=== PATIENT | male | born 1960 | race Caucasian/White ===

== ENCOUNTER 2016-09-22 12:47 | Day surgery (SDC) | payer OTHER ==
[~2016-09-22 12:47] MED LIST: ADVA45AE INH; ALBU17I INH; BACL20TA PO; BUSP10 PO; CALC1TAB63 PO; CYCL5TAB PO; DOXA4TAB PO; DULC5TAB PO; GABA400C5 PO; HYDR200T3 PO; MAGN1SOL2 PO; METO10TA PO; MIRA33502 PO; MOBI7.5T PO; MULTTAB67 PO; OMEP40CA2 PO; PERC10TA26 PO; POLY119S PO; SENN8.6T81 PO; SPIR50TA PO; TAMS0.4C4 PO; TIZA4TAB PO; TRAM50TA PO; VENL75TA PO; VITA400C2 PO; ZOLP10TA3 PO; [UNRECOGNIZED DRUG - CODE] PR
[2016-09-22 13:25] VITALS: BP 155/92; PULSE 100; RESP 20; TEMP 98; O2SAT 100
--- NOTE | 2016-09-22 14:45 | RADRPT ---
EXAM DATE/TIME: 09/22/2016 13:21 [facility] COMPARISON: No previous studies available for comparison. INDICATIONS : Intra-abdominal swelling. MEDICAL HISTORY : Chronic obstructive pulmonary disease. Rheumatoid arthritis. Spinal cord injury. Raynaud's disease. scleroderma. gerd. etoh abuse. depression. SURGICAL HISTORY : Bilateral cataract surgery. L4-5 laminectomy. Right rotator cuff repair. Anterior cervical fusion. Ri ght hand ulcer surgery. Facetectomy and formamenotomy. C3-6 ACDF. Saphenous vein ablation. ENCOUNTER: Initial ACUITY: > 1 year PAIN SCORE: 0/10 LOCATION: Abdomen. AREA EVALUATED: Quadrants. FINDINGS: Imaging of the abdomen and pelvis was performed to evaluate for ascites for possible paracentesis. N o significant ascites is identified and therefore paracentesis was not performed. Cholelithiasis is n oted. CONCLUSION: 1. No ascites identified and therefore paracentesis was not performed. 2. Cholelithiasis. Cole Ojeda MD on September 22, 2016 at 14:42 Board Certified Radiologist. This report was verified electronically.
[2016-09-28] MEDS ORDERED: ACET-703 PO (10:54)
[2016-09-28] MEDS ORDERED: PERC5TAB12 PO (10:54)
[2016-09-28] MEDS ORDERED: BUPR100CR PO (10:54)
[2016-09-28] MEDS ORDERED: MISO200T PO (10:54)
[2016-09-28] MEDS ORDERED: MIRA33504 PO (10:54)
[2016-09-28] MEDS ORDERED: TAMS5CAP PO (10:54)
[2016-09-28] MEDS ORDERED: DULC100C PO (10:54)
[2016-09-28] MEDS ORDERED: BUSP15TA PO (10:54)
[2016-09-28] MEDS ORDERED: MONT10TA4 PO (10:54)
[2016-09-29] MEDS ORDERED: TIOT1AER2 INH (06:59)
[2016-09-29] MEDS ORDERED: MIRA33504 PO (06:59)
== END 2016-09-22 15:00 | disposition home or self-care (01) ==
LOC: HRAD 12:47 → HRIP 12:55 → HRAD 15:00
PROVIDERS: ATTEND Surgery Trauma Surgery
DX: R19.00 Intra-abdominal and pelvic swelling, mass and lump, unspecified site (principal)
CPT/HCPCS: 76705

== ENCOUNTER → 2016-09-29 | Day surgery (SDC) | payer OTHER ==
[~2016-09-29] VITALS: Ht 177.8 cm; Wt 102.3 kg
[~2016-09-29] MED LIST changes: +ACET-703 PO; +ACETAMINOPHEN 1000 MG/100 ML VIAL IV ONE; -ADVA45AE INH; -ALBU17I INH; +BUPIVACAINE/EPINEPHRINE 0.25% 50 ML VIAL ONE; +BUPR100CR PO; -BUSP10 PO; +BUSP15TA PO; +CHLORHEXIDINE GLUCONATE 2 % 1 PACK (2 CLOTHS) TOPICAL PRN; -CYCL5TAB PO; -DOXA4TAB PO; +DULC100C PO; -DULC5TAB PO; -HYDR200T3 PO; +INSULIN HUMAN REGULAR 1,000 UNITS/10 ML VIAL SQ PRN; +KETAMINE HCL 500 MG/5 ML VIAL ONE; +LACTATED RINGER'S 1000 ML IV PRN; +LIDOCAINE 1%/EPINEPHrine 1:100,000 SOLN 50 ML VIAL ONE; -MAGN1SOL2 PO; +METOPROLOL TARTRATE 25 MG TAB PO PRN; +MIDAZOLAM HCL 2 MG/2 ML VIAL ONE; -MIRA33502 PO; +MIRA33504 PO; +MISO200T PO; +MONT10TA4 PO; +NEOMYCIN/POLYMYXIN/BACITRACIN OINT 15 GM TUBE ONE; -PERC10TA26 PO; +PERC5TAB12 PO; -POLY119S PO; +POVIDONE IODINE 5% (ANTISEPSIS KIT) 4 APPLICATIONS EACH NARE PRN; +PROPOFOL 200 MG/20 ML AMP IV ONE; +SODIUM BICARBONATE 8.4% INJ 50 MEQ/50 ML SYR ONE; +SODIUM BICARBONATE 8.4% INJ 50 ML ONE; +SODIUM CHLORID 0.9% 500 ML IV PRN; +SODIUM CHLORIDE 0.9% INJ 100 ML ONE; -TAMS0.4C4 PO; +TAMS5CAP PO; +TIOT1AER2 INH; -TIZA4TAB PO; -TRAM50TA PO; -[UNRECOGNIZED DRUG - CODE] PR; +ceFAZolin INJ 1,000 MG VIAL ONE
[2016-09-29 07:05] VITALS: BP 134/94; PULSE 87; RESP 16; TEMP 97.7; O2SAT 97
--- NOTE | 2016-09-29 09:36 | HHI.PR ---
cc: Juan Lange MD Immediate Post Op Note Procedure Date: Sep 29, 2016 Pre Op Diagnosis: Xanthoma abdominal wall, increasing size Post Op Diagnosis: Same Surgeon: Juan Lange Block Sealer(s): Jonas Okeefe CFA Procedure: Wide excision right abdominal wall xanthoma Complications: None Specimen(s) removed: Right side abdominal wall mass 2 x 2 cm Estimated blood loss: <10 ml Anesthesia: General Drains: None IVF (600 ml) Patient to: SDS Patient Condition: Good Date/Time of Procedure: SEE SURGICAL CARE RECORD Juan Lange MD Sep 29, 2016 09:36
[2016-09-29 09:56] VITALS: BP 137/88; PULSE 87; RESP 18; TEMP 96.9; O2SAT 97
--- NOTE | 2016-09-29 16:50 | EKG ---
Date Performed: 09/29/2016 Time Performed: 06:54:28 PTAGE: 56 years EKG: Sinus rhythm WITH SINUS ARRHYTHMIA NORMAL ECG Compared to prior tracing no significant change PREVIOUS TRACING : 06/28/2012 08.09 DOCTOR: Amada Beverly Interpretating Date/Time 09/29/2016 16:49:16
--- NOTE | 2016-10-03 18:52 | MP ---
cc: JOVANY BADILLO,JUAN KUMAR,LOR Parisi D.O. DATE OF SURGERY: 09/29/2016 PROCEDURE Excision of xanthoma right upper abdomen 2 x 2 cm PREOPERATIVE DIAGNOSIS Xanthoma by shave biopsy. POSTOPERATIVE DIAGNOSIS Xanthoma by shave biopsy. ANESTHESIA TIVA. SURGEON Robby Lange MD. ESTIMATED BLOOD LOSS Less than 10 mL FLUIDS: 600 mL Crystalloid BUS GREASER: Shakila Lancaster CFA. COMPLICATIONS None. DRAINS: None. SPECIMEN Xanthoma with associated skin and subcutaneous tissue to pathology. PROCEDURE IN DETAIL The area in question was marked by the undersigned and confirmed by the patient in the holding area. He was then taken to the operating room and placed on the operating room table in the supine position. After an adequate level of IV anesthesia was achieved the abdomen was prepped and draped in the usual fashion. Time-out was taken confirming the correct patient, site and procedure to be performed. Skin and subcutaneous tissue was infiltrated with local anesthetic and an elliptical longitudinal incision was made around the lesion. Dissection was carried down through the subcutaneous tissue to the fascia. The lesion was peeled off of the anterior abdominal wall including the subcutaneous tissue very easily. When this was completed the specimen was oriented with silk suture and passed off the table. At least 1-1/2 to 2 cm margin was taken all the way around the specimen at the time of the specimen being in situ. When this had been completed all bleeding was meticulously controlled with electrocautery and small skin flaps were created. The wound was then able to be reapproximated with interrupted 2-0 Vicryl suture and the skin reinforced with 2-0 Prolene in a simple interrupted fashion externally. The wound was dressed with Neosporin, 4x4s were applied over this, and Medipore tape was used to secure the 4x4s. The patient was taken back to his room in stable condition. Sponge, needle and instrument counts were reported be correct. Juan Lange MD [facility] /4:43 PM /6:37 PM
== END | disposition home or self-care (01) ==
LOC: HSDC 06:05
PROVIDERS: ATTEND Surgery Trauma Surgery
DX: D48.5 Neoplasm of uncertain behavior of skin (principal); E75.5 Other lipid storage disorders; M33.10 Other dermatomyositis, organ involvement unspecified; I73.00 Raynaud's syndrome without gangrene; J44.9 Chronic obstructive pulmonary disease, unspecified; M48.06 Spinal stenosis, lumbar region
CPT/HCPCS: 00730; 22901; 88305; 93005; J0131; J0690; J2250; J7120; 88307

== ENCOUNTER 2017-06-09 19:05 | Inpatient (IN) | payer OTHER, MEDICARE ==
[~2017-06-09] VITALS: Ht 177.8 cm; Wt 101.1 kg
[~2017-06-09 19:05] MED LIST changes: -ACET-703 PO; -ACETAMINOPHEN 1000 MG/100 ML VIAL IV ONE; -BUPIVACAINE/EPINEPHRINE 0.25% 50 ML VIAL ONE; -CHLORHEXIDINE GLUCONATE 2 % 1 PACK (2 CLOTHS) TOPICAL PRN; +CYTO200T PO; +DOXA4TAB3 PO; -INSULIN HUMAN REGULAR 1,000 UNITS/10 ML VIAL SQ PRN; -KETAMINE HCL 500 MG/5 ML VIAL ONE; -LACTATED RINGER'S 1000 ML IV PRN; -LIDOCAINE 1%/EPINEPHrine 1:100,000 SOLN 50 ML VIAL ONE; -METOPROLOL TARTRATE 25 MG TAB PO PRN; -MIDAZOLAM HCL 2 MG/2 ML VIAL ONE; +MIRA3350 PO; -MIRA33504 PO; -MISO200T PO; +MONT10TA2 PO; -NEOMYCIN/POLYMYXIN/BACITRACIN OINT 15 GM TUBE ONE; -POVIDONE IODINE 5% (ANTISEPSIS KIT) 4 APPLICATIONS EACH NARE PRN; -PROPOFOL 200 MG/20 ML AMP IV ONE; -SENN8.6T81 PO; +SENO8.6T5 PO; -SODIUM BICARBONATE 8.4% INJ 50 MEQ/50 ML SYR ONE; -SODIUM BICARBONATE 8.4% INJ 50 ML ONE; -SODIUM CHLORID 0.9% 500 ML IV PRN; -SODIUM CHLORIDE 0.9% INJ 100 ML ONE; -VITA400C2 PO; -ceFAZolin INJ 1,000 MG VIAL ONE
[2017-06-09 19:08] VITALS: BP 136/93; PULSE 118; RESP 24; TEMP 98; O2SAT 95
[2017-06-09] MEDS ORDERED: ALBU0.63 NEB (19:40)
[2017-06-09] MEDS ORDERED: RESP: ALBUTEROL 2.5 MG/IPRATROPIUM 0.5 MG NEB (SCH) INH ONE (19:45)
[2017-06-09] MEDS ORDERED: SODIUM CHLORIDE 0.9% FLUSH 10 ML FLUSH IVF PRN (19:45)
[2017-06-09 19:51] VITALS: O2SAT 93
--- NOTE | 2017-06-09 19:51 | PD ---
HPI Chief Complaint: Respiratory Symptoms Time Seen by Provider: 19:39 Travel History International Travel<30 days: No Contact w/Intl Traveler<30days: No Traveled to known affect area: No History of Present Illness HPI 57-year-old male presents to the emergency department by private transportation for complaint of one week of progressively worsening shortness of breath at rest on exertion without orthopnea. Patient's had no fever but has had productive cough of thick yellow sputum. Patient has history of COPD. Patient is not on supplemental oxygen. 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 Patient is able to ambulate with assistance of walker/cane, patient also has history of scleroderma, Raynaud's rheumatoid arthritis, and hypertension. Patient denies any known cardiac disease, denies CAD CHF, dyslipidemia, or diabetes. Positive tobacco use and alcohol use. Patient is currently not on steroid therapy. Patient has used home inhalers and nebulized treatments without symptomatic relief. Patient denies chest pain or pleuritic chest pain or chest wall pain. Patient has had no fever or chills. No recent long distance travel protracted bedrest or surgical procedure. Patient has chronic bilateral lower extremity lower leg and pedal edema that has not increased or worsened and has no associated lower extremity pain. Patient's had no recent injury or fall. Patient did have influenza vaccine this fall. Patient reports "I feel dehydrated", reports poor oral intake of fluids. PFSH Past Medical History Narrative Medical Rheumatoid arthritis scleroderma Raynaud's COPD GERD diaphragm partial paralysis neck injury with sequela spinal stenosis hypertension dental extraction abdominal wall mass excision-benign tobacco use alcohol use; nursing notes reviewed Arthritis: Yes (RA) Autoimmune Disease: Yes (REYNAUODS DISEASE) Depression: Yes Cancer: No Cardiovascular Problems: No COPD: Yes Diabetes: No Diminished Hearing: No Endocrine: No Gastrointestinal Disorders: Yes (HEMMORHOIDS, DIVERTICOLOSIS) Glaucoma: No Hepatitis: No Hiatal Hernia: No Hypertension: Yes Immune Disorder: Yes (SCLERDERMA) Medical other: Yes (raynauds, PARTIAL PARALYSIS OF DIAPHRAGM, BOWEL AND BLADDER ) Musculoskeletal: Yes (R ROTATOR CUFF PAIN, SPINAL STENOSIS, OA) Neurologic: Yes (RA) Psychiatric: Yes (DEPRESSION, CLAUSTOPHOBIA) Respiratory: Yes Thyroid Disease: No Tetanus Vaccination: > 5 Years Influenza Vaccination: Yes Past Surgical History Abdominal Surgery: No Body Medical Devices: N/A Cardiac Surgery: No Ear Surgery: No Eye Surgery: Yes (right eye CATARACT X 2 ) Genitourinary Surgery: No Gynecologic Surgery: No Joint Replacement: No Neurologic Surgery: Yes Oral Surgery: Yes (TEETH EXTRACTIONS) Pacemaker: No Thoracic Surgery: No Other Surgery: Yes (RIGHT HAND, PENILE SURGERY FOR REMOVAL OF WARTS) Social History Alcohol Use: Yes (daily beer six pack) Tobacco Use: Yes (1ppd) Substance Use: No Allergies-Medications (Allergen,Severity, Reaction): Coded Allergies: mupirocin (Unverified Adverse Reaction, Severe, ERYTHEMA, 06/09/17) ERYTHEMA *MDRO Multi-Drug Resistant Organism (Verified Adverse Reaction, Unknown, 06/09/17) MRSA (wound)-08/06/07 Uncoded Allergies: Colored Coban and Iodoform Gauze (Allergy, Severe, 10/24/11) GENTAMICIN CREAM (Allergy, Severe, REDNESS, PAIN,SWELLING, 10/24/11) altabax (Adverse Reaction, Severe, pain on application, 04/28/08) Reported Meds & Prescriptions Reported Meds & Active Scripts Active Reported Albuterol Neb (Albuterol Sulfate) 0.63 Mg/3 Ml Neb 0.63 Mg NEB Q4HR NEB PRN Dulcolax Stool Softener (Docusate Sodium) 100 Mg Cap 100 Mg PO BID Senokot (Sennosides) 8.6 Mg Tab 8.6 Mg PO BID Miralax Powder (Polyethylene Glycol 3350 Powder) 17 Gm Powd 17 Gm PO DAILY Mix and dissolve one measuring cap-ful (17 grams) in water or juice. Cytotec (Misoprostol) 200 Mcg Tab 200 Mcg PO TID Doxazosin (Doxazosin Mesylate) 4 Mg Tab 4 Mg PO DAILY Spiriva Respimat Inh (Tiotropium Inh) 1.25 Mcg/Act Aero 1 Puff INH DAILY 1.25 mcg = 1 inhalation Dulcolax Stool Softener (Docusate Sodium) 100 Mg Cap 100 Mg PO BID Wellbutrin SR 12 HR (Bupropion HCl) 100 Mg Tab 100 Mg PO Q12HR Buspirone (Buspirone HCl) 15 Mg Tab 15 Mg PO BID Percocet (Oxycodone-Acetaminophen) 5-325 mg Tab 2 Tab PO TID PRN Montelukast (Montelukast Sodium) 10 Mg Tab 10 Mg PO BID Flomax (Tamsulosin HCl) 0.4 Mg Cap 0.4 Mg PO HS Baclofen 20 Mg Tab 20 Mg PO BID Calcium 600+D3 (Calcium Carbonate-Cholecalciferol) 1 Tab Tab 1 Tab PO DAILY Gabapentin 400 Mg Cap 600 Cap PO TID Mobic (Meloxicam) 7.5 Mg Tab 7.5 Mg PO DAILY Metoclopramide (Metoclopramide HCl) 10 Mg Tab 10 Mg PO BID Multiple Vitamin 1 Tab 1 Tab PO DAILY Omeprazole 40 Mg Cap 40 Mg PO DAILY Spironolactone 50 Mg Tab 50 Mg PO DAILY Effexor (Venlafaxine HCl) 75 Mg Tab 75 Mg PO TID Zolpidem (Zolpidem Tartrate) 10 Mg Tab 10 Mg PO HS Review of Systems Except as stated in HPI: all other systems reviewed are Neg General / Constitutional: No: Fever, Chills HENT: No: Congestion Cardiovascular: No: Chest Pain or Discomfort, Diaphoresis Respiratory: Positive: Cough, Shortness of Breath, Wheezing, No: Hemoptysis, Pleuritic Pain Gastrointestinal: No: Nausea, Vomiting, Diarrhea, Abdominal Pain Genitourinary: Positive: Decreased Urinary Output Skin: No Rash Neurologic: Positive: Weakness Psychiatric: No: Anxiety Hematologic/Lymphatic: No: Easy Bruising Physical Exam Narrative GENERAL: Well-developed well-nourished disheveled male in mild respiratory distress with minimal work of breathing sitting on exam stretcher. SKIN: Warm and dry. HEAD: Normocephalic. EYES: No scleral icterus. No injection or drainage. NECK: Supple, trachea midline. No JVD or lymphadenopathy. CARDIOVASCULAR: Increased Regular rate and rhythm without murmurs, gallops, or rubs. RESPIRATORY: Breath sounds patchy diminished breath sounds bilaterally. No accessory muscle use. GASTROINTESTINAL: Abdomen soft, non-tender, nondistended. MUSCULOSKELETAL: No cyanosis, bilateral lower leg and pedal edema; palpable dorsalis pedis pulses bilaterally. BACK: Nontender without obvious deformity. No CVA tenderness. Data Data Last Documented VS Vital Signs Date Time Temp Pulse Resp B/P (MAP) Pulse Ox O2 Delivery O2 Flow Rate FiO2 06/09/17 20:12 93 Nasal Cannula 1.00 06/09/17 20:12 06/09/17 19:08 98.0 118 24 Orders Orders Complete Blood Count With Diff (06/09/17 19:41) Comprehensive Metabolic Panel (06/09/17 19:41) B-Type Natriuretic Peptide (06/09/17 19:41) Magnesium (Mg) (06/09/17 19:41) Ckmb (Isoenzyme) Profile (06/09/17 19:41) Troponin I (06/09/17 19:41) Urinalysis - C+S If Indicated (06/09/17 19:41) Blood Culture (06/09/17 19:41) Iv Access Insert/Monitor (06/09/17:41) Electrocardiogram (06/09/17 19:41) Ecg Monitoring (06/09/17 19:41) Oximetry (06/09/17 19:41) Oxygen Administration (06/09/17 19:41) Chest, Single Ap (06/09/17 19:41) Sodium Chloride 0.9% Flush (Ns Flush) (06/09/17 19:45) Albuterol-Ipratropium Neb (Duoneb Neb) (06/09/17 19:45) Lactic Acid (06/09/17 19:41) Furosemide Inj (Lasix Inj) (06/09/17 20:15) D-Dimer (06/09/17 22:02) Place In Observation (06/09/17 ) Vital Signs (Adult) Q4H (06/09/17 22:09) Activity Oob With Assistance (06/09/17 22:09) Bedside Glucose NA.CSUGAR (06/09/17 22:09) Sodium Chloride 0.9% Flush (Ns Flush) (06/09/17 22:15) Sodium Chloride 0.9% Flush (Ns Flush) (06/10/17 09:00) Acetaminophen (Tylenol) (06/09/17 22:15) Ondansetron Inj (Zofran Inj) (06/09/17 22:15) Basic Metabolic Panel (Bmp) (06/10/17 06:00) Complete Blood Count With Diff (06/10/17 06:00) Resp Oxygen Ricardo C Titrat 1-4 L (06/09/17 ) Case Management Consult (06/09/17 22:09) Heparin Inj (Heparin Inj) (06/09/17 22:15) Naloxone Inj (Narcan Inj) (06/09/17 22:15) Docusate Sodium-Senna (Jasmine-Colace) (06/10/17 09:00) Magnesium Hydroxide Liq (Milk Of Magnesi (06/09/17 22:15) Sennosides (Senokot) (06/09/17 22:15) Bisacodyl Supp (Dulcolax Supp) (06/09/17 22:15) Lactulose Liq (Lactulose Liq) (06/09/17 22:15) Furosemide Inj (Lasix Inj) (06/10/17 09:00) Albuterol-Ipratropium Neb (Duoneb Neb) (06/09/17 22:15) Admit Order (Ed Use Only) (06/09/17 ) Supervisor Glycerin / Telemetry NA.Q8H (06/09/17 22:13) Diet Heart Healthy (06/10/17 Breakfast) Activity Oob With Assistance (06/09/17 22:13) Notify Dr: Other (06/09/17 22:13) Ceftriaxone Inj (Rocephin Inj) (06/09/17 22:15) Methylprednisolone So Succ Inj (Solumedr (06/09/17 22:15) Labs Laboratory Tests Test 06/09/17 20:00 06/09/17 20:06 White Blood Count 7.8 TH/MM3 Red Blood Count 4.97 MIL/MM3 Hemoglobin 14.1 GM/DL Hematocrit 42.5 % Mean Corpuscular Volume 85.5 FL Mean Corpuscular Hemoglobin 28.4 PG Mean Corpuscular Hemoglobin Concent 33.2 % Red Cell Distribution Width 13.6 % Platelet Count 240 TH/MM3 Mean Platelet Volume 7.3 FL Neutrophils (%) (Auto) 78.0 % Lymphocytes (%) (Auto) 9.2 % Monocytes (%) (Auto) 11.2 % Eosinophils (%) (Auto) 1.0 % Basophils (%) (Auto) 0.6 % Neutrophils # (Auto) 6.1 TH/MM3 Lymphocytes # (Auto) 0.7 TH/MM3 Monocytes # (Auto) 0.9 TH/MM3 Eosinophils # (Auto) 0.1 TH/MM3 Basophils # (Auto) 0.0 TH/MM3 CBC Comment DIFF FINAL Differential Comment Blood Urea Nitrogen 5 MG/DL Creatinine 0.85 MG/DL Random Glucose 123 MG/DL Total Protein 8.3 GM/DL Albumin 3.4 GM/DL Calcium Level 8.8 MG/DL Magnesium Level 1.8 MG/DL Alkaline Phosphatase 183 U/L Aspartate Amino Transf (AST/SGOT) 20 U/L Alanine Aminotransferase (ALT/SGPT) 20 U/L Total Bilirubin 0.3 MG/DL Sodium Level 133 MEQ/L Potassium Level 4.3 MEQ/L Chloride Level 99 MEQ/L Carbon Dioxide Level 26.9 MEQ/L Anion Gap 7 MEQ/L Estimat Glomerular Filtration Rate 94 ML/MIN Total Creatine Kinase 99 U/L Troponin I 0.03 NG/ML B-Type Natriuretic Peptide 15 PG/ML Lactic Acid Level 1.1 mmol/L [facility] Medical Decision Making Medical Screen Exam Complete: Yes Emergency Medical Condition: Yes Medical Record Reviewed: Yes Interpretation(s) EKG: Sinus tachycardia rate [address] elevation injury pattern or ectopy noted cxr: Large left pleural effusion small right pleural effusion with scarring question infiltrate vascular congestion Differential Diagnosis Dyspnea, exacerbation COPD, bronchitis, pneumonia, CHF, PE, pneumonitis, ACS, arrhythmia, anemia, renal insufficiency, electrolyte disturbance, sepsis Narrative Course Patient placed on cardiac technologist with continuous pulse oximetry IV access obtained EKG ordered along with specimen collection chest x-ray and patient given DuoNeb after off times one Sepsis Criteria SIRS Criteria (2 or more): Heart rate over 90 (118), RR > 20 or PaCO2 < 32 (24 ) Physician Communication Physician Communication discussed with Dr Veena maria obs to her service Diagnosis Primary Impression: Dyspnea Additional Impressions: COPD (chronic obstructive pulmonary disease) CHF (congestive heart failure) Pleural effusion Bronchitis Jacqui Barnes MD Jun 09, 2017 19:51
--- NOTE | 2017-06-09 20:10 | RADRPT ---
EXAM DATE/TIME: 06/09/2017 19:52 [facility] COMPARISON: No previous studies available for comparison. INDICATIONS : Shortness of breath. MEDICAL HISTORY : Chronic obstructive pulmonary disease. Arthritis. Raynauds disease. SURGICAL HISTORY : Cervical fusion. Laminectomy. ENCOUNTER: Initial ACUITY: 2 days PAIN SCORE: 0/10 LOCATION: Bilateral chest FINDINGS: A single view of the chest demonstrates bilateral pleural effusions, left greater than right. Cardiom egaly. No pneumothorax. Mild edema pattern. CONCLUSION: 1. Cardiomegaly with bilateral effusions, left greater than right and mild edema pattern. Findings mo st characteristic of congestive heart failure. Oliverio Oneal MD on June 09, 2017 at 20:08 Board Certified Radiologist. This report was verified electronically.
[2017-06-09 20:12] VITALS: O2SAT 93
[2017-06-09] MEDS ORDERED: FUROSEMIDE 40 MG/4 ML VIAL IV PUSH ONE (20:15)
[2017-06-09 20:58] LABS: AUTOMATED NEUTROPHIL # 6.1 TH/MM3 (1.8-7.7); BASOPHIL % 0.6 % (0.0-2.0); EOSINOPHIL # 0.1 TH/MM3 (0-0.4); HEMATOCRIT 42.5 % (39.0-51.0); HEMO FLAGS DIFF FINAL; LYMPH % 9.2 % (9.0-44.0); LYMPHOCYTE # 0.7 TH/MM3 (1.0-4.8); MEAN CELL VOLUME 85.5 FL (80.0-100.0); MEAN CORPUSCULAR HEMOGLOBIN 28.4 PG (27.0-34.0); MEAN CORPUSCULAR HGB CONC 33.2 % (32.0-36.0); MONO % 11.2 % (0.0-8.0); PLATELET COUNT 240 TH/MM3 (150-450); RED BLOOD COUNT 4.97 MIL/MM3 (4.50-5.90); RED CELL DISTRIBUTION WIDTH 13.6 % (11.6-17.2); WHITE BLOOD COUNT 7.8 TH/MM3 (4.0-11.0)
[2017-06-09 21:12] LABS: ALT (GPT) 20 U/L (12-78)
[2017-06-09 21:16] LABS: ALKALINE PHOSPHATASE 183 U/L (45-117); TOTAL BILIRUBIN ADULT 0.3 MG/DL (0.2-1.0)
[2017-06-09 21:23] LABS: ANION GAP 7 MEQ/L (5-15); AST (GOT) 20 U/L (15-37); BICARBONATE 26.9 MEQ/L (21.0-32.0); BLOOD UREA NITROGEN 5 MG/DL (7-18); CHLORIDE 99 MEQ/L (98-107); GLOMERULAR FILTRATION RATE 94 ML/MIN (>89); MAGNESIUM 1.8 MG/DL (1.5-2.5); POTASSIUM 4.3 MEQ/L (3.5-5.1); SODIUM (NA) 133 MEQ/L (136-145)
[2017-06-09 21:25] LABS: CREATINE KINASE 99 U/L (39-308)
[2017-06-09] MEDS ORDERED: methylPREDNISolone SOD SUCC 125 MG/2 ML VIAL IV PUSH ONE (22:15)
[2017-06-09] MEDS ORDERED: SODIUM CHLORIDE 0.9% FLUSH 10 ML FLUSH IV FLUSH PRN (22:15)
[2017-06-09] MEDS ORDERED: RESP: ALBUTEROL 2.5 MG/IPRATROPIUM 0.5 MG NEB (PRN) NEB (22:15)
[2017-06-09] MEDS ORDERED: BISACODYL 10 MG SUPP RECTAL PRN (22:15)
[2017-06-09] MEDS ORDERED: ONDANSETRON HCL 4 MG/2 ML VIAL IVP PRN (22:15)
[2017-06-09] MEDS ORDERED: ACETAMINOPHEN 325 MG TAB PO PRN (22:15)
[2017-06-09] MEDS ORDERED: LACTULOSE SYRUP 20 GM/30 ML CUP PO PRN (22:15)
[2017-06-09] MEDS ORDERED: SENNOSIDES 8.6 MG TAB PO PRN (22:15)
[2017-06-09] MEDS ORDERED: NALOXONE HCL 0.4 MG/ML AMP IV PUSH PRN (22:15)
[2017-06-09] MEDS ORDERED: MAGNESIUM HYDROXIDE SUSP 30 ML CUP PO PRN (22:15)
[2017-06-09] MEDS ORDERED: cefTRIAXone INJ 1,000 MG in SODIUM CHLORIDE 0.9% INJ 100 ML IV ONE (22:15)
[2017-06-09] MEDS: HEPARIN SODIUM - SQ 10,000 UNITS/ML VIAL SQ SCH (23:00)
[2017-06-09 23:20] LABS: BLOOD, URINE NEG (NEG); COMMENT (UR) CULT NOT INDICATED; CULTURE IF INDICATED CULT NOT INDICATED; GLUCOSE,URINE NEG (NEG); KETONE, URINE TRACE mg/dL (NEG); NITRITE,URINE NEG (NEG); URINE COLOR YELLOW (YELLW/STRAW)
[2017-06-09] MEDS ORDERED: ZOLPIDEM TARTRATE 10 MG TAB PO PRN (23:45)
[2017-06-09 23:59] VITALS: BP 168/84; PULSE 87; RESP 18; TEMP 98.1; O2SAT 98
[2017-06-10] VITALS (12 sets, daily range): BP systolic 111–142; BP diastolic 63–92; PULSE 65–122; RESP 18; TEMP 97.4–98.7; O2SAT 93–100
[2017-06-10 02:42] LABS: BLOOD GAS BASE EXCESS 4.7 mmol/L (-2-2); BLOOD GAS CARBOXYHEMOGLOBIN 1.3 % (0-4); BLOOD GAS HCO3 29 mmol/L (22-26); BLOOD GAS METHEMOGLOBIN 0.7 % (0-2); BLOOD GAS O2 HGB SATURATION 95 % (90-100); BLOOD GAS PCO2 46 mmHg (38-42); BLOOD GAS PO2 88 mmHG (61-120); BLOOD GAS TOTAL HGB 13.5 G/DL (12.0-16.0)
[2017-06-10 02:43] LABS: CRITICAL VALUE NO; DRAW SITE RT RADIAL; LITER FLOW 4 L/M; NUMBER OF ARTERIAL PUNCTURES 1; OXYGEN DEVICE NASAL CANNULA; STAT YES; ULNAR PULSE PRESENT
--- NOTE | 2017-06-10 03:05 | HHI.HP ---
[facility] Primary Care Physician Non-Staff Admission Diagnosis dyspnea w/ copd; chf Diagnoses: Travel History International Travel<30 Days: No Contact w/Intl Traveler <30 Da: No Traveled to Known Affected Are: No History of Present Illness 57-year-old male with a past medical history significant for COPD not on home oxygen, GERD and peripheral vascular disease presents to the emergency department with shortness of breath. The patient is an extremely poor historian however reports that for the past week he has been short of breath. He endorses a nonproductive cough. He denies fever/chills. Chest x-ray significant for cardiomegaly with bilateral effusions, left greater than right and mild edema. Patient has no previous history of CHF, last echo done in 2011 showed an EF of 60-65%. BNP 15. Patient tachypneic with labored breathing. Oxygen saturation 93% on 1 L nasal cannula. Tachypneic to 118. Review of Systems Denies fever or chills Denies blurry vision, otorrhea, rhinorrhea Denies sore throat, positive cough No chest pain, palpitations, positive shortness of breath No abdominal pain Denies constipation/diarrhea/nausea/vomiting Denies muscle pain/weakness No rashes Past Family Social History Past Medical History (Obtained from medical records) GERD Osteoarthritis Degenerative disc disease BPH Depression COPD Peripheral vascular disease Peripheral neuropathy Chronic pain Past Surgical History Unspecified right hand surgery Right cataract surgery Saphenous vein ablation bilaterally Cervical fusion Reported Medications Reported Meds & Active Scripts Active Reported Albuterol Neb (Albuterol Sulfate) 0.63 Mg/3 Ml Neb 0.63 Mg NEB Q4HR NEB PRN Dulcolax Stool Softener (Docusate Sodium) 100 Mg Cap 100 Mg PO BID Senokot (Sennosides) 8.6 Mg Tab 8.6 Mg PO BID Miralax Powder (Polyethylene Glycol 3350 Powder) 17 Gm Powd 17 Gm PO DAILY Mix and dissolve one measuring cap-ful (17 grams) in water or juice. Cytotec (Misoprostol) 200 Mcg Tab 200 Mcg PO TID Doxazosin (Doxazosin Mesylate) 4 Mg Tab 4 Mg PO DAILY Spiriva Respimat Inh (Tiotropium Inh) 1.25 Mcg/Act Aero 1 Puff INH DAILY 1.25 mcg = 1 inhalation Dulcolax Stool Softener (Docusate Sodium) 100 Mg Cap 100 Mg PO BID Wellbutrin SR 12 HR (Bupropion HCl) 100 Mg Tab 100 Mg PO Q12HR Buspirone (Buspirone HCl) 15 Mg Tab 15 Mg PO BID Percocet (Oxycodone-Acetaminophen) 5-325 mg Tab 2 Tab PO TID PRN Montelukast (Montelukast Sodium) 10 Mg Tab 10 Mg PO BID Flomax (Tamsulosin HCl) 0.4 Mg Cap 0.4 Mg PO HS Baclofen 20 Mg Tab 20 Mg PO BID Calcium 600+D3 (Calcium Carbonate-Cholecalciferol) 1 Tab Tab 1 Tab PO DAILY Gabapentin 400 Mg Cap 600 Cap PO TID Mobic (Meloxicam) 7.5 Mg Tab 7.5 Mg PO DAILY Metoclopramide (Metoclopramide HCl) 10 Mg Tab 10 Mg PO BID Multiple Vitamin 1 Tab 1 Tab PO DAILY Omeprazole 40 Mg Cap 40 Mg PO DAILY Spironolactone 50 Mg Tab 50 Mg PO DAILY Effexor (Venlafaxine HCl) 75 Mg Tab 75 Mg PO TID Zolpidem (Zolpidem Tartrate) 10 Mg Tab 10 Mg PO HS Allergies: Coded Allergies: mupirocin (Unverified Adverse Reaction, Severe, ERYTHEMA, 06/09/17) ERYTHEMA *MDRO Multi-Drug Resistant Organism (Verified Adverse Reaction, Unknown, 06/09/17) MRSA (wound)-08/06/07 Uncoded Allergies: Colored Coban and Iodoform Gauze (Allergy, Severe, 10/24/11) GENTAMICIN CREAM (Allergy, Severe, REDNESS, PAIN,SWELLING, 10/24/11) altabax (Adverse Reaction, Severe, pain on application, 04/28/08) Family History Father with coronary artery disease Social History Quit tobacco 11 months ago, smoked 1 pack per day 20 years. Quit alcohol 5 years ago. Denies marijuana or illicit drugs. Physical Exam Vital Signs Vital Signs Date Time Temp Pulse Resp B/P (MAP) Pulse Ox O2 Delivery O2 Flow Rate FiO2 06/10/17 01:20 116 06/09/17 23:59 98.1 87 18 168/84 (112) 98 06/09/17 23:01 06/09/17 20:12 93 Nasal Cannula 1.00 06/09/17 20:12 93 Nasal Cannula 06/09/17 19:51 93 21 06/09/17 19:08 98.0 118 24 136/93 (107) 95 Room Air Physical Exam GENERAL: male sitting up in bed in moderate distress SKIN: No rashes, ecchymoses or lesions. Cool and dry. HEAD: Atraumatic. Normocephalic. No temporal or scalp tenderness. EYES: Pupils equal round and reactive. Extraocular motions intact. No scleral icterus. No injection or drainage. ENT: Nose without bleeding, purulent drainage or septal hematoma. Throat without erythema, tonsillar hypertrophy or exudate. Uvula midline. Airway patent. NECK: Trachea midline. No JVD or lymphadenopathy. Supple, nontender, no meningeal signs. CARDIOVASCULAR: Regular rate and rhythm without murmurs, gallops, or rubs. RESPIRATORY: Diminished breath sounds bilaterally with crackles in the bases. GASTROINTESTINAL: Abdomen soft, non-tender, nondistended. No hepato-splenomegaly , or palpable masses. No guarding. MUSCULOSKELETAL: Extremities without clubbing, cyanosis, or edema. No joint tenderness, effusion, or edema noted. No calf tenderness. NEUROLOGICAL: Awake and alert. Cranial nerves II through XII intact. Motor and sensory grossly within normal limits. Normal speech. Laboratory Laboratory Tests Test 06/09/17 20:00 06/09/17 20:06 06/09/17 22:45 06/10/17 02:30 White Blood Count 7.8 Red Blood Count 4.97 Hemoglobin 14.1 Hematocrit 42.5 Mean Corpuscular Volume 85.5 Mean Corpuscular Hemoglobin 28.4 Mean Corpuscular Hemoglobin Concent 33.2 Red Cell Distribution Width 13.6 Platelet Count 240 Mean Platelet Volume 7.3 Neutrophils (%) (Auto) 78.0 Lymphocytes (%) (Auto) 9.2 Monocytes (%) (Auto) 11.2 Eosinophils (%) (Auto) 1.0 Basophils (%) (Auto) 0.6 Neutrophils # (Auto) 6.1 Lymphocytes # (Auto) 0.7 Monocytes # (Auto) 0.9 Eosinophils # (Auto) 0.1 Basophils # (Auto) 0.0 CBC Comment DIFF FINAL Differential Comment Blood Urea Nitrogen 5 Creatinine 0.85 Random Glucose 123 Total Protein 8.3 Albumin 3.4 Calcium Level 8.8 Magnesium Level 1.8 Alkaline Phosphatase 183 Aspartate Amino Transf (AST/SGOT) 20 Alanine Aminotransferase (ALT/SGPT) 20 Total Bilirubin 0.3 Sodium Level 133 Potassium Level 4.3 Chloride Level 99 Carbon Dioxide Level 26.9 Anion Gap 7 Estimat Glomerular Filtration Rate 94 Total Creatine Kinase 99 Troponin I 0.03 B-Type Natriuretic Peptide 15 Lactic Acid Level 1.1 Urine Color YELLOW Urine Turbidity CLEAR Urine pH 6.0 Urine Specific [place] 1.007 Urine Protein NEG Urine Glucose (UA) NEG Urine Ketones TRACE Urine Occult Blood NEG Urine Nitrite NEG Urine Bilirubin NEG Urine Urobilinogen LESS THAN 2.0 Urine Leukocyte Esterase NEG Urine RBC 2 Urine WBC LESS THAN 1 Microscopic Urinalysis Comment CULT NOT INDICATED Blood Gas Puncture Site RT RADIAL Blood Gas Patient Temperature 37.0 Blood Gas HCO3 29 Blood Gas Base Excess 4.7 Blood Gas Oxygen Saturation 95 Arterial Blood pH 7.42 Arterial Blood Partial Pressure CO2 46 Arterial Blood Partial Pressure O2 88 Arterial Blood Oxygen Content 18.0 Arterial Blood Carboxyhemoglobin 1.3 Arterial Blood Methemoglobin 0.7 Blood Gas Hemoglobin 13.5 Oxygen Delivery Device NASAL CANNULA Blood Gas Liter Flow 4 Date/Time Source Procedure Growth Status 06/09/17 20:00 Blood Peripheral Aerobic Blood Culture Pending Received 06/09/17 20:00 Blood Peripheral Anaerobic Blood Culture Pending Received Result Diagram: 06/09/17199906/09/171999 Caprini VTE Risk Assessment Caprini VTE Risk Assessment: Mod/High Risk (score >= 2) Caprini Risk Assessment Model Point Value = 1 Point Value = 2 Point Value = 3 Point Value = 5 Age 41-60 Minor surgery BMI > 25 kg/m2 Swollen legs Varicose veins or History of unexplained or recurrent spontaneous Oral contraceptives or hormone replacement Sepsis (< 1 month) Serious lung disease, including pneumonia (< 1 month) Abnormal pulmonary function Acute myocardial infarction Congestive heart failure (< 1 month) History of inflammatory bowel disease Medical patient at bed rest Age 61-74 Arthroscopic surgery Major open surgery (> 45 min) Laparoscopic surgery (> 45 min) Malignancy Confined to bed (> 72 hours) Immobilizing plaster cast Central venous access Age >= 75 History of VTE Family history of VTE Factor V Leiden Prothrombin [id number] Lupus anticoagulant Anticardiolipin antibodies Elevated serum homocysteine Heparin-induced thrombocytopenia Other congenital or acquired thrombophilia Stroke (< 1 month) Elective arthroplasty Hip, pelvis, or leg fracture Acute spinal cord injury (< 1 month) Prophylaxis Regimen Total Risk Factor Score Risk Level Prophylaxis Regimen 0-1 Low Early ambulation 2 Moderate Order ONE of the following: *Sequential Compression Device (SCD) *Heparin 5000 units SQ BID 3-4 Higher Order ONE of the following medications: *Heparin 5000 units SQ TID *Enoxaparin/Lovenox 40 mg SQ daily (WT < 150 kg, CrCl > 30 mL/min) *Enoxaparin/Lovenox 30 mg SQ daily (WT < 150 kg, CrCl > 10-29 mL/min) *Enoxaparin/Lovenox 30 mg SQ BID (WT < 150 kg, CrCl > 30 mL/min) AND/OR *Sequential Compression Device (SCD) 5 or more Highest Order ONE of the following medications: *Heparin 5000 units SQ TID (Preferred with Epidurals) *Enoxaparin/Lovenox 40 mg SQ daily (WT < 150 kg, CrCl > 30 mL/min) *Enoxaparin/Lovenox 30 mg SQ daily (WT < 150 kg, CrCl > 10-29 mL/min) *Enoxaparin/Lovenox 30 mg SQ BID (WT < 150 kg, CrCl > 30 mL/min) AND *Sequential Compression Device (SCD) Assessment and Plan Assessment and Plan Assessment/plan: 1. Respiratory distress Patient with history of COPD, not on home oxygen Continue Spiriva Duo nebs Chest x-ray showed cardiomegaly, bilateral pleural effusions and pulmonary edema. Concern for new onset CHF. Echo pending IV Lasix Supplemental oxygen to maintain saturation at 92% 2. Chronic pain/peripheral neuropathy Continue home gabapentin, mobic 3. Depression/anxiety Continue BuSpar, Effexor 4. BPH Continue home doxazosin, Flomax 5. History of bilateral lower extremity edema Continue home spironolactone FEN Heart healthy Electrolytes: monitor and replete prn Heparin Case discussed with the ER physician at length Arielle Curiel MD Jun 10, 2017 03:05
[2017-06-10 05:14] LABS: BASOPHIL % 0.3 % (0.0-2.0); EOSINOPHIL % 0.1 % (0.0-4.0); HEMO FLAGS DIFF FINAL; LYMPH % 3.3 % (9.0-44.0); LYMPHOCYTE # 0.3 TH/MM3 (1.0-4.8); MEAN CELL VOLUME 84.8 FL (80.0-100.0); MEAN CORPUSCULAR HEMOGLOBIN 28.7 PG (27.0-34.0); MEAN CORPUSCULAR HGB CONC 33.9 % (32.0-36.0); MONO % 1.8 % (0.0-8.0); NEUT % 94.5 % (16.0-70.0); PLATELET COUNT 242 TH/MM3 (150-450); RED CELL DISTRIBUTION WIDTH 13.6 % (11.6-17.2); WHITE BLOOD COUNT 8.4 TH/MM3 (4.0-11.0)
[2017-06-10 05:40] LABS: BICARBONATE 27.8 MEQ/L (21.0-32.0); POTASSIUM 4.1 MEQ/L (3.5-5.1)
[2017-06-10] MEDS: HEPARIN SODIUM - SQ 10,000 UNITS/ML VIAL SQ SCH ×3 (06:09→20:13)
[2017-06-10] MEDS: SODIUM CHLORIDE 0.9% FLUSH 10 ML FLUSH IV FLUSH SCH ×2 (08:04→20:14)
[2017-06-10] MEDS: GABAPENTIN 300 MG CAP PO SCH ×3 (08:04→17:43)
[2017-06-10] MEDS: SPIRONOLACTONE 50 MG TAB PO SCH (08:04)
[2017-06-10] MEDS: VENLAFAXINE HCL XR 75 MG CAP PO SCH (08:04)
[2017-06-10] MEDS: FUROSEMIDE 40 MG/4 ML VIAL IV PUSH SCH ×2 (08:04→17:43)
[2017-06-10] MEDS: PANTOPRAZOLE SOD 40 MG DELAYED RELEASE TAB PO SCH (08:05)
[2017-06-10] MEDS: busPIRone HCL 10 MG TAB PO SCH ×2 (08:05→20:15)
[2017-06-10] MEDS: METOCLOPRAMIDE HCL 10 MG TAB PO SCH ×2 (08:05→20:14)
[2017-06-10] MEDS: DOXAZOSIN MESYLATE 4 MG TAB PO SCH (08:05)
[2017-06-10] MEDS: DOCUSATE SODIUM 50 MG/SENNA 8.6 MG TAB PO SCH ×2 (08:05→20:14)
[2017-06-10] MEDS ORDERED: TIOTROPIUM BROMIDE 18 MCG INH INH SCH (09:00)
[2017-06-10] MEDS ORDERED: NON-FORMULARY DRUG (Venlafaxine (Effexor) 75 MG) PO SCH (09:00)
[2017-06-10] MEDS: BACLOFEN 20 MG TAB PO SCH ×2 (10:38→20:14)
[2017-06-10] MEDS: MELOXICAM 7.5 MG TAB PO SCH (10:39)
[2017-06-10] MEDS: MISOPROSTOL 200 MCG TAB PO SCH ×3 (10:39→17:42)
[2017-06-10] MEDS: buPROPion HCL 100 MG SUSTAINED RELEASE TAB PO SCH ×2 (10:40→20:15)
--- NOTE | 2017-06-10 11:18 | HHI.PR ---
Addendum to Inpatient Note Addendum Reason: Additional Documentation Additional Information The patient was breathing comfortably. He endorses mucous production recently. D-dimer was elevated so a CTA pulmonary angiogram has been ordered. Add IV Levaquin and obtain a sputum culture and Gram stain. Encourage incentive spirometry and ambulation. Discussed with family. Juan Mai DO Jun 10, 2017 11:17
[2017-06-10] MEDS: LEVOFLOXACIN 750 MG PREMIX INJ 150 ML IV SCH (11:52)
[2017-06-10] MEDS: predniSONE 20 MG TAB PO SCH ×2 (11:52→20:14)
[2017-06-10] MEDS: oxyCODONE/ACETAMINOPHEN 5 MG/325 MG TAB PO PRN ×3 (11:52→22:29)
[2017-06-10] MEDS ORDERED: IOHEXOL 350 MG/ML 10 ML VIAL (for RAD DIAG) IVCONTRAST ONE (12:44)
--- NOTE | 2017-06-10 13:00 | RADRPT ---
EXAM DATE/TIME: 06/10/2017 12:31 [facility] COMPARISON: No previous studies available for comparison. INDICATIONS : Embolism, dyspnea. IV CONTRAST: 70 cc Omnipaque 350 (iohexol) IV RADIATION DOSE: 20.64 CTDIvol (mGy) MEDICAL HISTORY : Chronic obstructive pulmonary disease. Congestive heart failure. Spinal cord injury, raynards, ETOH a buse. SURGICAL HISTORY : lspine, c spine ENCOUNTER: Initial ACUITY: 1 day PAIN SCALE: 6/10 LOCATION: chest TECHNIQUE: Volumetric scanning of the chest was performed using a pulmonary embolism protocol MIP images were re constructed. Using automated exposure control and adjustment of the mA and/or kV according to patien t size, radiation dose was kept as low as reasonably achievable to obtain optimal diagnostic quality images. DICOM format image data is available electronically for review and comparison. Follow-up recommendations for detected pulmonary nodules are based at a minimum on nodule size and pa tient risk factors according to Fleischner Society Guidelines. FINDINGS: No pulmonary embolus is demonstrated. However, there is a left infrahilar mass and with associated de nse consolidation of the left lower lobe. Differentiating mass from the consolidated lung is difficul t but the mass is estimated at roughly 3.9 x 5.2 x 4.6 cm. There is associated left lower lobe bronch ial and pulmonary artery stenosis. Scattered pulmonary nodules are demonstrated on both sides measuring between 0.5 and 2.5 cm comp atible with metastatic disease. There are numerous mediastinal lymph nodes as well measuring up to 1 cm in greatest short axis dimension. An area of dense consolidation concerning for pneumonia seen in the right lower lobe. There are small right and large left pleural effusions. Adrenal glands are within normal limits. CONCLUSION: 1. No pulmonary embolus. 2. Large left infrahilar mass of concern for a central primary bronchogenic carcinoma. There is assoc iated post obstructive pneumonia of the left lower lobe. Left lower lobe bronchus and pulmonary arter y are obstructed. 3. Widespread pulmonary metastatic disease. Also probable metastatic mediastinal lymphadenopathy 4. Right lower lobe pneumonia. 5. Small right and large left pleural effusions. Roney Shore MD on June 10, 2017 at 12:51 Board Certified Radiologist. This report was verified electronically.
--- NOTE | 2017-06-10 13:16 | EKG ---
Date Performed: 06/09/2017 Time Performed: 20:10:32 PTAGE: 57 years EKG: SINUS TACHYCARDIA WITH SHORT DE INTERVAL ABNORMAL RHYTHM ECG PREVIOUS TRACING : 09/29/2016 06.54 Since previous tracing, heart rate is faster and DE interva l is somewhat shorter. DOCTOR: Reno Cloin Interpretating Date/Time 06/10/2017 13:14:27
--- NOTE | 2017-06-10 14:29 | ECHRPT ---
Indication: Shortness of breath CONCLUSIONS Technically difficult study The left ventricular systolic function is normal with an estimated ejection fraction in the range of 60-65%. Mild concentric left ventricular hypertrophy. Left pleural effusion noted. BP: 168 / 84 HR: 112 Rhythm: MEASUREMENTS (Male / Female) Normal Values Technical Quality:Technically difficult study 2D ECHO LV Diastolic Diameter PLAX 3.8 cm 4.2 - 5.9 / 3.9 - 5.3 cm LV Systolic Diameter PLAX 2.4 cm IVS Diastolic Thickness 1.4 cm 0.6 - 1.0 / 0.6 - 0.9 cm LVPW Diastolic Thickness 1.4 cm 0.6 - 1.0 / 0.6 - 0.9 cm LV Relative Wall Thickness 0.7 LVOT Diameter 2.0 cm LA Systolic Diameter LX 3.4 cm 3.0 - 4.0 / 2.7 - 3.8 cm M-MODE Aortic Root Diameter MM 4.0 cm AV Cusp Separation MM 2.4 cm FINDINGS LEFT VENTRICLE The left ventricular systolic function is normal with an estimated ejection fraction in the range of 60-65%. Normal left ventricular size. Mild concentric left ventricular hypertrophy. RIGHT VENTRICLE Not well visualized LEFT ATRIUM Grossly normal RIGHT ATRIUM Grossly normal ATRIAL SEPTUM The interatrial septum not well visualized. AORTA The aortic root and proximal ascending aorta are not well visualized. MITRAL VALVE Grossly normal, but not well visualized and characterized by AORTIC VALVE Not well visualized TRICUSPID VALVE Not well visualized PULMONARY VALVE Not well visualized PERICARDIUM Left pleural effusion noted Evangelista Pineda DO (Electronically Signed) Final Date:10 June 2017 14:28
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
[2017-06-10 16:22] LABS: APTT (PATIENT) 28.5 SEC (24.3-30.1); INTERNATIONAL NORMALIZED RATIO 1.1 RATIO; PROTHROMBIN TIME - PATIENT 11.3 SEC (9.8-11.6)
--- NOTE | 2017-06-10 17:41 | RADRPT ---
EXAM DATE/TIME: 06/10/2017 15:53 [facility] COMPARISON: No previous studies available for comparison. INDICATIONS : Pleural effusion. MEDICAL HISTORY : Rheumatoid arthritis. Chronic obstructive pulmonary disease. Dentures. Spinal cord injury. Diverticu losis. Hemmorhoids. ETOH abuse. Depression. Anxiety. SURGICAL HISTORY : Cataract removal. Teeth extractions. Anterior cervical fusion. Right hand ulcer. L4-L5 laminectomy. P enile surgery. ENCOUNTER: Initial ACUITY: 1 week PAIN SCORE: 1/10 LOCATION: Left chest FLUID: Total volume of 2200 cc of clear, yellow fluid was removed. Fluid was sent to lab for ordered studies. TECHNIQUE: 1. Ultrasound guidance for thoracentesis. 2. Thoracentesis. The risks, benefits, and alternatives to ultrasound guided thoracentesis were explained to the patien t in lay simple terms, including the risk of bleeding and infection. Written and verbal informed con sent was obtained. Appropriate area for thoracentesis was marked under ultrasound guidance with the patient in the uprig ht position. Overlying skin was prepped and draped in the usual sterile fashion and with local anest hetic, a dermatotomy was made with an 11 blade scalpel. A 6 Lao thoracentesis catheter was placed in the pleural space and fluid was removed. Catheter was then removed and a sterile dressing applie d. There were no immediate complications. The patient tolerated the procedure well and the left the ultrasound suite in stable condition. Chest radiograph is to be obtained. CONCLUSION: Uncomplicated ultrasound guided thoracentesis. Petros Rowell MD on June 10, 2017 at 17:39 Board Certified Radiologist. This report was verified electronically.
--- NOTE | 2017-06-10 17:41 | RADRPT ---
EXAM DATE/TIME: 06/10/2017 17:25 [facility] COMPARISON: CT PULMONARY ANGIOGRAM, June 10, 2017, 12:31. INDICATIONS : Status post thoracentesis- Shortness of breath. MEDICAL HISTORY : Chronic obstructive pulmonary disease. Congestive heart failure. Spinal cord injury, raynards. E BENITEZ abuse. SURGICAL HISTORY : lspine, c spine ENCOUNTER: Subsequent ACUITY: 1 day PAIN SCORE: 0/10 LOCATION: Bilateral chest FINDINGS: Patient status post a left thoracentesis. There is no evidence of pneumothorax. There are infiltrates throughout the right lung and left lung base. The heart size is enlarged. The bony structures are gr ossly intact. CONCLUSION: Status post left thoracentesis. No evidence of pneumothorax. Petros Rowell MD on June 10, 2017 at 17:38 Board Certified Radiologist. This report was verified electronically.
[2017-06-10 18:56] LABS: TOTAL PROTEIN,PLEURAL FLUID 5.1 GM/DL
[2017-06-10 19:12] LABS: PLEURAL FLUID LYMPHS 5 %
[2017-06-10] MEDS: RESP: ALBUTEROL 2.5 MG/IPRATROPIUM 0.5 MG NEB (SCH) INH (19:44)
[2017-06-10] MEDS: ZOLPIDEM TARTRATE 10 MG TAB PO SCH (20:14)
[2017-06-10] MEDS: TAMSULOSIN HCL 0.4 MG CAP PO SCH (20:15)
[2017-06-11] VITALS (7 sets, daily range): BP systolic 120–144; BP diastolic 78–89; PULSE 94–108; RESP 17–20; TEMP 95.7–97.2; O2SAT 86–99
[2017-06-11] MEDS: HEPARIN SODIUM - SQ 10,000 UNITS/ML VIAL SQ SCH ×2 (05:09→18:13)
[2017-06-11 08:05] LABS: INTERNATIONAL NORMALIZED RATIO 1.1 RATIO; PROTHROMBIN TIME - PATIENT 11.2 SEC (9.8-11.6)
[2017-06-11] MEDS: RESP: ALBUTEROL 2.5 MG/IPRATROPIUM 0.5 MG NEB (SCH) INH ×3 (08:28→21:14)
[2017-06-11] MEDS: predniSONE 20 MG TAB PO SCH ×2 (09:09→20:29)
[2017-06-11] MEDS: GABAPENTIN 300 MG CAP PO SCH ×3 (09:09→18:12)
[2017-06-11] MEDS: busPIRone HCL 10 MG TAB PO SCH ×2 (09:09→20:29)
[2017-06-11] MEDS: VENLAFAXINE HCL XR 75 MG CAP PO SCH (09:09)
[2017-06-11] MEDS: SPIRONOLACTONE 50 MG TAB PO SCH (09:10)
[2017-06-11] MEDS: METOCLOPRAMIDE HCL 10 MG TAB PO SCH ×2 (09:10→20:29)
[2017-06-11] MEDS: buPROPion HCL 100 MG SUSTAINED RELEASE TAB PO SCH ×2 (09:10→20:29)
[2017-06-11] MEDS: DOCUSATE SODIUM 50 MG/SENNA 8.6 MG TAB PO SCH ×2 (09:10→20:29)
[2017-06-11] MEDS: PANTOPRAZOLE SOD 40 MG DELAYED RELEASE TAB PO SCH (09:10)
[2017-06-11] MEDS: FUROSEMIDE 40 MG/4 ML VIAL IV PUSH SCH (09:11)
[2017-06-11] MEDS: SODIUM CHLORIDE 0.9% FLUSH 10 ML FLUSH IV FLUSH SCH ×2 (09:11→20:26)
[2017-06-11] MEDS: oxyCODONE/ACETAMINOPHEN 5 MG/325 MG TAB PO PRN ×3 (09:20→18:12)
[2017-06-11] MEDS: BACLOFEN 20 MG TAB PO SCH ×2 (09:35→20:29)
[2017-06-11] MEDS: DOXAZOSIN MESYLATE 4 MG TAB PO SCH (09:35)
[2017-06-11] MEDS: MISOPROSTOL 200 MCG TAB PO SCH ×3 (09:36→18:12)
[2017-06-11] MEDS: MELOXICAM 7.5 MG TAB PO SCH (09:36)
--- NOTE | 2017-06-11 10:36 | HHI.PR ---
Subjective Remarks Follow-up large left pleural effusion status post thoracentesis/respiratory failure 06/11/17-patient seen and examined, reports some improvement of shortness of breath. Denies any chest pain however. Cytology pending Objective Vitals Vital Signs Date Time Temp Pulse Resp B/P (MAP) Pulse Ox O2 Delivery O2 Flow Rate FiO2 06/11/17 08:31 86 21 06/11/17 08:00 96.6 106 19 142/87 (105) 93 06/11/17 00:44 96.5 94 18 135/84 (101) 99 06/10/17 23:32 98.7 97 18 136/92 (107) 96 06/10/17 20:02 98.7 107 18 128/78 (95) 100 06/10/17 19:47 95 Nasal Cannula 4.00 06/10/17 18:43 20 06/10/17 16:05 98.1 108 18 111/82 (92) 100 06/10/17 15:22 98 Nasal Cannula 4.00 06/10/17 15:00 99 06/10/17 13:07 97.6 122 18 125/79 (94) 93 I/O 06/10/17 06/10/17 06/10/17 06/11/17 06/11/17 06/11/17 07:00 15:00 23:00 07:00 15:00 23:00 Intake Total 150 ml 0 ml Balance 150 ml 0 ml Intake Oral 0 ml IV Total 150 ml # Voids 2 # Bowel Movements 0 Result Diagram: 06/10/17 0424 06/10/17 0424 Imaging Last Impressions Thoracentesis Ultrasound 06/10/17 0000 Signed Impressions: Service Date/Time: Saturday, June 10, 2017 15:53 - CONCLUSION: Uncomplicated ultrasound guided thoracentesis. Petros Rowell MD Chest X-Ray 06/10/17 0000 Signed Impressions: Service Date/Time: Saturday, June 10, 2017 17:25 - CONCLUSION: Status post left thoracentesis. No evidence of pneumothorax. Petros Rowell MD CT Angiography 06/10/17 0000 Signed Impressions: Service Date/Time: Saturday, June 10, 2017 12:31 - CONCLUSION: 1. No pulmonary embolus. 2. Large left infrahilar mass of concern for a central primary bronchogenic carcinoma. There is associated post obstructive pneumonia of the left lower lobe. Left lower lobe bronchus and pulmonary artery are obstructed. 3. Widespread pulmonary metastatic disease. Also probable metastatic mediastinal lymphadenopathy 4. Right lower lobe pneumonia. 5. Small right and large left pleural effusions. Roney Shore MD Objective Remarks GENERAL: NAD SKIN: Warm and dry. HEAD: Normocephalic. EYES: No scleral icterus. No injection or drainage. NECK: Supple, trachea midline. No JVD or lymphadenopathy. CARDIOVASCULAR: Regular rate and rhythm without murmurs, gallops, or rubs. RESPIRATORY: Breath sounds decrease bilaterally. No accessory muscle use. GASTROINTESTINAL: Abdomen soft, non-tender, nondistended. MUSCULOSKELETAL: No cyanosis, or edema. BACK: Nontender without obvious deformity. No CVA tenderness. A/P Problem List: (1) Respiratory failure with hypoxia ICD Code: J96.91 - Respiratory failure, unspecified with hypoxia (2) Pleural effusion on left ICD Code: J90 - Pleural effusion, not elsewhere classified (3) Pleural effusion, malignant ICD Code: J91.0 - Malignant pleural effusion (4) Tobacco abuse ICD Code: Z72.0 - Tobacco use (5) Community acquired pneumonia ICD Code: J18.9 - Pneumonia, unspecified organism Assessment and Plan 57-year-old male with Respiratory failure with hypoxia Left large pleural effusion Pleural effusion, malignant? Status post left thoracentesis 06/10/17 pending cytology report Appreciate input from pulmonary medicine Continue with DuoNeb, Spiriva and maintain oxygen saturation above 92% Continue with IV Lasix Metastasis pulmonary disease Cytology pending Will consult oncology Post obstructive pneumonia per CTA Currently on IV Levaquin pending culture report COPD exacerbation Currently on prednisone 20 mg twice a day, Levaquin,Symbicort,Spiriva, Mucinex Maintain oxygen saturation above 92% Chronic pain/peripheral neuropathy Continue home gabapentin, mobic Depression/anxiety Continue BuSpar, Effexor BPH Continue home doxazosin, Flomax History of bilateral lower extremity edema Continue home spironolactone as well as IV Lasix Tobacco abuse Tobacco counseling cessation provided DVT prophylaxis: Change heparin to every 12 hours subcutaneous Jose Mckeon MD Jun 11, 2017 10:36
[2017-06-11] MEDS: LEVOFLOXACIN 750 MG PREMIX INJ 150 ML IV SCH (12:55)
[2017-06-11] MEDS: ZOLPIDEM TARTRATE 10 MG TAB PO SCH (20:29)
[2017-06-11] MEDS: TAMSULOSIN HCL 0.4 MG CAP PO SCH (20:30)
[2017-06-12] VITALS (7 sets, daily range): BP systolic 133–142; BP diastolic 80–91; PULSE 103–111; RESP 18–20; TEMP 96.5–97.5; O2SAT 93–98
[2017-06-12] MEDS: oxyCODONE/ACETAMINOPHEN 5 MG/325 MG TAB PO PRN ×4 (05:32→20:57)
[2017-06-12] MEDS: HEPARIN SODIUM - SQ 10,000 UNITS/ML VIAL SQ SCH ×2 (05:35→18:28)
[2017-06-12] MEDS: RESP: ALBUTEROL 2.5 MG/IPRATROPIUM 0.5 MG NEB (SCH) INH ×3 (08:34→20:00)
[2017-06-12] MEDS: PANTOPRAZOLE SOD 40 MG DELAYED RELEASE TAB PO SCH (08:41)
[2017-06-12] MEDS: FUROSEMIDE 20 MG/2 ML VIAL IV PUSH SCH (08:41)
[2017-06-12] MEDS: DOXAZOSIN MESYLATE 4 MG TAB PO SCH (08:42)
[2017-06-12] MEDS: buPROPion HCL 100 MG SUSTAINED RELEASE TAB PO SCH ×2 (08:42→20:57)
[2017-06-12] MEDS: predniSONE 20 MG TAB PO SCH ×2 (08:42→20:56)
[2017-06-12] MEDS: MISOPROSTOL 200 MCG TAB PO SCH ×3 (08:42→18:28)
[2017-06-12] MEDS: busPIRone HCL 10 MG TAB PO SCH ×2 (08:42→20:57)
[2017-06-12] MEDS: GABAPENTIN 300 MG CAP PO SCH ×3 (08:42→18:28)
[2017-06-12] MEDS: VENLAFAXINE HCL XR 75 MG CAP PO SCH (08:42)
[2017-06-12] MEDS: DOCUSATE SODIUM 50 MG/SENNA 8.6 MG TAB PO SCH ×2 (08:42→20:56)
[2017-06-12] MEDS: BACLOFEN 20 MG TAB PO SCH ×2 (08:42→20:56)
[2017-06-12] MEDS: SPIRONOLACTONE 50 MG TAB PO SCH (08:42)
[2017-06-12] MEDS: SODIUM CHLORIDE 0.9% FLUSH 10 ML FLUSH IV FLUSH SCH ×2 (08:43→21:00)
[2017-06-12] MEDS: MELOXICAM 7.5 MG TAB PO SCH (08:47)
[2017-06-12] MEDS: METOCLOPRAMIDE HCL 10 MG TAB PO SCH ×2 (08:47→20:56)
--- NOTE | 2017-06-12 10:29 | HHI.PR ---
Subjective Remarks Follow-up large left pleural effusion status post thoracentesis/respiratory failure 06/11/17-patient seen and examined, reports some improvement of shortness of breath. Denies any chest pain however. Cytology pending 06/12/17-patient seen and examined, improvement of shortness of breath and respiratory status.taking PO well this AM. Cytology pending. Objective Vitals Vital Signs Date Time Temp Pulse Resp B/P (MAP) Pulse Ox O2 Delivery O2 Flow Rate FiO2 06/12/17 08:35 97 21 06/12/17 08:00 96.9 107 18 133/82 (99) 96 06/12/17 04:00 97.1 103 20 133/87 (102) 93 06/11/17 21:16 95 06/11/17 20:00 95.7 108 20 144/89 (107) 96 06/11/17 16:00 96.5 97 17 120/80 (93) 91 06/11/17 14:00 16 06/11/17 12:00 97.2 101 17 120/78 (92) 98 I/O 06/11/17 06/11/17 06/11/17 06/12/17 06/12/17 06/12/17 07:00 15:00 23:00 07:00 15:00 23:00 Intake Total 0 ml 0 ml Balance 0 ml 0 ml Intake Oral 0 ml 0 ml # Voids 2 2 # Bowel Movements 0 2 Result Diagram: 06/10/17 0424 06/10/17 0424 Imaging Last Impressions Thoracentesis Ultrasound 06/10/17 0000 Signed Impressions: Service Date/Time: Saturday, June 10, 2017 15:53 - CONCLUSION: Uncomplicated ultrasound guided thoracentesis. Petros Rowell MD Chest X-Ray 06/10/17 0000 Signed Impressions: Service Date/Time: Saturday, June 10, 2017 17:25 - CONCLUSION: Status post left thoracentesis. No evidence of pneumothorax. Petros Rowell MD CT Angiography 06/10/17 0000 Signed Impressions: Service Date/Time: Saturday, June 10, 2017 12:31 - CONCLUSION: 1. No pulmonary embolus. 2. Large left infrahilar mass of concern for a central primary bronchogenic carcinoma. There is associated post obstructive pneumonia of the left lower lobe. Left lower lobe bronchus and pulmonary artery are obstructed. 3. Widespread pulmonary metastatic disease. Also probable metastatic mediastinal lymphadenopathy 4. Right lower lobe pneumonia. 5. Small right and large left pleural effusions. Roney Shore MD Objective Remarks GENERAL: NAD SKIN: Warm and dry. HEAD: Normocephalic. EYES: No scleral icterus. No injection or drainage. NECK: Supple, trachea midline. No JVD or lymphadenopathy. CARDIOVASCULAR: Regular rate and rhythm without murmurs, gallops, or rubs. RESPIRATORY: Breath sounds decrease bilaterally L>R. No accessory muscle use. GASTROINTESTINAL: Abdomen soft, non-tender, nondistended. MUSCULOSKELETAL: No cyanosis, or edema. BACK: Nontender without obvious deformity. No CVA tenderness. 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 Status post left thoracentesis 06/10/17 pending cytology report Appreciate input from pulmonary medicine Continue with DuoNeb, Spiriva and maintain oxygen saturation above 92% Continue with IV Lasix Metastasis pulmonary disease Cytology pending Will consult oncology when report of cytology known vs Hospice Post obstructive pneumonia per CTA Currently on IV Levaquin pending culture report COPD exacerbation Currently on prednisone 20 mg twice a day, Levaquin,Symbicort,Spiriva, Mucinex Maintain oxygen saturation above 92% Chronic pain/peripheral neuropathy Continue home gabapentin, mobic Depression/anxiety Continue BuSpar, Effexor BPH Continue home doxazosin, Flomax History of bilateral lower extremity edema Continue home spironolactone as well as IV Lasix Tobacco abuse Tobacco counseling cessation provided DVT prophylaxis: heparin subcutaneous Jose Mckeon MD Jun 12, 2017 10:29
[2017-06-12] MEDS: LEVOFLOXACIN 750 MG PREMIX INJ 150 ML IV SCH (13:02)
[2017-06-12] MEDS: TAMSULOSIN HCL 0.4 MG CAP PO SCH (20:56)
[2017-06-12] MEDS: ZOLPIDEM TARTRATE 10 MG TAB PO SCH (21:00)
[2017-06-13] VITALS (8 sets, daily range): BP systolic 129–147; BP diastolic 80–95; PULSE 89–104; RESP 17–20; TEMP 96.2–97.2; O2SAT 92–96
[2017-06-13] MEDS: oxyCODONE/ACETAMINOPHEN 5 MG/325 MG TAB PO PRN ×5 (03:57→22:15)
[2017-06-13] MEDS: HEPARIN SODIUM - SQ 10,000 UNITS/ML VIAL SQ SCH (06:21)
[2017-06-13] MEDS: FUROSEMIDE 20 MG/2 ML VIAL IV PUSH SCH (08:44)
[2017-06-13] MEDS: GABAPENTIN 300 MG CAP PO SCH ×3 (08:44→18:00)
[2017-06-13] MEDS: PANTOPRAZOLE SOD 40 MG DELAYED RELEASE TAB PO SCH (08:45)
[2017-06-13] MEDS: DOCUSATE SODIUM 50 MG/SENNA 8.6 MG TAB PO SCH ×2 (08:45→21:02)
[2017-06-13] MEDS: busPIRone HCL 10 MG TAB PO SCH ×2 (08:45→21:03)
[2017-06-13] MEDS: VENLAFAXINE HCL XR 75 MG CAP PO SCH (08:46)
[2017-06-13] MEDS: MISOPROSTOL 200 MCG TAB PO SCH ×3 (08:46→18:00)
[2017-06-13] MEDS: METOCLOPRAMIDE HCL 10 MG TAB PO SCH ×2 (08:47→21:03)
[2017-06-13] MEDS: predniSONE 20 MG TAB PO SCH (08:47)
[2017-06-13] MEDS: MELOXICAM 7.5 MG TAB PO SCH (08:47)
[2017-06-13] MEDS: BACLOFEN 20 MG TAB PO SCH ×2 (08:48→21:02)
[2017-06-13] MEDS: buPROPion HCL 100 MG SUSTAINED RELEASE TAB PO SCH ×2 (08:48→21:02)
[2017-06-13] MEDS: SPIRONOLACTONE 50 MG TAB PO SCH (08:48)
[2017-06-13] MEDS: SODIUM CHLORIDE 0.9% FLUSH 10 ML FLUSH IV FLUSH SCH ×2 (08:49→21:02)
[2017-06-13] MEDS: DOXAZOSIN MESYLATE 4 MG TAB PO SCH (08:49)
[2017-06-13] MEDS: RESP: ALBUTEROL 2.5 MG/IPRATROPIUM 0.5 MG NEB (SCH) INH ×2 (09:08→19:14)
--- NOTE | 2017-06-13 11:18 | HHI.PR ---
Subjective Remarks Follow-up large left pleural effusion status post thoracentesis/respiratory failure 06/11/17-patient seen and examined, reports some improvement of shortness of breath. Denies any chest pain however. Cytology pending 06/12/17-patient seen and examined, improvement of shortness of breath and respiratory status.taking PO well this AM. Cytology pending. 06/13/17-patient seen and examined, no complaints. breathing better Objective Vitals Vital Signs Date Time Temp Pulse Resp B/P (MAP) Pulse Ox O2 Delivery O2 Flow Rate FiO2 06/13/17 09:11 95 06/13/17 09:07 18 06/13/17 08:00 96.6 103 20 147/89 (108) 94 06/13/17 04:00 97.2 89 20 140/88 (105) 93 06/13/17 00:00 97.0 101 20 130/95 (107) 92 06/12/17 20:08 97 06/12/17 20:00 97.5 110 20 142/82 (102) 95 06/12/17 16:00 96.5 106 18 141/80 (100) 98 06/12/17 12:00 97.3 111 18 135/91 (106) 93 I/O 06/12/17 06/12/17 06/12/17 06/13/17 06/13/17 06/13/17 07:00 15:00 23:00 07:00 15:00 23:00 Intake Total 1520 ml 600 ml Output Total 400 ml 800 ml Balance 1120 ml -200 ml Intake Oral 1520 ml 600 ml Output Urine Total 400 ml 800 ml # Bowel Movements 0 0 Result Diagram: 06/10/17 0424 06/10/17 0424 Imaging Last Impressions Thoracentesis Ultrasound 06/10/17 0000 Signed Impressions: Service Date/Time: Saturday, June 10, 2017 15:53 - CONCLUSION: Uncomplicated ultrasound guided thoracentesis. Petros Rowell MD Chest X-Ray 06/10/17 0000 Signed Impressions: Service Date/Time: Saturday, June 10, 2017 17:25 - CONCLUSION: Status post left thoracentesis. No evidence of pneumothorax. Petros Rowell MD CT Angiography 06/10/17 0000 Signed Impressions: Service Date/Time: Saturday, June 10, 2017 12:31 - CONCLUSION: 1. No pulmonary embolus. 2. Large left infrahilar mass of concern for a central primary bronchogenic carcinoma. There is associated post obstructive pneumonia of the left lower lobe. Left lower lobe bronchus and pulmonary artery are obstructed. 3. Widespread pulmonary metastatic disease. Also probable metastatic mediastinal lymphadenopathy 4. Right lower lobe pneumonia. 5. Small right and large left pleural effusions. Roney Shore MD Objective Remarks GENERAL: NAD SKIN: Warm and dry. HEAD: Normocephalic. EYES: No scleral icterus. No injection or drainage. NECK: Supple, trachea midline. No JVD or lymphadenopathy. CARDIOVASCULAR: Regular rate and rhythm without murmurs, gallops, or rubs. RESPIRATORY: Breath sounds decrease bilaterally L>R. No accessory muscle use. GASTROINTESTINAL: Abdomen soft, non-tender, nondistended. MUSCULOSKELETAL: No cyanosis, or edema. BACK: Nontender without obvious deformity. No CVA tenderness. 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 Status post left thoracentesis 06/10/17 pending cytology report Appreciate input from pulmonary medicine Continue with DuoNeb, Spiriva and maintain oxygen saturation above 92% Continue with IV Lasix Metastasis pulmonary disease Cytology pending Consult oncology Post obstructive pneumonia per CTA Currently on IV Levaquin pending culture report COPD exacerbation Currently on prednisone 20 mg twice a day, Levaquin,Symbicort,Spiriva, Mucinex Maintain oxygen saturation above 92% Chronic pain/peripheral neuropathy Continue home gabapentin, mobic Depression/anxiety Continue BuSpar, Effexor BPH Continue home doxazosin, Flomax History of bilateral lower extremity edema Continue home spironolactone and switch to PO Lasix Tobacco abuse Tobacco counseling cessation provided DVT prophylaxis: heparin subcutaneous Jose Mckeon MD Jun 13, 2017 11:18
[2017-06-13] MEDS: LEVOFLOXACIN 750 MG PREMIX INJ 150 ML IV SCH (11:33)
[2017-06-13] MEDS ORDERED: SODIUM CHLOR 0.45% 1000 ML INJ 1,000 ML IV SCH (17:22)
[2017-06-13] MEDS ORDERED: RESP: ALBUTEROL CONC 2.5 MG/0.5 ML NEB NEB SCH (17:30)
[2017-06-13] MEDS ORDERED: RESP: LIDOCAINE HCL 4% PF 5 ML NEB NEB SCH (17:30)
--- NOTE | 2017-06-13 18:27 | RADRPT ---
EXAM DATE/TIME: 06/13/2017 17:58 [facility] COMPARISON: No previous studies available for comparison. INDICATIONS : Shortness of breath MEDICAL HISTORY : Chronic obstructive pulmonary disease. Congestive heart failure. Spinal cord injury, raynards. ETOH a buse. SURGICAL HISTORY : None. ENCOUNTER: Subsequent ACUITY: 2 days PAIN SCORE: 0/10 LOCATION: Bilateral chest FINDINGS: Bilateral pleural effusions present, left greater than right with the left and right effusion improve d from June 09. No pneumothorax. Mild edema pattern. CONCLUSION: 1. Mild congestive heart failure pattern with decrease in size of left and right effusion since Decem chase 9. Oliverio Oneal MD on June 13, 2017 at 18:23 Board Certified Radiologist. This report was verified electronically.
[2017-06-13 18:48] LABS: APTT (PATIENT) 24.9 SEC (24.3-30.1); INTERNATIONAL NORMALIZED RATIO 1.1 RATIO; PROTHROMBIN TIME - PATIENT 10.7 SEC (9.8-11.6)
[2017-06-13] MEDS ORDERED: DIATRIZOATE MEGLUM/DIATRIZOATE SOD 9 ML CUP PO ONE (20:00)
[2017-06-13] MEDS: TAMSULOSIN HCL 0.4 MG CAP PO SCH (21:02)
--- NOTE | 2017-06-13 23:22 | MB ---
cc: ABBEY MONTANEZ M.D., ERIC DATE OF CONSULTATION: 06/13/2017 REFERRING PHYSICIAN: Dr. Mckeon REASON FOR CONSULTATION: Oncology consulted to render an opinion regarding patient with possible cancer. HISTORY OF PRESENT ILLNESS Patient is a 57-year-old male with multiple medical problems who presented to the hospital with complaint of increased shortness of breath started about a week ago, he also has a nonproductive cough. His shortness of breath is progressively getting worse. On arrival he was found to be tachycardiac and tachypneic. He had a CT angiogram which showed large left pleural effusion, possible left hilar mass and widespread pulmonary metastasis. He denies any fever or chills. Denies any weight loss. Denies any chest pressure or palpitation. Denies any nausea, vomiting, abdominal pain. Denies any dysphagia. Denies any melena or hematochezia. Denies abdominal pain. Denies any dysuria, hematuria, denies any bone pain. Denies headache, focal numbness or weakness. PAST MEDICAL HISTORY 1. Chronic obstructive pulmonary disease. 2. Peripheral vascular disease. 3. Gastroesophageal reflux disease. 4. Osteoarthritis. 5. Degenerative disk disease. 6. Benign prostatic hypertrophy. 7. Depression 8. Peripheral neuropathy 9. Chronic pain. PAST SURGICAL HISTORY 1. Right hand surgery. 2. Cataract surgery 3. Saphenous vein ablation 4. Cervical spine fusion 5. Secondary to accident in 2011, he had EGD and colonoscopy in June of 2012. FAMILY HISTORY: Mother of stomach cancer, two brothers, one sister, without cancer. Two sons healthy. SOCIAL HISTORY: He smoked a pack per day for 20 years, quit about a year ago. He quit alcohol about five years ago. ALLERGIES: GENTAMICIN CREAM. ALTABAX MUPIROCIN COLORED COBAN IODOFORM GAUZE CURRENT MEDICATIONS 1. Lasix. 2. Prednisone. 3. Albuterol. 4. Tamsulosin 5. Ambien 6. DuoNebs. 7. Levaquin. 8. Baclofen. 9. Bupropion. 10. BuSpar. 11. Cardura. 12. Gabapentin. 13. Meloxicam. 14. Reglan. 15. Cytotec. 16. Aldactone. 17. Protonix. 18. Venlafaxine REVIEW OF SYSTEMS Constitutional: As above. Eyes: Negative. ENT: Negative. CARDIOVASCULAR: No chest pressure, palpitations. RESPIRATORY: As above. GI: As above. : No dysuria, hematuria. MUSCULOSKELETAL: Chronic pain. HEMATOLOGY: Negative ENDOCRINE: Negative DERMATOLOGY: Negative. PSYCHIATRIC: Negative. NEUROLOGIC: Negative. PHYSICAL EXAMINATION: Vitals: Temperature 96.8, blood pressure 129/80, O2 saturation 92%. GENERAL: He is alert and oriented x3 in no acute distress. HEENT: Atraumatic, normocephalic. Pupils equal, round and reactive to light. Extraocular muscles intact. No scleral icterus. Oropharynx: Dry mucosa, no lesions, no thrush. Neck: No thyromegaly. No palpable masses. Lymphatics: No palpable, cervical, clavicular, axillary, inguinal lymph nodes. Cardiovascular: Regular S1-S2, no murmurs. Lungs: Decreased breath sounds, left lung. No wheezing. Abdomen: Soft and nontender. Could not palpate any mass, could not palpate liver or spleen. Extremities: No cyanosis, no clubbing. Trace ankle edema, no calf tenderness. Skin: No rash or petechiae. Neurologic: Nonfocal. LABORATORY DATA: June 10, 2017. CBC was normal. Creatinine 0.85, LDH of 24. ASSESSMENT 1. Lung masses with adenopathy. He presented with increased shortness of breath and nonproductive cough for about a week. CT angiogram did not show any pulmonary embolism. There was a large left infrahilar mass with associated post obstructive pneumonia of the left lower lobe noted. The left lower lobe bronchus and pulmonary artery are obstructed. There is widespread pulmonary metastatic disease with probable metastatic mediastinal lymphadenopathy. There was a large left pleural effusion and a small right pleural effusion. He had a thoracentesis June 10, with removal of 2200 mL of yellow fluid. The fluid characteristic appeared to be exudative. 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 The CT finding, however, is more suggestive of pulmonary cancer. The patient has no GI symptoms. He had EGD and colonoscopy on June 2012 which reportedly was unremarkable. His mother did of stomach cancer. At this point I recommend getting CT of the abdomen and pelvis for further evaluation. Will also check tumor marker. I am going to consult gastroenterology to see him. He has been followed by Dr. Juvenal Perez as outpatient. He is also scheduled for bronchoscopy this Sunday which hopefully will be able to get a tissue biopsy. If we cannot get any tissue from bronchoscopy or upper endoscopy, may have to consider percutaneous biopsy of the lung mass unless there are other lesions that could be biopsied in the abdomen and pelvis. I had a long discussion with the patient, his and his [id number]. Their questions were answered. 2. Chronic obstructive pulmonary disease. He has pulmonary symptoms as above. 3. Pneumonia noted on CT scan. He will continue antibiotics. 4. Chronic pain syndrome. 5. Peripheral neuropathy. 6. Peripheral vascular disease. 7. Degenerative disk disease. RECOMMENDATIONS 1. Extensive discussion with the patient and family. 2. Arrange for CT of the abdomen and pelvis. 3. Check tumor marker. 4. Consult Dr. Juvenal Perez for upper endoscopy. 5. Await bronchoscopy. Thank you, Dr. Mckeon, for asking me to see this patient. Abbey Montanez MD [facility]/[place] /7:06 PM /10:47 PM RAJWINDER
[2017-06-14] VITALS (7 sets, daily range): BP systolic 128–146; BP diastolic 76–94; PULSE 55–104; RESP 16–20; TEMP 96.2–98.2; O2SAT 93–98
[2017-06-14] MEDS ORDERED: IOHEXOL 350 MG/ML 10 ML VIAL (for RAD DIAG) IVCONTRAST ONE (02:52)
[2017-06-14] MEDS: oxyCODONE/ACETAMINOPHEN 5 MG/325 MG TAB PO PRN ×4 (03:21→20:00)
[2017-06-14] MEDS: ZOLPIDEM TARTRATE 10 MG TAB PO SCH ×2 (03:22→20:01)
--- NOTE | 2017-06-14 04:15 | RADRPT ---
EXAM DATE/TIME: 06/14/2017 02:52 [facility] COMPARISON: CT PULMONARY ANGIOGRAM, June 10, 2017, 12:31. CT ABDOMEN & PELVIS W CONTRAST, October 24, 2011, 21 :16. INDICATIONS : Abdomen pain. IV CONTRAST: 100 cc Omnipaque 350 (iohexol) IV ORAL CONTRAST: No oral contrast ingested. RADIATION DOSE: 9.96 CTDIvol (mGy) MEDICAL HISTORY : Cardiovascular disease. Chronic obstructive pulmonary disease. SURGICAL HISTORY : None. ENCOUNTER: Initial ACUITY: 1 day PAIN SCALE: 5/10 LOCATION: Bilateral abdomen TECHNIQUE: Volumetric scanning of the abdomen and pelvis was performed. Using automated exposure control and ad justment of the mA and/or kV according to patient size, radiation dose was kept as low as reasonably achievable to obtain optimal diagnostic quality images. DICOM format image data is available electro nically for review and comparison. FINDINGS: LOWER LUNGS: Large left pleural effusion, small right pleural effusion, bilateral lower lung consolidative and foc al infiltrates, very similar to CT pulmonary angiogram performed 06/10/17. The left pleural effusion is slightly smaller than on prior. LIVER: Homogeneous density without evidence of fatty change. There is a focal oval hypodense area in the ju nction of the right lobe and quadrate lobe measuring 2.1 cm, mean CT density 41 Hounsfield units.. T here is no dilation of the biliary tree. No calcified gallstones. SPLEEN: Normal size without lesion. PANCREAS: Within normal limits. KIDNEYS: Normal in size and shape. There is no mass, stone or hydronephrosis. ADRENAL GLANDS: Within normal limits. VASCULAR: There is no aortic aneurysm. BOWEL/MESENTERY: Oral contrast passes through to the cecum. No dilated loops of small or large bowel loops up multipl e sigmoid diverticula without radiographic evidence of diverticulitis. ABDOMINAL WALL: There is a focal area of induration in the subcutaneous soft tissues left anterior mid abdomen and an adjacent area of induration in the mesentery measuring 2.7 cm. RETROPERITONEUM: There is no lymphadenopathy. BLADDER: No wall thickening or mass. REPRODUCTIVE: Within normal limits. INGUINAL: There is no lymphadenopathy or hernia. MUSCULOSKELETAL: Moderately advanced degenerative changes in the posterior elements of the lower lumbar spine. CONCLUSION: 1. Segmental and lobar consolidation in the lower lungs and bilateral pleural effusions, very similar to recent pulmonary angiogram. 2. Focal area of induration of the subcutaneous anterior abdominal wall and adjacent mesentery in the left lower quadrant, suggestive of contusion. Recommend clinical correlation. 3. There is a focal 2 cm intermediate density lesion in the liver at the junction of the right lobe o f quadrate lobe. This cannot be further characterized. Recommend ultrasound to evaluate whether thi s is persistent. There is also questionable intraluminal density in the gallbladder without calcific ation. Presence of noncalcified stones can also be evaluated at the time the ultrasound. 4. Sigmoid diverticula without radiographic evidence of diverticulitis. Martinez Mckenna MD on June 14, 2017 at 4:05 Board Certified Radiologist. This report was verified electronically.
[2017-06-14] MEDS: RESP: ALBUTEROL 2.5 MG/IPRATROPIUM 0.5 MG NEB (SCH) INH ×3 (08:50→19:28)
--- NOTE | 2017-06-14 09:36 | MB ---
cc: SIDDHARTH MCKOY MD DATE OF CONSULTATION: 06/14/[address] Harshil Campbell. REASON FOR CONSULTATION Metastatic cancer, rule out gastric primary. HISTORY OF PRESENT ILLNESS Kenn is a pleasant 57-year-old male with a history of multiple medical problems including rheumatoid arthritis, scleroderma and Raynaud's, who was admitted with increasing shortness of breath and found to have a large left pleural effusion and a left perihilar lung mass. 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 Dr. Campbell has consulted us for upper endoscopy to rule out a gastric primary. The patient has been seen by Dr. Perez in the past and underwent EGD and colonoscopy in 2011. He does have a history of chronic opiate induced constipation. He states that he has had some mild heartburn recently and overall has a decreased appetite but no weight loss, no abdominal pain, no nausea or vomiting. SOCIAL HISTORY The patient is and I was able to speak with her in the room on the phone. The patient got her on speaker phone. He is a past smoker but no longer smokes and does not drink alcohol. He is on disability. PAST MEDICAL HISTORY His medical history is remarkable for: 1. COPD. 2. Peripheral vascular disease. 3. Gastroesophageal reflux disease. 4. Arthritis with a history of scleroderma and Raynaud's. 5. History of chronic degenerative disk disease. 6. BPH. 7. Peripheral neuropathy. 8. He is on narcotic analgesics for chronic pain management. PAST SURGICAL HISTORY 1. He has had right hand surgery. 2. Cataract surgery. 3. Saphenous vein ablation. 4. Cervical spine fusion. FAMILY HISTORY Mother of stomach cancer. He has two sons that are healthy. ALLERGIES GENTAMICIN CREAM, ALTABAX, MUPIROCIN, COLORED COBAN, IODOFORM GAUZE. MEDICATIONS His medications include: 1. Lasix. 2. Prednisone. 3. Albuterol. 4. Tamsulosin. 5. Ambien. 6. DuoNeb. 7. Levaquin. 8. Baclofen. 9. Bupropion. 10. BuSpar. 11. Cardura. 12. Gabapentin. 13. Meloxicam. 14. Reglan. 15. Cytotec. 16. Aldactone. 17. Protonix. 18. Venlafaxine. REVIEW OF SYSTEMS Remarkable for chronic back pain, generalized poor appetite which has been chronic. No weight loss. Some recent heartburn but no dysphagia. Recent shortness of breath which has improved after thoracentesis. No chest pain. Remainder of the ten-point review of systems was noncontributory. PHYSICAL EXAMINATION GENERAL: Physical exam reveals a chronically ill-appearing male in no acute distress. VITAL SIGNS: His blood pressure is 146/90, pulse 91, respirations 18 and nonlabored, temperature is 96.2 orally. HEENT: Sclerae are anicteric. LUNGS: Reveal decreased breath sounds at the left lower lung field posteriorly consistent with an effusion. HEART: Heart sounds are regular. ABDOMEN: Abdomen is rounded but soft and nontender. He has a right upper quadrant scar. No appreciable organomegaly or palpable masses. No tenderness. EXTREMITIES: He has some chronic stasis skin changes of the lower extremities, especially on the left side. No pitting edema. No cyanosis. He was alert and oriented with a pleasant affect and no focal deficits. He was ambulatory. LABORATORY DATA Lab work reveals a white count of 8.4, hemoglobin 13.2, platelet count 242,000, INR 1.1. Tumor markers are pending. Alk phos was 183. LFTs were otherwise unremarkable. IMAGING STUDIES As described above with the large left pleural effusion along with a large left infrahilar mass and evidence of widespread pulmonary metastatic disease. 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 IMPRESSION 1. 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 PLAN I discussed Dr. Campbell's recommendation for an upper endoscopy with the patient and his . I reviewed the risks of the procedure. They both feel that he can tolerate the sedation. He is scheduled for ultrasound today and for bronchoscopy tomorrow afternoon. Informed consent was obtained. Thank you for this consult. MD NEGRA Mason/DIMA /8:42 AM 8:53 AM RAJWINDER
[2017-06-14] MEDS: FUROSEMIDE 20 MG TAB PO SCH (10:07)
[2017-06-14] MEDS: MISOPROSTOL 200 MCG TAB PO SCH ×3 (10:08→17:38)
[2017-06-14] MEDS: GABAPENTIN 300 MG CAP PO SCH ×3 (10:08→17:39)
[2017-06-14] MEDS: DOXAZOSIN MESYLATE 4 MG TAB PO SCH (10:08)
[2017-06-14] MEDS: BACLOFEN 20 MG TAB PO SCH ×2 (10:08→20:01)
[2017-06-14] MEDS: MELOXICAM 7.5 MG TAB PO SCH (10:08)
[2017-06-14] MEDS: DOCUSATE SODIUM 50 MG/SENNA 8.6 MG TAB PO SCH ×2 (10:09→20:00)
[2017-06-14] MEDS: PANTOPRAZOLE SOD 40 MG DELAYED RELEASE TAB PO SCH (10:09)
[2017-06-14] MEDS: buPROPion HCL 100 MG SUSTAINED RELEASE TAB PO SCH ×2 (10:10→20:00)
[2017-06-14] MEDS: METOCLOPRAMIDE HCL 10 MG TAB PO SCH ×2 (10:11→20:01)
[2017-06-14] MEDS: busPIRone HCL 10 MG TAB PO SCH ×2 (10:11→20:01)
[2017-06-14] MEDS: SPIRONOLACTONE 50 MG TAB PO SCH (10:12)
[2017-06-14] MEDS: VENLAFAXINE HCL XR 75 MG CAP PO SCH (10:12)
[2017-06-14] MEDS: predniSONE 20 MG TAB PO SCH (10:12)
[2017-06-14] MEDS: SODIUM CHLORIDE 0.9% FLUSH 10 ML FLUSH IV FLUSH SCH ×2 (10:13→20:02)
--- NOTE | 2017-06-14 10:22 | RADRPT ---
EXAM DATE/TIME: 06/14/2017 09:04 [facility] COMPARISON: CT ABDOMEN & PELVIS W CONTRAST, October 24, 2011, 21:16. CT ABDOMEN & PELVIS W CONTRAST, June 14, 2017, 2:52. [facility], February 15, 2017 INDICATIONS : Liver mass seen on Cat Scan. MEDICAL HISTORY : Emphysema. Rheumatoid arthritis. Osteoarthritis. Spinal cord injury. Raynaud's. left leg edema. copd. dyspnea. etoh abuse. mrsa. partial paralysis of diaphragm. SURGICAL HISTORY : Right cataract extraction x2. Neck and back surgery. Penile wart removal. Right rotator cuff repair. L4-L5 laminacetomy. Faetectomy and formamenotomy. C3-C6 ACDF. ENCOUNTER: Initial ACUITY: 1 day PAIN SCORE: 4/10 LOCATION: Bilateral upper quadrant MEASUREMENTS: LIVER: 17.7 cm length COMMON DUCT: 3 mm RIGHT KIDNEY: 11.8 x 4.7 x 6.0 cm SPLEEN: 14.2 cm length FINDINGS: LIVER: A hyperechoic mass measuring 4 x 2.2 cm in size is identified in the right hepatic lobe. It appears t o correspond to the hypodensity lesion identified on CT. Liver is otherwise unremarkable. There is no evidence of intrahepatic biliary duct dilatation. COMMON DUCT: No intraluminal mass or stone visualized. GALLBLADDER: Multiple stones are seen in the gallbladder. PANCREAS: Not visualized. RIGHT KIDNEY: No hydronephrosis, stone or mass. SPLEEN: No focal lesion. CONCLUSION: 1. 4 cm hyperechoic mass in the right hepatic lobe corresponding to the hypodense lesion seen on CT. Mass remains incompletely characterized but does not have characteristic findings of either a cyst or hemangioma. Further evaluation with contrast-enhanced MRI should be considered. 2. Cholelithiasis. 3. Nonvisualization of the pancreas. Epifanio Gates MD on June 14, 2017 at 10:15 Board Certified Radiologist. This report was verified electronically.
--- NOTE | 2017-06-14 11:11 | HHI.PR ---
Subjective Remarks Follow-up large left pleural effusion status post thoracentesis/respiratory failure 06/11/17-patient seen and examined, reports some improvement of shortness of breath. Denies any chest pain however. Cytology pending 06/12/17-patient seen and examined, improvement of shortness of breath and respiratory status.taking PO well this AM. Cytology pending. 06/13/17-patient seen and examined, no complaints. breathing better 06/14/17-patient seen and examined denies any abdominal pain, shortness of breath otherwise stable. 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 Patient was seen by GI this morning Objective Vitals Vital Signs Date Time Temp Pulse Resp B/P (MAP) Pulse Ox O2 Delivery O2 Flow Rate FiO2 06/14/17 08:51 95 06/14/17 04:21 16 06/14/17 00:00 96.2 91 18 146/90 (108) 93 06/13/17 20:00 96.4 98 17 131/82 (98) 96 06/13/17 19:14 96 21 06/13/17 16:00 96.8 104 19 129/80 (96) 92 06/13/17 12:00 96.2 96 19 140/85 (103) 94 I/O 06/13/17 06/13/17 06/13/17 06/14/17 06/14/17 06/14/17 07:00 15:00 23:00 07:00 15:00 23:00 Intake Total 750 ml 650 ml Output Total 800 ml Balance -50 ml 650 ml Intake Oral 600 ml 650 ml IV Total 150 ml Output Urine Total 800 ml # Voids 2 # Bowel Movements 0 0 Result Diagram: 06/10/17 0424 06/10/17 0424 Imaging Last Impressions Liver Ultrasound 06/14/17 0000 Signed Impressions: Service Date/Time: June 09:04 - CONCLUSION: 1. 4 cm hyperechoic mass in the right hepatic lobe corresponding to the hypodense lesion seen on CT. Mass remains incompletely characterized but does not have characteristic findings of either a cyst or hemangioma. Further evaluation with contrast-enhanced MRI should be considered. 2. Cholelithiasis. 3. Nonvisualization of the pancreas. Epifanio Gates MD Chest X-Ray 06/13/17 0000 Signed Impressions: Service Date/Time: Tuesday, June 13, 2017 17:58 - CONCLUSION: 1. Mild congestive heart failure pattern with decrease in size of left and right effusion since June 09. Oliverio Oneal MD Abdomen/Pelvis CT 06/13/17 0000 Signed Impressions: Service Date/Time: June 02:52 - CONCLUSION: 1. Segmental and lobar consolidation in the lower lungs and bilateral pleural effusions, very similar to recent pulmonary angiogram. 2. Focal area of induration of the subcutaneous anterior abdominal wall and adjacent mesentery in the left lower quadrant, suggestive of contusion. Recommend clinical correlation. 3. There is a focal 2 cm intermediate density lesion in the liver at the junction of the right lobe of quadrate lobe. This cannot be further characterized. Recommend ultrasound to evaluate whether this is persistent. There is also questionable intraluminal density in the gallbladder without calcification. Presence of noncalcified stones can also be evaluated at the time the ultrasound. 4. Sigmoid diverticula without radiographic evidence of diverticulitis. Martinez Mckenna MD Thoracentesis Ultrasound 06/10/17 0000 Signed Impressions: Service Date/Time: Saturday, June 10, 2017 15:53 - CONCLUSION: Uncomplicated ultrasound guided thoracentesis. Petros Rowell MD CT Angiography 06/10/17 0000 Signed Impressions: Service Date/Time: Saturday, June 10, 2017 12:31 - CONCLUSION: 1. No pulmonary embolus. 2. Large left infrahilar mass of concern for a central primary bronchogenic carcinoma. There is associated post obstructive pneumonia of the left lower lobe. Left lower lobe bronchus and pulmonary artery are obstructed. 3. Widespread pulmonary metastatic disease. Also probable metastatic mediastinal lymphadenopathy 4. Right lower lobe pneumonia. 5. Small right and large left pleural effusions. Roney Shore MD Objective Remarks GENERAL: NAD SKIN: Warm and dry. HEAD: Normocephalic. EYES: No scleral icterus. No injection or drainage. NECK: Supple, trachea midline. No JVD or lymphadenopathy. CARDIOVASCULAR: Regular rate and rhythm without murmurs, gallops, or rubs. RESPIRATORY: Breath sounds decrease bilaterally L>R. No accessory muscle use. GASTROINTESTINAL: Abdomen soft, non-tender, nondistended. MUSCULOSKELETAL: No cyanosis, or edema. BACK: Nontender without obvious deformity. No CVA tenderness. 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 ICD Code: C16.9 - Malignant neoplasm of stomach, unspecified (2) Respiratory failure with hypoxia ICD Code: J96.91 - Respiratory failure, unspecified with hypoxia (3) Pleural effusion on left ICD Code: J90 - Pleural effusion, not elsewhere classified (4) Pleural effusion, malignant ICD Code: J91.0 - Malignant pleural effusion (5) Tobacco abuse ICD Code: Z72.0 - Tobacco use (6) Community acquired pneumonia ICD Code: J18.9 - Pneumonia, unspecified organism (7) Metastasis ICD Code: C79.9 - Secondary malignant neoplasm of unspecified site Assessment and Plan 57-year-old male with Respiratory failure with hypoxia-Resolved Left large pleural effusion Pleural effusion, malignant? 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 Appreciate input from pulmonary medicine Continue with DuoNeb, Spiriva and maintain oxygen saturation above 92% Continue with IV Lasix Signet ring cell carcinoma gastric origin Appreciate input from oncology GI consulted and plan for EGD 06/15/17 CEA 11.2, CA-19-9 pending, alpha-fetoprotein within normal limit Liver US noted and review by me Post obstructive pneumonia per CTA Currently on IV Levaquin pending culture report Pulmonary medicine plan for bronchoscopy 06/15/17 COPD exacerbation-resolved Sputum culture positive for Pseudomonas Currently on prednisone 20 mg twice a day, Levaquin,Symbicort,Spiriva, Mucinex Maintain oxygen saturation above 92% Chronic pain/peripheral neuropathy Continue home gabapentin, mobic Depression/anxiety Continue BuSpar, Effexor BPH Continue home doxazosin, Flomax History of bilateral lower extremity edema Continue home spironolactone and PO Lasix Tobacco abuse Tobacco counseling cessation provided DVT prophylaxis: heparin subcutaneous Jose Mckeon MD Jun 14, 2017 11:11
--- NOTE | 2017-06-14 11:36 | PD.ONC.PN ---
Subjective Subjective Remarks Afebrile overnight. Patient without complaint. denies abdominal pain. denies dyspnea at present. Objective Data Date Time Temp Pulse Resp B/P (MAP) Pulse Ox O2 Delivery O2 Flow Rate FiO2 06/14/17 08:51 95 06/14/17 04:21 16 06/14/17 00:00 96.2 91 18 146/90 (108) 93 06/13/17 20:00 96.4 98 17 131/82 (98) 96 06/13/17 19:14 96 21 06/13/17 16:00 96.8 104 19 129/80 (96) 92 06/13/17 12:00 96.2 96 19 140/85 (103) 94 Result Diagram: 06/10/17 0424 06/10/17 0424 Laboratory Results Laboratory Tests Test 06/13/17 18:12 06/14/17 07:11 Prothrombin Time 10.7 SEC Prothromb Time International Ratio 1.1 RATIO Activated Partial Thromboplast Time 24.9 SEC Tumor Marker Alpha Fetoprotein 4.8 NG/ML Carcinoembryonic Antigen 11.2 NG/ML Imaging Studies Last 24 hours Impressions Liver Ultrasound 06/14/17 0000 Signed Impressions: Service Date/Time: June 09:04 - CONCLUSION: 1. 4 cm hyperechoic mass in the right hepatic lobe corresponding to the hypodense lesion seen on CT. Mass remains incompletely characterized but does not have characteristic findings of either a cyst or hemangioma. Further evaluation with contrast-enhanced MRI should be considered. 2. Cholelithiasis. 3. Nonvisualization of the pancreas. Epifanio Gates MD Administered Medications Medications (Trade) Dose Ordered Sig/Kasi Route PRN Reason Start Time Stop Time Status Last Admin Dose Admin Sodium Chloride (NS Flush) 2 ml BID IV FLUSH 06/10/17 09:00 06/14/17 10:13 Senna/Docusate Sodium (Jasmine-Colace) 1 tab BID PO 06/10/17 09:00 06/14/17 10:09 Baclofen (Lioresal) 20 mg BID PO 06/10/17 09:00 06/14/17 10:08 Bupropion HCl (Wellbutrin Sr 12 Hr) 100 mg Q12HR PO 06/10/17 09:00 06/14/17 10:10 Buspirone HCl (Buspar) 15 mg BID PO 06/10/17 09:00 06/14/17 10:11 Doxazosin Mesylate (Cardura) 4 mg DAILY PO 06/10/17 09:00 06/14/17 10:08 Gabapentin (Neurontin) 600 mg TID PO 06/10/17 09:00 06/14/17 10:08 Meloxicam (Mobic) 7.5 mg DAILY PO 06/10/17 09:00 06/14/17 10:08 Metoclopramide HCl (Reglan) 10 mg BID PO 06/10/17 09:00 06/14/17 10:11 Misoprostol (Cytotec) 200 mcg TID PO 06/10/17 09:00 06/14/17 10:08 Spironolactone (Aldactone) 50 mg DAILY PO 06/10/17 09:00 06/14/17 10:12 Tamsulosin HCl (Flomax) 0.4 mg HS PO 06/10/17 21:00 06/13/17 21:02 Zolpidem Tartrate (Ambien) 10 mg HS PO 06/10/17 21:00 06/14/17 03:22 Pantoprazole Sodium (Protonix) 40 mg DAILY PO 06/10/17 09:00 06/14/17 10:09 Venlafaxine HCl (Effexor Xr) 225 mg DAILY PO 06/10/17 09:00 06/14/17 10:12 Levofloxacin/ Dextrose 150 ml @ 100 mls/hr Q24H IV 06/10/17 12:00 06/13/17 11:33 Oxycodone/ Acetaminophen (Percocet 5-325 Mg) 1 tab Q4H PRN PO pain 3-10 06/10/17 12:00 06/14/17 10:06 Albuterol/ Ipratropium (Duoneb Neb) 1 ampule TID NEB INH 06/10/17 20:00 06/14/17 08:50 Furosemide (Lasix) 20 mg DAILY PO 06/14/17 09:00 06/14/17 10:07 Prednisone (Deltasone) 20 mg DAILY PO 06/14/17 09:00 06/14/17 10:12 Objective Remarks GENERAL: Middle aged male sitting up in bed SKIN: Warm and dry. HEAD: Normocephalic. EYES: No injection or drainage. NECK: Supple, trachea midline. CARDIOVASCULAR: Regular rate and rhythm RESPIRATORY: anterior diaz with occasional rhonchi. GASTROINTESTINAL: Abdomen soft, mildly distended. non tender to palpation. EXTREMITIES: No cyanosis, or edema. MUSCULOSKELETAL: Adequate muscle tone. NEUROLOGICAL: awake and alert, normal speech. moving all extremities. 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 --presented with increased shortness of breath and nonproductive cough for about a week. --CT angiogram did not show any pulmonary embolism. +large left infrahilar mass with associated post obstructive pneumonia of the left lower lobe noted. left lower lobe bronchus and pulmonary artery are obstructed. + widespread pulmonary metastatic disease with probable metastatic mediastinal lymphadenopathy. 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 CT finding is more suggestive of pulmonary cancer. T --EGD and colonoscopy on June 2012 which reportedly was unremarkable. mother did of stomach cancer. --CT abdomen and pelvis shows 2cm lesion in liver. will evaluate further with US liver. --GI consulted. --scheduled for bronchoscopy this Sunday -->hopefully will be able to get a tissue biopsy. If we cannot get any tissue from bronchoscopy or upper endoscopy , may have to consider percutaneous biopsy of the lung mass unless there are other lesions that could be biopsied in the abdomen and pelvis. (2) Pleural effusion on left ICD Codes: J90 - Pleural effusion, not elsewhere classified Plan: +large left pleural effusion and a small right pleural effusion. had a thoracentesis June 10, with removal of 2200 mL of yellow fluid. --fluid characteristic appeared to be exudative. 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 (3) Pneumonia ICD Codes: J18.9 - Pneumonia, unspecified organism Plan: --on antibiotics Assessment 57-year-old male admitted with dyspnea. Oncology consulted for lung masses. h/o Chronic obstructive pulmonary disease. Peripheral vascular disease. Gastroesophageal reflux disease. Osteoarthritis. Degenerative disk disease. Benign prostatic hypertrophy. Depression Peripheral neuropathy. Chronic pain. Plan 1. obtain liver u/s for further differentiation of liver lesion 2. consult GI: [place]. will need EGD/Colonoscopy 3. await bronchoscopy this Sunday Attending Statement The exam, history, and the medical decision-making described in the above note were completed with the assistance of the mid-level provider. I reviewed and agree with the findings presented. I attest that I had a [id number] encounter with the patient on the same day, and personally performed and documented my assessment and findings in the medical record. No abdominal pain. Review CT abdomen/pelvis with pt and his . CT showed indeterminate mass in the liver and non specific density in the gallbladder. Tumor markers pending. Will get US liver for further evaluation. Await bronchoscopy tomorrow. Await GI evaluation for EGD as pleural fluid cytology showed suspicious cell of possible gastric origin. Ximena Martinez Jun 14, 2017 11:36 Harshil Campbell MD Jun 14, 2017 17:32
[2017-06-14] MEDS: LEVOFLOXACIN 750 MG PREMIX INJ 150 ML IV SCH (12:14)
[2017-06-14] MEDS: TAMSULOSIN HCL 0.4 MG CAP PO SCH (20:00)
[2017-06-15] VITALS: BP 123/80; PULSE 95; RESP 20; TEMP 96.8; O2SAT 96
[2017-06-15] MEDS ORDERED: LACTATED RINGER'S 1000 ML IV PRN (04:00)
[2017-06-15] MEDS ORDERED: CHLORHEXIDINE GLUCONATE 2 % 1 PACK (2 CLOTHS) TOPICAL PRN (04:00)
[2017-06-15] MEDS ORDERED: POVIDONE IODINE 5% (ANTISEPSIS KIT) 4 APPLICATIONS EACH NARE PRN (04:00)
[2017-06-15] MEDS: oxyCODONE/ACETAMINOPHEN 5 MG/325 MG TAB PO PRN ×4 (07:39→20:52)
[2017-06-15 08:00] VITALS: BP 143/92; PULSE 108; RESP 17; TEMP 96.4; O2SAT 98
[2017-06-15] MEDS: SODIUM CHLORIDE 0.9% FLUSH 10 ML FLUSH IV FLUSH SCH ×2 (08:21→20:56)
[2017-06-15] MEDS: SPIRONOLACTONE 50 MG TAB PO SCH ×2 (08:29→11:01)
[2017-06-15] MEDS: GABAPENTIN 300 MG CAP PO SCH ×3 (08:30→18:15)
[2017-06-15] MEDS: MISOPROSTOL 200 MCG TAB PO SCH ×3 (08:30→18:15)
[2017-06-15] MEDS: DOCUSATE SODIUM 50 MG/SENNA 8.6 MG TAB PO SCH ×2 (08:30→20:53)
--- NOTE | 2017-06-15 09:39 | GIPROC ---
[facility] [address] [facility]. [facility], [id number] EGD PROCEDURE REPORT EXAM DATE: 06/15/2017 PATIENT NAME: Kenn Farrell MR #: [id number] BIRTHDATE: 1960 ATTENDING: Timothy Cox MD ORDER #: [id number] [employer]: STATUS: inpatient INDICATIONS: The patient is a 57 yr old male here for an EGD due to diagnostic procedure and Lung cancer suspicious for gastric primary. PROCEDURE PERFORMED: EGD w/ biopsy MEDICATIONS: None and Per Anesthesia. TOPICAL ANESTHETIC: none CONSENT: The patient understands the risks and benefits of the procedure and understands that these risks include, but are not limited to: sedation, allergic reaction, infection, perforation and/or bleeding. Alternative means of evaluation and treatment include, among others: physical exam, x-rays, and/or surgical intervention. The patient elects to proceed with this endoscopic procedure. medical equipment was checked for proper function. Hand hygiene and appropriate measures for infection prevention was taken. After the risks, benefits and alternatives of the procedure were thoroughly explained, Informed consent was verified, confirmed and timeout was successfully executed by the treatment team. The patient was anesthetized with topical anesthesia and the worldhistory[employer]ax [id number] endoscope was introduced through the mouth and advanced to the second portion of the duodenum. Retroflexed views revealed Mildly thickened folds fundus and proximal body. The gastroscope was then slowly withdrawn and removed. ESOPHAGUS: There was LA Class A esophagitis noted. There was a 1cm segment of suspected Kc's esophagus found at the gastroesophageal junction. There was no nodular mucosa noted in the Kc's segment. Multiple biopsies were performed. Sample sent for histology. Mildly thickened folds fundus and proximal body. Multiple biopsies were performed using cold forceps. Sample sent for histology. STOMACH: The stomach otherwise appeared normal. The stomach otherwise appeared normal. DUODENUM: The duodenal mucosa appeared normal. ADVERSE EVENTS: There were no complications. IMPRESSIONS: 1. There was LA Class A esophagitis noted 2. There was a 1cm segment of suspected Kc's esophagus found at the gastroesophageal junction; multiple biopsies were performed 3. Mildly thickened folds fundus and proximal body 4. The stomach otherwise appeared normal 5. Normal duodenal mucosa 6. Retroflexed views revealed Mildly thickened folds fundus and proximal body. RECOMMENDATIONS: 1. Await biopsy results. Biopsy results will not be ready for 7-10 days. If you don't hear from us in two weeks, call our office for biopsy results. 2. Protonix 40mg Q AM PATIENT CONDITION: stable DISPOSITION: Inpatient REPEAT EXAM: EGD pending biopsy results Timothy Cox MD eSigned: Timothy Cox MD 06/15/2017 9:39 AM cc: PATIENT NAME: Kenn Farrell MR#: [id number]
--- NOTE | 2017-06-15 09:43 | HHI.GIFU ---
GI Follow-up Note Consult Follow-up EGD today revealed significant reflux esophagitis and possible short segment Kc's, biopsied. Mildly thickened fold proximal stomach also biopsied but no definite gastric primary malignancy found. Can resume diet today after bronchoscopy. Rec continued PPI Tx. It was a pleasure seeing Kenn Farrell. Thank you for this consult. Entered by: Timothy Cueto MD Jun 15, 2017 09:43
[2017-06-15] MEDS ORDERED: LORazepam 1 MG TAB PO ONE (10:30)
[2017-06-15] MEDS: VENLAFAXINE HCL XR 75 MG CAP PO SCH (10:59)
[2017-06-15] MEDS: PANTOPRAZOLE SOD 40 MG DELAYED RELEASE TAB PO SCH (11:00)
[2017-06-15] MEDS: FUROSEMIDE 20 MG TAB PO SCH (11:00)
[2017-06-15] MEDS: busPIRone HCL 10 MG TAB PO SCH ×2 (11:00→20:52)
[2017-06-15] MEDS: buPROPion HCL 100 MG SUSTAINED RELEASE TAB PO SCH ×2 (11:00→20:52)
[2017-06-15] MEDS: DOXAZOSIN MESYLATE 4 MG TAB PO SCH (11:00)
[2017-06-15] MEDS: BACLOFEN 20 MG TAB PO SCH ×2 (11:01→20:51)
[2017-06-15] MEDS: METOCLOPRAMIDE HCL 10 MG TAB PO SCH ×2 (11:01→20:51)
[2017-06-15] MEDS: MELOXICAM 7.5 MG TAB PO SCH (11:01)
[2017-06-15] MEDS: predniSONE 20 MG TAB PO SCH (11:01)
[2017-06-15 12:00] VITALS: BP 116/81; PULSE 105; RESP 18; TEMP 96.8; O2SAT 95
[2017-06-15] MEDS ORDERED: DO NOT ADM ANY ANTICOAGULANT DRUGS PRN (12:00)
--- NOTE | 2017-06-15 12:05 | PD.ONC.PN ---
Subjective Subjective Remarks Afebrile overnight. Patient resting in room in nad. No complaints. Waiting to go down for MRI abdomen. Objective Data Date Time Temp Pulse Resp B/P (MAP) Pulse Ox O2 Delivery O2 Flow Rate FiO2 06/15/17 09:45 97.6 101 16 123/86 (98) 95 06/15/17 08:39 18 06/15/17 08:00 96.4 108 17 143/92 (109) 98 06/15/17 00:00 96.8 95 20 123/80 (94) 96 06/14/17 20:00 96.8 104 20 130/79 (96) 98 06/14/17 19:28 95 21 06/14/17 16:00 98.2 55 18 130/86 (101) 95 06/15/17 06/15/17 06/15/17 07:00 15:00 23:00 Intake Total 360 ml 100 ml Balance 360 ml 100 ml Administered Medications Medications (Trade) Dose Ordered Sig/Kasi Route PRN Reason Start Time Stop Time Status Last Admin Dose Admin Sodium Chloride (NS Flush) 2 ml BID IV FLUSH 06/10/17 09:00 06/15/17 08:21 Senna/Docusate Sodium (Jasmine-Colace) 1 tab BID PO 06/10/17 09:00 06/14/17 20:00 Baclofen (Lioresal) 20 mg BID PO 06/10/17 09:00 06/15/17 11:01 Bupropion HCl (Wellbutrin Sr 12 Hr) 100 mg Q12HR PO 06/10/17 09:00 06/15/17 11:00 Buspirone HCl (Buspar) 15 mg BID PO 06/10/17 09:00 06/15/17 11:00 Doxazosin Mesylate (Cardura) 4 mg DAILY PO 06/10/17 09:00 06/15/17 11:00 Gabapentin (Neurontin) 600 mg TID PO 06/10/17 09:00 06/15/17 11:00 Meloxicam (Mobic) 7.5 mg DAILY PO 06/10/17 09:00 06/15/17 11:01 Metoclopramide HCl (Reglan) 10 mg BID PO 06/10/17 09:00 06/15/17 11:01 Misoprostol (Cytotec) 200 mcg TID PO 06/10/17 09:00 06/15/17 10:59 Spironolactone (Aldactone) 50 mg DAILY PO 06/10/17 09:00 06/15/17 11:01 Tamsulosin HCl (Flomax) 0.4 mg HS PO 06/10/17 21:00 06/14/17 20:00 Zolpidem Tartrate (Ambien) 10 mg HS PO 06/10/17 21:00 06/14/17 20:01 Pantoprazole Sodium (Protonix) 40 mg DAILY PO 06/10/17 09:00 06/15/17 11:00 Venlafaxine HCl (Effexor Xr) 225 mg DAILY PO 06/10/17 09:00 06/15/17 10:59 Levofloxacin/ Dextrose 150 ml @ 100 mls/hr Q24H IV 06/10/17 12:00 06/14/17 12:14 Oxycodone/ Acetaminophen (Percocet 5-325 Mg) 1 tab Q4H PRN PO pain 3-10 06/10/17 12:00 06/15/17 11:39 Furosemide (Lasix) 20 mg DAILY PO 06/14/17 09:00 06/15/17 11:00 Prednisone (Deltasone) 20 mg DAILY PO 06/14/17 09:00 06/15/17 11:01 Lactated Ringer's 1,000 ml @ 30 mls/hr Q24H PRN IV SEE LABEL COMMENTS 06/15/17 04:00 06/18/17 03:59 06/15/17 08:21 Objective Remarks GENERAL: Middle aged male upright on side of bed in [facility]. SKIN: Warm and dry. HEAD: Normocephalic. EYES: No injection or drainage. NECK: Supple, trachea midline. CARDIOVASCULAR: Regular rate and rhythm RESPIRATORY: anterior diaz with scattered rhonchi. GASTROINTESTINAL: Abdomen soft, nontender, mildly distended EXTREMITIES: No cyanosis, or edema. MUSCULOSKELETAL: Adequate muscle tone. NEUROLOGICAL: awake and alert, normal speech. moving all extremities. 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 --presented with increased shortness of breath and nonproductive cough for about a week. --CT angiogram did not show any pulmonary embolism. +large left infrahilar mass with associated post obstructive pneumonia of the left lower lobe noted. left lower lobe bronchus and pulmonary artery are obstructed. + widespread pulmonary metastatic disease with probable metastatic mediastinal lymphadenopathy. 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 CT finding is more suggestive of pulmonary cancer. T --EGD and colonoscopy on June 2012 which reportedly was unremarkable. mother did of stomach cancer. --CT abdomen and pelvis shows 2cm lesion in liver. --U/S liver-->shows 4cm mass in liver. will obtain MRI for further characterization. --GI Agnone, following, patient will need EGD/Colonoscopy. --scheduled for bronchoscopy this Sunday -->hopefully will be able to get a tissue biopsy. If we cannot get any tissue from bronchoscopy or upper endoscopy , may have to consider percutaneous biopsy of the lung mass unless there are other lesions that could be biopsied in the abdomen and pelvis. (2) Pleural effusion on left ICD Codes: J90 - Pleural effusion, not elsewhere classified Plan: +large left pleural effusion and a small right pleural effusion. had a thoracentesis June 10, with removal of 2200 mL of yellow fluid. --fluid characteristic appeared to be exudative. 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 (3) Pneumonia ICD Codes: J18.9 - Pneumonia, unspecified organism Plan: --on antibiotics Assessment 57-year-old male admitted with dyspnea. Oncology consulted for lung masses. h/o Chronic obstructive pulmonary disease. Peripheral vascular disease. Gastroesophageal reflux disease. Osteoarthritis. Degenerative disk disease. Benign prostatic hypertrophy. Depression Peripheral neuropathy. Chronic pain. Plan 1. obtain MRI abdomen. 2. will dose with ativan 1mg PO prior to MRI 3. await bronchoscopy/EGD/colonoscopy Attending Statement The exam, history, and the medical decision-making described in the above note were completed with the assistance of the mid-level provider. I reviewed and agree with the findings presented. I attest that I had a [id number] encounter with the patient on the same day, and personally performed and documented my assessment and findings in the medical record. No abdominal pain. US showed a non specific lesion in right hepatic lobe. Ca19-9 markedly elevated and CEA slightly elevated. This is suspicious for pancreaticobiliary cancer. Will get MRI for further evaluation. He is awaiting EGD and bronchoscopy. Reviewed results with pt, his questions answered. He can f/u oncology clinic after d/c. Ximena Martinez Jun 15, 2017 12:05 Harshil Campbell MD Jun 15, 2017 14:46
[2017-06-15] MEDS: LEVOFLOXACIN 750 MG PREMIX INJ 150 ML IV SCH (12:39)
--- NOTE | 2017-06-15 12:41 | HHI.PR ---
Subjective Remarks Follow-up large left pleural effusion status post thoracentesis/respiratory failure 06/11/17-patient seen and examined, reports some improvement of shortness of breath. Denies any chest pain however. Cytology pending 06/12/17-patient seen and examined, improvement of shortness of breath and respiratory status.taking PO well this AM. Cytology pending. 06/13/17-patient seen and examined, no complaints. breathing better 06/14/17-patient seen and examined denies any abdominal pain, shortness of breath otherwise stable. 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 Patient was seen by GI this morning 06/15/17-patient seen and examined, he started post EGD and just completed abdominal MRI. Case discussed with patient's and brother. No acute event overnight. Plan for bronchoscopy today. Objective Vitals Vital Signs Date Time Temp Pulse Resp B/P (MAP) Pulse Ox O2 Delivery O2 Flow Rate FiO2 06/15/17 09:45 97.6 101 16 123/86 (98) 95 06/15/17 08:39 18 06/15/17 08:00 96.4 108 17 143/92 (109) 98 06/15/17 00:00 96.8 95 20 123/80 (94) 96 06/14/17 20:00 96.8 104 20 130/79 (96) 98 06/14/17 19:28 95 21 06/14/17 16:00 98.2 55 18 130/86 (101) 95 I/O 06/14/17 06/14/17 06/14/17 06/15/17 06/15/17 06/15/17 07:00 15:00 23:00 07:00 15:00 23:00 Intake Total 620 ml 360 ml 100 ml Balance 620 ml 360 ml 100 ml Intake Oral 620 ml 360 ml Other 100 ml # Voids 3 3 # Bowel Movements 0 0 Objective Remarks GENERAL: NAD SKIN: Warm and dry. HEAD: Normocephalic. EYES: No scleral icterus. No injection or drainage. NECK: Supple, trachea midline. No JVD or lymphadenopathy. CARDIOVASCULAR: Regular rate and rhythm without murmurs, gallops, or rubs. RESPIRATORY: Breath sounds decrease bilaterally L>R. No accessory muscle use. GASTROINTESTINAL: Abdomen soft, non-tender, nondistended. MUSCULOSKELETAL: No cyanosis, or edema. BACK: Nontender without obvious deformity. No CVA tenderness. 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 ICD Code: C16.9 - Malignant neoplasm of stomach, unspecified (2) Respiratory failure with hypoxia ICD Code: J96.91 - Respiratory failure, unspecified with hypoxia (3) Pleural effusion on left ICD Code: J90 - Pleural effusion, not elsewhere classified (4) Pleural effusion, malignant ICD Code: J91.0 - Malignant pleural effusion (5) Tobacco abuse ICD Code: Z72.0 - Tobacco use (6) Community acquired pneumonia ICD Code: J18.9 - Pneumonia, unspecified organism (7) Metastasis ICD Code: C79.9 - Secondary malignant neoplasm of unspecified site Assessment and Plan 57-year-old male with Respiratory failure with hypoxia-Resolved Left large pleural effusion Pleural effusion, malignant? 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 Appreciate input from pulmonary medicine and plan for bronchoscopy today Continue with DuoNeb, Spiriva and maintain oxygen saturation above 92% Continue with IV Lasix Signet ring cell carcinoma gastric origin Appreciate input from oncology GI consulted and s/p EGD 06/15/17 pending biopsy report CEA 11.2, CA-19-9 elevated, alpha-fetoprotein within normal limit Liver US noted and review by me Abdominal MRI completed pending report Post obstructive pneumonia per CTA Currently on IV Levaquin pending culture report Pulmonary medicine plan for bronchoscopy 06/15/17 COPD exacerbation-resolved Sputum culture positive for Pseudomonas Currently on prednisone 20 mg twice a day, Levaquin,Symbicort,Spiriva, Mucinex Maintain oxygen saturation above 92% Chronic pain/peripheral neuropathy Continue home gabapentin, mobic Depression/anxiety Continue BuSpar, Effexor BPH Continue home doxazosin, Flomax History of bilateral lower extremity edema Continue home spironolactone and PO Lasix Tobacco abuse Tobacco counseling cessation provided DVT prophylaxis: heparin subcutaneous Jose Mckeon MD Jun 15, 2017 12:41
--- NOTE | 2017-06-15 13:26 | RADRPT ---
EXAM DATE/TIME: 06/15/2017 11:54 [facility] COMPARISON: CHEST SINGLE AP, June 13, 2017, 17:58. CT ABDOMEN & PELVIS W CONTRAST, June 14, 2017, 2:52. US ABDOMEN - LIVER, June 14, 2017, 9:04. INDICATIONS : Liver mass. CONTRAST: 20 cc Omniscan (gadodiamide) IV MEDICAL HISTORY : Chronic obstructive pulmonary disease. Congestive heart failure. Arthritis. SURGICAL HISTORY : Discectomy, cervical. Discectomy, lumbar. ENCOUNTER: Initial ACUITY: 1 day PAIN SCORE: 0/10 LOCATION: Abdomen. TECHNIQUE: Multiplanar, multisequence magnetic resonance imaging of the abdomen was performed without and with i ntravenous contrast. FINDINGS: LIVER: Normal size with decreased signal intensity. There appears to be fatty infiltration throughout the li radha. No mass occupying lesion is identified. The previously described 2 cm low-density lesion in the right lobe of the liver near the quadrate lobe appears to represent focal fatty sparing on today's e xamination. Portal vein is within normal limits. BILIARY: There is no intra- or extra-hepatic biliary ductal dilatation. Gallbladder contains multiple stones. No surrounding inflammatory changes are demonstrated. SPLEEN: Within normal limits for size. There is some peripheral defects on the postcontrast images suggestive of old infarcts. PANCREAS: Within normal limits. ADRENALS: Within normal limits. KIDNEYS: Normal size and signal intensity. There is no hydronephrosis or mass. There is a 7 mm cyst upper frantz e right kidney. OTHER: Aorta is nonaneurysmal. There is no lymphadenopathy. CONCLUSION: 1. There is fatty infiltration throughout the liver with some focal fatty sparing in the right lobe o f the liver near the quadrate lobe. No mass occupying lesions are demonstrated. 2. Multiple gallstones in the gallbladder. No biliary tract obstruction. 3. There could be some peripheral infarcts involving the spleen on the postcontrast images. 4. 7 mm benign cyst upper pole right kidney. Petros Rowell MD on June 15, 2017 at 13:13 Board Certified Radiologist. This report was verified electronically.
[2017-06-15] MEDS ORDERED: GADODIAMIDE PF 287 MG/ML 20 ML VIAL (for RAD MRI) IVCONTRAST ONE (13:34)
[2017-06-15] MEDS ORDERED: RESP: ALBUTEROL 2.5 MG/IPRATROPIUM 0.5 MG NEB (PRN) NEB (14:45)
[2017-06-15] MEDS ORDERED: *RESP: ALBUTEROL 2.5 MG/3 ML NEB (PRN) PERIprocedural Use ONLY NEB ONE (15:09)
[2017-06-15 16:00] VITALS: BP 123/75; PULSE 115; RESP 17; TEMP 96.1; O2SAT 94
[2017-06-15 20:00] VITALS: BP 119/76; PULSE 107; RESP 20; TEMP 96.9; O2SAT 98
--- NOTE | 2017-06-15 20:08 | MP ---
cc: Isak SINGH M.D. DATE OF SURGERY: 06/15/2017 PROCEDURE: Bronchoscopy. INDICATIONS FOR PROCEDURE: Left lower lobe mass. PROCEDURE: After informed consent was obtained the patient underwent diagnostic bronchoscopy with general anesthesia. Examination of the mid to distal trachea was normal. Examination of the right main stem bronchus, right upper lower and middle lobes were all entirely unremarkable. Examination of the left main stem bronchus down the takeoff of the left upper lobe was normal. There was some narrowing of the left lower lobe bronchus, left upper lobe bronchus was entirely normal. 5 inches to the left lower lobe the superior segment was narrowed and compressed and there was a lesion obstructing the lateral segment of the left lower lobe. The visible lesion was biopsied several times with a needle. As submitted for cytology. Brushings were obtained as well for cytology. Washings were obtained for culture and cytology. Six bronchial biopsies were also obtained. There was minimal bleeding. No active bleeding at the end of the procedure. He tolerated the procedure otherwise. He is being prepared for transfer back to recovery. IN SUMMARY: He has a lesion obstructing a segment of the left lower lobe visibly appears to be a tumor. Multiple specimens submitted for pathology cytology and cultures. MD BERNARD Amaya/becky /2:41 PM /7:59 PM
[2017-06-15] MEDS: ZOLPIDEM TARTRATE 10 MG TAB PO SCH (20:52)
[2017-06-15] MEDS: TAMSULOSIN HCL 0.4 MG CAP PO SCH (20:55)
[2017-06-16] VITALS: BP 130/78; PULSE 101; RESP 20; TEMP 96.3; O2SAT 97
[2017-06-16] MEDS: oxyCODONE/ACETAMINOPHEN 5 MG/325 MG TAB PO PRN (06:34)
[2017-06-16 08:00] VITALS: BP 155/81; PULSE 100; RESP 19; TEMP 95.3; O2SAT 94
[2017-06-16] MEDS: PANTOPRAZOLE SOD 40 MG DELAYED RELEASE TAB PO SCH (08:45)
[2017-06-16] MEDS: MISOPROSTOL 200 MCG TAB PO SCH (08:45)
[2017-06-16] MEDS: SPIRONOLACTONE 50 MG TAB PO SCH (08:45)
[2017-06-16] MEDS: VENLAFAXINE HCL XR 75 MG CAP PO SCH (08:46)
[2017-06-16] MEDS: DOXAZOSIN MESYLATE 4 MG TAB PO SCH (08:46)
[2017-06-16] MEDS: METOCLOPRAMIDE HCL 10 MG TAB PO SCH (08:46)
[2017-06-16] MEDS: DOCUSATE SODIUM 50 MG/SENNA 8.6 MG TAB PO SCH (08:46)
[2017-06-16] MEDS: busPIRone HCL 10 MG TAB PO SCH (08:46)
[2017-06-16] MEDS: buPROPion HCL 100 MG SUSTAINED RELEASE TAB PO SCH (08:46)
[2017-06-16] MEDS: predniSONE 20 MG TAB PO SCH (08:46)
[2017-06-16] MEDS: MELOXICAM 7.5 MG TAB PO SCH (08:46)
[2017-06-16] MEDS: GABAPENTIN 300 MG CAP PO SCH (08:46)
[2017-06-16] MEDS: FUROSEMIDE 20 MG TAB PO SCH (08:46)
[2017-06-16] MEDS: SODIUM CHLORIDE 0.9% FLUSH 10 ML FLUSH IV FLUSH SCH (08:47)
[2017-06-16] MEDS: BACLOFEN 20 MG TAB PO SCH (08:48)
[2017-06-16] MEDS ORDERED: LEVA750T9 PO (09:46)
[2017-06-16] MEDS ORDERED: PRED20 PO (09:46)
[2017-06-16] MEDS ORDERED: OXYC1TAB63 PO (09:46)
[2017-06-16] MEDS ORDERED: FURO20TA PO (09:46)
--- NOTE | 2017-06-16 09:53 | HHI.PR ---
Subjective Remarks Follow-up large left pleural effusion status post thoracentesis/respiratory failure 06/11/17-patient seen and examined, reports some improvement of shortness of breath. Denies any chest pain however. Cytology pending 06/12/17-patient seen and examined, improvement of shortness of breath and respiratory status.taking PO well this AM. Cytology pending. 06/13/17-patient seen and examined, no complaints. breathing better 06/14/17-patient seen and examined denies any abdominal pain, shortness of breath otherwise stable. 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 Patient was seen by GI this morning 06/15/17-patient seen and examined, he started post EGD and just completed abdominal MRI. Case discussed with patient's and brother. No acute event overnight. Plan for bronchoscopy today. 06/16/17-patient seen and examined, he is status post bronchoscopy and EGD 06/15, denies any significant shortness of breath. It is ready for discharge home today. Objective Vitals Vital Signs Date Time Temp Pulse Resp B/P (MAP) Pulse Ox O2 Delivery O2 Flow Rate FiO2 06/16/17 08:00 95.3 100 19 155/81 (105) 94 06/16/17 00:00 96.3 101 20 130/78 (95) 97 06/15/17 20:00 96.9 107 20 119/76 (90) 98 06/15/17 17:21 18 06/15/17 16:00 96.1 115 17 123/75 (91) 94 06/15/17 15:30 113 22 117/70 (86) 94 Nasal Cannula 2 06/15/17 15:15 106 20 123/65 (84) 100 Nasal Cannula 2 06/15/17 15:02 97.2 112 16 121/70 (87) 98 Nasal Cannula 2 06/15/17 12:00 96.8 105 18 116/81 (93) 95 I/O 06/15/17 06/15/17 06/15/17 06/16/17 06/16/17 06/16/17 07:00 15:00 23:00 07:00 15:00 23:00 Intake Total 360 ml 100 ml 480 ml 720 ml Balance 360 ml 100 ml 480 ml 720 ml Intake Oral 360 ml 480 ml 720 ml Other 100 ml # Voids 3 1 2 # Bowel Movements 0 1 0 Imaging Last Impressions Abdomen MRI 06/15/17 0000 Signed Impressions: Service Date/Time: Thursday, June 15, 2017 11:54 - CONCLUSION: 1. There is fatty infiltration throughout the liver with some focal fatty sparing in the right lobe of the liver near the quadrate lobe. No mass occupying lesions are demonstrated. 2. Multiple gallstones in the gallbladder. No biliary tract obstruction. 3. There could be some peripheral infarcts involving the spleen on the postcontrast images. 4. 7 mm benign cyst upper pole right kidney. Petros Rowell MD Liver Ultrasound 06/14/17 0000 Signed Impressions: Service Date/Time: June 09:04 - CONCLUSION: 1. 4 cm hyperechoic mass in the right hepatic lobe corresponding to the hypodense lesion seen on CT. Mass remains incompletely characterized but does not have characteristic findings of either a cyst or hemangioma. Further evaluation with contrast-enhanced MRI should be considered. 2. Cholelithiasis. 3. Nonvisualization of the pancreas. Epifanio Gates MD Chest X-Ray 06/13/17 0000 Signed Impressions: Service Date/Time: Tuesday, June 13, 2017 17:58 - CONCLUSION: 1. Mild congestive heart failure pattern with decrease in size of left and right effusion since June 09. Oliverio Oneal MD Abdomen/Pelvis CT 06/13/17 0000 Signed Impressions: Service Date/Time: June 02:52 - CONCLUSION: 1. Segmental and lobar consolidation in the lower lungs and bilateral pleural effusions, very similar to recent pulmonary angiogram. 2. Focal area of induration of the subcutaneous anterior abdominal wall and adjacent mesentery in the left lower quadrant, suggestive of contusion. Recommend clinical correlation. 3. There is a focal 2 cm intermediate density lesion in the liver at the junction of the right lobe of quadrate lobe. This cannot be further characterized. Recommend ultrasound to evaluate whether this is persistent. There is also questionable intraluminal density in the gallbladder without calcification. Presence of noncalcified stones can also be evaluated at the time the ultrasound. 4. Sigmoid diverticula without radiographic evidence of diverticulitis. Martinez Mckenna MD Thoracentesis Ultrasound 06/10/17 0000 Signed Impressions: Service Date/Time: Saturday, June 10, 2017 15:53 - CONCLUSION: Uncomplicated ultrasound guided thoracentesis. Petros Rowell MD CT Angiography 06/10/17 0000 Signed Impressions: Service Date/Time: Saturday, June 10, 2017 12:31 - CONCLUSION: 1. No pulmonary embolus. 2. Large left infrahilar mass of concern for a central primary bronchogenic carcinoma. There is associated post obstructive pneumonia of the left lower lobe. Left lower lobe bronchus and pulmonary artery are obstructed. 3. Widespread pulmonary metastatic disease. Also probable metastatic mediastinal lymphadenopathy 4. Right lower lobe pneumonia. 5. Small right and large left pleural effusions. Roney Shore MD Objective Remarks GENERAL: NAD SKIN: Warm and dry. HEAD: Normocephalic. EYES: No scleral icterus. No injection or drainage. NECK: Supple, trachea midline. No JVD or lymphadenopathy. CARDIOVASCULAR: Regular rate and rhythm without murmurs, gallops, or rubs. RESPIRATORY: Breath sounds decrease bilaterally L>R. No accessory muscle use. GASTROINTESTINAL: Abdomen soft, non-tender, nondistended. MUSCULOSKELETAL: No cyanosis, or edema. BACK: Nontender without obvious deformity. No CVA tenderness. 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 ICD Code: C16.9 - Malignant neoplasm of stomach, unspecified (2) Respiratory failure with hypoxia ICD Code: J96.91 - Respiratory failure, unspecified with hypoxia (3) Pleural effusion on left ICD Code: J90 - Pleural effusion, not elsewhere classified (4) Pleural effusion, malignant ICD Code: J91.0 - Malignant pleural effusion (5) Tobacco abuse ICD Code: Z72.0 - Tobacco use (6) Community acquired pneumonia ICD Code: J18.9 - Pneumonia, unspecified organism (7) Metastasis ICD Code: C79.9 - Secondary malignant neoplasm of unspecified site Assessment and Plan 57-year-old male with Respiratory failure with hypoxia-Resolved Left large pleural effusion Pleural effusion, malignant? 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 Appreciate input from pulmonary medicine and plan for bronchoscopy today Continue with DuoNeb, Spiriva and maintain oxygen saturation above 92% Continue with IV Lasix Signet ring cell carcinoma gastric origin Appreciate input from oncology GI consulted and s/p EGD 06/15/17 pending biopsy report CEA 11.2, CA-19-9 elevated, alpha-fetoprotein within normal limit Liver US noted and review by me Abdominal MRI completed pending report Post obstructive pneumonia per CTA Currently on IV Levaquin pending culture report Pulmonary medicine and s/p bronchoscopy 06/15/17 pending biopsy report COPD exacerbation-resolved Sputum culture positive for Pseudomonas Currently on prednisone 20 mg twice a day, Levaquin,Symbicort,Spiriva, Mucinex Maintain oxygen saturation above 92% Chronic pain/peripheral neuropathy Continue home gabapentin, mobic Depression/anxiety Continue BuSpar, Effexor BPH Continue home doxazosin, Flomax History of bilateral lower extremity edema Continue home spironolactone and PO Lasix Tobacco abuse Tobacco counseling cessation provided DVT prophylaxis: heparin subcutaneous Problem Qualifiers (1) Metastasis: Qualified Codes: C78.00 - Secondary malignant neoplasm of unspecified lung Jose Mckeon MD Jun 16, 2017 09:53
--- NOTE | 2017-06-16 09:57 | HHI.DS ---
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 ICD Code: C16.9 - Malignant neoplasm of stomach, unspecified (2) Respiratory failure with hypoxia ICD Code: J96.91 - Respiratory failure, unspecified with hypoxia (3) Pleural effusion on left ICD Code: J90 - Pleural effusion, not elsewhere classified (4) Pleural effusion, malignant ICD Code: J91.0 - Malignant pleural effusion (5) Tobacco abuse ICD Code: Z72.0 - Tobacco use (6) Community acquired pneumonia ICD Code: J18.9 - Pneumonia, unspecified organism (7) Metastasis ICD Code: C79.9 - Secondary malignant neoplasm of unspecified site Procedures Left lung thoracentesis Bronchoscopy 06/15/17 EGD 06/15/17 Brief History - From Admission 57-year-old male with a past medical history significant for COPD not on home oxygen, GERD and peripheral vascular disease presents to the emergency department with shortness of breath. The patient is an extremely poor historian however reports that for the past week he has been short of breath. He endorses a nonproductive cough. He denies fever/chills. Chest x-ray significant for cardiomegaly with bilateral effusions, left greater than right and mild edema. Patient has no previous history of CHF, last echo done in 2011 showed an EF of 60-65%. BNP 15. Patient tachypneic with labored breathing. Oxygen saturation 93% on 1 L nasal cannula. Tachypneic to 118. Significant Findings Laboratory Tests Test 06/13/17 18:12 06/14/17 07:11 Carcinoembryonic Antigen 11.2 NG/ML (0.2-5.0) CA 19-9 Antigen 8897.2 U/ML (0.0-35.0) Imaging Last Impressions Abdomen MRI 06/15/17 0000 Signed Impressions: Service Date/Time: Thursday, June 15, 2017 11:54 - CONCLUSION: 1. There is fatty infiltration throughout the liver with some focal fatty sparing in the right lobe of the liver near the quadrate lobe. No mass occupying lesions are demonstrated. 2. Multiple gallstones in the gallbladder. No biliary tract obstruction. 3. There could be some peripheral infarcts involving the spleen on the postcontrast images. 4. 7 mm benign cyst upper pole right kidney. Petros Rowell MD Liver Ultrasound 06/14/17 0000 Signed Impressions: Service Date/Time: June 09:04 - CONCLUSION: 1. 4 cm hyperechoic mass in the right hepatic lobe corresponding to the hypodense lesion seen on CT. Mass remains incompletely characterized but does not have characteristic findings of either a cyst or hemangioma. Further evaluation with contrast-enhanced MRI should be considered. 2. Cholelithiasis. 3. Nonvisualization of the pancreas. Epifanio Gates MD Chest X-Ray 06/13/17 0000 Signed Impressions: Service Date/Time: Tuesday, June 13, 2017 17:58 - CONCLUSION: 1. Mild congestive heart failure pattern with decrease in size of left and right effusion since June 09. Oliverio Oneal MD Abdomen/Pelvis CT 06/13/17 0000 Signed Impressions: Service Date/Time: June 02:52 - CONCLUSION: 1. Segmental and lobar consolidation in the lower lungs and bilateral pleural effusions, very similar to recent pulmonary angiogram. 2. Focal area of induration of the subcutaneous anterior abdominal wall and adjacent mesentery in the left lower quadrant, suggestive of contusion. Recommend clinical correlation. 3. There is a focal 2 cm intermediate density lesion in the liver at the junction of the right lobe of quadrate lobe. This cannot be further characterized. Recommend ultrasound to evaluate whether this is persistent. There is also questionable intraluminal density in the gallbladder without calcification. Presence of noncalcified stones can also be evaluated at the time the ultrasound. 4. Sigmoid diverticula without radiographic evidence of diverticulitis. Martinez Mckenna MD Thoracentesis Ultrasound 06/10/17 0000 Signed Impressions: Service Date/Time: Saturday, June 10, 2017 15:53 - CONCLUSION: Uncomplicated ultrasound guided thoracentesis. Petros Rowell MD CT Angiography 06/10/17 0000 Signed Impressions: Service Date/Time: Saturday, June 10, 2017 12:31 - CONCLUSION: 1. No pulmonary embolus. 2. Large left infrahilar mass of concern for a central primary bronchogenic carcinoma. There is associated post obstructive pneumonia of the left lower lobe. Left lower lobe bronchus and pulmonary artery are obstructed. 3. Widespread pulmonary metastatic disease. Also probable metastatic mediastinal lymphadenopathy 4. Right lower lobe pneumonia. 5. Small right and large left pleural effusions. Roney Shore MD PE at Discharge GENERAL: NAD SKIN: Warm and dry. HEAD: Normocephalic. EYES: No scleral icterus. No injection or drainage. NECK: Supple, trachea midline. No JVD or lymphadenopathy. CARDIOVASCULAR: Regular rate and rhythm without murmurs, gallops, or rubs. RESPIRATORY: Breath sounds decrease bilaterally L>R. No accessory muscle use. GASTROINTESTINAL: Abdomen soft, non-tender, nondistended. MUSCULOSKELETAL: No cyanosis, or edema. BACK: Nontender without obvious deformity. No CVA tenderness. Hospital Course Patient admitted secondary to Respiratory failure with hypoxia was found to have large left pleural effusion for which he underwent left thoracentesis with cytology which demonstrated signet ring cell carcinoma or gastric origin. Pulmonary medicine as well as gastroenterology and oncology were all consulted. Patient underwent EGD followed by bronchoscopy on 06/15/17 with biopsy pending. He was also treated for pneumonia and started on Levaquin with sputum positive for Pseudomonas. Patient's respiratory status improved. Short acting as well as long-acting beta agonists were provided. DVT and GI prophylaxis were provided. Prior to discharge patient's conditions improved and vital remained stable. He will be discharged home on Levaquin 7 days. Pt Condition on Discharge: Fair Discharge Disposition: Discharge Home Discharge Time: > 30 minutes Discharge Instructions DIET: Follow Instructions for: As Tolerated, No Restrictions Activities you can perform: Regular-No Restrictions Follow up Referrals: Gastroenterology - 2 Weeks Oncology PCP Follow-up - 1 Week Pulmonology New Medications: Levofloxacin (Levaquin) 750 Mg Tablet 750 MG PO DAILY for Infection, #7 TAB 0 Refills Furosemide (Furosemide) 20 Mg Tab 20 MG PO DAILY for Prevent Heart Failure, #30 TAB Oxycodone HCl/Acetaminophen (Oxycodone-Acetaminophen 5-325) 5 Mg-325 Mg Tablet 1 TAB PO Q4H PRN for pain 3-10, #10 TAB Prednisone (Prednisone) 20 Mg Tab 20 MG PO DAILY for Breathing Treatment, #7 TAB Continued Medications: Albuterol Neb (Albuterol Neb) 0.63 Mg/3 Ml Neb 0.63 MG NEB Q4HR NEB PRN for SHORTNESS OF BREATH, #25 NEBULE 0 Refills Baclofen (Baclofen) 20 Mg Tab 20 MG PO BID, TAB 0 Refills Bupropion HCl ER 12 HR (Wellbutrin SR 12 HR) 100 Mg Tab 100 MG PO Q12HR for Control Depression, TAB 0 Refills Buspirone (Buspirone) 15 Mg Tab 15 MG PO BID for Anxiety, TAB 0 Refills Calcium Carbonate-Cholecalciferol (Calcium 600+D3) 1 Tab Tab 1 TAB PO DAILY Docusate Sodium (Dulcolax Stool Softener) 100 Mg Cap 100 MG PO BID for Prevent Constipation, #60 CAP 0 Refills Doxazosin (Doxazosin) 4 Mg Tab 4 MG PO DAILY, TAB Gabapentin (Gabapentin) 400 Mg Cap 600 CAP PO TID, CAP 0 Refills Meloxicam (Mobic) 7.5 Mg Tab 7.5 MG PO DAILY, TAB 0 Refills Metoclopramide (Metoclopramide) 10 Mg Tab 10 MG PO BID, TAB 0 Refills Misoprostol (Cytotec) 200 Mcg Tab 200 MCG PO TID, TAB 0 Refills Montelukast (Montelukast) 10 Mg Tab 10 MG PO BID, #30 TAB 0 Refills Multiple Vitamin (Multiple Vitamin) 1 Tab 1 TAB PO DAILY, TAB 0 Refills Omeprazole (Omeprazole) 40 Mg Cap 40 MG PO DAILY, CAP 0 Refills Polyethylene Glycol 3350 Powder (Miralax Powder) 17 Gm Powd 17 GM PO DAILY for Constipation, #1 CAN 0 Refills Mix and dissolve one measuring cap-ful (17 grams) in water or juice. Spironolactone (Spironolactone) 50 Mg Tab 50 MG PO DAILY, TAB 0 Refills Tamsulosin (Flomax) 0.4 Mg Cap 0.4 MG PO HS for Manage Prostate Problems, #30 CAP 0 Refills Tiotropium Inh (Spiriva Respimat Inh) 1.25 Mcg/Act Aero 1 PUFF INH DAILY for Asthma Management, #1 INHALER 0 Refills 1.25 mcg = 1 inhalation Venlafaxine (Effexor) 75 Mg Tab 75 MG PO TID, TAB 0 Refills Zolpidem (Zolpidem) 10 Mg Tab 10 MG PO HS for Insomnia, TAB 0 Refills Discontinued Medications: Docusate Sodium (Dulcolax Stool Softener) 100 Mg Cap 100 MG PO BID for Prevent Constipation, #60 CAP 0 Refills Oxycodone-Acetaminophen (Percocet) 5-325 mg Tab 2 TAB PO TID PRN for PAIN, TAB 0 Refills Sennosides (Senokot) 8.6 Mg Tab 8.6 MG PO BID for Constipation, #30 TAB 0 Refills Jose Mckeon MD Jun 16, 2017 09:57
[2017-06-16] MEDS: LEVOFLOXACIN 750 MG PREMIX INJ 150 ML IV SCH (11:53)
== END 2017-06-16 12:02 | disposition home or self-care (01) | DRG 166 ==
LOC: NEPC 19:05 → NEDA 22:16 → NEPGCP 23:12 → OBSVTOIN 06-10 14:05 → N07B 06-11 00:19
PROVIDERS: ADMIT Hospitalist; ATTEND Hospitalist
PROC: 0W9B3ZX Drainage of Left Pleural Cavity, Percutaneous Approach, Diagnostic (ICD-10-PCS; 2017-06-10)
PROC: 0BBJ8ZX Excision of Left Lower Lung Lobe, Via Natural or Artificial Opening Endoscopic, Diagnostic (ICD-10-PCS; 2017-06-15)
PROC: 0DB48ZX Excision of Esophagogastric Junction, Via Natural or Artificial Opening Endoscopic, Diagnostic (ICD-10-PCS; 2017-06-15)
PROC: 0DB68ZX Excision of Stomach, Via Natural or Artificial Opening Endoscopic, Diagnostic (ICD-10-PCS; 2017-06-15)
PROC: 0BBB8ZX Excision of Left Lower Lobe Bronchus, Via Natural or Artificial Opening Endoscopic, Diagnostic (ICD-10-PCS; principal; 2017-06-15 09:14)
DX: C34.90 Malignant neoplasm of unspecified part of unspecified bronchus or lung (principal); G82.50 Quadriplegia, unspecified; J96.91 Respiratory failure, unspecified with hypoxia; J18.9 Pneumonia, unspecified organism; J91.0 Malignant pleural effusion; C16.9 Malignant neoplasm of stomach, unspecified; C78.00 Secondary malignant neoplasm of unspecified lung; J44.0 Chronic obstructive pulmonary disease with (acute) lower respiratory infection; J44.1 Chronic obstructive pulmonary disease with (acute) exacerbation; I11.0 Hypertensive heart disease with heart failure; I50.9 Heart failure, unspecified; M34.9 Systemic sclerosis, unspecified; F32.9 Major depressive disorder, single episode, unspecified; F40.240 Claustrophobia; M19.90 Unspecified osteoarthritis, unspecified site; I73.00 Raynaud's syndrome without gangrene; M06.9 Rheumatoid arthritis, unspecified; M48.00 Spinal stenosis, site unspecified; Z86.14 Personal history of Methicillin resistant Staphylococcus aureus infection; N40.0 Benign prostatic hyperplasia without lower urinary tract symptoms; G62.9 Polyneuropathy, unspecified; F41.9 Anxiety disorder, unspecified; K76.9 Liver disease, unspecified; Z80.0 Family history of malignant neoplasm of digestive organs; R79.1 Abnormal coagulation profile; Z98.1 Arthrodesis status; R59.0 Localized enlarged lymph nodes; G89.4 Chronic pain syndrome; Z87.891 Personal history of nicotine dependence; K21.0 Gastro-esophageal reflux disease with esophagitis
CPT/HCPCS: 32555; 36600; 71010; 71275; 74177; 74183; 76705; 76937; 80048; 80053; 81001; 82105; 82378; 82550; 82805; 82945; 82948; 83605; 83615; 83735; 83880; 84157; 84484; 85025; 85379; 85610; 85730; 86301; 86403; 87015; 87040; 87070; 87077; 87102; 87116; 87186; 87205; 87206; 88112; 88173; 88305; 88312; 88313; 88341; 88342; 89051; 93005; 93306; 94150; 94640; 94664; A9579; C1729; J0696; J1644; J1940; J1956; J2930; J7120; J7512; J7611; J7613; Q9963; Q9967

== ENCOUNTER 2017-06-29 12:26 | Day surgery (SDC) | payer OTHER ==
[~2017-06-29 12:26] MED LIST changes: +ALBU0.63 NEB; +FURO20TA PO; +LEVA750T9 PO; -MONT10TA2 PO; +OXYC1TAB63 PO; -PERC5TAB12 PO; +PRED20 PO; -SENO8.6T5 PO
[2017-06-29 12:52] LABS: HEMATOCRIT 39.4 % (39.0-51.0); HEMOGLOBIN 12.9 GM/DL (13.0-17.0); MEAN CELL VOLUME 86.1 FL (80.0-100.0); MEAN CORPUSCULAR HEMOGLOBIN 28.1 PG (27.0-34.0); MEAN CORPUSCULAR HGB CONC 32.6 % (32.0-36.0); MEAN PLATELET VOLUME 6.8 FL (7.0-11.0); PLATELET COUNT 207 TH/MM3 (150-450); RED BLOOD COUNT 4.58 MIL/MM3 (4.50-5.90); RED CELL DISTRIBUTION WIDTH 13.9 % (11.6-17.2); WHITE BLOOD COUNT 6.6 TH/MM3 (4.0-11.0)
[2017-06-29 13:02] LABS: PROTHROMBIN TIME - PATIENT 9.9 SEC (9.8-11.6)
--- NOTE | 2017-06-29 14:35 | PD.RAD ---
Post US Procedure Prog Note Pre Procedure Diagnosis: (1) Pleural effusion, malignant (2) Pleural effusion on left Post Procedure Diagnosis: (1) Pleural effusion, malignant (2) Pleural effusion on left Procedure Date: Jun 29, 2017 Supervising Radiologist: Epifanio Gates Proceduralist/Assist: Carmen Candelario RDMS Anesthesia: Local Plan of Activity Patient to Unit: ROPU Patient Condition: Fair See PACS Report for procedural detail/treatment Drainage Procedure Procedure 1 Imaging Guidance: Ultrasound Side: Left Procedure: Removal Drainage: Suction Fluid Description: Cloudy, Yellow Epifanio Gates MD Jun 29, 2017 14:35
[2017-06-29 14:40] VITALS: BP 128/83; PULSE 92; RESP 18; TEMP 97.7; O2SAT 97
[2017-06-29 14:55] VITALS: BP 128/83; PULSE 100; RESP 18; O2SAT 95
--- NOTE | 2017-06-29 15:04 | RADRPT ---
EXAM DATE/TIME: 06/29/2017 14:36 [facility] COMPARISON: CHEST EXPIRATION ONLY, June 10, 2017, 17:25. INDICATIONS : Status post left thoracentesis. MEDICAL HISTORY : Chronic obstructive pulmonary disease. Congestive heart failure. Arthritis. SURGICAL HISTORY : Discectomy, cervical. Discectomy, lumbar ENCOUNTER: Subsequent ACUITY: 1 day PAIN SCORE: 8/10 LOCATION: Bilateral chest FINDINGS: A single AP semierect portable view of the chest was obtained. There is no pneumothorax. Hazy opacity remains throughout the right lung and left lung base. Right costophrenic angle is mildly blunted. Th e heart size is enlarged. The bony thorax is intact. CONCLUSION: 1. No pneumothorax status post thoracentesis. 2. Bilateral opacity remains right greater the left. Juan Almazan MD on June 29, 2017 at 15:01 Board Certified Radiologist. This report was verified electronically.
--- NOTE | 2017-06-29 15:41 | RADRPT ---
EXAM DATE/TIME: 06/29/2017 13:40 [facility] COMPARISON: CHEST EXPIRATION ONLY, June 29, 2017, 14:36. US GUIDED THORACENTESIS LEFT, June 10, 2017, 15 :53. INDICATIONS : Left pleural effusion. MEDICAL HISTORY : Rheumatoid arthritis. Chronic obstructive pulmonary disease. Diverticulosis. Dentures. Spinal cord in jury. Hemorrhoids. Pleural effusion. Benign prostatic hypertorphy. Degenerative disc disease. GERD. O steoarthritis. Peripheral neuropathy. Peripheral ascular disease. Seleroderma. ETOH abuse. Depression . Anxiety. SURGICAL HISTORY : Cataract removal. Teeth extractions. Thoracenetesis. Anterior cervical fusion. Right hand surgery. L4 0L5 laminectomy. Penile surgery. Colonscopy. Saphenous vein ablation. ENCOUNTER: Subsequent ACUITY: 3 weeks PAIN SCORE: 0/10 LOCATION: Left chest FLUID: Total volume of 1100 cc of clear, yellow fluid was removed. Fluid was discarded. Thoracentesis was therapeutic only. TECHNIQUE: 1. Ultrasound guidance for thoracentesis. 2. Thoracentesis. The risks, benefits, and alternatives to ultrasound guided thoracentesis were explained to the patien t in lay simple terms, including the risk of bleeding and infection. Written and verbal informed con sent was obtained. Appropriate area for thoracentesis was marked under ultrasound guidance with the patient in the uprig ht position. Overlying skin was prepped and draped in the usual sterile fashion and with local anest hetic, a dermatotomy was made with an 11 blade scalpel. A 6 Lithuanian thoracentesis catheter was placed in the pleural space and fluid was removed. Catheter was then removed and a sterile dressing applie d. There were no immediate complications. The patient tolerated the procedure well and the left the ultrasound suite in stable condition. Chest radiograph is to be obtained. CONCLUSION: Uncomplicated ultrasound guided thoracentesis. Epifanio Gates MD on June 29, 2017 at 15:38 Board Certified Radiologist. This report was verified electronically.
== END 2017-06-29 15:30 | disposition home or self-care (01) ==
LOC: HSDC 12:26 → HRIP 12:55 → HRAD 15:30
PROVIDERS: ATTEND Internal Medicine
DX: J91.0 Malignant pleural effusion (principal)
CPT/HCPCS: 32555; 36415; 71010; 85027; 85610; 85730; C1729

== ENCOUNTER 2017-07-09 10:13 | Inpatient (IN) | payer OTHER, MEDICARE ==
[2017-07-09] VITALS (7 sets, daily range): BP systolic 105–125; BP diastolic 68–83; PULSE 107–124; RESP 14–22; TEMP 96.7–99; O2SAT 92–98
[~2017-07-09] VITALS: Ht 180.3 cm; Wt 90.2 kg
--- NOTE | 2017-07-09 11:06 | PD ---
HPI Chief Complaint: Respiratory Symptoms Time Seen by Provider: 11:06 Travel History International Travel<30 days: No Contact w/Intl Traveler<30days: No Traveled to known affect area: No History of Present Illness HPI 57-year-old male came to the emergency room by his with history of shortness of breath. He was sent from his oncologist office because of this progressive shortness of breath. Patient had his left pleural cavity tapped on June 29 which was for the second time. He's been diagnosed with adenocarcinoma of his lung one month ago. Patient appears to be in distress. No history of fever or chills. He does not require oxygen at home normally. He was tachycardic in triage. One of the concerns of his oncologist is PE. Patient is getting chemotherapy currently. [facility] Past Medical History Narrative Medical List of his past medical, surgical, social and family history is reviewed from the nursing note. Autoimmune Disease: Yes (RA) Anxiety: No Depression: Yes Cancer: No Cardiovascular Problems: Yes (raynauds) COPD: Yes Diabetes: No Diminished Hearing: No Endocrine: No Gastrointestinal Disorders: Yes (HEMMORHOIDS, DIVERTICOLOSIS) Glaucoma: No Genitourinary: No Hepatitis: No Hiatal Hernia: No Hypertension: Yes Immune Disorder: No Musculoskeletal: Yes Neurologic: Yes (RA) Psychiatric: Yes Reproductive: No Respiratory: Yes (SOB, ) Thyroid Disease: No Past Surgical History Abdominal Surgery: No Body Medical Devices: N/A Cardiac Surgery: No Ear Surgery: No Eye Surgery: Yes (right eye CATARACT X 2 ) Genitourinary Surgery: No Gynecologic Surgery: No Joint Replacement: No Neurologic Surgery: Yes Oral Surgery: Yes (TEETH EXTRACTIONS) Pacemaker: No Thoracic Surgery: No Other Surgery: Yes (RIGHT HAND, PENILE SURGERY FOR REMOVAL OF WARTS) Social History Alcohol Use: Yes (daily beer six pack) Tobacco Use: Yes (1ppd) Substance Use: No Allergies-Medications (Allergen,Severity, Reaction): Coded Allergies: mupirocin (Unverified Adverse Reaction, Severe, ERYTHEMA, 07/09/17) ERYTHEMA Uncoded Allergies: Colored Coban and Iodoform Gauze (Allergy, Severe, 10/24/11) GENTAMICIN CREAM (Allergy, Severe, REDNESS, PAIN,SWELLING, 10/24/11) altabax (Adverse Reaction, Severe, pain on application, 04/28/08) Comments List of his allergies reviewed from the nursing note. Reported Meds & Prescriptions Reported Meds & Active Scripts Active Furosemide 20 Mg Tab 20 Mg PO DAILY Oxycodone-Acetaminophen 5-325 (Oxycodone HCl/Acetaminophen) 5 Mg-325 Mg Tablet 1 Tab PO Q4H PRN Reported Albuterol Neb (Albuterol Sulfate) 0.63 Mg/3 Ml Neb 0.63 Mg NEB Q4HR NEB PRN Dulcolax Stool Softener (Docusate Sodium) 100 Mg Cap 100 Mg PO BID Miralax Powder (Polyethylene Glycol 3350 Powder) 17 Gm Powd 17 Gm PO DAILY Mix and dissolve one measuring cap-ful (17 grams) in water or juice. Cytotec (Misoprostol) 200 Mcg Tab 200 Mcg PO TID Doxazosin (Doxazosin Mesylate) 4 Mg Tab 4 Mg PO DAILY Spiriva Respimat Inh (Tiotropium Inh) 1.25 Mcg/Act Aero 1 Puff INH DAILY 1.25 mcg = 1 inhalation Wellbutrin SR 12 HR (Bupropion HCl) 100 Mg Tab 100 Mg PO Q12HR Buspirone (Buspirone HCl) 15 Mg Tab 15 Mg PO BID Montelukast (Montelukast Sodium) 10 Mg Tab 10 Mg PO BID Flomax (Tamsulosin HCl) 0.4 Mg Cap 0.4 Mg PO HS Baclofen 20 Mg Tab 20 Mg PO BID Calcium 600+D3 (Calcium Carbonate-Cholecalciferol) 1 Tab Tab 1 Tab PO DAILY Gabapentin 400 Mg Cap 600 Cap PO TID Mobic (Meloxicam) 7.5 Mg Tab 7.5 Mg PO DAILY Metoclopramide (Metoclopramide HCl) 10 Mg Tab 10 Mg PO BID Multiple Vitamin 1 Tab 1 Tab PO DAILY Omeprazole 40 Mg Cap 40 Mg PO DAILY Spironolactone 50 Mg Tab 50 Mg PO DAILY Effexor (Venlafaxine HCl) 75 Mg Tab 75 Mg PO TID Zolpidem (Zolpidem Tartrate) 10 Mg Tab 10 Mg PO HS Narrative Medication List of his home medications reviewed from the nursing note. Review of Systems Except as stated in HPI: all other systems reviewed are Neg Respiratory: Positive: Shortness of Breath Physical Exam Narrative GENERAL: Awake, alert, looks older than his age, moderate distress SKIN: Focused skin assessment warm/dry. HEAD: Atraumatic. Normocephalic. EYES: Pupils equal and round. No scleral icterus. No injection or drainage. ENT: No nasal bleeding or discharge. Mucous membranes pink and moist. NECK: Trachea midline. No JVD. CARDIOVASCULAR: Regular rate and rhythm. Tachycardia. No murmur appreciated. RESPIRATORY: No accessory muscle use. Tachypnea. Clear to auscultation. Breath sounds equal bilaterally. GASTROINTESTINAL: Abdomen soft, non-tender, nondistended. Hepatic and splenic margins not palpable. MUSCULOSKELETAL: No obvious deformities. No clubbing. No cyanosis. No edema. NEUROLOGICAL: Awake and alert. No obvious cranial nerve deficits. Motor grossly within normal limits. Normal speech. PSYCHIATRIC: Appropriate mood and affect; insight and judgment normal. Data Data Last Documented VS Vital Signs Date Time Temp Pulse Resp B/P (MAP) Pulse Ox O2 Delivery O2 Flow Rate FiO2 07/09/17 15:18 97.8 114 22 114/68 (83) 92 07/09/17 12:55 Nasal Cannula 2.00 Orders Orders Complete Blood Count With Diff (07/09/17 11:44) Basic Metabolic Panel (Bmp) (07/09/17 11:44) B-Type Natriuretic Peptide (07/09/17 11:44) Prothrombin Time / Inr (Pt) (07/09/17 11:44) Troponin I (07/09/17 11:44) Urinalysis - C+S If Indicated (07/09/17 11:44) Iv Access Insert/Monitor (07/09/17 11:44) Electrocardiogram (07/09/17 11:44) Ecg Monitoring (07/09/17 11:44) Oximetry (07/09/17 11:44) Oxygen Administration (07/09/17 11:44) Chest, Single Ap (07/09/17 11:44) Ct Pulmonary Angiogram (07/09/17 11:44) Sodium Chloride 0.9% Flush (Ns Flush) (07/09/17 11:45) Albuterol Neb (Albuterol Neb) (07/09/17 11:45) Furosemide Inj (Lasix Inj) (07/09/17 12:45) Lorazepam Inj (Ativan Inj) (07/09/17 13:45) Iohexol 350 Inj (Omnipaque 350 Inj) (07/09/17 14:02) Us Guided Thoracentesis (07/09/17 ) Admit Order (Ed Use Only) (07/09/17 15:39) Chest, Expiration Only (07/09/17 ) Labs Laboratory Tests Test 07/09/17 11:15 07/09/17 14:15 White Blood Count 6.1 TH/MM3 Red Blood Count 4.62 MIL/MM3 Hemoglobin 13.0 GM/DL Hematocrit 39.0 % Mean Corpuscular Volume 84.5 FL Mean Corpuscular Hemoglobin 28.2 PG Mean Corpuscular Hemoglobin Concent 33.4 % Red Cell Distribution Width 13.8 % Platelet Count 260 TH/MM3 Mean Platelet Volume 7.4 FL Neutrophils (%) (Auto) 78.9 % Lymphocytes (%) (Auto) 10.0 % Monocytes (%) (Auto) 8.9 % Eosinophils (%) (Auto) 1.8 % Basophils (%) (Auto) 0.4 % Neutrophils # (Auto) 4.8 TH/MM3 Lymphocytes # (Auto) 0.6 TH/MM3 Monocytes # (Auto) 0.5 TH/MM3 Eosinophils # (Auto) 0.1 TH/MM3 Basophils # (Auto) 0.0 TH/MM3 CBC Comment DIFF FINAL Differential Comment Prothrombin Time 10.5 SEC Prothromb Time International Ratio 1.0 RATIO Blood Urea Nitrogen 6 MG/DL Creatinine 0.72 MG/DL Random Glucose 125 MG/DL Calcium Level 9.0 MG/DL Sodium Level 136 MEQ/L Potassium Level 4.4 MEQ/L Chloride Level 99 MEQ/L Carbon Dioxide Level 28.2 MEQ/L Anion Gap 9 MEQ/L Estimat Glomerular Filtration Rate 113 ML/MIN Troponin I 0.02 NG/ML B-Type Natriuretic Peptide 27 PG/ML Urine Color YELLOW Urine Turbidity CLEAR Urine pH 6.0 Urine Specific [place] 1.010 Urine Protein NEG mg/dL Urine Glucose (UA) NEG mg/dL Urine Ketones 10 mg/dL Urine Occult Blood NEG Urine Nitrite NEG Urine Bilirubin NEG Urine Urobilinogen LESS THAN 2.0 MG/DL Urine Leukocyte Esterase NEG Urine RBC LESS THAN 1 /hpf Urine WBC 1 /hpf Urine Mucus FEW /lpf Microscopic Urinalysis Comment CULT NOT INDICATED MDM Medical Decision Making Medical Screen Exam Complete: Yes Emergency Medical Condition: Yes Medical Record Reviewed: Yes Interpretation(s) Twelve-lead EKG was reviewed by me. Normal sinus rhythm, normal axis, tachycardia, nonspecific ST-T wave changes. Heart rate of 109 bpm. Differential Diagnosis PE, pleural effusion, pneumonia Narrative Course 1:49 PM blood test results of back and within acceptable limit. Awaiting for CT pulmonary angiogram. Chest x-ray was suggestive of congestive heart failure. I've ordered IV Lasix for him. [address] pulmonary angiogram doesn't show any PE but patient does have bilateral pleural effusions right greater than left. I have ordered for ultrasound-guided thoracentesis. Patient needs to be admitted. Awaiting for the hospitalist and Dr. Mcmanus to call back. Critical Care Narrative Aggregate critical care time was 45 minutes. Time to perform other separately billable procedures was not included in the critical care time. My time did not include minutes spent treating any other patients simultaneously or on activities that did not directly contribute to the patient's treatment. The services I provided to this patient were to treat and/or prevent clinically significant deterioration that could result in: Respiratory distress, bilateral pleural effusion, thoracentesis I provided critical care services requiring my management, as noted below: Chart data review, documentation time, medication orders and management, vital sign assessments/reviewing monitor data, ordering and reviewing lab tests, ordering and interpreting/reviewing x-rays and diagnostic studies, care of the patient and discussion of the patient with the admitting physicians. Procedures EKG Prior to Arrival: No Physician Communication Physician Communication Dr. Mcmanus Diagnosis Primary Impression: Respiratory distress Additional Impressions: Pleural effusion Lung cancer Qualified Codes: C34.32 - Malignant neoplasm of lower lobe, left bronchus or lung Admitting Information Admitting Physician Requests: it Navneet Turner MD Jul 09, 2017 11:06
[2017-07-09] MEDS ORDERED: RESP: ALBUTEROL 2.5 MG/3 ML NEB (SCH) INH ONE (11:45)
[2017-07-09] MEDS ORDERED: SODIUM CHLORIDE 0.9% FLUSH 10 ML FLUSH IVF PRN (11:45)
--- NOTE | 2017-07-09 12:36 | RADRPT ---
EXAM DATE/TIME: 07/09/2017 12:06 [facility] COMPARISON: CHEST EXPIRATION ONLY, June 29, 2017, 14:36. CHEST SINGLE AP, June 13, 2017, 17:58. INDICATIONS : Short of breath. MEDICAL HISTORY : Chronic obstructive pulmonary disease. left lung ca SURGICAL HISTORY : left lung biopsy ENCOUNTER: Initial ACUITY: 1 day PAIN SCORE: 0/10 LOCATION: Bilateral chest FINDINGS: Cardiomegaly with moderate congestive failure stable to slightly improved from 06/29/17. Trace bilat eral pleural effusions are evident. CONCLUSION: Moderate congestive failure. Brett Dias MD FACR on July 09, 2017 at 12:33 Board Certified Radiologist. This report was verified electronically.
[2017-07-09 12:37] LABS: AUTOMATED NEUTROPHIL # 4.8 TH/MM3 (1.8-7.7); BASOPHIL % 0.4 % (0.0-2.0); EOSINOPHIL # 0.1 TH/MM3 (0-0.4); EOSINOPHIL % 1.8 % (0.0-4.0); LYMPHOCYTE # 0.6 TH/MM3 (1.0-4.8); MEAN CELL VOLUME 84.5 FL (80.0-100.0); MEAN CORPUSCULAR HEMOGLOBIN 28.2 PG (27.0-34.0); MEAN CORPUSCULAR HGB CONC 33.4 % (32.0-36.0); MEAN PLATELET VOLUME 7.4 FL (7.0-11.0); MONO % 8.9 % (0.0-8.0); MONOCYTE # 0.5 TH/MM3 (0-0.9); NEUT % 78.9 % (16.0-70.0); PLATELET COUNT 260 TH/MM3 (150-450); RED BLOOD COUNT 4.62 MIL/MM3 (4.50-5.90); RED CELL DISTRIBUTION WIDTH 13.8 % (11.6-17.2); WHITE BLOOD COUNT 6.1 TH/MM3 (4.0-11.0)
[2017-07-09 12:42] LABS: PROTHROMBIN TIME - PATIENT 10.5 SEC (9.8-11.6)
[2017-07-09] MEDS ORDERED: FUROSEMIDE 20 MG/2 ML VIAL IV PUSH ONE (12:45)
[2017-07-09 13:01] LABS: BICARBONATE 28.2 MEQ/L (21.0-32.0); CREATININE 0.72 MG/DL (0.60-1.30)
[2017-07-09 13:05] LABS: TROPONIN I 0.02 NG/ML (0.02-0.05)
[2017-07-09] MEDS ORDERED: LORazepam 2 MG/ML VIAL IV PUSH ONE (13:45)
[2017-07-09] MEDS ORDERED: IOHEXOL 350 MG/ML 10 ML VIAL (for RAD DIAG) IVCONTRAST ONE (14:02)
--- NOTE | 2017-07-09 14:17 | RADRPT ---
EXAM DATE/TIME: 07/09/2017 13:49 [facility] COMPARISON: CHEST EXPIRATION ONLY, June 29, 2017, 14:36. CT PULMONARY ANGIOGRAM, June 10, 2017, 12:31. INDICATIONS : Dyspnea for 2 weeks IV CONTRAST: 70 cc Omnipaque 350 (iohexol) IV RADIATION DOSE: 25.50 CTDIvol (mGy) MEDICAL HISTORY : Cardiovascular disease. Chronic obstructive pulmonary disease. Carcinoma, lung. SURGICAL HISTORY : None. ENCOUNTER: Initial ACUITY: 2 weeks PAIN SCALE: 0/10 LOCATION: chest TECHNIQUE: Volumetric scanning of the chest was performed using a pulmonary embolism protocol MIP images were re constructed. Using automated exposure control and adjustment of the mA and/or kV according to patien t size, radiation dose was kept as low as reasonably achievable to obtain optimal diagnostic quality images. DICOM format image data is available electronically for review and comparison. Follow-up recommendations for detected pulmonary nodules are based at a minimum on nodule size and pa tient risk factors according to Fleischner Society Guidelines. FINDINGS: Extensive pleural and parenchymal changes are evident bilateral pleural effusions larger on the right than the left. Patchy airspace disease is seen in both lungs with areas of consolidation and pleural thickening There is no evidence of central pulmonary emboli. There is no axillary adenopathy. CONCLUSION: Large bilateral pleural effusions, much larger on the right than the left. Findings have progressed from 06/29/17 There is no central pulmonary emboli. Brett Dias MD FACR on July 09, 2017 at 14:11 Board Certified Radiologist. This report was verified electronically.
[2017-07-09 14:37] LABS: BILIRUBIN, URINE NEG (NEG); BLOOD, URINE NEG (NEG); GLUCOSE,URINE NEG (NEG); KETONE, URINE 10 mg/dL (NEG); MUCUS URINE FEW /lpf (OCC); NITRITE,URINE NEG (NEG); URINE COLOR YELLOW (YELLW/STRAW); URINE LEUKOCYTE ESTERASE NEG (NEG)
--- NOTE | 2017-07-09 15:38 | PD.RAD ---
Post US Procedure Prog Note Pre Procedure Diagnosis: (1) Pleural effusion Post Procedure Diagnosis: (1) Pleural effusion Procedure Date: Jul 09, 2017 Supervising Radiologist: Epifanio Gates Anesthesia: Local Plan of Activity Patient to Unit: Other Patient Condition: Fair See PACS Report for procedural detail/treatment Drainage Procedure Procedure 1 Imaging Guidance: Ultrasound Side: Right Procedure Type: Thoracentesis Procedure: Removal Drainage: Suction Fluid Description: Cloudy, Yellow, Complicated Epifanio Gates MD Jul 09, 2017 15:38
[2017-07-09] MEDS ORDERED: BISACODYL 10 MG SUPP RECTAL PRN (15:45)
[2017-07-09] MEDS ORDERED: LACTULOSE SYRUP 20 GM/30 ML CUP PO PRN (15:45)
[2017-07-09] MEDS ORDERED: SENNOSIDES 8.6 MG TAB PO PRN (15:45)
[2017-07-09] MEDS ORDERED: NALOXONE HCL 0.4 MG/ML AMP IV PUSH PRN (15:45)
[2017-07-09] MEDS ORDERED: ACETAMINOPHEN 325 MG TAB PO PRN (15:45)
[2017-07-09] MEDS ORDERED: MAGNESIUM HYDROXIDE SUSP 30 ML CUP PO PRN (15:45)
--- NOTE | 2017-07-09 16:00 | RADRPT ---
EXAM DATE/TIME: 07/09/2017 15:11 [facility] COMPARISON: No previous studies available for comparison. INDICATIONS : Right pleural effusion. MEDICAL HISTORY : Lung cancer.Rheumatoid arthritis. Chronic obstructive pulmonary disease. Diverticulosis. Spinal cord injury. Benign prostatic hypertorphy.Degenerative disc disease. GERD. Osteoarthritis. Peripheral neur opathy. Seleroderma. ETOH abuse. Depression. SURGICAL HISTORY : Cataract removal. Teeth extractions. Thoracenetesis. Anterior cervicalfusion. Right hand surgery. L40 L5 laminectomy. Penile surgery. Colonscopy. Saphenous vein ablation. ENCOUNTER: Subsequent ACUITY: 1 day PAIN SCORE: 3/10 LOCATION: Right chest FLUID: Total volume of 1750 cc of clear, yellow fluid was removed. Fluid was discarded. Thoracentesis was therapeutic only. TECHNIQUE: 1. Ultrasound guidance for thoracentesis. 2. Thoracentesis. The risks, benefits, and alternatives to ultrasound guided thoracentesis were explained to the patien t in lay simple terms, including the risk of bleeding and infection. Written and verbal informed con sent was obtained. Appropriate area for thoracentesis was marked under ultrasound guidance with the patient in the uprig ht position. Overlying skin was prepped and draped in the usual sterile fashion and with local anest hetic, a dermatotomy was made with an 11 blade scalpel. A 6 Persian thoracentesis catheter was placed in the pleural space and fluid was removed. Catheter was then removed and a sterile dressing applie d. There were no immediate complications. The patient tolerated the procedure well and the left the ultrasound suite in stable condition. Chest radiograph is to be obtained. CONCLUSION: Uncomplicated ultrasound guided thoracentesis. Epifanio Gates MD on July 09, 2017 at 15:57 Board Certified Radiologist. This report was verified electronically.
--- NOTE | 2017-07-09 16:04 | RADRPT ---
EXAM DATE/TIME: 07/09/2017 15:49 [facility] COMPARISON: CHEST EXPIRATION ONLY, June 29, 2017, 14:36. INDICATIONS : Post thoracentesis. MEDICAL HISTORY : Carcinoma, lung. Cardiovascular disease. Chronic obstructive pulmonary disease. SURGICAL HISTORY : None. ENCOUNTER: Subsequent ACUITY: 1 day PAIN SCORE: 0/10 LOCATION: Right chest FINDINGS: Heart is moderately enlarged. There is diffuse vascular congestion. Bibasilar airspace disease is not ed. No significant pneumothorax following right thoracentesis. CONCLUSION: 1. No significant pneumothorax following right thoracentesis 2. Cardiomegaly 3. Mild pulmonary congestive disease Epifanio Gates MD on July 09, 2017 at 16:00 Board Certified Radiologist. This report was verified electronically.
--- NOTE | 2017-07-09 16:57 | HHI.HP ---
HPI Service [facility] Hospitalists Primary Care Physician Non-Staff Admission Diagnosis respiratory distress, lung malignancy, pleural effusion Diagnoses: Chief Complaint: Dyspnea Travel History International Travel<30 Days: No Contact w/Intl Traveler <30 Da: No Traveled to Known Affected Are: No Sepsis Criteria SIRS Criteria (2 or more): Heart rate over 90, RR > 20 or PaCO2 < 32 Criteria Outcome: Meets SIRS criteria History of Present Illness Written by Carrie Cole, acting as scribe for Dr. Rasheed on 07/09/17 at 16:53. This note was transcribed by scribe Carrie Cole PA-C. I, Dr. Stephen Rasheed personally performed the history, physical exam, and medical decision making; and confirmed the accuracy of the information in the transcribed note. Authenticated by Dr. Stephen Rasheed on 07/09/17 at 17:00. This is a 57yo male with a PMHX of COPD, PVD, Scleroderma, Raynaud's, RA, BPH, peripheral neuropathy, chronic pain and recently diagnosed stage IV lung adenocarcinoma with recurrent pleural effusions s/p thoracentesis x 2 June 10 and June 29 who was sent over to the [facility] ED by his oncologist Dr. Mcmanus for evaluation of worsening shortness of breath. Patient denies any associated fever, chills, nausea, vomiting, chest pain or abdominal pain. He denies any difficulty with swallowing. Patient has not begun chemotherapy treatment as of yet. In the ED, CTA was obtained that was negative for PE but revealed large bilateral pleural effusions right greater than the left. IR was consulted and patient underwent therapeutic thoracentesis with 1750cc fluid removed. Patient's breathing has improved since the procedure. Patient states they have discussed catheter placement. Review of Systems Except as stated in HPI: all other systems reviewed are Neg Past Family Social History Past Medical History Recently diagnosed stage IV lung adenocarcinoma Recurrent pleural effusions s/p thoracentesis x 2 COPD Scleroderma Raynaud's RA BPH DDD s/p cervical fusion Chronic pain Peripheral neuropathy Depression PVD Past Surgical History Right hand surgery Right cataract surgery Bilateral saphenous vein ablation Cervical fusion C56 Reported Medications Furosemide 20 Mg Tab 20 Mg PO DAILY Oxycodone-Acetaminophen 5-325 (Oxycodone HCl/Acetaminophen) 5 Mg-325 Mg Tablet 1 Tab PO Q4H PRN Albuterol Neb (Albuterol Sulfate) 0.63 Mg/3 Ml Neb 0.63 Mg NEB Q4HR NEB PRN Dulcolax Stool Softener (Docusate Sodium) 100 Mg Cap 100 Mg PO BID Miralax Powder (Polyethylene Glycol 3350 Powder) 17 Gm Powd 17 Gm PO DAILY Mix and dissolve one measuring cap-ful (17 grams) in water or juice. Cytotec (Misoprostol) 200 Mcg Tab 200 Mcg PO TID Doxazosin (Doxazosin Mesylate) 4 Mg Tab 4 Mg PO DAILY Spiriva Respimat Inh (Tiotropium Inh) 1.25 Mcg/Act Aero 1 Puff INH DAILY 1.25 mcg = 1 inhalation Wellbutrin SR 12 HR (Bupropion HCl) 100 Mg Tab 100 Mg PO Q12HR Buspirone (Buspirone HCl) 15 Mg Tab 15 Mg PO BID Montelukast (Montelukast Sodium) 10 Mg Tab 10 Mg PO BID Flomax (Tamsulosin HCl) 0.4 Mg Cap 0.4 Mg PO HS Baclofen 20 Mg Tab 20 Mg PO BID Calcium 600+D3 (Calcium Carbonate-Cholecalciferol) 1 Tab Tab 1 Tab PO DAILY Gabapentin 400 Mg Cap 600 Cap PO TID Mobic (Meloxicam) 7.5 Mg Tab 7.5 Mg PO DAILY Metoclopramide (Metoclopramide HCl) 10 Mg Tab 10 Mg PO BID Multiple Vitamin 1 Tab 1 Tab PO DAILY Omeprazole 40 Mg Cap 40 Mg PO DAILY Spironolactone 50 Mg Tab 50 Mg PO DAILY Effexor (Venlafaxine HCl) 75 Mg Tab 75 Mg PO TID Zolpidem (Zolpidem Tartrate) 10 Mg Tab 10 Mg PO HS Allergies: Coded Allergies: mupirocin (Unverified Adverse Reaction, Severe, ERYTHEMA, 07/09/17) ERYTHEMA Uncoded Allergies: Colored Coban and Iodoform Gauze (Allergy, Severe, 10/24/11) GENTAMICIN CREAM (Allergy, Severe, REDNESS, PAIN,SWELLING, 10/24/11) altabax (Adverse Reaction, Severe, pain on application, 04/28/08) Active Ordered Medications Active Medications Acetaminophen (Tylenol) 650 mg Q4H PRN PO; Start 07/09/17 at 15:45 Albuterol Sulfate (Albuterol Neb) 2.5 mg ONCE ONCE INH Last administered on 07/09at 11:45; Admin Dose 2.5 MG; Start 07/09/17 at 11:45; Stop 07/09/17 at 11:46; Status DC Bisacodyl (Dulcolax Supp) 10 mg DAILY PRN RECTAL; Start 07/09/17 at 15:45 Furosemide (Lasix Inj) 60 mg ONCE ONCE IV PUSH Last administered on 07/09/17at 12 :58; Admin Dose 60 MG; Start 07/09/17 at 12:45; Stop 07/09/17 at 12:47; Status DC Iohexol (Omnipaque 350 Inj) 70 ml STK-MED ONCE IVCONTRAST Last administered on at 14:02; Admin Dose 70 ML; Start 07/09/17 at 14:02; Stop 07/09/17 at 14:03; Status DC Lactulose (Lactulose Liq) 30 ml DAILY PRN PO; Start 07/09/17 at 15:45 Lorazepam (Ativan Inj) 0.5 mg ONCE ONCE IV PUSH Last administered on 07/09/17at 13:43; Admin Dose 0.5 MG; Start 07/09/17 at 13:45; Stop 07/09/17 at 13:46; Status DC Magnesium Hydroxide (Milk Of Magnesia Liq) 30 ml Q12H PRN PO; Start 07/09/17 at 15:45 Naloxone HCl (Narcan Inj) 0.4 mg UNSCH PRN IV PUSH; Start 07/09/17 at 15:45 Sennosides (Senokot) 17.2 mg Q12H PRN PO; Start 07/09/17 at 15:45 Sodium Chloride (NS Flush) 2 ml BID IV FLUSH; Start 07/09/17 at 21:00 Sodium Chloride (NS Flush) 2 ml UNSCH PRN IV FLUSH; Start 07/09/17 at 15:45 Sodium Chloride (NS Flush) 2 ml UNSCH PRN IVF; Start 07/09/17 at 11:45 Family History Mother, throat and stomach cancer Father, CAD Social History Patient reports hx of tobacco use 1-2 ppd for 30 years but quit smoking 1 year ago. He denies any EtOH consumption or illicit drug use. Physical Exam Vital Signs Vital Signs Date Time Temp Pulse Resp B/P (MAP) Pulse Ox O2 Delivery O2 Flow Rate FiO2 07/09/17 16:30 107 16 117/79 (92) 98 Nasal Cannula 2.00 07/09/17 16:00 108 16 107/68 (81) 97 Nasal Cannula 2.00 07/09/17 15:18 97.8 114 22 114/68 (83) 92 07/09/17 12:55 109 16 125/83 (97) 95 Nasal Cannula 2.00 07/09/17 11:00 Room Air 07/09/17 10:14 99.0 113 14 120/83 (95) 95 Physical Exam GENERAL: This is a frail middle aged male patient. Appears older than stated age. SKIN: No rashes, ecchymoses or lesions. Cool and dry. HEAD: Atraumatic. Normocephalic. No temporal or scalp tenderness. EYES: Pupils equal round and reactive. Extraocular motions intact. No scleral icterus. No injection or drainage. ENT: Nose without bleeding or purulent drainage. Throat without erythema, tonsillar hypertrophy or exudate. Uvula midline. Airway patent. NECK: Trachea midline. No lymphadenopathy. Supple, nontender, no meningeal signs. CARDIOVASCULAR: Tachycardic without murmurs, gallops, or rubs. RESPIRATORY: Shallow breathing. Coarse breath sounds noted on the right. GASTROINTESTINAL: Abdomen soft, non-tender, nondistended. No hepato-splenomegaly , or palpable masses. No guarding. MUSCULOSKELETAL: Extremities without clubbing or cyanosis. Trace bilateral lower extremity edema. No joint tenderness, effusion, or edema noted. No calf tenderness. NEUROLOGICAL: Awake and alert. Able to move all extremities spontaneously. No focal neurologic finding appreciated. Normal speech. Laboratory Laboratory Tests Test 07/09/17 11:15 07/09/17 14:15 White Blood Count 6.1 Red Blood Count 4.62 Hemoglobin 13.0 Hematocrit 39.0 Mean Corpuscular Volume 84.5 Mean Corpuscular Hemoglobin 28.2 Mean Corpuscular Hemoglobin Concent 33.4 Red Cell Distribution Width 13.8 Platelet Count 260 Mean Platelet Volume 7.4 Neutrophils (%) (Auto) 78.9 Lymphocytes (%) (Auto) 10.0 Monocytes (%) (Auto) 8.9 Eosinophils (%) (Auto) 1.8 Basophils (%) (Auto) 0.4 Neutrophils # (Auto) 4.8 Lymphocytes # (Auto) 0.6 Monocytes # (Auto) 0.5 Eosinophils # (Auto) 0.1 Basophils # (Auto) 0.0 CBC Comment DIFF FINAL Differential Comment Prothrombin Time 10.5 Prothromb Time International Ratio 1.0 Blood Urea Nitrogen 6 Creatinine 0.72 Random Glucose 125 Calcium Level 9.0 Sodium Level 136 Potassium Level 4.4 Chloride Level 99 Carbon Dioxide Level 28.2 Anion Gap 9 Estimat Glomerular Filtration Rate 113 Troponin I 0.02 B-Type Natriuretic Peptide 27 Urine Color YELLOW Urine Turbidity CLEAR Urine pH 6.0 Urine Specific [place] 1.010 Urine Protein NEG Urine Glucose (UA) NEG Urine Ketones 10 Urine Occult Blood NEG Urine Nitrite NEG Urine Bilirubin NEG Urine Urobilinogen LESS THAN 2.0 Urine Leukocyte Esterase NEG Urine RBC LESS THAN 1 Urine WBC 1 Urine Mucus FEW Microscopic Urinalysis Comment CULT NOT INDICATED Result Diagram: 07/09/17 1115 07/09/17 1115 Imaging Last Impressions Chest X-Ray 07/09/17 1144 Signed Impressions: Service Date/Time: Sunday, July 09, 2017 12:06 - CONCLUSION: Moderate congestive failure. Brett Dias MD FACR CT Angiography 07/09/17 1144 Signed Impressions: Service Date/Time: Sunday, July 09, 2017 13:49 - CONCLUSION: Large bilateral pleural effusions, much larger on the right than the left. Findings have progressed from 06/29/17 There is no central pulmonary emboli. Brett Dias MD FACR Thoracentesis Ultrasound 07/09/17 0000 Signed Impressions: Service Date/Time: Sunday, July 09, 2017 15:11 - CONCLUSION: Uncomplicated ultrasound guided thoracentesis. Epifanio Gates MD Caprini VTE Risk Assessment Caprini VTE Risk Assessment: Mod/High Risk (score >= 2) Caprini Risk Assessment Model Point Value = 1 Point Value = 2 Point Value = 3 Point Value = 5 Age 41-60 Minor surgery BMI > 25 kg/m2 Swollen legs Varicose veins or History of unexplained or recurrent spontaneous Oral contraceptives or hormone replacement Sepsis (< 1 month) Serious lung disease, including pneumonia (< 1 month) Abnormal pulmonary function Acute myocardial infarction Congestive heart failure (< 1 month) History of inflammatory bowel disease Medical patient at bed rest Age 61-74 Arthroscopic surgery Major open surgery (> 45 min) Laparoscopic surgery (> 45 min) Malignancy Confined to bed (> 72 hours) Immobilizing plaster cast Central venous access Age >= 75 History of VTE Family history of VTE Factor V Leiden Prothrombin [id number] Lupus anticoagulant Anticardiolipin antibodies Elevated serum homocysteine Heparin-induced thrombocytopenia Other congenital or acquired thrombophilia Stroke (< 1 month) Elective arthroplasty Hip, pelvis, or leg fracture Acute spinal cord injury (< 1 month) Prophylaxis Regimen Total Risk Factor Score Risk Level Prophylaxis Regimen 0-1 Low Early ambulation 2 Moderate Order ONE of the following: *Sequential Compression Device (SCD) *Heparin 5000 units SQ BID 3-4 Higher Order ONE of the following medications: *Heparin 5000 units SQ TID *Enoxaparin/Lovenox 40 mg SQ daily (WT < 150 kg, CrCl > 30 mL/min) *Enoxaparin/Lovenox 30 mg SQ daily (WT < 150 kg, CrCl > 10-29 mL/min) *Enoxaparin/Lovenox 30 mg SQ BID (WT < 150 kg, CrCl > 30 mL/min) AND/OR *Sequential Compression Device (SCD) 5 or more Highest Order ONE of the following medications: *Heparin 5000 units SQ TID (Preferred with Epidurals) *Enoxaparin/Lovenox 40 mg SQ daily (WT < 150 kg, CrCl > 30 mL/min) *Enoxaparin/Lovenox 30 mg SQ daily (WT < 150 kg, CrCl > 10-29 mL/min) *Enoxaparin/Lovenox 30 mg SQ BID (WT < 150 kg, CrCl > 30 mL/min) AND *Sequential Compression Device (SCD) Assessment and Plan Assessment and Plan 57yo male with recently diagnosed stage IV lung adenocarcinoma with recurrent pleural effusions s/p thoracentesis x 2 in June admitted with progressive dyspnea found to have large bilateral pleural effusions R>L. Patient meets SIRS criteria with elevated heart rate and respiratory rate Acute on chronic hypoxic respiratory failure Hx of COPD Recurrent malignant pleural effusions - CTA negative for PE but revealing large bilateral pleural effusions right > left, images personally reviewed - s/p right sided therapeutic thoracentesis with 1750cc fluid removed. This is the patients third thoracentesis since Jun 10. - Continue on home dose of Spiriva and Singulair - Duonebs prn - continue supplemental oxygen to maintain O2 sats above 92% Recently diagnosed stage IV lung adenocarcinoma - patient has not begun chemotherapy treatment as of yet - Consult patients oncologist Dr. Mcmanus, appreciate recommendations Chronic pain/peripheral neuropathy Opiate induced constipation - Continue home gabapentin and Percocet - patient on Baclofen 20mg BID at home, resume prn - continue patient on home dose of Reglan 10mg BID - scheduled bowel regimen BPH - continue home Flomax and Doxazosin Bilateral lower extremity edema - continue on home dose of Spironolactone and Lasix Depression/Anxiety - continue on Wellbutrin, Effexor and Buspirone DVT prophylaxis - bilateral SCD/ANGEL hose for now given IR procedure Discussed Condition With ED physician, patient Physician Certification 2 Midnight Certification Type: Admission for Inpatient Services Order for Inpatient Services The services are ordered in accordance with Medicare regulations or non- Medicare payer requirements, as applicable. In the case of services not specified as inpatient-only, they are appropriately provided as inpatient services in accordance with the 2-midnight benchmark. Estimated LOS (days): 3 3 days is the estimated time the patient will need to remain in the hospital, assuming treatment plan goals are met and no additional complications. Post-Hospital Plan: Not yet determined Carrie Cole Jul 09, 2017 16:57 oJsiah Rasheed DO Jul 09, 2017 22:52
[2017-07-09] MEDS: oxyCODONE/ACETAMINOPHEN 5 MG/325 MG TAB PO PRN (20:11)
[2017-07-09] MEDS: MISOPROSTOL 200 MCG TAB PO SCH (20:12)
[2017-07-09] MEDS: GABAPENTIN 300 MG CAP PO SCH (20:12)
[2017-07-09] MEDS: busPIRone HCL 5 MG TAB PO SCH (20:13)
[2017-07-09] MEDS: SODIUM CHLORIDE 0.9% FLUSH 10 ML FLUSH IV FLUSH SCH (20:13)
[2017-07-09] MEDS: DOCUSATE SODIUM 100 MG CAP PO SCH (20:14)
[2017-07-09] MEDS: TAMSULOSIN HCL 0.4 MG CAP PO SCH (20:14)
[2017-07-09] MEDS: METOCLOPRAMIDE HCL 10 MG TAB PO SCH (20:15)
[2017-07-09] MEDS: buPROPion HCL 100 MG SUSTAINED RELEASE TAB PO SCH (20:15)
[2017-07-09] MEDS: RESP: ALBUTEROL 2.5 MG/IPRATROPIUM 0.5 MG NEB (PRN) NEB (20:18)
[2017-07-09] MEDS ORDERED: MONTELUKAST SODIUM 10 MG TAB PO SCH (21:00)
[2017-07-10] VITALS (7 sets, daily range): BP systolic 114–131; BP diastolic 68–84; PULSE 104–114; RESP 18–20; TEMP 97.1–98.4; O2SAT 91–97
[2017-07-10] MEDS: oxyCODONE/ACETAMINOPHEN 5 MG/325 MG TAB PO PRN ×4 (00:31→18:03)
[2017-07-10] MEDS: RESP: ALBUTEROL 2.5 MG/IPRATROPIUM 0.5 MG NEB (PRN) NEB ×2 (00:36→21:19)
[2017-07-10 07:39] LABS: BASOPHIL % 0.4 % (0.0-2.0); EOSINOPHIL # 0.1 TH/MM3 (0-0.4); HEMATOCRIT 41.2 % (39.0-51.0); HEMOGLOBIN 13.9 GM/DL (13.0-17.0); LYMPH % 7.7 % (9.0-44.0); LYMPHOCYTE # 0.6 TH/MM3 (1.0-4.8); MEAN CELL VOLUME 84.3 FL (80.0-100.0); MEAN CORPUSCULAR HEMOGLOBIN 28.3 PG (27.0-34.0); MEAN CORPUSCULAR HGB CONC 33.6 % (32.0-36.0); MEAN PLATELET VOLUME 7.3 FL (7.0-11.0); MONO % 11.9 % (0.0-8.0); MONOCYTE # 0.9 TH/MM3 (0-0.9); PLATELET COUNT 316 TH/MM3 (150-450); RED BLOOD COUNT 4.89 MIL/MM3 (4.50-5.90); RED CELL DISTRIBUTION WIDTH 13.7 % (11.6-17.2); WHITE BLOOD COUNT 7.6 TH/MM3 (4.0-11.0)
[2017-07-10 08:02] LABS: CALCIUM 9.2 MG/DL (8.5-10.1); CREATININE 0.77 MG/DL (0.60-1.30)
[2017-07-10] MEDS: CALCIUM/VITAMIN D 250 MG/125 U TAB PO SCH (09:00)
[2017-07-10] MEDS: SODIUM CHLORIDE 0.9% FLUSH 10 ML FLUSH IV FLUSH SCH ×2 (09:00→20:00)
[2017-07-10] MEDS: VENLAFAXINE HCL XR 75 MG CAP PO SCH (09:00)
[2017-07-10] MEDS ORDERED: SPIRIVA RESPIMAT INH SCH (09:00)
[2017-07-10] MEDS: METOCLOPRAMIDE HCL 10 MG TAB PO SCH ×2 (09:45→20:01)
[2017-07-10] MEDS: GABAPENTIN 300 MG CAP PO SCH ×3 (09:46→18:40)
[2017-07-10] MEDS: PANTOPRAZOLE SOD 40 MG DELAYED RELEASE TAB PO SCH (09:46)
[2017-07-10] MEDS: buPROPion HCL 100 MG SUSTAINED RELEASE TAB PO SCH ×2 (09:46→20:01)
[2017-07-10] MEDS: busPIRone HCL 5 MG TAB PO SCH ×2 (09:46→20:00)
[2017-07-10] MEDS: MISOPROSTOL 200 MCG TAB PO SCH ×3 (09:47→18:40)
[2017-07-10] MEDS: DOXAZOSIN MESYLATE 4 MG TAB PO SCH (09:47)
[2017-07-10] MEDS: FUROSEMIDE 20 MG TAB PO SCH (09:47)
[2017-07-10] MEDS: MULTIVITAMIN TAB PO SCH (09:47)
[2017-07-10] MEDS: DOCUSATE SODIUM 100 MG CAP PO SCH ×2 (09:47→20:01)
[2017-07-10] MEDS: SPIRONOLACTONE 50 MG TAB PO SCH (09:47)
[2017-07-10] MEDS: POLYETHYLENE GLYCOL 17 GM PKG PO SCH (09:48)
[2017-07-10] MEDS: MONTELUKAST SODIUM 10 MG TAB PO SCH (09:58)
--- NOTE | 2017-07-10 12:48 | MB ---
cc: LINDA MOSER MD, R. STEVEN M.D. DATE OF CONSULTATION 07/10/2017 HISTORY Mr. Musa is a 57-year-old white male whom I first saw in June. He presented at that time with dyspnea, a large left pleural effusion and a left infrahilar mass. Bronchoscopy revealed adenocarcinoma and pleural effusion also was drained and had malignant cells in it. He subsequently followed up with Dr. Linda Moser regarding treatment. However over the course of the holidays, he was back in the hospital twice each time with increasing shortness of breath as an outpatient and had fluid drained again on the left side. He presented back to Dr. Moser for outpatient followup and was still short of breath so was readmitted to the hospital yesterday and a CT angiogram revealed large bilateral effusions right greater than left. He underwent a thoracentesis yesterday by IR with removal of 1700 cc of fluid, but no studies were sent on that. I am seeing him today on July 10, he is up, he is comfortable, but still was quite weak and has shortness of breath with exertion. The CT angiogram did not reveal evidence of pulmonary embolism yesterday. He has had no pain. No hemoptysis. No notable fever. White count is normal. BUN and creatinine are normal. Don's prior history is well outlined in my previous consultation in June and further reviewed by the admission physician on this occasion. There is no prior significant cardiac history although he does have peripheral arterial disease and no history of liver disease. He does have scleroderma and chronic gastroesophageal reflux disease. ALLERGIES He has allergies to GENTAMICIN, ALTABAX, AND MUPIROCIN WELL IODOFORM GAUZE. SOCIAL HISTORY living with his who is an employee here. He is a former employee of [employer] and smoked heavily for 40-50 years although he quit about a year ago. No excessive alcohol use. No illicit drug use. PHYSICAL EXAMINATION Temperature 98, pulse 110, regular respirations 18-22, O2 sat 92% on two liters. HEAD, EYES, EARS, NOSE, AND THROAT: Sclerae anicteric. NECK: Neck veins are flat. LUNGS: Breath sounds are diminished in both lungs, but left greater than right. No wheezes or congestion. CARDIAC: No harsh murmur. No audible S3. EXTREMITIES: No pitting edema in the legs at present and no cyanosis or clubbing. Kenn presents back with large bilateral effusions. We know he has a malignancy in the left. We have not documented that in the right. Unfortunately, no fluid was sent for analysis yesterday on the right-sided drainage. It was thought to be therapeutic. He has had the left drained twice. I have asked IR to consider chest tube insertion on the left now. He needs to have that drained again and we will reanalyze that with culture and cytology. We will watch to see if he rapidly reaccumulated on the right and if he does, we will re-drain that and send that fluid for analysis. I suspect it is also related to malignancy, but that has not been documented. Since this is the third recurrence on the left and we know he has malignancy on that side, after chest tube insertion, we will also consider pleurodesis. I have reviewed this with he and his today. Further diagnostic and/or therapeutic intervention will depend on his ongoing clinical course. R. MD BERNARD Mayfield/JUNITO /11:57 AM /12:20 PM
--- NOTE | 2017-07-10 13:20 | HHI.PR ---
Subjective Remarks patient on chair- states still short of breath had right thoracentesis done 07/09 chronic back pain- per patient from previous back injury Objective Vitals Vital Signs Date Time Temp Pulse Resp B/P (MAP) Pulse Ox O2 Delivery O2 Flow Rate FiO2 07/10/17 12:00 97.2 109 18 131/68 (89) 95 07/10/17 08:59 Nasal Cannula 2.00 07/10/17 08:00 97.9 104 20 117/75 (89) 97 07/10/17 00:39 91 Nasal Cannula 2.00 07/10/17 00:00 98.4 114 20 123/77 (92) 92 07/09/17 20:22 93 Nasal Cannula 2.00 07/09/17 20:00 96.7 124 20 105/72 (83) 95 07/09/17 16:30 107 16 117/79 (92) 98 Nasal Cannula 2.00 07/09/17 16:00 108 16 107/68 (81) 97 Nasal Cannula 2.00 07/09/17 15:18 97.8 114 22 114/68 (83) 92 I/O 07/09/17 07/09/17 07/09/17 07/10/17 07/10/17 07/10/17 07:00 15:00 23:00 07:00 15:00 23:00 Intake Total 720 ml Output Total 600 ml 400 ml Balance -600 ml -400 ml 720 ml Intake Oral 720 ml Output Urine Total 600 ml 400 ml # Voids 1 1 1 # Bowel Movements 0 Result Diagram: 07/10/17 0715 07/10/17 0715 Imaging Last Impressions Chest X-Ray 07/09/17 1144 Signed Impressions: Service Date/Time: Sunday, July 09, 2017 12:06 - CONCLUSION: Moderate congestive failure. Brett Dias MD FACR CT Angiography 07/09/17 1144 Signed Impressions: Service Date/Time: Sunday, July 09, 2017 13:49 - CONCLUSION: Large bilateral pleural effusions, much larger on the right than the left. Findings have progressed from 06/29/17 There is no central pulmonary emboli. Brett Dias MD FACR Thoracentesis Ultrasound 07/09/17 0000 Signed Impressions: Service Date/Time: Sunday, July 09, 2017 15:11 - CONCLUSION: Uncomplicated ultrasound guided thoracentesis. Epifanio Gates MD Objective Remarks awake and alert, appears short of breath anicteric lungs- decreased breath sounds bilaterally regular rhyhtm abdomen- soft, nontender extremities no edema neuro exam- non focal Procedures 07/09- right thoracentesis A/P Assessment and Plan 57yo male with recently diagnosed stage IV lung adenocarcinoma with recurrent pleural effusions s/p thoracentesis x 2 in June admitted with progressive dyspnea found to have large bilateral pleural effusions R>L. Patient meets SIRS criteria with elevated heart rate and respiratory rate Acute on chronic hypoxic respiratory failure Hx of COPD Recurrent malignant pleural effusions- - CTA negative for PE but revealing large bilateral pleural effusions right > left, images personally reviewed - s/p right sided therapeutic thoracentesis with 1750cc fluid removed.- 07/09 This is the patients third thoracentesis since Jun 10. - Continue on home dose of Spiriva and Singulair - Duonebs prn - continue supplemental oxygen to maintain O2 sats above 92% Pulmonary ff- Dr. Renteria - IR consulted for thoracentesis of the left with likely CT placement - consider pleurodesis eventually Recently diagnosed stage IV lung adenocarcinoma - patient has not begun chemotherapy treatment as of yet - Consult patients oncologist Dr. Mcmanus, appreciate recommendations Chronic pain/peripheral neuropathy Opiate induced constipation - Continue home gabapentin and Percocet - patient on Baclofen 20mg BID at home, resume prn - continue patient on home dose of Reglan 10mg BID - scheduled bowel regimen BPH - continue home Flomax and Doxazosin Bilateral lower extremity edema - continue on home dose of Spironolactone and Lasix Depression/Anxiety - continue on Wellbutrin, Effexor and Buspirone DVT prophylaxis - bilateral SCD/ANGEL hose for now given IR procedure CM consult- will likely need home 02 Gerardo Hylton MD Jul 10, 2017 13:20
[2017-07-10] MEDS ORDERED: LIDOCAINE HCL 1% 20 ML VIAL ONE (14:29)
[2017-07-10] MEDS ORDERED: MIDAZOLAM HCL 2 MG/2 ML VIAL ONE ×2 (14:44→17:06)
--- NOTE | 2017-07-10 15:33 | EKG ---
Date Performed: 07/09/2017 Time Performed: 12:06:16 PTAGE: 57 years EKG: SINUS TACHYCARDIA WITH SHORT GA INTERVAL ABNORMAL RHYTHM ECG PREVIOUS TRACING : 06/09/2017 20.10 Compared to prior tracing no significant change DOCTOR: Kenn Ladd Interpretating Date/Time 07/10/2017 15:31:23
--- NOTE | 2017-07-10 15:39 | PD.RAD ---
Post CT Procedure Prog Note Pre Procedure Diagnosis: (1) Pleural effusion, malignant (2) Metastasis from malignant tumor of lung Post Procedure Diagnosis: (1) Pleural effusion, malignant (2) Metastasis from malignant tumor of lung Procedure Date: Jul 10, 2017 Supervising Radiologist: Roney Robertson Estimated blood loss: none Anesthesia: Local, Conscious Sedation Plan of Activity Patient to Unit: [facility] Patient Condition: Fair See PACS Report for procedural detail/treatment Drainage Procedure Procedure 1 Imaging Guidance: CT Side: Left Procedure Type: Chest Tube Non-Tunneled Procedure: Placement Czech: 10 Drainage: Pleurovac Fluid Description: Bloody Roney Robertson MD Jul 10, 2017 15:39
--- NOTE | 2017-07-10 16:23 | RADRPT ---
EXAM DATE/TIME: 07/10/2017 15:05 INDICATIONS : Left lung fluid SEDATION TIME: 30 minutes MEDICATION(S): 1.) 1 mg midazolam (Versed) IV 2.) 50 mcg fentanyl (Sublimaze) IV DEVICE(S): 1.) 10 Fr Seiling Total volume of 350 cc of cloudy, red fluid was removed. Fluid was sent for laboratory ordered studies. MEDICAL HISTORY : Cardiovascular disease. Chronic obstructive pulmonary disease. Carcinoma, lung. SURGICAL HISTORY : None. ENCOUNTER: Initial ACUITY: 3 days PAIN SCORE: 7/10 LOCATION: Left chest PROCEDURE: 1. CT guided Left thoracentesis with chest tube placement. 2. Conscious sedation with continuous EKG and oximetry monitoring. The site was prepped in sterile fashion. Full sterile technique was used, including cap, mask, steri le gloves and gown and a large sterile sheet. Hand hygiene and 2% chlorhexidine and/or betadine/alco hol prep was utilized per protocol for cutaneous antisepsis. The skin and subcutaneous tissues were infiltrated with local anesthetic solution. Using automated exposure control and adjustment of the m A and/or kV according to patient size, radiation dose was kept as low as reasonably achievable to obt ain optimal diagnostic quality images. DICOM format image data is available electronically for revie w and comparison. The preliminary scan reveals a 20-25% right pneumothorax in addition to residual right pleural fluid. Moderate posterior dependent pleural fluid present on the left side which was to be drained today. Under CT guidance a 10 Albanian nonlocking Sharda pigtail thoracostomy catheter was placed in the left posterior pleural space. 20 mL's fluid were gently aspirated out of the chest and sent for requested lab evaluation.. Chest tube was inserted. Post procedural scan show reduction in the amount of flui d. The patient tolerated the procedure well and there were no complications. EKG and oximetry remained s table throughout the procedure. The patient was sent to recovery in stable condition. CONCLUSION: Uncomplicated CT-guided thoracentesis. During the course of the procedure, a right hydropneumothorax was noted. Roney Robertson MD on July 10, 2017 at 16:17 Board Certified Radiologist. This report was verified electronically.
[2017-07-10] MEDS: HYDROmorphone HCL PF 2 MG/ML VIAL IV PUSH PRN ×2 (18:41→22:11)
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
[2017-07-10] MEDS: TAMSULOSIN HCL 0.4 MG CAP PO SCH (20:01)
--- NOTE | 2017-07-10 22:04 | RADRPT ---
EXAM DATE/TIME: 07/10/2017 18:15 [facility] COMPARISON: No previous studies available for comparison. INDICATIONS : Patient presents with right hydropneumothorax in need of chest tube placement. MEDICAL HISTORY : Stage IV lung adenocarcinoma, Recurrent pleural effusions, COPD, HTN, Emphysema, GERD, MRSA SURGICAL HISTORY : Thoracentesis, Laminectomy L4-5 ENCOUNTER: Initial ACUITY: 1 day PAIN SCORE: 5/10 LOCATION: Head and neck FLUORO TIME: 1.1 minutes IMAGE SERIES: 0 SEDATION TIME: 20 minutes MEDICATION(S): 1.) 50 mcg fentanyl (Sublimaze) IV DEVICE(S): 1.) 16 Cuban non-locking catheter Expel PROCEDURE : 1. Fluoroscopically guided chest tube placement. 2. Conscious sedation with continuous EKG and oximetry monitoring. The risks, benefits and alternatives to the procedure were explained and verbal and written consent w as obtained. The site was prepped in sterile fashion. Full sterile technique was used, including ca p, mask, sterile gloves and gown and a large sterile sheet. Hand hygiene and 2% chlorhexidine and/or betadine/alcohol prep was utilized per protocol for cutaneous antisepsis. The skin and subcutaneous tissues were infiltrated with local anesthetic solution. With fluoroscopic guidance the chest was punctured between the first and second interspace and the pr escribed catheter was placed in the lung apex. Wall suction was applied. Post procedure images demon strate satisfactory position of the tube. The catheter was sutured in place and a Percu-Stay was radha lied. Conscious sedation was performed with the prescribed dosages and duration as above in the presence of an independent trained radiology nurse to assist in the monitoring of the patient. EKG and oximetry remained stable throughout the procedure. The patient tolerated the procedure well and there were n o complications. The patient was sent to post anesthesia recovery in stable condition. CONCLUSION: Uncomplicated chest tube placement as above. Shaun Webb MD on July 10, 2017 at 22:01 Board Certified Radiologist. This report was verified electronically.
[2017-07-10] MEDS: BACLOFEN 20 MG TAB PO PRN (22:10)
[2017-07-10] MEDS: SODIUM CHLORIDE 0.9% FLUSH 10 ML FLUSH IV FLUSH PRN (22:11)
[2017-07-11] VITALS (7 sets, daily range): BP systolic 105–131; BP diastolic 77–87; PULSE 102–116; RESP 16–18; TEMP 96.1–99.2; O2SAT 90–97
[2017-07-11] MEDS: oxyCODONE/ACETAMINOPHEN 5 MG/325 MG TAB PO PRN ×4 (02:23→19:23)
[2017-07-11] MEDS: RESP: ALBUTEROL 2.5 MG/IPRATROPIUM 0.5 MG NEB (PRN) NEB ×3 (02:40→12:32)
[2017-07-11] MEDS: GABAPENTIN 300 MG CAP PO SCH ×3 (08:20→18:23)
[2017-07-11] MEDS: POLYETHYLENE GLYCOL 17 GM PKG PO SCH (08:21)
[2017-07-11] MEDS: MULTIVITAMIN TAB PO SCH (08:21)
[2017-07-11] MEDS: FUROSEMIDE 20 MG TAB PO SCH (08:21)
[2017-07-11] MEDS: CALCIUM/VITAMIN D 250 MG/125 U TAB PO SCH (08:21)
[2017-07-11] MEDS: busPIRone HCL 5 MG TAB PO SCH ×2 (08:21→21:19)
[2017-07-11] MEDS: SPIRONOLACTONE 50 MG TAB PO SCH (08:21)
[2017-07-11] MEDS: PANTOPRAZOLE SOD 40 MG DELAYED RELEASE TAB PO SCH (08:21)
[2017-07-11] MEDS: DOCUSATE SODIUM 100 MG CAP PO SCH ×2 (08:21→21:20)
[2017-07-11] MEDS: buPROPion HCL 100 MG SUSTAINED RELEASE TAB PO SCH ×2 (08:21→21:20)
[2017-07-11] MEDS: VENLAFAXINE HCL XR 75 MG CAP PO SCH (08:21)
[2017-07-11] MEDS: MONTELUKAST SODIUM 10 MG TAB PO SCH (08:21)
[2017-07-11] MEDS: DOXAZOSIN MESYLATE 4 MG TAB PO SCH (08:21)
[2017-07-11] MEDS: METOCLOPRAMIDE HCL 10 MG TAB PO SCH ×2 (08:28→21:19)
[2017-07-11] MEDS: MISOPROSTOL 200 MCG TAB PO SCH ×3 (08:28→18:23)
[2017-07-11] MEDS: HYDROmorphone HCL PF 2 MG/ML VIAL IV PUSH PRN ×3 (08:29→22:59)
[2017-07-11] MEDS: SODIUM CHLORIDE 0.9% FLUSH 10 ML FLUSH IV FLUSH SCH ×2 (08:29→21:20)
--- NOTE | 2017-07-11 10:36 | HHI.PR ---
Subjective Remarks feeling breathing improved with chest tube in place + cough with minimal sputum Objective Vitals Vital Signs Date Time Temp Pulse Resp B/P (MAP) Pulse Ox O2 Delivery O2 Flow Rate FiO2 07/11/17 08:27 92 Nasal Cannula 3.00 07/11/17 08:00 99.2 116 17 128/87 (101) 95 07/11/17 00:00 96.5 102 18 105/77 (86) 92 07/10/17 21:20 94 Nasal Cannula 3.00 07/10/17 20:00 97.1 112 20 124/84 (97) 97 07/10/17 15:55 98.1 113 18 114/82 (93) 96 07/10/17 12:00 97.2 109 18 131/68 (89) 95 I/O 07/10/17 07/10/17 07/10/17 07/11/17 07/11/17 07/11/17 07:00 15:00 23:00 07:00 15:00 23:00 Intake Total 720 ml Output Total 850 ml 450 ml Balance 720 ml -850 ml -450 ml Intake Oral 720 ml Output Urine Total 300 ml Chest Tube Drainage Total 850 ml 150 ml # Voids 1 3 # Bowel Movements 0 1 Result Diagram: 07/10/17 0715 07/10/17 0715 Imaging Last Impressions Chest Tube Insertion 07/10/17 1619 Signed Impressions: Service Date/Time: Monday, July 10, 2017 18:15 - CONCLUSION: Uncomplicated chest tube placement as above. Shaun Webb MD Chest X-Ray 07/09/17 1144 Signed Impressions: Service Date/Time: Sunday, July 09, 2017 12:06 - CONCLUSION: Moderate congestive failure. Brett Dias MD FACR CT Angiography 07/09/17 1144 Signed Impressions: Service Date/Time: Sunday, July 09, 2017 13:49 - CONCLUSION: Large bilateral pleural effusions, much larger on the right than the left. Findings have progressed from 06/29/17 There is no central pulmonary emboli. Brett Dias MD FACR Thoracentesis Ultrasound 07/09/17 0000 Signed Impressions: Service Date/Time: Sunday, July 09, 2017 15:11 - CONCLUSION: Uncomplicated ultrasound guided thoracentesis. Epifanio Gates MD Objective Remarks awake and alert, appears short of breath anicteric lungs- decreased breath sounds bilaterally, chest tubes in place regular rhythm abdomen- soft, nontender extremities no edema neuro exam- non focal Procedures 07/09- right thoracentesis 07/10- chest tubes placement A/P Assessment and Plan 57yo male with recently diagnosed stage IV lung adenocarcinoma with recurrent pleural effusions s/p thoracentesis x 2 in June admitted with progressive dyspnea found to have large bilateral pleural effusions R>L. Patient meets SIRS criteria with elevated heart rate and respiratory rate Acute on chronic hypoxic respiratory failure Hx of COPD Recurrent malignant pleural effusions- S/P chest tube placement 07/10 - CTA negative for PE but revealing large bilateral pleural effusions right > left, images personally reviewed - s/p right sided therapeutic thoracentesis with 1750cc fluid removed.- 07/09 This is the patients third thoracentesis since Jun 10. - Continue on home dose of Spiriva and Singulair - Duonebs prn - continue supplemental oxygen to maintain O2 sats above 92% Pulmonary ff- Dr. Renteria - - consider pleurodesis eventually ff fluid studies Recently diagnosed stage IV lung adenocarcinoma - patient has not begun chemotherapy treatment as of yet - Dr. Mcmanus ff - will need port placement Chronic pain/peripheral neuropathy Opiate induced constipation - Continue home gabapentin and Percocet - patient on Baclofen 20mg BID at home, resume prn - continue patient on home dose of Reglan 10mg BID - scheduled bowel regimen BPH - continue home Flomax and Doxazosin Bilateral lower extremity edema - continue on home dose of Spironolactone and Lasix Depression/Anxiety - continue on Wellbutrin, Effexor and Buspirone DVT prophylaxis - bilateral SCD/ANGEL hose for now given IR procedure CM consult- will likely need home 02 Gerardo Hylton MD Jul 11, 2017 10:36
[2017-07-11] MEDS: BACLOFEN 20 MG TAB PO PRN (13:26)
[2017-07-11] MEDS: SODIUM CHLORIDE 0.9% FLUSH 10 ML FLUSH IV FLUSH PRN (13:54)
--- NOTE | 2017-07-11 15:21 | RADRPT ---
EXAM DATE/TIME: 07/11/2017 12:32 [facility] COMPARISON: CHEST SINGLE AP, July 09, 2017, 12:06. INDICATIONS : Shortness of breath; Follow up pleural effusion and pneumothorax on right side. MEDICAL HISTORY : Carcinoma, lung. Cardiovascular disease. Chronic obstructive pulmonary di sease SURGICAL HISTORY : None. ENCOUNTER: Subsequent ACUITY: 3 days PAIN SCORE: 0/10 LOCATION: Bilateral chest FINDINGS: Large bore chest tube in place on the right without significant effusion Increasing effusion on left. Compensated cardiomegaly. CONCLUSION: Large bore chest tube in place on right without pneumothorax. No significant pleural effusion. Brett Dias MD FACR on July 11, 2017 at 15:17 Board Certified Radiologist. This report was verified electronically.
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
[2017-07-11] MEDS: RESP: ALBUTEROL 2.5 MG/IPRATROPIUM 0.5 MG NEB (SCH) NEB (20:41)
[2017-07-11] MEDS: TAMSULOSIN HCL 0.4 MG CAP PO SCH (21:19)
[2017-07-12] VITALS: BP 132/79; PULSE 118; RESP 17; TEMP 97.3; O2SAT 97
[2017-07-12] MEDS: RESP: ALBUTEROL 2.5 MG/IPRATROPIUM 0.5 MG NEB (PRN) NEB (03:46)
[2017-07-12] MEDS: oxyCODONE/ACETAMINOPHEN 5 MG/325 MG TAB PO PRN ×4 (04:02→23:06)
[2017-07-12 08:00] VITALS: BP 139/82; PULSE 111; RESP 20; TEMP 96.7; O2SAT 96
[2017-07-12] MEDS: DOCUSATE SODIUM 100 MG CAP PO SCH ×2 (09:00→21:24)
[2017-07-12] MEDS: POLYETHYLENE GLYCOL 17 GM PKG PO SCH (09:00)
--- NOTE | 2017-07-12 09:00 | HHI.PR ---
Subjective Remarks up on chair poor po appetite breathing better with [address] some discomfort on chest tube site but per patient pain controlled Objective Vitals Vital Signs Date Time Temp Pulse Resp B/P (MAP) Pulse Ox O2 Delivery O2 Flow Rate FiO2 07/12/17 00:00 97.3 118 17 132/79 (96) 97 07/11/17 20:43 92 Nasal Cannula 3.00 07/11/17 20:00 96.1 108 18 131/82 (98) 90 07/11/17 16:00 97.7 113 18 112/78 (89) 97 07/11/17 13:00 16 07/11/17 12:00 98.2 110 16 131/82 (98) 93 I/O 07/11/17 07/11/17 07/11/17 07/12/17 07/12/17 07/12/17 07:00 15:00 23:00 07:00 15:00 23:00 Intake Total 315 ml 240 ml Output Total 450 ml 575 ml 610 ml Balance -450 ml -260 ml -370 ml Intake Oral 315 ml 240 ml Output Urine Total 300 ml 475 ml 550 ml Chest Tube Drainage Total 150 ml 100 ml 60 ml Bladder Scan Volume Amount 771 ml # Voids 0 # Bowel Movements 0 Result Diagram: 07/10/17 0715 07/10/17 0715 Imaging Last Impressions Chest X-Ray 07/11/17 0000 Signed Impressions: Service Date/Time: Tuesday, July 11, 2017 12:32 - CONCLUSION: Large bore chest tube in place on right without pneumothorax. No significant pleural effusion. Brett Dias MD FACR Chest Tube Insertion 07/10/17 1619 Signed Impressions: Service Date/Time: Monday, July 10, 2017 18:15 - CONCLUSION: Uncomplicated chest tube placement as above. Shaun Webb MD CT Angiography 07/09/17 1144 Signed Impressions: Service Date/Time: Sunday, July 09, 2017 13:49 - CONCLUSION: Large bilateral pleural effusions, much larger on the right than the left. Findings have progressed from 06/29/17 There is no central pulmonary emboli. Brett Dias MD FACR Thoracentesis Ultrasound 07/09/17 0000 Signed Impressions: Service Date/Time: Sunday, July 09, 2017 15:11 - CONCLUSION: Uncomplicated ultrasound guided thoracentesis. Epifanio Gates MD Objective Remarks awake and alert, 02 NC,, appears weak and tired anicteric lungs- decreased breath sounds bilaterally, chest tubes in place regular rhythm abdomen- soft, nontender extremities no edema neuro exam- non focal Procedures 07/09- right thoracentesis 07/10- chest tubes placement A/P Assessment and Plan 57yo male with recently diagnosed stage IV lung adenocarcinoma with recurrent pleural effusions s/p thoracentesis x 2 in June admitted with progressive dyspnea found to have large bilateral pleural effusions R>L. Patient meets SIRS criteria with elevated heart rate and respiratory rate Acute on chronic hypoxic respiratory failure Hx of COPD Recurrent malignant pleural effusions- S/P chest tube placement 07/11 - CTA negative for PE but revealing large bilateral pleural effusions right > left, images personally reviewed - s/p right sided therapeutic thoracentesis with 1750cc fluid removed.- 07/09 This is the patients third thoracentesis since Jun 10. - Continue on home dose of Spiriva and Singulair - Duonebs prn - continue supplemental oxygen to maintain O2 sats above 92% Pulmonary ff- Dr. Renteria - - pleurodesis eventually ff fluid studies Recently diagnosed stage IV lung adenocarcinoma - patient has not begun chemotherapy treatment as of yet - Dr. Mcmanus ff - will need port placement Chronic pain/peripheral neuropathy Opiate induced constipation - Continue home gabapentin and Percocet - patient on Baclofen 20mg BID at home, resume prn - continue patient on home dose of Reglan 10mg BID - scheduled bowel regimen - IV diulaudid q 4 prn BPH - continue home Flomax and Doxazosin Bilateral lower extremity edema - continue on home dose of Spironolactone and Lasix Depression/Anxiety - continue on Wellbutrin, Effexor and Buspirone DVT prophylaxis - bilateral SCD/ANGEL hose for now given IR procedure CM consult- will likely need home Gerardo Hylton MD Jul 12, 2017 09:00
[2017-07-12] MEDS: RESP: ALBUTEROL 2.5 MG/IPRATROPIUM 0.5 MG NEB (SCH) NEB ×3 (09:40→19:42)
[2017-07-12] MEDS: MONTELUKAST SODIUM 10 MG TAB PO SCH (10:48)
[2017-07-12] MEDS: VENLAFAXINE HCL XR 75 MG CAP PO SCH (10:48)
[2017-07-12] MEDS: GABAPENTIN 300 MG CAP PO SCH ×3 (10:48→18:11)
[2017-07-12] MEDS: buPROPion HCL 100 MG SUSTAINED RELEASE TAB PO SCH ×2 (10:48→21:24)
[2017-07-12] MEDS: FUROSEMIDE 20 MG TAB PO SCH (10:49)
[2017-07-12] MEDS: METOCLOPRAMIDE HCL 10 MG TAB PO SCH ×2 (10:49→21:24)
[2017-07-12] MEDS: MULTIVITAMIN TAB PO SCH (10:49)
[2017-07-12] MEDS: CALCIUM/VITAMIN D 250 MG/125 U TAB PO SCH (10:49)
[2017-07-12] MEDS: SPIRONOLACTONE 50 MG TAB PO SCH (10:50)
[2017-07-12] MEDS: PANTOPRAZOLE SOD 40 MG DELAYED RELEASE TAB PO SCH (10:50)
[2017-07-12] MEDS: busPIRone HCL 5 MG TAB PO SCH ×2 (10:54→21:24)
[2017-07-12] MEDS: SODIUM CHLORIDE 0.9% FLUSH 10 ML FLUSH IV FLUSH SCH ×2 (10:56→21:26)
[2017-07-12] MEDS: DOXAZOSIN MESYLATE 4 MG TAB PO SCH (10:57)
[2017-07-12 12:00] VITALS: BP 117/76; PULSE 118; RESP 19; TEMP 96.6; O2SAT 96
[2017-07-12] MEDS: AMOXICILLIN (TRIHYDRATE) 500 MG CAP PO SCH ×2 (13:00→18:11)
[2017-07-12] MEDS: MISOPROSTOL 200 MCG TAB PO SCH ×3 (14:06→18:15)
[2017-07-12 15:38] LABS: AUTOMATED NEUTROPHIL # 5.4 TH/MM3 (1.8-7.7); BASOPHIL % 0.5 % (0.0-2.0); EOSINOPHIL # 0.1 TH/MM3 (0-0.4); EOSINOPHIL % 1.2 % (0.0-4.0); HEMATOCRIT 35.9 % (39.0-51.0); LYMPH % 6.7 % (9.0-44.0); LYMPHOCYTE # 0.4 TH/MM3 (1.0-4.8); MEAN CORPUSCULAR HEMOGLOBIN 28.1 PG (27.0-34.0); MEAN CORPUSCULAR HGB CONC 33.4 % (32.0-36.0); MEAN PLATELET VOLUME 7.8 FL (7.0-11.0); MONO % 10.1 % (0.0-8.0); MONOCYTE # 0.7 TH/MM3 (0-0.9); NEUT % 81.5 % (16.0-70.0); PLATELET COUNT 321 TH/MM3 (150-450); RED BLOOD COUNT 4.28 MIL/MM3 (4.50-5.90); RED CELL DISTRIBUTION WIDTH 13.4 % (11.6-17.2); WHITE BLOOD COUNT 6.6 TH/MM3 (4.0-11.0)
[2017-07-12 15:47] LABS: ALBUMIN 2.3 GM/DL (3.4-5.0); ALT (GPT) 16 U/L (12-78); AST (GOT) 15 U/L (15-37); BICARBONATE 30.2 MEQ/L (21.0-32.0); BLOOD UREA NITROGEN 6 MG/DL (7-18); CALCIUM 8.7 MG/DL (8.5-10.1); CHLORIDE 94 MEQ/L (98-107); CREATININE 0.57 MG/DL (0.60-1.30); GLOMERULAR FILTRATION RATE 148 ML/MIN (>89); GLUCOSE,RANDOM 196 MG/DL (74-106); SODIUM (NA) 131 MEQ/L (136-145)
[2017-07-12 15:50] LABS: ALKALINE PHOSPHATASE 138 U/L (45-117); TOTAL BILIRUBIN ADULT 0.3 MG/DL (0.2-1.0); TOTAL PROTEIN 6.9 GM/DL (6.4-8.2)
[2017-07-12 16:00] VITALS: BP 114/76; PULSE 109; RESP 17; TEMP 96.3; O2SAT 96
[2017-07-12] MEDS: HYDROmorphone HCL PF 2 MG/ML VIAL IV PUSH PRN (18:13)
[2017-07-12 19:44] VITALS: O2SAT 95
[2017-07-12 20:00] VITALS: BP 121/82; PULSE 105; RESP 14; TEMP 98.7; O2SAT 99
--- NOTE | 2017-07-12 20:08 | PD.ONC.PN ---
Subjective Subjective Remarks Sitting in bedside chair in no distress. Reports that pain is better controlled today. at bedside. Objective Data Date Time Temp Pulse Resp B/P (MAP) Pulse Ox O2 Delivery O2 Flow Rate FiO2 07/12/17 19:44 95 Nasal Cannula 3.00 07/12/17 16:00 96.3 109 17 114/76 (89) 96 07/12/17 12:00 96.6 118 19 117/76 (90) 96 07/12/17 09:41 21 07/12/17 08:00 96.7 111 20 139/82 (101) 96 07/12/17 00:00 97.3 118 17 132/79 (96) 97 07/11/17 20:43 92 Nasal Cannula 3.00 07/12/17 07/12/17 07/12/17 07:00 15:00 23:00 Intake Total 240 ml 720 ml Output Total 610 ml 475 ml Balance -370 ml 245 ml Result Diagram: 07/12/17 1402 07/12/17 1402 Laboratory Results Laboratory Tests Test 07/12/17 14:02 White Blood Count 6.6 TH/MM3 Red Blood Count 4.28 MIL/MM3 Hemoglobin 12.0 GM/DL Hematocrit 35.9 % Mean Corpuscular Volume 84.0 FL Mean Corpuscular Hemoglobin 28.1 PG Mean Corpuscular Hemoglobin Concent 33.4 % Red Cell Distribution Width 13.4 % Platelet Count 321 TH/MM3 Mean Platelet Volume 7.8 FL Neutrophils (%) (Auto) 81.5 % Lymphocytes (%) (Auto) 6.7 % Monocytes (%) (Auto) 10.1 % Eosinophils (%) (Auto) 1.2 % Basophils (%) (Auto) 0.5 % Neutrophils # (Auto) 5.4 TH/MM3 Lymphocytes # (Auto) 0.4 TH/MM3 Monocytes # (Auto) 0.7 TH/MM3 Eosinophils # (Auto) 0.1 TH/MM3 Basophils # (Auto) 0.0 TH/MM3 CBC Comment DIFF FINAL Differential Comment Blood Urea Nitrogen 6 MG/DL Creatinine 0.57 MG/DL Random Glucose 196 MG/DL Total Protein 6.9 GM/DL Albumin 2.3 GM/DL Calcium Level 8.7 MG/DL Alkaline Phosphatase 138 U/L Aspartate Amino Transf (AST/SGOT) 15 U/L Alanine Aminotransferase (ALT/SGPT) 16 U/L Total Bilirubin 0.3 MG/DL Sodium Level 131 MEQ/L Potassium Level 3.8 MEQ/L Chloride Level 94 MEQ/L Carbon Dioxide Level 30.2 MEQ/L Anion Gap 7 MEQ/L Estimat Glomerular Filtration Rate 148 ML/MIN Culture Results Microbiology Date/Time Source Procedure Growth Status 07/10/17 17:18 Fluid Other Gram Stain - Final Resulted 07/10/17 17:18 Fluid Other Body Fluid Culture - Preliminary NO GROWTH IN 48 HOURS. Resulted 07/10/17 15:25 Fluid Pleural Fluid Gram Stain - Final Resulted 07/10/17 15:25 Fluid Pleural Fluid Body Fluid Culture - Preliminary NO GROWTH IN 48 HOURS. Resulted 07/12/17 17:40 Sputum Expectorated Sputum Acid Fast Stain Pending Received 07/12/17 17:40 Sputum Expectorated Sputum Mycobacterial Culture Pending Received Administered Medications Medications (Trade) Dose Ordered Sig/Kasi Route PRN Reason Start Time Stop Time Status Last Admin Dose Admin Sodium Chloride (NS Flush) 2 ml UNSCH PRN IV FLUSH FLUSH AFTER USING IV ACCESS 07/09/17 15:45 07/11/17 13:54 Sodium Chloride (NS Flush) 2 ml BID IV FLUSH 07/09/17 21:00 07/12/17 10:56 Bupropion HCl (Wellbutrin Sr 12 Hr) 100 mg Q12HR PO 07/09/17 21:00 07/12/17 10:48 Buspirone HCl (Buspar) 15 mg BID PO 07/09/17 21:00 07/12/17 10:54 Docusate Sodium (Colace) 100 mg BID PO 07/09/17 21:00 07/11/17 21:20 Doxazosin Mesylate (Cardura) 4 mg DAILY PO 07/10/17 09:00 07/12/17 10:57 Furosemide (Lasix) 20 mg DAILY PO 07/10/17 09:00 07/12/17 10:49 Gabapentin (Neurontin) 600 mg TID PO 07/09/17 20:00 07/12/17 18:11 Metoclopramide HCl (Reglan) 10 mg BID PO 07/09/17 21:00 07/12/17 10:49 Misoprostol (Cytotec) 200 mcg TID PO 07/09/17 20:00 07/12/17 18:15 Oxycodone/ Acetaminophen (Percocet 5-325 Mg) 1 tab Q4H PRN PO pain 5-10 07/09/17 17:45 07/12/17 18:15 Polyethylene Glycol (Miralax) 17 gm DAILY PO 07/10/17 09:00 07/10/17 09:48 Spironolactone (Aldactone) 50 mg DAILY PO 07/10/17 09:00 07/12/17 10:50 Tamsulosin HCl (Flomax) 0.4 mg HS PO 07/09/17 21:00 07/11/17 21:19 Calcium/Vitamin D (Oscal-D 250-125) 500 mg DAILY PO 07/10/17 09:00 07/12/17 10:49 Multivitamins (Theragran) 1 tab DAILY PO 07/10/17 09:00 07/12/17 10:49 Pantoprazole Sodium (Protonix) 40 mg DAILY PO 07/10/17 09:00 07/12/17 10:50 Venlafaxine HCl (Effexor Xr) 225 mg DAILY PO 07/10/17 09:00 07/12/17 10:48 Baclofen (Lioresal) 20 mg BID PRN PO Muscle spasms 07/09/17 18:00 07/11/17 13:26 Montelukast Sodium (Singulair) 10 mg DAILY PO 07/10/17 09:00 07/12/17 10:48 Albuterol/ Ipratropium (Duoneb Neb) 1 ampule Q4HR NEB PRN NEB sob 07/11/17 12:15 07/12/17 03:46 Albuterol/ Ipratropium (Duoneb Neb) 1 ampule TID NEB NEB 07/11/17 14:00 07/12/17 19:42 Hydromorphone HCl (Dilaudid Pf Inj) 2 mg Q4HR PRN IV PUSH PAIN SCALE 7 TO 10 07/11/17 13:15 07/11/17 22:59 Amoxicillin (Trimox) 500 mg TID PO 07/12/17 13:00 07/17/17 12:59 07/12/17 18:11 Objective Remarks GENERAL: chronically ill appearing man in no distress HEAD: Normocephalic. EYES: No scleral icterus. No injection or drainage. RESPIRATORY: chest wall with placement of bilateral chest pain GASTROINTESTINAL: protuberent abdomen EXTREMITIES: No cyanosis, or edema. NEUROLOGICAL: No obvious focal deficit. Awake, alert, and oriented x3. PSYCHIATRIC: Appropriate mood and affect; insight and judgment normal. Assessment/Plan Assessment 1. Newly diagnosed stage IV lung adenocarcinoma with bilateral lung lesions and bilateral pleural effusions. chemotherapy in the outpatient setting. Port placement when symptoms improve. 2. Bilateral effusions: s/p placement of bilateral chest tubes. Pulmonary team following. Linda Mcmanus MD Jul 12, 2017 20:08
[2017-07-12] MEDS: TAMSULOSIN HCL 0.4 MG CAP PO SCH (21:24)
[2017-07-13] VITALS: BP 118/90; PULSE 96; RESP 16; TEMP 98.9; O2SAT 97
[2017-07-13] MEDS: oxyCODONE/ACETAMINOPHEN 5 MG/325 MG TAB PO PRN ×4 (04:56→21:24)
[2017-07-13 08:00] VITALS: BP 111/74; PULSE 103; RESP 18; TEMP 98.5; O2SAT 96
[2017-07-13] MEDS: RESP: ALBUTEROL 2.5 MG/IPRATROPIUM 0.5 MG NEB (SCH) NEB ×3 (08:12→19:37)
[2017-07-13 08:25] VITALS: O2SAT 94
[2017-07-13] MEDS: POLYETHYLENE GLYCOL 17 GM PKG PO SCH (09:00)
[2017-07-13] MEDS: VENLAFAXINE HCL XR 75 MG CAP PO SCH (10:45)
[2017-07-13] MEDS: CALCIUM/VITAMIN D 250 MG/125 U TAB PO SCH (10:45)
[2017-07-13] MEDS: SPIRONOLACTONE 50 MG TAB PO SCH (10:46)
[2017-07-13] MEDS: buPROPion HCL 100 MG SUSTAINED RELEASE TAB PO SCH ×2 (10:46→21:23)
[2017-07-13] MEDS: DOXAZOSIN MESYLATE 4 MG TAB PO SCH (10:46)
[2017-07-13] MEDS: GABAPENTIN 300 MG CAP PO SCH ×3 (10:46→17:07)
[2017-07-13] MEDS: AMOXICILLIN (TRIHYDRATE) 500 MG CAP PO SCH ×3 (10:46→17:07)
[2017-07-13] MEDS: MULTIVITAMIN TAB PO SCH (10:46)
[2017-07-13] MEDS: MISOPROSTOL 200 MCG TAB PO SCH ×3 (10:47→17:07)
[2017-07-13] MEDS: FUROSEMIDE 20 MG TAB PO SCH (10:47)
[2017-07-13] MEDS: METOCLOPRAMIDE HCL 10 MG TAB PO SCH ×2 (10:47→21:23)
[2017-07-13] MEDS: DOCUSATE SODIUM 100 MG CAP PO SCH ×2 (10:48→21:23)
[2017-07-13] MEDS: PANTOPRAZOLE SOD 40 MG DELAYED RELEASE TAB PO SCH (10:48)
[2017-07-13] MEDS: busPIRone HCL 5 MG TAB PO SCH ×2 (10:48→21:23)
[2017-07-13] MEDS: MONTELUKAST SODIUM 10 MG TAB PO SCH (10:49)
[2017-07-13] MEDS ORDERED: LIDOCAINE 2% IV ONE (11:00)
[2017-07-13] MEDS ORDERED: DOXYCYCLINE IV ONE (11:00)
[2017-07-13] MEDS ORDERED: SODIUM CHLORIDE 0.9% IV ONE ×2 (11:00→14:00)
--- NOTE | 2017-07-13 11:27 | HHI.PR ---
Subjective Remarks seen with family at bedside feeling better up i chair- loks more comfortable pain controlled' going down for pleurodiesis this am Objective Vitals Vital Signs Date Time Temp Pulse Resp B/P (MAP) Pulse Ox O2 Delivery O2 Flow Rate FiO2 07/13/17 08:25 94 Nasal Cannula 2.00 07/13/17 08:00 98.5 103 18 111/74 (86) 96 07/13/17 00:00 98.9 96 16 118/90 (99) 97 07/12/17 20:00 98.7 105 14 121/82 (95) 99 07/12/17 19:44 95 Nasal Cannula 3.00 07/12/17 16:00 96.3 109 17 114/76 (89) 96 07/12/17 12:00 96.6 118 19 117/76 (90) 96 I/O 07/12/17 07/12/17 07/12/17 07/13/17 07/13/17 07/13/17 07:00 15:00 23:00 07:00 15:00 23:00 Intake Total 240 ml 720 ml 480 ml Output Total 610 ml 475 ml 510 ml 600 ml Balance -370 ml 245 ml -30 ml -600 ml Intake Oral 240 ml 720 ml 480 ml Output Urine Total 550 ml 475 ml 250 ml 600 ml Chest Tube Drainage Total 60 ml 260 ml # Voids 1 # Bowel Movements 1 0 Result Diagram: 07/12/17 1402 07/12/17 1402 Imaging Last Impressions Chest X-Ray 07/11/17 0000 Signed Impressions: Service Date/Time: Tuesday, July 11, 2017 12:32 - CONCLUSION: Large bore chest tube in place on right without pneumothorax. No significant pleural effusion. Brett Dias MD FACR Chest Tube Insertion 07/10/17 1619 Signed Impressions: Service Date/Time: Monday, July 10, 2017 18:15 - CONCLUSION: Uncomplicated chest tube placement as above. Shaun Webb MD CT Angiography 07/09/17 1144 Signed Impressions: Service Date/Time: Sunday, July 09, 2017 13:49 - CONCLUSION: Large bilateral pleural effusions, much larger on the right than the left. Findings have progressed from 06/29/17 There is no central pulmonary emboli. Brett Dias MD FACR Thoracentesis Ultrasound 07/09/17 0000 Signed Impressions: Service Date/Time: Sunday, July 09, 2017 15:11 - CONCLUSION: Uncomplicated ultrasound guided thoracentesis. Epifanio Gates MD Objective Remarks awake and alert, 02 NC,, appears weak and tired anicteric lungs- decreased breath sounds bilaterally, 2 bilateral chest tubes in place regular rhythm abdomen- soft, nontender extremities no edema neuro exam- non focal Procedures 07/09- right thoracentesis 07/10- chest tubes placement A/P Assessment and Plan 57yo male with recently diagnosed stage IV lung adenocarcinoma with recurrent pleural effusions s/p thoracentesis x 2 in June admitted with progressive dyspnea found to have large bilateral pleural effusions R>L. Patient meets SIRS criteria with elevated heart rate and respiratory rate Acute on chronic hypoxic respiratory failure Hx of COPD Recurrent malignant pleural effusions- S/P chest tube placement 07/11 - CTA negative for PE but revealing large bilateral pleural effusions right > left, images personally reviewed - s/p right sided therapeutic thoracentesis with 1750cc fluid removed.- 07/09 This is the patients third thoracentesis since Jun 10. - Continue on home dose of Spiriva and Singulair - Duonebs prn - continue supplemental oxygen to maintain O2 sats above 92% Pulmonary ff- Dr. Renteria - - pleurodesis today Recently diagnosed stage IV lung adenocarcinoma - Dr. Mcmanus ff - will need port placement Chronic pain/peripheral neuropathy Opiate induced constipation - Continue home gabapentin and Percocet - patient on Baclofen 20mg BID at home, resume prn - continue patient on home dose of Reglan 10mg BID - scheduled bowel regimen - IV diulaudid q 4 prn BPH - continue home Flomax and Doxazosin Bilateral lower extremity edema - continue on home dose of Spironolactone and Lasix Depression/Anxiety - continue on Wellbutrin, Effexor and Buspirone DVT prophylaxis - bilateral SCD/ANGEL hose for now given IR procedure CM consult- will likely need home Gerardo Hylton MD Jul 13, 2017 11:27
--- NOTE | 2017-07-13 12:07 | PD.ONC.PN ---
Subjective Subjective Remarks Afebrile overnight. Patient resting in chair in room with at bedside. Plan is to have pleurodesis done today on left side. No complaints at present. Objective Data Date Time Temp Pulse Resp B/P (MAP) Pulse Ox O2 Delivery O2 Flow Rate FiO2 07/13/17 08:25 94 Nasal Cannula 2.00 07/13/17 08:00 98.5 103 18 111/74 (86) 96 07/13/17 00:00 98.9 96 16 118/90 (99) 97 07/12/17 20:00 98.7 105 14 121/82 (95) 99 07/12/17 19:44 95 Nasal Cannula 3.00 07/12/17 16:00 96.3 109 17 114/76 (89) 96 07/13/17 07/13/17 07/13/17 07:00 15:00 23:00 Intake Total 480 ml Output Total 510 ml 600 ml Balance -30 ml -600 ml Result Diagram: 07/12/17 1402 07/12/17 1402 Laboratory Results Laboratory Tests Test 07/12/17 14:02 White Blood Count 6.6 TH/MM3 Red Blood Count 4.28 MIL/MM3 Hemoglobin 12.0 GM/DL Hematocrit 35.9 % Mean Corpuscular Volume 84.0 FL Mean Corpuscular Hemoglobin 28.1 PG Mean Corpuscular Hemoglobin Concent 33.4 % Red Cell Distribution Width 13.4 % Platelet Count 321 TH/MM3 Mean Platelet Volume 7.8 FL Neutrophils (%) (Auto) 81.5 % Lymphocytes (%) (Auto) 6.7 % Monocytes (%) (Auto) 10.1 % Eosinophils (%) (Auto) 1.2 % Basophils (%) (Auto) 0.5 % Neutrophils # (Auto) 5.4 TH/MM3 Lymphocytes # (Auto) 0.4 TH/MM3 Monocytes # (Auto) 0.7 TH/MM3 Eosinophils # (Auto) 0.1 TH/MM3 Basophils # (Auto) 0.0 TH/MM3 CBC Comment DIFF FINAL Differential Comment Blood Urea Nitrogen 6 MG/DL Creatinine 0.57 MG/DL Random Glucose 196 MG/DL Total Protein 6.9 GM/DL Albumin 2.3 GM/DL Calcium Level 8.7 MG/DL Alkaline Phosphatase 138 U/L Aspartate Amino Transf (AST/SGOT) 15 U/L Alanine Aminotransferase (ALT/SGPT) 16 U/L Total Bilirubin 0.3 MG/DL Sodium Level 131 MEQ/L Potassium Level 3.8 MEQ/L Chloride Level 94 MEQ/L Carbon Dioxide Level 30.2 MEQ/L Anion Gap 7 MEQ/L Estimat Glomerular Filtration Rate 148 ML/MIN Culture Results Microbiology Date/Time Source Procedure Growth Status 07/10/17 17:18 Fluid Other Gram Stain - Final Complete 07/10/17 17:18 Fluid Other Body Fluid Culture - Final NO GROWTH IN 72 HRS.--AEROBICALLY OR ... Complete 07/10/17 15:25 Fluid Pleural Fluid Gram Stain - Final Complete 07/10/17 15:25 Fluid Pleural Fluid Body Fluid Culture - Final NO GROWTH IN 72 HRS.--AEROBICALLY OR ... Complete 07/12/17 17:40 Sputum Expectorated Sputum Acid Fast Stain Pending Received 07/12/17 17:40 Sputum Expectorated Sputum Mycobacterial Culture Pending Received Administered Medications Medications (Trade) Dose Ordered Sig/Kasi Route PRN Reason Start Time Stop Time Status Last Admin Dose Admin Sodium Chloride (NS Flush) 2 ml UNSCH PRN IV FLUSH FLUSH AFTER USING IV ACCESS 07/09/17 15:45 07/11/17 13:54 Sodium Chloride (NS Flush) 2 ml BID IV FLUSH 07/09/17 21:00 07/12/17 21:26 Bupropion HCl (Wellbutrin Sr 12 Hr) 100 mg Q12HR PO 07/09/17 21:00 07/13/17 10:46 Buspirone HCl (Buspar) 15 mg BID PO 07/09/17 21:00 07/13/17 10:48 Docusate Sodium (Colace) 100 mg BID PO 07/09/17 21:00 07/13/17 10:48 Doxazosin Mesylate (Cardura) 4 mg DAILY PO 07/10/17 09:00 07/13/17 10:46 Furosemide (Lasix) 20 mg DAILY PO 07/10/17 09:00 07/13/17 10:47 Gabapentin (Neurontin) 600 mg TID PO 07/09/17 20:00 07/13/17 10:46 Metoclopramide HCl (Reglan) 10 mg BID PO 07/09/17 21:00 07/13/17 10:47 Misoprostol (Cytotec) 200 mcg TID PO 07/09/17 20:00 07/13/17 10:47 Oxycodone/ Acetaminophen (Percocet 5-325 Mg) 1 tab Q4H PRN PO pain 5-10 07/09/17 17:45 07/13/17 10:49 Polyethylene Glycol (Miralax) 17 gm DAILY PO 07/10/17 09:00 07/10/17 09:48 Spironolactone (Aldactone) 50 mg DAILY PO 07/10/17 09:00 07/13/17 10:46 Tamsulosin HCl (Flomax) 0.4 mg HS PO 07/09/17 21:00 07/12/17 21:24 Calcium/Vitamin D (Oscal-D 250-125) 500 mg DAILY PO 07/10/17 09:00 07/13/17 10:45 Multivitamins (Theragran) 1 tab DAILY PO 07/10/17 09:00 07/13/17 10:46 Pantoprazole Sodium (Protonix) 40 mg DAILY PO 07/10/17 09:00 07/13/17 10:48 Venlafaxine HCl (Effexor Xr) 225 mg DAILY PO 07/10/17 09:00 07/13/17 10:45 Baclofen (Lioresal) 20 mg BID PRN PO Muscle spasms 07/09/17 18:00 07/11/17 13:26 Montelukast Sodium (Singulair) 10 mg DAILY PO 07/10/17 09:00 07/13/17 10:49 Albuterol/ Ipratropium (Duoneb Neb) 1 ampule Q4HR NEB PRN NEB sob 07/11/17 12:15 07/12/17 03:46 Albuterol/ Ipratropium (Duoneb Neb) 1 ampule TID NEB NEB 07/11/17 14:00 07/13/17 08:12 Hydromorphone HCl (Dilaudid Pf Inj) 2 mg Q4HR PRN IV PUSH PAIN SCALE 7 TO 10 07/11/17 13:15 07/11/17 22:59 Amoxicillin (Trimox) 500 mg TID PO 07/12/17 13:00 07/17/17 12:59 07/13/17 10:46 Objective Remarks GENERAL: Middle aged male, sitting up in chair next to bed, mild dyspnea noted. on 2L O2 via NC SKIN: Warm and dry. HEAD: Normocephalic. EYES: No injection or drainage. NECK: Supple, trachea midline. CARDIOVASCULAR: +S1/S2, tachy RESPIRATORY: diminished at bases, scattered rhonchi. CT in place bilaterally. GASTROINTESTINAL: Abdomen soft, non-tender, nondistended. EXTREMITIES: No cyanosis NEUROLOGICAL: No obvious focal deficit. Awake, alert, and oriented x3. 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 --Right-sided fluid uncertain of etiology, certainly suspicious for malignancy. --tumor specimen has been sent for molecular testing. --EGFR still pending. --PDL-1 is negative and the remainder have insufficient tissue. Assessment 57y/o male with metastatic lung adenocarcinoma admitted with bilateral pleural effusions and shortness of breath. h/o Osteoarthritis. Benign prostatic hypertrophy. Chronic obstructive lung disease. Degenerative disc disease. Peripheral neuropathy. Peripheral vascular disease. Rheumatoid arthritis. Scleroderma. Plan 1. pleurodesis today 2. possible port placement Sunday or Sunday depending on clinical status. Ximena Martinez Jul 13, 2017 12:07 Linda Mcmanus MD Jul 13, 2017 15:15
[2017-07-13] MEDS: HYDROmorphone HCL PF 2 MG/ML VIAL IV PUSH PRN (12:15)
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
--- NOTE | 2017-07-13 13:48 | RADRPT ---
EXAM DATE/TIME: 07/13/2017 12:42 [facility] COMPARISON : INDICATIONS : The patient was placed supine on angiographic table. Small amount of contrast was injected through th e left chest tube. There is a very small residual cavity noted about the chest tube pigtail with sign ificant contrast extending through the chest tube tract accumulating in the left lateral chest wall. Therefore, decision was made not to proceed with planned pleurodesis. Patient was transferred to CT f or further evaluation. On CT examination, the chest tube is in good position. There is a very small r esidual effusion with again contrast noted along the left chest wall. Suspect the findings are relate d to fibrin sheath surrounding the chest tube pigtail. Will proceed with TPA fibrinolysis and plan on attempting pleurodesis early next week. Chest tube may need to be repositioned more dependently at t hat time. Additional consultation by Dr. Robertson. TECH NOTE: Patient going to CT for further imaging.TIERRA VIZCARRA MR#:[id number] :55 Exam Dt/Desc: Baltazar mcintosh 2017INVASIVE RADIOLOGY CONSULT Shaun Webb MD on July 13, 2017 at 13:06 Board Certified Radiologist. This report was verified electronically.
[2017-07-13] MEDS ORDERED: ALTEPLASE RECOMBINANT 2 MG VIAL ONE (13:50)
[2017-07-13] MEDS ORDERED: LIDOCAINE HCL 2% 20 ML VIAL ONE (14:00)
[2017-07-13] MEDS ORDERED: SODIUM CHLORIDE 0.9% ONE (14:00)
[2017-07-13] MEDS ORDERED: ALTEPLASE IV ONE (14:00)
[2017-07-13] MEDS ORDERED: DOXYCYCLINE ONE (14:00)
[2017-07-13] MEDS: SODIUM CHLORIDE 0.9% FLUSH 10 ML FLUSH IV FLUSH SCH ×2 (14:52→21:00)
[2017-07-13 19:39] VITALS: O2SAT 95
[2017-07-13 20:00] VITALS: BP 115/82; PULSE 115; RESP 20; TEMP 97.1; O2SAT 90
[2017-07-13] MEDS: TAMSULOSIN HCL 0.4 MG CAP PO SCH (21:23)
[2017-07-14] VITALS (7 sets, daily range): BP systolic 93–133; BP diastolic 64–85; PULSE 104–115; RESP 18–20; TEMP 96.4–97.7; O2SAT 90–98
[2017-07-14] MEDS: oxyCODONE/ACETAMINOPHEN 5 MG/325 MG TAB PO PRN ×4 (01:40→17:54)
[2017-07-14] MEDS: RESP: ALBUTEROL 2.5 MG/IPRATROPIUM 0.5 MG NEB (SCH) NEB ×3 (08:00→20:56)
[2017-07-14] MEDS: GABAPENTIN 300 MG CAP PO SCH ×3 (08:42→17:41)
[2017-07-14] MEDS: CALCIUM/VITAMIN D 250 MG/125 U TAB PO SCH (08:42)
[2017-07-14] MEDS: AMOXICILLIN (TRIHYDRATE) 500 MG CAP PO SCH ×3 (08:42→17:41)
[2017-07-14] MEDS: buPROPion HCL 100 MG SUSTAINED RELEASE TAB PO SCH ×2 (08:42→20:46)
[2017-07-14] MEDS: FUROSEMIDE 20 MG TAB PO SCH (08:42)
[2017-07-14] MEDS: MISOPROSTOL 200 MCG TAB PO SCH ×3 (08:42→17:41)
[2017-07-14] MEDS: DOCUSATE SODIUM 100 MG CAP PO SCH ×2 (08:43→20:46)
[2017-07-14] MEDS: VENLAFAXINE HCL XR 75 MG CAP PO SCH (08:43)
[2017-07-14] MEDS: MULTIVITAMIN TAB PO SCH (08:43)
[2017-07-14] MEDS: METOCLOPRAMIDE HCL 10 MG TAB PO SCH ×2 (08:43→20:46)
[2017-07-14] MEDS: PANTOPRAZOLE SOD 40 MG DELAYED RELEASE TAB PO SCH (08:43)
[2017-07-14] MEDS: DOXAZOSIN MESYLATE 4 MG TAB PO SCH (08:43)
[2017-07-14] MEDS: busPIRone HCL 5 MG TAB PO SCH ×2 (08:43→20:46)
[2017-07-14] MEDS: MONTELUKAST SODIUM 10 MG TAB PO SCH (08:43)
[2017-07-14] MEDS: SPIRONOLACTONE 50 MG TAB PO SCH (08:43)
[2017-07-14] MEDS: POLYETHYLENE GLYCOL 17 GM PKG PO SCH (08:44)
[2017-07-14] MEDS: SODIUM CHLORIDE 0.9% FLUSH 10 ML FLUSH IV FLUSH SCH ×2 (08:44→20:46)
--- NOTE | 2017-07-14 10:38 | PD.ONC.PN ---
Subjective Subjective Remarks Afebrile Patient reports his cough has been slightly worse since the attempted pleurodesis yesterday Coughing up a moderate amount of sputum Objective Data Date Time Temp Pulse Resp B/P (MAP) Pulse Ox O2 Delivery O2 Flow Rate FiO2 07/14/17 08:41 98 Nasal Cannula 2.00 07/14/17 08:00 96.4 104 18 129/72 (91) 92 07/14/17 00:00 96.9 108 20 133/85 (101) 94 07/13/17 20:00 97.1 115 20 115/82 (93) 90 07/13/17 19:39 95 Nasal Cannula 2.00 07/14/17 07/14/17 07/14/17 07:00 15:00 23:00 Intake Total 480 ml Output Total 600 ml 270 ml Balance -120 ml -270 ml Result Diagram: 07/12/17 1402 07/12/17 1402 Culture Results Microbiology Date/Time Source Procedure Growth Status 07/12/17 17:40 Sputum Expectorated Sputum Acid Fast Stain - Final NO ACID FAST BACILLI SEEN Resulted 07/12/17 17:40 Sputum Expectorated Sputum Mycobacterial Culture Pending Resulted Administered Medications Medications (Trade) Dose Ordered Sig/Kasi Route PRN Reason Start Time Stop Time Status Last Admin Dose Admin Sodium Chloride (NS Flush) 2 ml UNSCH PRN IV FLUSH FLUSH AFTER USING IV ACCESS 07/09/17 15:45 07/11/17 13:54 Sodium Chloride (NS Flush) 2 ml BID IV FLUSH 07/09/17 21:00 07/14/17 08:44 Bupropion HCl (Wellbutrin Sr 12 Hr) 100 mg Q12HR PO 07/09/17 21:00 07/14/17 08:42 Buspirone HCl (Buspar) 15 mg BID PO 07/09/17 21:00 07/14/17 08:43 Docusate Sodium (Colace) 100 mg BID PO 07/09/17 21:00 07/14/17 08:43 Doxazosin Mesylate (Cardura) 4 mg DAILY PO 07/10/17 09:00 07/14/17 08:43 Furosemide (Lasix) 20 mg DAILY PO 07/10/17 09:00 07/14/17 08:42 Gabapentin (Neurontin) 600 mg TID PO 07/09/17 20:00 07/14/17 08:42 Metoclopramide HCl (Reglan) 10 mg BID PO 07/09/17 21:00 07/14/17 08:43 Misoprostol (Cytotec) 200 mcg TID PO 07/09/17 20:00 07/14/17 08:42 Oxycodone/ Acetaminophen (Percocet 5-325 Mg) 1 tab Q4H PRN PO pain 5-10 07/09/17 17:45 07/14/17 06:15 Polyethylene Glycol (Miralax) 17 gm DAILY PO 07/10/17 09:00 07/10/17 09:48 Spironolactone (Aldactone) 50 mg DAILY PO 07/10/17 09:00 07/14/17 08:43 Tamsulosin HCl (Flomax) 0.4 mg HS PO 07/09/17 21:00 07/13/17 21:23 Calcium/Vitamin D (Oscal-D 250-125) 500 mg DAILY PO 07/10/17 09:00 07/14/17 08:42 Multivitamins (Theragran) 1 tab DAILY PO 07/10/17 09:00 07/14/17 08:43 Pantoprazole Sodium (Protonix) 40 mg DAILY PO 07/10/17 09:00 07/14/17 08:43 Venlafaxine HCl (Effexor Xr) 225 mg DAILY PO 07/10/17 09:00 07/14/17 08:43 Baclofen (Lioresal) 20 mg BID PRN PO Muscle spasms 07/09/17 18:00 07/11/17 13:26 Montelukast Sodium (Singulair) 10 mg DAILY PO 07/10/17 09:00 07/14/17 08:43 Albuterol/ Ipratropium (Duoneb Neb) 1 ampule Q4HR NEB PRN NEB sob 07/11/17 12:15 07/12/17 03:46 Albuterol/ Ipratropium (Duoneb Neb) 1 ampule TID NEB NEB 07/11/17 14:00 07/14/17 08:00 Hydromorphone HCl (Dilaudid Pf Inj) 2 mg Q4HR PRN IV PUSH PAIN SCALE 7 TO 10 07/11/17 13:15 07/13/17 12:15 Amoxicillin (Trimox) 500 mg TID PO 07/12/17 13:00 07/17/17 12:59 07/14/17 08:42 Objective Remarks GENERAL: Middle aged male, sitting up on bedside commode. He appears to be mildly dyspneic on exam. SKIN: Warm and dry. HEAD: Normocephalic. EYES: No injection or drainage. NECK: Supple, trachea midline. CARDIOVASCULAR: +S1/S2, tachy RESPIRATORY: Scattered rhonchi posteriorly. Few crackles at bilateral bases. CT in place bilaterally. On O2 at 2 L GASTROINTESTINAL: Abdomen soft, non-tender, nondistended. EXTREMITIES: No cyanosis NEUROLOGICAL: No obvious focal deficit. Awake, alert, and oriented x3. 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 --Right-sided fluid uncertain of etiology, certainly suspicious for malignancy. --tumor specimen has been sent for molecular testing. --EGFR still pending. --PDL-1 is negative and the remainder have insufficient tissue. Assessment 57y/o male with metastatic lung adenocarcinoma admitted with bilateral pleural effusions and shortness of breath. h/o Osteoarthritis. Benign prostatic hypertrophy. Chronic obstructive lung disease. Degenerative disc disease. Peripheral neuropathy. Peripheral vascular disease. Rheumatoid arthritis. Scleroderma. Plan 1. Pleurodesis was unsuccessful yesterday; per the radiologist they will reattempt this on Sunday 2. Plan for port placement prior to discharge in order to initiate chemotherapy 3. Monitor chest tube output 4. Supportive care Attending Statement The exam, history, and the medical decision-making described in the above note were completed with the assistance of the mid-level provider. I reviewed and agree with the findings presented. I attest that I had a [id number] encounter with the patient on the same day, and personally performed and documented my assessment and findings in the medical record Stage IV lung adeno b/l pleural effusion s/p b/l chest tube--still has significant output awaiting re-attempt pleurodesis on Sunday Molecular studies pending port placement after pleurodesis d/w rn o/n events reviewed Shilpa Hernadez Jul 14, 2017 10:38 Smith Giang MD Jul 14, 2017 16:05
--- NOTE | 2017-07-14 12:43 | HHI.PR ---
Subjective Remarks Patient is sitting in chair in NAD. On 2L oxygen. Afebrile. Pleurodesis was unsuccessful yesterday; per the radiologist they will reattempt this on Sunday Objective Vital Signs Vital Signs Date Time Temp Pulse Resp B/P (MAP) Pulse Ox O2 Delivery O2 Flow Rate FiO2 07/14/17 08:41 98 Nasal Cannula 2.00 07/14/17 08:00 96.4 104 18 129/72 (91) 92 07/14/17 00:00 96.9 108 20 133/85 (101) 94 07/13/17 20:00 97.1 115 20 115/82 (93) 90 07/13/17 19:39 95 Nasal Cannula 2.00 I/O 07/13/17 07/13/17 07/13/17 07/14/17 07/14/17 07/14/17 07:00 15:00 23:00 07:00 15:00 23:00 Intake Total 480 ml 120 ml 480 ml Output Total 510 ml 690 ml 450 ml 600 ml 270 ml Balance -30 ml -690 ml -330 ml -120 ml -270 ml Intake Oral 480 ml 120 ml 480 ml Output Urine Total 250 ml 600 ml 450 ml 600 ml Chest Tube Drainage Total 260 ml 90 ml 270 ml # Voids 1 # Bowel Movements 0 0 Result Diagram: 07/12/17 1402 07/12/17 1402 Other Results Last Impressions Chest CT 07/13/17 0000 Signed Impressions: Service Date/Time: Thursday, July 13, 2017 12:16 - CONCLUSION: Bilateral thoracostomy tubes are in satisfactory position. There is leakage of injected contrast from the pleural space into the left posterior chest wall on the course of the left-sided tube. This may reflect fibrin sheath formation around the tube and pleural loculation restricting free flow of injected contrast within the pleural space. Roney Robertson MD Chest X-Ray 07/11/17 0000 Signed Impressions: Service Date/Time: Tuesday, July 11, 2017 12:32 - CONCLUSION: Large bore chest tube in place on right without pneumothorax. No significant pleural effusion. Brett Dias MD FACR Chest Tube Insertion 07/10/17 1619 Signed Impressions: Service Date/Time: Monday, July 10, 2017 18:15 - CONCLUSION: Uncomplicated chest tube placement as above. Shaun Webb MD CT Angiography 07/09/17 1144 Signed Impressions: Service Date/Time: Sunday, July 09, 2017 13:49 - CONCLUSION: Large bilateral pleural effusions, much larger on the right than the left. Findings have progressed from 06/29/17 There is no central pulmonary emboli. Brett Dias MD FACR Thoracentesis Ultrasound 07/09/17 0000 Signed Impressions: Service Date/Time: Sunday, July 09, 2017 15:11 - CONCLUSION: Uncomplicated ultrasound guided thoracentesis. Epifanio Gates MD Objective Remarks GENERAL: Patient is 57yo sitting in chair in NAD SKIN: Warm and dry. HEAD: Normocephalic. EYES: No scleral icterus. No injection or drainage. NECK: Supple, trachea midline. No JVD or lymphadenopathy. CARDIOVASCULAR: Regular rate and rhythm without murmurs, gallops, or rubs. RESPIRATORY: Breath sounds equal bilaterally. No accessory muscle use. GASTROINTESTINAL: Abdomen soft, non-tender, nondistended. MUSCULOSKELETAL: No cyanosis, or edema. BACK: Nontender without obvious deformity. No CVA tenderness. Neuro: Awake and alert. A/P Assessment and Plan 1)Resp Insuff 2)Recent dx stage IV lung adenocarcinoma 3)Recurrent pleural effusions s/p thoracentesis S/P chest tube placements 07/10 s/p right sided therapeutic thoracentesis with 1750cc fluid removed.- 07/09 4)COPD 5)Hx tobacco abuse 6)Hyponatremia Plan Continue with oxygen keep sat >92% Bronchodilators, on Singular 10mg daily b/l CT insertion- monitor CT drainage- likely exudative effusion 2nd malignancy. Pleurodesis was unsuccessful yesterday; per the radiologist they will reattempt this on Sunday Continue with Lasix 20mg daily Check CXR in am For port placement to initiate chemotherapy prior to discharge Continue treatment plan. Jim Sagastume MD Jul 14, 2017 12:43
--- NOTE | 2017-07-14 13:05 | HHI.PR ---
Subjective Remarks up in chair po intake improving minimal pain chest tube site coughing- bringing up whitish- lt yellowish loose sputum Objective Vitals Vital Signs Date Time Temp Pulse Resp B/P (MAP) Pulse Ox O2 Delivery O2 Flow Rate FiO2 07/14/17 12:00 97.7 115 18 127/83 (98) 90 07/14/17 08:41 98 Nasal Cannula 2.00 07/14/17 08:00 96.4 104 18 129/72 (91) 92 07/14/17 00:00 96.9 108 20 133/85 (101) 94 07/13/17 20:00 97.1 115 20 115/82 (93) 90 07/13/17 19:39 95 Nasal Cannula 2.00 I/O 07/13/17 07/13/17 07/13/17 07/14/17 07/14/17 07/14/17 07:00 15:00 23:00 07:00 15:00 23:00 Intake Total 480 ml 120 ml 480 ml Output Total 510 ml 690 ml 450 ml 600 ml 270 ml Balance -30 ml -690 ml -330 ml -120 ml -270 ml Intake Oral 480 ml 120 ml 480 ml Output Urine Total 250 ml 600 ml 450 ml 600 ml Chest Tube Drainage Total 260 ml 90 ml 270 ml # Voids 1 # Bowel Movements 0 0 Result Diagram: 07/12/17 1402 07/12/17 1402 Imaging Last Impressions Chest CT 07/13/17 0000 Signed Impressions: Service Date/Time: Thursday, July 13, 2017 12:16 - CONCLUSION: Bilateral thoracostomy tubes are in satisfactory position. There is leakage of injected contrast from the pleural space into the left posterior chest wall on the course of the left-sided tube. This may reflect fibrin sheath formation around the tube and pleural loculation restricting free flow of injected contrast within the pleural space. Roney Robertson MD Chest X-Ray 07/11/17 0000 Signed Impressions: Service Date/Time: Tuesday, July 11, 2017 12:32 - CONCLUSION: Large bore chest tube in place on right without pneumothorax. No significant pleural effusion. Brett Dias MD FACR Chest Tube Insertion 07/10/17 1619 Signed Impressions: Service Date/Time: Monday, July 10, 2017 18:15 - CONCLUSION: Uncomplicated chest tube placement as above. Shaun Webb MD CT Angiography 07/09/17 1144 Signed Impressions: Service Date/Time: Sunday, July 09, 2017 13:49 - CONCLUSION: Large bilateral pleural effusions, much larger on the right than the left. Findings have progressed from 06/29/17 There is no central pulmonary emboli. Brett Dias MD FACR Thoracentesis Ultrasound 07/09/17 0000 Signed Impressions: Service Date/Time: Sunday, July 09, 2017 15:11 - CONCLUSION: Uncomplicated ultrasound guided thoracentesis. Epifanio Gates MD Objective Remarks awake and alert, 02 NC,, appears weak and tired anicteric lungs- decreased breath sounds bilaterally, chest tubes in place- right, left regular rhythm abdomen- soft, nontender extremities no edema neuro exam- non focal Procedures 07/09- right thoracentesis 07/10- chest tubes placement A/P Assessment and Plan 57yo male with recently diagnosed stage IV lung adenocarcinoma with recurrent pleural effusions s/p thoracentesis x 2 in June admitted with progressive dyspnea found to have large bilateral pleural effusions R>L. Patient meets SIRS criteria with elevated heart rate and respiratory rate Acute on chronic hypoxic respiratory failure Hx of COPD Recurrent malignant pleural effusions- S/P chest tube placement 07/11 - CTA negative for PE but revealing large bilateral pleural effusions right > left, images personally reviewed - s/p right sided therapeutic thoracentesis with 1750cc fluid removed.- 07/09 This is the patients third thoracentesis since Jun 10. - Continue on home dose of Spiriva and Singulair - Duonebs prn - continue supplemental oxygen to maintain O2 sats above 92% - Pulmonary ff- Dr. Renteria - - pleurodesis unsuccessful 07/13- will attempt again - Sunday Recently diagnosed stage IV lung adenocarcinoma - Dr. Mcmanus ff - will need port placement Chronic pain/peripheral neuropathy Opiate induced constipation - Continue home gabapentin and Percocet - patient on Baclofen 20mg BID at home, resume prn - continue patient on home dose of Reglan 10mg BID - scheduled bowel regimen - IV diulaudid q 4 prn BPH - continue home Flomax and Doxazosin Bilateral lower extremity edema - continue on home dose of Spironolactone and Lasix Depression/Anxiety - continue on Wellbutrin, Effexor and Buspirone DVT prophylaxis - bilateral SCD/ANGEL hose for now given IR procedure CM consult- will likely need home 02 Gerardo Hylton MD Jul 14, 2017 13:05
[2017-07-14] MEDS: TAMSULOSIN HCL 0.4 MG CAP PO SCH (20:46)
[2017-07-15] VITALS (7 sets, daily range): BP systolic 113–135; BP diastolic 63–79; PULSE 102–111; RESP 18–20; TEMP 96.9–98; O2SAT 92–96
[2017-07-15] MEDS: oxyCODONE/ACETAMINOPHEN 5 MG/325 MG TAB PO PRN ×6 (00:11→22:09)
--- NOTE | 2017-07-15 05:53 | RADRPT ---
EXAM DATE/TIME: 07/15/2017 05:21 [facility] COMPARISON: CHEST SINGLE AP, July 11, 2017, 12:32. INDICATIONS : Follow up pleural effusion and pneumothorax on right side. MEDICAL HISTORY : Carcinoma, lung. Cardiovascular disease. Chronic obstructive pulmonary disease. SURGICAL HISTORY : None. ENCOUNTER: Subsequent ACUITY: 1 month PAIN SCORE: Non-responsive. LOCATION: Bilateral chest FINDINGS: There are bilateral chest tubes in place. No pneumothorax. No change in the bilateral pulmonary infil trates. Heart size is enlarged but stable. The bony structures are stable. CONCLUSION: No significant interval change. Petros Rowell MD on July 15, 2017 at 5:49 Board Certified Radiologist. This report was verified electronically.
[2017-07-15] MEDS: RESP: ALBUTEROL 2.5 MG/IPRATROPIUM 0.5 MG NEB (SCH) NEB ×2 (08:00→11:58)
[2017-07-15] MEDS: CALCIUM/VITAMIN D 250 MG/125 U TAB PO SCH (08:36)
[2017-07-15] MEDS: PANTOPRAZOLE SOD 40 MG DELAYED RELEASE TAB PO SCH (08:36)
[2017-07-15] MEDS: AMOXICILLIN (TRIHYDRATE) 500 MG CAP PO SCH ×3 (08:36→18:01)
[2017-07-15] MEDS: GABAPENTIN 300 MG CAP PO SCH ×3 (08:36→18:01)
[2017-07-15] MEDS: MONTELUKAST SODIUM 10 MG TAB PO SCH (08:36)
[2017-07-15] MEDS: DOXAZOSIN MESYLATE 4 MG TAB PO SCH (08:36)
[2017-07-15] MEDS: MULTIVITAMIN TAB PO SCH (08:36)
[2017-07-15] MEDS: METOCLOPRAMIDE HCL 10 MG TAB PO SCH ×2 (08:36→20:38)
[2017-07-15] MEDS: SPIRONOLACTONE 50 MG TAB PO SCH (08:36)
[2017-07-15] MEDS: FUROSEMIDE 20 MG TAB PO SCH (08:36)
[2017-07-15] MEDS: VENLAFAXINE HCL XR 75 MG CAP PO SCH (08:36)
[2017-07-15] MEDS: DOCUSATE SODIUM 100 MG CAP PO SCH ×2 (08:37→20:38)
[2017-07-15] MEDS: busPIRone HCL 5 MG TAB PO SCH ×2 (08:37→20:38)
[2017-07-15] MEDS: POLYETHYLENE GLYCOL 17 GM PKG PO SCH (08:37)
[2017-07-15] MEDS: MISOPROSTOL 200 MCG TAB PO SCH ×3 (08:37→18:01)
[2017-07-15] MEDS: SODIUM CHLORIDE 0.9% FLUSH 10 ML FLUSH IV FLUSH SCH ×2 (08:37→20:39)
[2017-07-15] MEDS: buPROPion HCL 100 MG SUSTAINED RELEASE TAB PO SCH ×2 (08:43→20:38)
--- NOTE | 2017-07-15 09:18 | HHI.PR ---
Subjective Remarks Patient is sitting in chair in NAD. On 2L oxygen. Afebrile. Denies any worsening of dyspnea from baseline. Objective Vital Signs Vital Signs Date Time Temp Pulse Resp B/P (MAP) Pulse Ox O2 Delivery O2 Flow Rate FiO2 07/15/17 08:59 96 Nasal Cannula 2.00 07/15/17 08:00 97.0 104 20 135/71 (92) 96 07/15/17 00:00 98.0 109 20 114/75 (88) 94 07/14/17 21:00 Nasal Cannula 2.00 Humidified 07/14/17 20:59 93 Nasal Cannula 2.00 07/14/17 20:00 96.9 110 20 107/69 (82) 95 07/14/17 16:00 97.5 108 18 93/64 (74) 94 07/14/17 12:00 97.7 115 18 127/83 (98) 90 I/O 07/14/17 07/14/17 07/14/17 07/15/17 07/15/17 07/15/17 07:00 15:00 23:00 07:00 15:00 23:00 Intake Total 480 ml 340 ml 120 ml Output Total 600 ml 270 ml 200 ml 500 ml Balance -120 ml -270 ml 140 ml -500 ml 120 ml Intake Oral 480 ml 340 ml 120 ml Output Urine Total 600 ml 400 ml Chest Tube Drainage Total 270 ml 200 ml 100 ml # Voids 1 # Bowel Movements 1 1 Result Diagram: 07/12/17 1402 07/12/17 1402 Other Results Last Impressions Chest X-Ray 07/15/17 0600 Signed Impressions: Service Date/Time: Saturday, July 15, 2017 05:21 - CONCLUSION: No significant interval change. Petros Rowell MD Chest CT 07/13/17 0000 Signed Impressions: Service Date/Time: Thursday, July 13, 2017 12:16 - CONCLUSION: Bilateral thoracostomy tubes are in satisfactory position. There is leakage of injected contrast from the pleural space into the left posterior chest wall on the course of the left-sided tube. This may reflect fibrin sheath formation around the tube and pleural loculation restricting free flow of injected contrast within the pleural space. Roney Robertson MD Chest Tube Insertion 07/10/17 1619 Signed Impressions: Service Date/Time: Monday, July 10, 2017 18:15 - CONCLUSION: Uncomplicated chest tube placement as above. Shaun Webb MD CT Angiography 07/09/17 1144 Signed Impressions: Service Date/Time: Sunday, July 09, 2017 13:49 - CONCLUSION: Large bilateral pleural effusions, much larger on the right than the left. Findings have progressed from 06/29/17 There is no central pulmonary emboli. Brett Dias MD FACR Thoracentesis Ultrasound 07/09/17 0000 Signed Impressions: Service Date/Time: Sunday, July 09, 2017 15:11 - CONCLUSION: Uncomplicated ultrasound guided thoracentesis. Epifanio Gates MD Objective Remarks GENERAL: Patient is 57yo sitting in chair in NAD SKIN: Warm and dry. HEAD: Normocephalic. EYES: No scleral icterus. No injection or drainage. NECK: Supple, trachea midline. No JVD or lymphadenopathy. CARDIOVASCULAR: Tachycardic without murmurs, gallops, or rubs. RESPIRATORY: Breath sounds equal bilaterally. No accessory muscle use. GASTROINTESTINAL: Abdomen soft, non-tender, nondistended. MUSCULOSKELETAL: No cyanosis, + edema. BACK: Nontender without obvious deformity. No CVA tenderness. Neuro: Awake and alert. A/P Assessment and Plan 1)Resp Insuff 2)Recent dx stage IV lung adenocarcinoma 3)Recurrent pleural effusions s/p thoracentesis S/P chest tubes placements 07/10 s/p right sided therapeutic thoracentesis with 1750cc fluid removed.- 07/09 4)COPD 5)Hx tobacco abuse 6)Hyponatremia Plan Continue with oxygen keep sat >92% Bronchodilators, on Singular 10mg daily b/l CT insertion- monitor CT drainage- likely exudative effusion 2nd malignancy. CT on right drained 150ml and 420ml from left side. Pleurodesis was unsuccessful 07/13; per the radiologist they will reattempt tomorrow Continue with Lasix 20mg daily CXR today- unchanged Continue with abx (Amoxicillin)monitor for signs of infections ( Fever, WBC) For port placement to initiate chemotherapy prior to discharge Continue treatment plan. Jim Sagastume MD Jul 15, 2017 09:18
--- NOTE | 2017-07-15 09:44 | HHI.PR ---
Subjective Remarks up on chair near baseline- + good po + BM Objective Vitals Vital Signs Date Time Temp Pulse Resp B/P (MAP) Pulse Ox O2 Delivery O2 Flow Rate FiO2 07/15/17 08:59 96 Nasal Cannula 2.00 07/15/17 08:00 97.0 104 20 135/71 (92) 96 07/15/17 00:00 98.0 109 20 114/75 (88) 94 07/14/17 21:00 Nasal Cannula 2.00 Humidified 07/14/17 20:59 93 Nasal Cannula 2.00 07/14/17 20:00 96.9 110 20 107/69 (82) 95 07/14/17 16:00 97.5 108 18 93/64 (74) 94 07/14/17 12:00 97.7 115 18 127/83 (98) 90 I/O 07/14/17 07/14/17 07/14/17 07/15/17 07/15/17 07/15/17 07:00 15:00 23:00 07:00 15:00 23:00 Intake Total 480 ml 340 ml 120 ml Output Total 600 ml 270 ml 200 ml 500 ml Balance -120 ml -270 ml 140 ml -500 ml 120 ml Intake Oral 480 ml 340 ml 120 ml Output Urine Total 600 ml 400 ml Chest Tube Drainage Total 270 ml 200 ml 100 ml # Voids 1 # Bowel Movements 1 1 Result Diagram: 07/12/17 1402 07/12/17 1402 Imaging Last Impressions Chest X-Ray 07/15/17 0600 Signed Impressions: Service Date/Time: Saturday, July 15, 2017 05:21 - CONCLUSION: No significant interval change. Petros Rowell MD Chest CT 07/13/17 0000 Signed Impressions: Service Date/Time: Thursday, July 13, 2017 12:16 - CONCLUSION: Bilateral thoracostomy tubes are in satisfactory position. There is leakage of injected contrast from the pleural space into the left posterior chest wall on the course of the left-sided tube. This may reflect fibrin sheath formation around the tube and pleural loculation restricting free flow of injected contrast within the pleural space. Roney Robertson MD Chest Tube Insertion 07/10/17 1619 Signed Impressions: Service Date/Time: Monday, July 10, 2017 18:15 - CONCLUSION: Uncomplicated chest tube placement as above. Shaun Webb MD CT Angiography 07/09/17 1144 Signed Impressions: Service Date/Time: Sunday, July 09, 2017 13:49 - CONCLUSION: Large bilateral pleural effusions, much larger on the right than the left. Findings have progressed from 06/29/17 There is no central pulmonary emboli. Brett Dias MD FACR Thoracentesis Ultrasound 07/09/17 0000 Signed Impressions: Service Date/Time: Sunday, July 09, 2017 15:11 - CONCLUSION: Uncomplicated ultrasound guided thoracentesis. Epifanio Gates MD Objective Remarks awake and alert, 02 NC,, appears weak and tired anicteric lungs- decreased breath sounds bilaterally, chest tubes in place- right, left regular rhythm abdomen- soft, nontender, slightly distended extremities no edema neuro exam- non focal Procedures 07/09- right thoracentesis 07/10- chest tubes placement A/P Assessment and Plan 57yo male with recently diagnosed stage IV lung adenocarcinoma with recurrent pleural effusions s/p thoracentesis x 2 in June admitted with progressive dyspnea found to have large bilateral pleural effusions R>L. Patient meets SIRS criteria with elevated heart rate and respiratory rate Acute on chronic hypoxic respiratory failure Hx of COPD Recurrent malignant pleural effusions- S/P chest tube placement 07/11 - CTA negative for PE but revealing large bilateral pleural effusions right > left, images personally reviewed - s/p right sided therapeutic thoracentesis with 1750cc fluid removed.- 07/09 This is the patients third thoracentesis since Jun 10. - Continue on home dose of Spiriva and Singulair - Duonebs prn - continue supplemental oxygen to maintain O2 sats above 92% - Pulmonary ff- Dr. Renteria - - pleurodesis unsuccessful 07/13- will attempt again - Sunday ? Ascites- get an US Recently diagnosed stage IV lung adenocarcinoma - Dr. Mcmanus ff - will need port placement Chronic pain/peripheral neuropathy Opiate induced constipation - Continue home gabapentin and Percocet - patient on Baclofen 20mg BID at home, resume prn - continue patient on home dose of Reglan 10mg BID - scheduled bowel regimen - IV diulaudid q 4 prn BPH - continue home Flomax and Doxazosin Bilateral lower extremity edema - continue on home dose of Spironolactone and Lasix Depression/Anxiety - continue on Wellbutrin, Effexor and Buspirone DVT prophylaxis - bilateral SCD/ANGEL hose for now given IR procedure CM consult- will likely need home Gerardo Hylton MD Jul 15, 2017 09:43
--- NOTE | 2017-07-15 11:17 | PD.ONC.PN ---
Subjective Subjective Remarks Afebrile Reports his cough is about the same Hoping to have pleurodesis tomorrow No other acute complaints Objective Data Date Time Temp Pulse Resp B/P (MAP) Pulse Ox O2 Delivery O2 Flow Rate FiO2 07/15/17 08:59 96 Nasal Cannula 2.00 07/15/17 08:00 97.0 104 20 135/71 (92) 96 07/15/17 00:00 98.0 109 20 114/75 (88) 94 07/14/17 21:00 Nasal Cannula 2.00 Humidified 07/14/17 20:59 93 Nasal Cannula 2.00 07/14/17 20:00 96.9 110 20 107/69 (82) 95 07/14/17 16:00 97.5 108 18 93/64 (74) 94 07/14/17 12:00 97.7 115 18 127/83 (98) 90 07/15/17 07/15/17 07/15/17 07:00 15:00 23:00 Intake Total 120 ml Output Total 500 ml Balance -500 ml 120 ml Result Diagram: 07/12/17 1402 07/12/17 1402 Culture Results Microbiology Date/Time Source Procedure Growth Status 07/12/17 17:40 Sputum Expectorated Sputum Acid Fast Stain - Final NO ACID FAST BACILLI SEEN Resulted 07/12/17 17:40 Sputum Expectorated Sputum Mycobacterial Culture Pending Resulted Imaging Studies Last 24 hours Impressions Chest X-Ray 07/15/17 0600 Signed Impressions: Service Date/Time: Saturday, July 15, 2017 05:21 - CONCLUSION: No significant interval change. Petros Rowell MD Administered Medications Medications (Trade) Dose Ordered Sig/Kasi Route PRN Reason Start Time Stop Time Status Last Admin Dose Admin Sodium Chloride (NS Flush) 2 ml UNSCH PRN IV FLUSH FLUSH AFTER USING IV ACCESS 07/09/17 15:45 07/11/17 13:54 Sodium Chloride (NS Flush) 2 ml BID IV FLUSH 07/09/17 21:00 07/15/17 08:37 Bupropion HCl (Wellbutrin Sr 12 Hr) 100 mg Q12HR PO 07/09/17 21:00 07/15/17 08:43 Buspirone HCl (Buspar) 15 mg BID PO 07/09/17 21:00 07/15/17 08:37 Docusate Sodium (Colace) 100 mg BID PO 07/09/17 21:00 07/15/17 08:37 Doxazosin Mesylate (Cardura) 4 mg DAILY PO 07/10/17 09:00 07/15/17 08:36 Furosemide (Lasix) 20 mg DAILY PO 07/10/17 09:00 07/15/17 08:36 Gabapentin (Neurontin) 600 mg TID PO 07/09/17 20:00 07/15/17 08:36 Metoclopramide HCl (Reglan) 10 mg BID PO 07/09/17 21:00 07/15/17 08:36 Misoprostol (Cytotec) 200 mcg TID PO 07/09/17 20:00 07/15/17 08:37 Oxycodone/ Acetaminophen (Percocet 5-325 Mg) 1 tab Q4H PRN PO pain 5-10 07/09/17 17:45 07/15/17 08:36 Polyethylene Glycol (Miralax) 17 gm DAILY PO 07/10/17 09:00 07/10/17 09:48 Spironolactone (Aldactone) 50 mg DAILY PO 07/10/17 09:00 07/15/17 08:36 Tamsulosin HCl (Flomax) 0.4 mg HS PO 07/09/17 21:00 07/14/17 20:46 Calcium/Vitamin D (Oscal-D 250-125) 500 mg DAILY PO 07/10/17 09:00 07/15/17 08:36 Multivitamins (Theragran) 1 tab DAILY PO 07/10/17 09:00 07/15/17 08:36 Pantoprazole Sodium (Protonix) 40 mg DAILY PO 07/10/17 09:00 07/15/17 08:36 Venlafaxine HCl (Effexor Xr) 225 mg DAILY PO 07/10/17 09:00 07/15/17 08:36 Baclofen (Lioresal) 20 mg BID PRN PO Muscle spasms 07/09/17 18:00 07/11/17 13:26 Montelukast Sodium (Singulair) 10 mg DAILY PO 07/10/17 09:00 07/15/17 08:36 Albuterol/ Ipratropium (Duoneb Neb) 1 ampule Q4HR NEB PRN NEB sob 07/11/17 12:15 07/12/17 03:46 Albuterol/ Ipratropium (Duoneb Neb) 1 ampule TID NEB NEB 07/11/17 14:00 07/15/17 08:00 Hydromorphone HCl (Dilaudid Pf Inj) 2 mg Q4HR PRN IV PUSH PAIN SCALE 7 TO 10 07/11/17 13:15 07/13/17 12:15 Amoxicillin (Trimox) 500 mg TID PO 07/12/17 13:00 07/17/17 12:59 07/15/17 08:36 Objective Remarks GENERAL: Middle aged male sitting up in chair at bedside in no acute distress. The mild dyspnea on exam yesterday is improved today SKIN: Warm and dry. HEAD: Normocephalic. EYES: No injection or drainage. NECK: Supple, trachea midline. CARDIOVASCULAR: +S1/S2, tachy RESPIRATORY: Scattered rhonchi posteriorly. Few crackles at bilateral bases. CT in place bilaterally. On O2 at 2 L GASTROINTESTINAL: Abdomen soft, non-tender, nondistended. EXTREMITIES: No cyanosis NEUROLOGICAL: No obvious focal deficit. Awake, alert, and oriented x3. 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 --Right-sided fluid uncertain of etiology, certainly suspicious for malignancy. --tumor specimen has been sent for molecular testing. --EGFR still pending. --PDL-1 is negative and the remainder have insufficient tissue. Assessment 57y/o male with metastatic lung adenocarcinoma admitted with bilateral pleural effusions and shortness of breath. h/o Osteoarthritis. Benign prostatic hypertrophy. Chronic obstructive lung disease. Degenerative disc disease. Peripheral neuropathy. Peripheral vascular disease. Rheumatoid arthritis. Scleroderma. Plan 1. Radiologist to reattempt pleurodesis tomorrow 2. Place port before discharge in order to begin chemotherapy 3. Monitor CBC 4. Await results of molecular markers Attending Statement The exam, history, and the medical decision-making described in the above note were completed with the assistance of the mid-level provider. I reviewed and agree with the findings presented. I attest that I had a [id number] encounter with the patient on the same day, and personally performed and documented my assessment and findings in the medical record Chest tube with output eval for pleurodesis in AM Port placement after pleurodesis done d/w rn o/n events reviewed Shilpa Hernadez Jul 15, 2017 11:16 Smith Giang MD Jul 15, 2017 12:24
--- NOTE | 2017-07-15 11:35 | RADRPT ---
EXAM DATE/TIME: 07/15/2017 10:39 [facility] COMPARISON: US ABDOMEN - LOWER LIMITED, September 22, 2016, 13:21. EXTERNAL COMPARISON : Ultrasound abdomen, limited. , February 15, 2017CT Abdomen, 11/20/16 and 10/31/12, RAPA. INDICATIONS : Evaluate for ascites. MEDICAL HISTORY : Lung cancer.Rheumatoid arthritis. Chronic obstructive pulmonary disease.Diverticulosis. Spinal cord i njury. Benign prostatic hypertorphy.Degenerative disc disease.GERD. Osteoarthritis. Peripheral neurop athy. Seleroderma. ETOH abuse. Depression. SURGICAL HISTORY : Cataract removal. Teeth extractions. Thoracenetesis. Anterior cervicalfusion. Right hand surgery. L40 L5 laminectomy. Penile surgery. Colonscopy. Saphenous vein ablation. ENCOUNTER: Subsequent ACUITY: 1 day PAIN SCORE: 3/10 LOCATION: Four quadrant. AREA EVALUATED: Four quadrant abdomen. FINDINGS: Imaging of the abdomen and pelvis was performed to evaluate for ascites for possible paracentesis. N o free fluid identified. CONCLUSION: No ascites identified. Steven Taylor MD on July 15, 2017 at 11:31 Board Certified Radiologist. This report was verified electronically.
[2017-07-15] MEDS: TAMSULOSIN HCL 0.4 MG CAP PO SCH (20:38)
[2017-07-15] MEDS: RESP: ALBUTEROL 2.5 MG/IPRATROPIUM 0.5 MG NEB (PRN) NEB (21:12)
[2017-07-16] VITALS (9 sets, daily range): BP systolic 110–134; BP diastolic 72–88; PULSE 100–112; RESP 17–20; TEMP 96.3–98.4; O2SAT 90–98
[2017-07-16] MEDS: oxyCODONE/ACETAMINOPHEN 5 MG/325 MG TAB PO PRN ×4 (03:51→22:08)
--- NOTE | 2017-07-16 07:12 | RADRPT ---
EXAM DATE/TIME: 07/16/2017 05:12 [facility] COMPARISON: CHEST SINGLE AP, July 15, 2017, 5:21. INDICATIONS : Short of breath, coughing, evaluate chest tube MEDICAL HISTORY : Carcinoma, lung. Cardiovascular disease. Chronic obstructive pulmonary disease. pneumothorax righ t chest SURGICAL HISTORY : None. ENCOUNTER: Subsequent ACUITY: 1 month PAIN SCORE: 0/10 LOCATION: Bilateral chest FINDINGS: The bilateral chest tubes remain in place. No definite pneumothorax. There is some increasing parench y changes in both lung bases. Otherwise, no other new or significant changes are demonstrated. The he art size is enlarged but stable. The bony structures are stable. CONCLUSION: 1. No evidence of pneumothorax. 2. Increasing bibasilar infiltrates. Petros Rowell MD on July 16, 2017 at 7:09 Board Certified Radiologist. This report was verified electronically.
[2017-07-16 07:55] LABS: HEMATOCRIT 40.3 % (39.0-51.0); HEMOGLOBIN 13.2 GM/DL (13.0-17.0); MEAN CELL VOLUME 84.8 FL (80.0-100.0); MEAN CORPUSCULAR HEMOGLOBIN 27.8 PG (27.0-34.0); MEAN CORPUSCULAR HGB CONC 32.8 % (32.0-36.0); MEAN PLATELET VOLUME 7.4 FL (7.0-11.0); PLATELET COUNT 317 TH/MM3 (150-450); RED BLOOD COUNT 4.75 MIL/MM3 (4.50-5.90); RED CELL DISTRIBUTION WIDTH 13.6 % (11.6-17.2); WHITE BLOOD COUNT 6.9 TH/MM3 (4.0-11.0)
[2017-07-16 08:07] LABS: ALBUMIN 2.5 GM/DL (3.4-5.0); AST (GOT) 13 U/L (15-37); BICARBONATE 31.7 MEQ/L (21.0-32.0); BLOOD UREA NITROGEN 7 MG/DL (7-18); CALCIUM 8.8 MG/DL (8.5-10.1); CHLORIDE 94 MEQ/L (98-107); CREATININE 0.47 MG/DL (0.60-1.30); GLOMERULAR FILTRATION RATE 185 ML/MIN (>89); GLUCOSE,RANDOM 122 MG/DL (74-106); SODIUM (NA) 133 MEQ/L (136-145)
[2017-07-16 08:11] LABS: ALKALINE PHOSPHATASE 130 U/L (45-117); ALT (GPT) 20 U/L (12-78); TOTAL BILIRUBIN ADULT 0.2 MG/DL (0.2-1.0); TOTAL PROTEIN 6.8 GM/DL (6.4-8.2)
[2017-07-16] MEDS: POLYETHYLENE GLYCOL 17 GM PKG PO SCH (09:00)
[2017-07-16] MEDS ORDERED: CYANOCOBALAMIN 1000 MCG/ML VIAL IM ONE (09:00)
[2017-07-16] MEDS: RESP: ALBUTEROL 2.5 MG/IPRATROPIUM 0.5 MG NEB (PRN) NEB (09:03)
[2017-07-16 09:28] LABS: BANDS 2 % (0-6); LYMPHOCYTES 8 % (9-44); MONOCYTES 8 % (0-8); MYELOCYTES 3 % (0-0); NEUTROPHIL # MANUAL DIFF 5.8 TH/MM3 (1.8-7.7); POLYS (SEG NEUTROPHILS) 79 % (16-70)
[2017-07-16] MEDS: buPROPion HCL 100 MG SUSTAINED RELEASE TAB PO SCH ×2 (09:38→21:51)
[2017-07-16] MEDS: MISOPROSTOL 200 MCG TAB PO SCH ×3 (09:38→18:03)
[2017-07-16] MEDS: VENLAFAXINE HCL XR 75 MG CAP PO SCH (09:39)
[2017-07-16] MEDS: METOCLOPRAMIDE HCL 10 MG TAB PO SCH ×2 (09:39→21:51)
[2017-07-16] MEDS: DOCUSATE SODIUM 100 MG CAP PO SCH ×2 (09:39→21:51)
[2017-07-16] MEDS: AMOXICILLIN (TRIHYDRATE) 500 MG CAP PO SCH ×3 (09:41→18:04)
[2017-07-16] MEDS: CALCIUM/VITAMIN D 250 MG/125 U TAB PO SCH (09:41)
[2017-07-16] MEDS: FUROSEMIDE 20 MG TAB PO SCH (09:41)
[2017-07-16] MEDS: GABAPENTIN 300 MG CAP PO SCH ×3 (09:41→18:03)
[2017-07-16] MEDS: DOXAZOSIN MESYLATE 4 MG TAB PO SCH (09:41)
[2017-07-16] MEDS: MULTIVITAMIN TAB PO SCH (09:41)
[2017-07-16] MEDS: SPIRONOLACTONE 50 MG TAB PO SCH (09:42)
[2017-07-16] MEDS: MONTELUKAST SODIUM 10 MG TAB PO SCH (09:42)
[2017-07-16] MEDS: PANTOPRAZOLE SOD 40 MG DELAYED RELEASE TAB PO SCH (09:42)
[2017-07-16] MEDS: SODIUM CHLORIDE 0.9% FLUSH 10 ML FLUSH IV FLUSH SCH ×2 (09:50→21:52)
[2017-07-16] MEDS: busPIRone HCL 5 MG TAB PO SCH ×2 (09:50→21:51)
[2017-07-16] MEDS ORDERED: MIDAZOLAM HCL 2 MG/2 ML VIAL ONE (10:05)
--- NOTE | 2017-07-16 10:50 | HHI.PR ---
Subjective Remarks seen 330 pm- back from CT pain controlled, minimal cough- dry earlier went CT- for pleurodesis- second attempt left chest tube was dislodged on evaluation- pleurodesis not done- tube removed Objective Vitals Vital Signs Date Time Temp Pulse Resp B/P (MAP) Pulse Ox O2 Delivery O2 Flow Rate FiO2 07/16/17 09:06 90 Nasal Cannula 2.00 07/16/17 08:00 97.9 108 18 118/78 (91) 95 07/16/17 00:40 96.3 106 18 132/80 (97) 96 07/15/17 21:36 Nasal Cannula 2.00 Humidified 07/15/17 21:14 96 Nasal Cannula 2.00 07/15/17 20:00 98.0 107 18 114/72 (86) 92 07/15/17 16:00 96.9 111 20 127/63 (84) 96 07/15/17 12:00 97.1 102 20 113/79 (90) 96 I/O 07/15/17 07/15/17 07/15/17 07/16/17 07/16/17 07/16/17 07:00 15:00 23:00 07:00 15:00 23:00 Intake Total 120 ml 1200 ml Output Total 500 ml 1710 ml 1010 ml Balance -500 ml 120 ml -510 ml -1010 ml Intake Oral 120 ml 1200 ml Output Urine Total 400 ml 1500 ml 950 ml Chest Tube Drainage Total 100 ml 210 ml 60 ml # Bowel Movements 1 1 Result Diagram: 07/16/17 0633 07/16/17 0633 Imaging Last Impressions Chest X-Ray 07/16/17 0600 Signed Impressions: Service Date/Time: Sunday, July 16, 2017 05:12 - CONCLUSION: 1. No evidence of pneumothorax. 2. Increasing bibasilar infiltrates. Petros Rowell MD Catheter Patency X-Ray 07/16/17 0000 Signed Impressions: Service Date/Time: Sunday, July 16, 2017 10:19 - CONCLUSION: The patient' s left thoracostomy tube had been dislodged from the pleural space. No significant remaining basilar fluid by ultrasound evaluation at present. If the patient re\re accumulates pleural fluid on the left, a chest tube can be replaced under CT guidance and pleurodesis could again be considered Roney Robertson MD Abdomen Ultrasound 07/15/17 0000 Signed Impressions: Service Date/Time: Saturday, July 15, 2017 10:39 - CONCLUSION: No ascites identified. Steven Taylor MD Chest CT 07/13/17 0000 Signed Impressions: Service Date/Time: Thursday, July 13, 2017 12:16 - CONCLUSION: Bilateral thoracostomy tubes are in satisfactory position. There is leakage of injected contrast from the pleural space into the left posterior chest wall on the course of the left-sided tube. This may reflect fibrin sheath formation around the tube and pleural loculation restricting free flow of injected contrast within the pleural space. Roney Robertson MD Chest Tube Insertion 07/10/17 1619 Signed Impressions: Service Date/Time: Monday, July 10, 2017 18:15 - CONCLUSION: Uncomplicated chest tube placement as above. Shaun Webb MD CT Angiography 07/09/17 1144 Signed Impressions: Service Date/Time: Sunday, July 09, 2017 13:49 - CONCLUSION: Large bilateral pleural effusions, much larger on the right than the left. Findings have progressed from 06/29/17 There is no central pulmonary emboli. Brett Dias MD FACR Thoracentesis Ultrasound 07/09/17 0000 Signed Impressions: Service Date/Time: Sunday, July 09, 2017 15:11 - CONCLUSION: Uncomplicated ultrasound guided thoracentesis. Epifanio Gates MD Objective Remarks awake and alert, 02 NC, oriented x 3, fatigued anicteric lungs- decreased breath sounds bilaterally, chest tubes in place- - right chest wall regular rhythm abdomen- soft, nontender,no tenderness extremities trace pretibial edema neuro exam- non focal Procedures 07/09- right thoracentesis 07/10- chest tubes placement 07/16- left chest tube removal A/P Assessment and Plan 57yo male with recently diagnosed stage IV lung adenocarcinoma with recurrent pleural effusions s/p thoracentesis x 2 in June admitted with progressive dyspnea found to have large bilateral pleural effusions R>L. Patient meets SIRS criteria with elevated heart rate and respiratory rate Acute on chronic hypoxic respiratory failure Hx of COPD Recurrent malignant pleural effusions- S/P chest tubes placement 07/11- Left chest tube removed dislodged and removed 07/16- right chest tube in place - CTA negative for PE but revealing large bilateral pleural effusions right > left, images personally reviewed - s/p right sided therapeutic thoracentesis with 1750cc fluid removed.- 07/09 This is the patients third thoracentesis since Jun 10. - Continue on home dose of Spiriva and Singulair - Duonebs prn - continue supplemental oxygen to maintain O2 sats above 92% - Pulmonary ff- Dr. Renteria - - pleurodesis unsuccessful 07/13- attempted to do today 07/16- left CT was dislodged - pleurodesis not done - - tube was removed Recently diagnosed stage IV lung adenocarcinoma - Dr. Mcmanus ff - IR consulted for port placement Chronic pain/peripheral neuropathy Opiate induced constipation - Continue home gabapentin and Percocet - patient on Baclofen 20mg BID at home, resume prn - continue patient on home dose of Reglan 10mg BID - scheduled bowel regimen - IV diulaudid q 4 prn BPH - continue home Flomax and Doxazosin Bilateral lower extremity edema - continue on home dose of Spironolactone and Lasix Depression/Anxiety - continue on Wellbutrin, Effexor and Buspirone DVT prophylaxis- Lovenox CM consult- will need home 02 on DC Gerardo Hylton MD Jul 16, 2017 10:50
[2017-07-16] MEDS ORDERED: IOHEXOL 350 MG/ML 50 ML BTL (for RAD DIAG) OTHER ONE (11:29)
--- NOTE | 2017-07-16 11:30 | PD.RAD ---
Post Procedure Progress Note Pre Procedure Diagnosis: (1) Pleural effusion on left Post Procedure Diagnosis: (1) Pleural effusion on left Procedure Date: Jul 16, 2017 Supervising Radiologist: Roney Robertson Proceduralist/Assist: RT Ailyn(R) Anesthesia: Conscious Sedation Plan of Activity Patient to Unit: [facility] Patient Condition: Good See PACS Report for procedural detail/treatment Drainage Procedure Procedure 1 Imaging Guidance: Fluoroscopy Side: Left Procedure Type: Chest Tube Non-Tunneled Procedure: Removal Additional Detail: Left chest tube was found to be out of the pleural space. Tube removed intact. Chest Xray pending. Roney Robertson MD Jul 16, 2017 11:30
--- NOTE | 2017-07-16 12:22 | RADRPT ---
EXAM DATE/TIME: 07/16/2017 11:50 [facility] COMPARISON: CHEST SINGLE AP, July 16, 2017, 5:12. INDICATIONS : Evaluate for pneumothorax. MEDICAL HISTORY : Carcinoma, lung. Cardiovascular disease. Chronic obstructive pulmonary disease. SURGICAL HISTORY : None. ENCOUNTER: Subsequent ACUITY: 1 day PAIN SCORE: 0/10 LOCATION: Bilateral chest FINDINGS: Left thoracostomy tube has been removed. There is no evidence of pneumothorax. Right thoracostomy tub e remains in place. Aeration is stable with patchy bilateral parenchymal opacities and nodular masses , unchanged. Apical pleural fluid or thickening remains present on both sides. Cardiac contours are s table. CONCLUSION: Interval left thoracostomy tube removal. No pneumothorax. Roney Robertson MD on July 16, 2017 at 12:18 Board Certified Radiologist. This report was verified electronically.
--- NOTE | 2017-07-16 12:26 | RADRPT ---
EXAM DATE/TIME: 07/16/2017 10:19 [facility] COMPARISON: No previous studies available for comparison. INDICATIONS: Patient with pleural effusion in need of chest tube evaluation for possible upsizing. MEDICAL HISTORY : Recently diagnosed stage IV lung adenocarcinoma Recurrent pleural effusions s/p thoracentesis x2 COPD Scleroderma Raynaud's RA BPH DDD s/p cervical fusion Chronic pain Periperal neuropathy Depression PVD SURGIAL HISTORY : Right hand surgery Right cataract surgery Bilateral saphenous vein ablation Cervical fusion C5/6 ENCOUNTER: Subsequent ACUITY: 1 week PAIN SCORE: 0/10 LOCATION: N/A FLUORO TIME: 3.1minutes SEDATION TIME: 30minutes CONTRAST: 5ccOmnipaque (iohexol) 350 MEDICATION(S): 1.) 2.5 mg midazolam (Versed) IV 2.) 150 mcg fentanyl (Sublimaze) IV PROCEDURE : 1. left thoracostomy tube injection and removal The risks, benefits and alternatives to the procedure were explained and verbal and written consent w as obtained. The site was prepped in sterile fashion. Full sterile technique was used, including ca p, mask, sterile gloves and gown and a large sterile sheet. Hand hygiene and 2% chlorhexidine and/or betadine/alcohol prep was utilized per protocol for cutaneous antisepsis. The skin and subcutaneous tissues were infiltrated with local anesthetic solution. The existing left thoracostomy tube was evaluated. Injection revealed the tube to be out of the pleur al space. I could not manipulate a guidewire back into the pleural space. The tube was removed intact . Ultrasound was performed to check for significant residual fluid and I do not visualize significant remaining basilar fluid at this point. CONCLUSION: The patient's left thoracostomy tube had been dislodged from the pleural space. No significant remain ing basilar fluid by ultrasound evaluation at present. If the patient re\re accumulates pleural fluid on the left, a chest tube can be replaced under CT tanmay dance and pleurodesis could again be considered Roney Robertson MD on July 16, 2017 at 12:20 Board Certified Radiologist. This report was verified electronically.
--- NOTE | 2017-07-16 13:09 | PD.ONC.PN ---
Subjective Subjective Remarks Afebrile overnight. Patient just back from invasive radiology where he underwent chest tube removal on left side. He is hoping to have the right side removed soon so he can go home. No pain at present. Objective Data Date Time Temp Pulse Resp B/P (MAP) Pulse Ox O2 Delivery O2 Flow Rate FiO2 07/16/17 12:05 100 17 110/74 (86) 97 07/16/17 11:35 103 18 114/72 (86) 97 07/16/17 11:20 97.6 107 19 110/74 (86) 95 07/16/17 09:06 90 Nasal Cannula 2.00 07/16/17 08:00 97.9 108 18 118/78 (91) 95 07/16/17 00:40 96.3 106 18 132/80 (97) 96 07/15/17 21:36 Nasal Cannula 2.00 Humidified 07/15/17 21:14 96 Nasal Cannula 2.00 07/15/17 20:00 98.0 107 18 114/72 (86) 92 07/15/17 16:00 96.9 111 20 127/63 (84) 96 07/16/17 07/16/17 07/16/17 07:00 15:00 23:00 Output Total 1010 ml Balance -1010 ml Result Diagram: 07/16/1733 07/16/17 0633 Laboratory Results Laboratory Tests Test 07/16/17 06:33 White Blood Count 6.9 TH/MM3 Red Blood Count 4.75 MIL/MM3 Hemoglobin 13.2 GM/DL Hematocrit 40.3 % Mean Corpuscular Volume 84.8 FL Mean Corpuscular Hemoglobin 27.8 PG Mean Corpuscular Hemoglobin Concent 32.8 % Red Cell Distribution Width 13.6 % Platelet Count 317 TH/MM3 Mean Platelet Volume 7.4 FL CBC Comment AUTO DIFF Differential Total Cells Counted 100 Neutrophils % (Manual) 79 % Band Neutrophils % 2 % Lymphocytes % 8 % Monocytes % 8 % Neutrophils # (Manual) 5.8 TH/MM3 Myelocytes 3 % Differential Comment FINAL DIFF MANUAL Platelet Estimate NORMAL Platelet Morphology Comment NORMAL Hematology Comments Blood Urea Nitrogen 7 MG/DL Creatinine 0.47 MG/DL Random Glucose 122 MG/DL Total Protein 6.8 GM/DL Albumin 2.5 GM/DL Calcium Level 8.8 MG/DL Alkaline Phosphatase 130 U/L Aspartate Amino Transf (AST/SGOT) 13 U/L Alanine Aminotransferase (ALT/SGPT) 20 U/L Total Bilirubin 0.2 MG/DL Sodium Level 133 MEQ/L Potassium Level 4.0 MEQ/L Chloride Level 94 MEQ/L Carbon Dioxide Level 31.7 MEQ/L Anion Gap 7 MEQ/L Estimat Glomerular Filtration Rate 185 ML/MIN Imaging Studies Last 24 hours Impressions Chest X-Ray 07/16/17 0600 Signed Impressions: Service Date/Time: Sunday, July 16, 2017 05:12 - CONCLUSION: 1. No evidence of pneumothorax. 2. Increasing bibasilar infiltrates. Petros Rowell MD Chest X-Ray 07/16/17 0000 Signed Impressions: Service Date/Time: Sunday, July 16, 2017 11:50 - CONCLUSION: Interval left thoracostomy tube removal. No pneumothorax. Roney Robertson MD Catheter Patency X-Ray 07/16/17 0000 Signed Impressions: Service Date/Time: Sunday, July 16, 2017 10:19 - CONCLUSION: The patient' s left thoracostomy tube had been dislodged from the pleural space. No significant remaining basilar fluid by ultrasound evaluation at present. If the patient re\re accumulates pleural fluid on the left, a chest tube can be replaced under CT guidance and pleurodesis could again be considered Roney Robertson MD Administered Medications Medications (Trade) Dose Ordered Sig/Kasi Route PRN Reason Start Time Stop Time Status Last Admin Dose Admin Sodium Chloride (NS Flush) 2 ml UNSCH PRN IV FLUSH FLUSH AFTER USING IV ACCESS 07/09/17 15:45 07/11/17 13:54 Sodium Chloride (NS Flush) 2 ml BID IV FLUSH 07/09/17 21:00 07/16/17 09:50 Bupropion HCl (Wellbutrin Sr 12 Hr) 100 mg Q12HR PO 07/09/17 21:00 07/16/17 09:38 Buspirone HCl (Buspar) 15 mg BID PO 07/09/17 21:00 07/16/17 09:50 Docusate Sodium (Colace) 100 mg BID PO 07/09/17 21:00 07/16/17 09:39 Doxazosin Mesylate (Cardura) 4 mg DAILY PO 07/10/17 09:00 07/16/17 09:41 Furosemide (Lasix) 20 mg DAILY PO 07/10/17 09:00 07/16/17 09:41 Gabapentin (Neurontin) 600 mg TID PO 07/09/17 20:00 07/16/17 09:41 Metoclopramide HCl (Reglan) 10 mg BID PO 07/09/17 21:00 07/16/17 09:39 Misoprostol (Cytotec) 200 mcg TID PO 07/09/17 20:00 07/16/17 09:38 Oxycodone/ Acetaminophen (Percocet 5-325 Mg) 1 tab Q4H PRN PO pain 5-10 07/09/17 17:45 07/16/17 09:39 Polyethylene Glycol (Miralax) 17 gm DAILY PO 07/10/17 09:00 07/10/17 09:48 Spironolactone (Aldactone) 50 mg DAILY PO 07/10/17 09:00 07/16/17 09:42 Tamsulosin HCl (Flomax) 0.4 mg HS PO 07/09/17 21:00 07/15/17 20:38 Calcium/Vitamin D (Oscal-D 250-125) 500 mg DAILY PO 07/10/17 09:00 07/16/17 09:41 Multivitamins (Theragran) 1 tab DAILY PO 07/10/17 09:00 07/16/17 09:41 Pantoprazole Sodium (Protonix) 40 mg DAILY PO 07/10/17 09:00 07/16/17 09:42 Venlafaxine HCl (Effexor Xr) 225 mg DAILY PO 07/10/17 09:00 07/16/17 09:39 Baclofen (Lioresal) 20 mg BID PRN PO Muscle spasms 07/09/17 18:00 07/11/17 13:26 Montelukast Sodium (Singulair) 10 mg DAILY PO 07/10/17 09:00 07/16/17 09:42 Albuterol/ Ipratropium (Duoneb Neb) 1 ampule Q4HR NEB PRN NEB sob 07/11/17 12:15 07/16/17 09:03 Hydromorphone HCl (Dilaudid Pf Inj) 2 mg Q4HR PRN IV PUSH PAIN SCALE 7 TO 10 07/11/17 13:15 07/13/17 12:15 Amoxicillin (Trimox) 500 mg TID PO 07/12/17 13:00 07/17/17 12:59 07/16/17 09:41 Objective Remarks GENERAL: Middle aged male, sitting up in chair next to bed in nad. SKIN: Warm and dry. HEAD: Normocephalic. EYES: No scleral icterus. No injection or drainage. NECK: Supple, trachea midline. CARDIOVASCULAR: Regular rate and rhythm RESPIRATORY: crackles at right base. occasional rhonchi. GASTROINTESTINAL: Abdomen soft, non-tender, nondistended. EXTREMITIES: No cyanosis, or edema. NEUROLOGICAL: awake and alert. 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 --Right-sided fluid uncertain of etiology, certainly suspicious for malignancy. 07/16: awaiting removal of right sided chest tube, will consult IR for port placement. Assessment 57y/o male with metastatic lung adenocarcinoma admitted with bilateral pleural effusions and shortness of breath. h/o Osteoarthritis. Benign prostatic hypertrophy. Chronic obstructive lung disease. Degenerative disc disease. Peripheral neuropathy. Peripheral vascular disease. Rheumatoid arthritis. Scleroderma. Plan 1. consult IR for port placement. 2. await removal of right sided chest tube. 3. start B12/folate 4. start DVT prophylaxis with Lovenox. patient is at high risk for DVT formation. Attending Statement The exam, history, and the medical decision-making described in the above note were completed with the assistance of the mid-level provider. I reviewed and agree with the findings presented. I attest that I had a [id number] encounter with the patient on the same day, and personally performed and documented my assessment and findings in the medical record. 57 yoM with newly diagnosed metastatic lung adenocarcinoma currently inpatient for mangament of bilateral pelural effusions. S/p removal of left sided chest tube, awaiting removal of right sided tube. Will plan for chemo to include carboplatin/ pemetrexed in the outpateint setting. Will start B12, folate in anticipation of chemotherapy. If possible will arrange for port placement while inpatient. Will have [facility] 360 outpatient, 2 weeks after discharge. Ximena Martinez Jul 16, 2017 13:09 Linda Mcmanus MD Jul 17, 2017 00:22
[2017-07-16] MEDS: FOLIC ACID 1 MG TAB PO SCH (14:06)
[2017-07-16] MEDS: ENOXAPARIN SODIUM 40 MG/0.4 ML SYRINGE SQ SCH (14:07)
[2017-07-16] MEDS: RESP: ALBUTEROL 2.5 MG/IPRATROPIUM 0.5 MG NEB (SCH) NEB (18:45)
[2017-07-16] MEDS: TAMSULOSIN HCL 0.4 MG CAP PO SCH (21:51)
[2017-07-17] VITALS (11 sets, daily range): BP systolic 99–140; BP diastolic 54–84; PULSE 98–112; RESP 16–20; TEMP 96.5–98; O2SAT 93–98
[2017-07-17] MEDS: oxyCODONE/ACETAMINOPHEN 5 MG/325 MG TAB PO PRN ×5 (02:19→22:07)
[2017-07-17] MEDS ORDERED: ceFAZolin 2 GM PREMIX 50 ML IV SCH (07:45)
[2017-07-17] MEDS ORDERED: VANCOMYCIN INJ 1,000 MG in SODIUM CHLOR 0.9% 250 ML INJ 250 ML IV SCH (07:45)
[2017-07-17] MEDS: RESP: ALBUTEROL 2.5 MG/IPRATROPIUM 0.5 MG NEB (SCH) NEB ×4 (08:00→19:31)
[2017-07-17] MEDS: AMOXICILLIN (TRIHYDRATE) 500 MG CAP PO SCH (08:40)
[2017-07-17] MEDS: FOLIC ACID 1 MG TAB PO SCH (08:40)
[2017-07-17] MEDS: SPIRONOLACTONE 50 MG TAB PO SCH (08:40)
[2017-07-17] MEDS: VENLAFAXINE HCL XR 75 MG CAP PO SCH (08:41)
[2017-07-17] MEDS: PANTOPRAZOLE SOD 40 MG DELAYED RELEASE TAB PO SCH (08:41)
[2017-07-17] MEDS: busPIRone HCL 5 MG TAB PO SCH ×2 (08:41→22:06)
[2017-07-17] MEDS: GABAPENTIN 300 MG CAP PO SCH ×3 (08:41→17:05)
[2017-07-17] MEDS: MULTIVITAMIN TAB PO SCH (08:42)
[2017-07-17] MEDS: buPROPion HCL 100 MG SUSTAINED RELEASE TAB PO SCH ×2 (08:42→22:06)
[2017-07-17] MEDS: METOCLOPRAMIDE HCL 10 MG TAB PO SCH ×2 (08:42→22:06)
[2017-07-17] MEDS: FUROSEMIDE 20 MG TAB PO SCH (08:42)
[2017-07-17] MEDS: DOXAZOSIN MESYLATE 4 MG TAB PO SCH (08:42)
[2017-07-17] MEDS: CALCIUM/VITAMIN D 250 MG/125 U TAB PO SCH (08:42)
[2017-07-17] MEDS: MISOPROSTOL 200 MCG TAB PO SCH ×3 (08:43→17:05)
[2017-07-17] MEDS: SODIUM CHLORIDE 0.9% FLUSH 10 ML FLUSH IV FLUSH SCH ×2 (08:43→22:07)
[2017-07-17] MEDS: DOCUSATE SODIUM 100 MG CAP PO SCH ×2 (08:43→22:06)
[2017-07-17] MEDS: POLYETHYLENE GLYCOL 17 GM PKG PO SCH (08:43)
[2017-07-17] MEDS: MONTELUKAST SODIUM 10 MG TAB PO SCH (08:44)
--- NOTE | 2017-07-17 11:02 | HHI.PR ---
Subjective Remarks Follow-up for recurrent pleural effusion secondary to malignancy Patient stated that he feels the same with shortness of breathing but has been stable. He is very anxious to go home. His is at the bedside during the interview. She stated that she was told that she can drain the pleural effusion at home but nothing has been done yet. Patient's also stated that she was told that Dr. Renteria will see patient today. Patient has no other complaints. Per patient's he ambulated for the first time today to the bathroom and he did well but was short of breath. Objective Vitals Vital Signs Date Time Temp Pulse Resp B/P (MAP) Pulse Ox O2 Delivery O2 Flow Rate FiO2 07/17/17 08:31 95 Nasal Cannula 2.00 07/17/17 08:00 97.7 112 18 140/84 (102) 95 07/17/17 08:00 95 Nasal Cannula 2.00 Humidified 07/17/17 00:00 96.9 99 20 120/76 (91) 96 07/16/17 20:00 96.7 112 20 134/88 (103) 98 07/16/17 19:00 Nasal Cannula 2.00 21 07/16/17 18:46 98 Nasal Cannula 2.00 07/16/17 16:00 98.4 103 18 122/83 (96) 96 07/16/17 12:05 100 17 110/74 (86) 97 07/16/17 11:35 103 18 114/72 (86) 97 07/16/17 11:20 97.6 107 19 110/74 (86) 95 I/O 07/16/17 07/16/17 07/16/17 07/17/17 07/17/17 07/17/17 07:00 15:00 23:00 07:00 15:00 23:00 Intake Total 240 ml 360 ml Output Total 1010 ml 1400 ml Balance -1010 ml -1160 ml 360 ml Intake Oral 240 ml 360 ml Output Urine Total 950 ml 1250 ml Chest Tube Drainage Total 60 ml 150 ml # Voids 2 # Bowel Movements 0 1 Result Diagram: 07/16/1733 07/16/17 0633 Objective Remarks GENERAL: in NAD NECK: Supple, trachea midline. No JVD or lymphadenopathy. CARDIOVASCULAR: Regular rate and rhythm without murmurs, gallops, or rubs. RESPIRATORY: Breath sounds equal bilaterally. No accessory muscle use. Chest tube in place. GASTROINTESTINAL: Abdomen soft, non-tender, nondistended. MUSCULOSKELETAL: No cyanosis, or edema. BACK: Nontender without obvious deformity. No CVA tenderness. Procedures 07/09- right thoracentesis 07/10- chest tubes placement 07/16- left chest tube removal Medications and IVs Current Medications Sodium Chloride (NS Flush) 2 ml UNSCH PRN IVF FLUSH AFTER USING IV ACCESS; Start 07/09/17 at 11:45; Stop 07/09/17 at 19:03; Status DC Albuterol Sulfate (Albuterol Neb) 2.5 mg ONCE ONCE INH Last administered on 07/09/17at 11:45; Start 07/09/17 at 11:45; Stop 07/09/17 at 11:46; Status DC Furosemide (Lasix Inj) 60 mg ONCE ONCE IV PUSH Last administered on 07/09/17at 12:58; Start 07/09/17 at 12:45; Stop 07/09/17 at 12:47; Status DC Lorazepam (Ativan Inj) 0.5 mg ONCE ONCE IV PUSH Last administered on 07/09/17at 13:43; Start 07/09/17 at 13:45; Stop 07/09/17 at 13:46; Status DC Iohexol (Omnipaque 350 Inj) 70 ml STK-MED ONCE IVCONTRAST Last administered on 07/09/17at 14:02; Start 07/09/17 at 14:02; Stop 07/09/17 at 14:03; Status DC Sodium Chloride (NS Flush) 2 ml UNSCH PRN IV FLUSH FLUSH AFTER USING IV ACCESS Last administered on 07/11/17at 13:54; Start 07/09/17 at 15:45 Sodium Chloride (NS Flush) 2 ml BID IV FLUSH Last administered on 07/17/17at 08: 43; Start 07/09/17 at 21:00 Acetaminophen (Tylenol) 650 mg Q4H PRN PO Fever, headache, pain 1-4; Start 07/09 at 15:45 Naloxone HCl (Narcan Inj) 0.4 mg UNSCH PRN IV PUSH SEE LABEL COMMENTS; Start at 15:45 Magnesium Hydroxide (Milk Of Magnesia Liq) 30 ml Q12H PRN PO Mild constipation ; Start 07/09/17 at 15:45 Sennosides (Senokot) 17.2 mg Q12H PRN PO Moderate constipation; Start 07/09/17 at 15:45 Bisacodyl (Dulcolax Supp) 10 mg DAILY PRN RECTAL SEVERE CONSITIPATION; Start at 15:45 Lactulose (Lactulose Liq) 30 ml DAILY PRN PO SEVERE CONSITIPATION; Start at 15:45 Bupropion HCl (Wellbutrin Sr 12 Hr) 100 mg Q12HR PO Last administered on 08:42; Start 07/09/17 at 21:00 Buspirone HCl (Buspar) 15 mg BID PO Last administered on 07/17/17 08:41; Start 07/09/17 at 21:00 Docusate Sodium (Colace) 100 mg BID PO Last administered on 07/17/17 08:43; Start 07/09/17 at 21:00 Doxazosin Mesylate (Cardura) 4 mg DAILY PO Last administered on 07/17/17 08:42 ; Start 07/10/17 at 09:00 Furosemide (Lasix) 20 mg DAILY PO Last administered on 07/17/17 08:42; Start 07/10/17 at 09:00 Gabapentin (Neurontin) 600 mg TID PO Last administered on 07/17/17 08:41; Start 07/09/17 at 20:00 Metoclopramide HCl (Reglan) 10 mg BID PO Last administered on 07/17/17 08:42; Start 07/09/17 at 21:00 Misoprostol (Cytotec) 200 mcg TID PO Last administered on 07/17/17 08:43; Start 07/09/17 at 20:00 Montelukast Sodium (Singulair) 10 mg BID PO ; Start 07/09/17 at 21:00; Status Cancel Oxycodone/ Acetaminophen (Percocet 5-325 Mg) 1 tab Q4H PRN PO pain 5-10 Last administered on 07/17/17at 08:42; Start 07/09/17 at 17:45 Polyethylene Glycol (Miralax) 17 gm DAILY PO Last administered on 07/10/17at 09: 48; Start 07/10/17 at 09:00 Spironolactone (Aldactone) 50 mg DAILY PO Last administered on 07/17/17at 08:40 ; Start 07/10/17 at 09:00 Tamsulosin HCl (Flomax) 0.4 mg HS PO Last administered on 07/16/17at 21:51; Start 07/09/17 at 21:00 Calcium/Vitamin D (Oscal-D 250-125) 500 mg DAILY PO Last administered on at 08:42; Start 07/10/17 at 09:00 Multivitamins (Theragran) 1 tab DAILY PO Last administered on 07/17/17at 08:42; Start 07/10/17 at 09:00 Pantoprazole Sodium (Protonix) 40 mg DAILY PO Last administered on 07/17/17at 08 :41; Start 07/10/17 at 09:00 Patient Own Medication PT OWN MED: SPIR... DAILY INH ; Start 07/10/17 at 09:00; Status Future Hold Venlafaxine HCl (Effexor Xr) 225 mg DAILY PO Last administered on 07/17/17at 08: 41; Start 07/10/17 at 09:00 Baclofen (Lioresal) 20 mg BID PRN PO Muscle spasms Last administered on at 13:26; Start 07/09/17 at 18:00 Albuterol/ Ipratropium (Duoneb Neb) 1 ampule Q4HR NEB PRN NEB Wheezing, Dyspnea , Cough Last administered on 07/11/17at 12:32; Start 07/09/17 at 18:00; Stop 07/11 at 12:41; Status DC Montelukast Sodium (Singulair) 10 mg DAILY PO Last administered on 07/17/17at 08 :44; Start 07/10/17 at 09:00 Lidocaine HCl (Xylocaine 1% Inj) 20 ml STK-MED ONCE .ROUTE ; Start 07/10/17 at 14 :29; Stop 07/10/17 at 14:30; Status DC Fentanyl Citrate (fentaNYL INJ) 100 mcg STK-MED ONCE .ROUTE Last administered on 07/10/17at 15:00; Start 07/10/17 at 14:44; Stop 07/10/17 at 14:45; Status DC Midazolam HCl (Versed Inj) 2 mg STK-MED ONCE .ROUTE Last administered on at 15:00; Start 07/10/17 at 14:44; Stop 07/10/17 at 14:45; Status DC Fentanyl Citrate (fentaNYL INJ) 100 mcg STK-MED ONCE .ROUTE Last administered on 07/10/17at 17:06; Start 07/10/17 at 17:06; Stop 07/10/17 at 17:07; Status DC Midazolam HCl (Versed Inj) 2 mg STK-MED ONCE .ROUTE Last administered on at 11:18; Start 07/10/17 at 17:06; Stop 07/10/17 at 17:07; Status DC Hydromorphone HCl (Dilaudid Pf Inj) 1 mg Q4HR PRN IV PUSH PAIN SCALE 7 TO 10 Last administered on 07/11/17at 08:29; Start 07/10/17 at 20:00; Stop 07/11/17 at 13:03; Status DC Albuterol/ Ipratropium (Duoneb Neb) 1 ampule Q4HR NEB PRN NEB sob Last administered on 07/16/17at 09:03; Start 07/11/17 at 12:15; Stop 07/16/17 at 18:33 ; Status DC Albuterol/ Ipratropium (Duoneb Neb) 1 ampule TID NEB NEB Last administered on 07/15/17at 11:58; Start 07/11/17 at 14:00; Stop 07/15/17 at 13:59; Status DC Hydromorphone HCl (Dilaudid Pf Inj) 2 mg Q4HR PRN IV PUSH PAIN SCALE 7 TO 10 Last administered on 07/13/17at 12:15; Start 07/11/17 at 13:15 Amoxicillin (Trimox) 500 mg TID PO Last administered on 07/17/17at 08:40; Start 07/12/17 at 13:00; Stop 07/17/17 at 12:59 Doxycycline Hyclate 500 mg/ Lidocaine HCl 10 ml/Sodium Chloride 60 ml @ 0 mls/ hr MINE [employer] DISPATCHER ONCE IV ; Start 07/13/17 at 11:00; Stop 07/13/17 at 11:01; Status DC Alteplase, Recombinant 6 mg/ Sodium Chloride 50 ml @ 0 mls/hr ONCE ONCE IV ; Start 07/13/17 at 14:00; Stop 07/13/17 at 14:01; Status DC Doxycycline Hyclate 500 mg/ Sodium Chloride 50 ml @ 100 mls/hr ONCE ONCE .XX ; Start 07/13/17 at 14:00; Stop 07/13/17 at 14:29; Status Cancel Lidocaine HCl (Xylocaine 2% Inj) 10 ml ONCE ONCE .XX ; Start 07/13/17 at 14:00 ; Stop 07/13/17 at 14:01; Status Cancel Alteplase, Recombinant (Cathflo Activase Inj) 6 mg STK-MED ONCE .ROUTE Last administered on 07/13/17at 13:50; Start 07/13/17 at 13:50; Stop 07/13/17 at 14:04 ; Status DC Cyanocobalamin (Vitamin B12 Inj) 1,000 mcg ONCE ONCE IM Last administered on at 14:06; Start 07/16/17 at 09:00; Stop 07/16/17 at 09:01; Status DC Folic Acid (Folate) 1 mg DAILY PO Last administered on 07/17/17at 08:40; Start 07/16/17 at 09:00 Fentanyl Citrate (fentaNYL INJ) 100 mcg STK-MED ONCE .ROUTE Last administered on 07/16/17at 10:05; Start 07/16/17 at 10:05; Stop 07/16/17 at 10:06; Status DC Fentanyl Citrate (fentaNYL INJ) 100 mcg STK-MED ONCE .ROUTE Last administered on 07/16/17at 10:05; Start 07/16/17 at 10:05; Stop 07/16/17 at 10:06; Status DC Midazolam HCl (Versed Inj) 4 mg STK-MED ONCE .ROUTE Last administered on at 10:05; Start 07/16/17 at 10:05; Stop 07/16/17 at 10:06; Status DC Iohexol (Omnipaque 350 Inj) 5 ml STK-MED ONCE OTHER Last administered on at 10:50; Start 07/16/17 at 11:29; Stop 07/16/17 at 11:30; Status DC Enoxaparin Sodium (Lovenox Inj) 40 mg Q24H SQ Last administered on 07/16/17at 14 :07; Start 07/16/17 at 14:00 Albuterol/ Ipratropium (Duoneb Neb) 1 ampule QID NEB NEB Last administered on 07/17/17at 08:00; Start 07/16/17 at 20:00 Cefazolin Sodium/ Dextrose 50 ml @ 100 mls/hr MINE [employer] DISPATCHER IV ; Start 07/17/17 at 07:45; Stop 07/20/17 at 07:44 Vancomycin HCl 1000 mg/Sodium Chloride 250 ml @ 250 mls/hr MINE [employer] DISPATCHER IV ; Start 07/17/17 at 07:45; Stop 07/20/17 at 07:44 A/P Assessment and Plan 57yo male with recently diagnosed stage IV lung adenocarcinoma with recurrent pleural effusions s/p thoracentesis x 2 in June admitted with progressive dyspnea found to have large bilateral pleural effusions R>L. Patient meets SIRS criteria with elevated heart rate and respiratory rate Acute on chronic hypoxic respiratory failure Hx of COPD Recurrent malignant pleural effusions- S/P chest tubes placement 07/11- Left chest tube removed dislodged and removed 07/16- right chest tube in place - CTA negative for PE but revealing large bilateral pleural effusions right > left, images personally reviewed - s/p right sided therapeutic thoracentesis with 1750cc fluid removed.- 07/09 This is the patients third thoracentesis since Jun 10. - Continue on home dose of Spiriva and Singulair - Duonebs prn - continue supplemental oxygen to maintain O2 sats above 92% - Pulmonary ff- Dr. Renteria - - pleurodesis unsuccessful 07/13 and 07/16- left CT was dislodged - pleurodesis not done - - tube was removed -Patient still has right chest tube in place. Management per design technician Dr. renteria. Recently diagnosed stage IV lung adenocarcinoma - Dr. Mcmanus ff - IR consulted for port placement Chronic pain/peripheral neuropathy Opiate induced constipation - Continue home gabapentin and Percocet - patient on Baclofen 20mg BID at home, resume prn - continue patient on home dose of Reglan 10mg BID - scheduled bowel regimen BPH - continue home Flomax and Doxazosin Bilateral lower extremity edema - continue on home dose of Spironolactone and Lasix Depression/Anxiety - continue on Wellbutrin, Effexor and Buspirone DVT prophylaxis- Lovenox CM consult- will need home 02 on DC Erica Benton MD Jul 17, 2017 11:02
[2017-07-17] MEDS ORDERED: OXYGENDME NAS.CANULA (11:12)
--- NOTE | 2017-07-17 12:35 | PD.ONC.PN ---
Subjective Subjective Remarks Afebrile overnight. Patient breathing "about the same," since removal of chest tube yesterday No complaints. Waiting to go down for port placement. Objective Data Date Time Temp Pulse Resp B/P (MAP) Pulse Ox O2 Delivery O2 Flow Rate FiO2 07/17/17 12:00 97.1 103 18 138/79 (98) 96 07/17/17 08:31 95 Nasal Cannula 2.00 07/17/17 08:00 97.7 112 18 140/84 (102) 95 07/17/17 08:00 95 Nasal Cannula 2.00 Humidified 07/17/17 00:00 96.9 99 20 120/76 (91) 96 07/16/17 20:00 96.7 112 20 134/88 (103) 98 07/16/17 19:00 Nasal Cannula 2.00 21 07/16/17 18:46 98 Nasal Cannula 2.00 07/16/17 16:00 98.4 103 18 122/83 (96) 96 07/17/17 07/17/17 07/17/17 07:00 15:00 23:00 Intake Total 360 ml Balance 360 ml Result Diagram: 07/16/17 0633 07/16/17 0633 Administered Medications Medications (Trade) Dose Ordered Sig/Kasi Route PRN Reason Start Time Stop Time Status Last Admin Dose Admin Sodium Chloride (NS Flush) 2 ml UNSCH PRN IV FLUSH FLUSH AFTER USING IV ACCESS 07/09/17 15:45 07/11/17 13:54 Sodium Chloride (NS Flush) 2 ml BID IV FLUSH 07/09/17 21:00 07/17/17 08:43 Bupropion HCl (Wellbutrin Sr 12 Hr) 100 mg Q12HR PO 07/09/17 21:00 07/17/17 08:42 Buspirone HCl (Buspar) 15 mg BID PO 07/09/17 21:00 07/17/17 08:41 Docusate Sodium (Colace) 100 mg BID PO 07/09/17 21:00 07/17/17 08:43 Doxazosin Mesylate (Cardura) 4 mg DAILY PO 07/10/17 09:00 07/17/17 08:42 Furosemide (Lasix) 20 mg DAILY PO 07/10/17 09:00 07/17/17 08:42 Gabapentin (Neurontin) 600 mg TID PO 07/09/17 20:00 07/17/17 08:41 Metoclopramide HCl (Reglan) 10 mg BID PO 07/09/17 21:00 07/17/17 08:42 Misoprostol (Cytotec) 200 mcg TID PO 07/09/17 20:00 07/17/17 08:43 Oxycodone/ Acetaminophen (Percocet 5-325 Mg) 1 tab Q4H PRN PO pain 5-10 07/09/17 17:45 07/17/17 08:42 Polyethylene Glycol (Miralax) 17 gm DAILY PO 07/10/17 09:00 07/10/17 09:48 Spironolactone (Aldactone) 50 mg DAILY PO 07/10/17 09:00 07/17/17 08:40 Tamsulosin HCl (Flomax) 0.4 mg HS PO 07/09/17 21:00 07/16/17 21:51 Calcium/Vitamin D (Oscal-D 250-125) 500 mg DAILY PO 07/10/17 09:00 07/17/17 08:42 Multivitamins (Theragran) 1 tab DAILY PO 07/10/17 09:00 07/17/17 08:42 Pantoprazole Sodium (Protonix) 40 mg DAILY PO 07/10/17 09:00 07/17/17 08:41 Venlafaxine HCl (Effexor Xr) 225 mg DAILY PO 07/10/17 09:00 07/17/17 08:41 Baclofen (Lioresal) 20 mg BID PRN PO Muscle spasms 07/09/17 18:00 07/11/17 13:26 Montelukast Sodium (Singulair) 10 mg DAILY PO 07/10/17 09:00 07/17/17 08:44 Hydromorphone HCl (Dilaudid Pf Inj) 2 mg Q4HR PRN IV PUSH PAIN SCALE 7 TO 10 07/11/17 13:15 07/13/17 12:15 Amoxicillin (Trimox) 500 mg TID PO 07/12/17 13:00 07/17/17 12:59 07/17/17 08:40 Folic Acid (Folate) 1 mg DAILY PO 07/16/17 09:00 07/17/17 08:40 Enoxaparin Sodium (Lovenox Inj) 40 mg Q24H SQ 07/16/17 14:00 07/16/17 14:07 Albuterol/ Ipratropium (Duoneb Neb) 1 ampule QID NEB NEB 07/16/17 20:00 07/17/17 11:53 Objective Remarks GENERAL: Pleasant middle aged male, sitting up in chair next to bed in nad. SKIN: Warm and dry. HEAD: Normocephalic. EYES: No scleral icterus. No injection or drainage. NECK: Supple, trachea midline. CARDIOVASCULAR: Regular rate and rhythm RESPIRATORY: diminished at right base. scattered wheeze. on 2L O2 via NC. CT in place, right chest wall. GASTROINTESTINAL: Abdomen soft, non-tender, nondistended. EXTREMITIES: No cyanosis, or edema. MUSCULOSKELETAL: Adequate muscle tone. NEUROLOGICAL: No obvious focal deficit. Awake, alert, and oriented x3. 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 Assessment 57y/o male with metastatic lung adenocarcinoma admitted with bilateral pleural effusions and shortness of breath. h/o Osteoarthritis. Benign prostatic hypertrophy. Chronic obstructive lung disease. Degenerative disc disease. Peripheral neuropathy. Peripheral vascular disease. Rheumatoid arthritis. Scleroderma. Plan 1. port placement in IR today 2. continue Folate 3. right sided CT management per pulmonology. 4. will arrange for chemotherapy in clinic upon discharge Attending Statement The exam, history, and the medical decision-making described in the above note were completed with the assistance of the mid-level provider. I reviewed and agree with the findings presented. I attest that I had a [id number] encounter with the patient on the same day, and personally performed and documented my assessment and findings in the medical record. 57 yoM with metastatic lung adeno with pleural effusions. Port placement today. Chemotherapy in clinic. Ximena Martinez Jul 17, 2017 12:35 Linda Mcmanus MD Jul 17, 2017 23:43
[2017-07-17] MEDS: ENOXAPARIN SODIUM 40 MG/0.4 ML SYRINGE SQ SCH (14:00)
[2017-07-17] MEDS ORDERED: MIDAZOLAM HCL 2 MG/2 ML VIAL ONE (14:39)
[2017-07-17] MEDS ORDERED: SODIUM CHLORIDE 0.9% FLUSH 10 ML FLUSH IVF PRN (16:00)
--- NOTE | 2017-07-17 16:20 | PD.RAD ---
Post Procedure Progress Note Pre Procedure Diagnosis: (1) Non-small cell lung cancer (NSCLC) Post Procedure Diagnosis: (1) Non-small cell lung cancer (NSCLC) Procedure Date: Jul 17, 2017 Supervising Radiologist: Roney Robertson Proceduralist/Assist: Raghu Dave RT(R) Estimated blood loss: none Anesthesia: Local, Conscious Sedation Plan of Activity Patient to Unit: [facility] Patient Condition: Good See PACS Report for procedural detail/treatment Central Venous Access Device Procedure 1 Right Internal Jugular Infusaport Placement single lumen [place]: 8 Additional Detail: and right chest tube removal Roney Robertson MD Jul 17, 2017 16:20
--- NOTE | 2017-07-17 16:39 | RADRPT ---
EXAM DATE/TIME: 07/17/2017 16:15 [facility] COMPARISON: CHEST EXPIRATION ONLY, July 16, 2017, 11:50. INDICATIONS : Chest tube removal. MEDICAL HISTORY : Gastroesophageal reflux disease. Ca lung, scleroderma, raynauds left leg edema. SURGICAL HISTORY : Chest tube, infuse a port. ENCOUNTER: Subsequent ACUITY: 1 week PAIN SCORE: 0/10 LOCATION: Bilateral chest FINDINGS: Portable upright expiratory view of the chest demonstrates a stable enlargement of the cardiac silhou ette. Right chest wall [id number] is present. The right chest tube has been removed. No pneumothor ax is identified. There is persistent bilateral airspace consolidation, right slightly greater than l eft. There is likely a mild amount of right chest wall soft tissue air. Bones demonstrate no acute fi nding. CONCLUSION: 1. Right chest tube has been removed and no pneumothorax is identified. 2. Stable bilateral airspace consolidation, right greater than left. 3. Stable enlargement of the cardiac silhouette. Roney Mcdaniel MD on July 17, 2017 at 16:34 Board Certified Radiologist. This report was verified electronically.
--- NOTE | 2017-07-17 16:50 | RADRPT ---
EXAM DATE/TIME: 07/17/2017 15:06 [facility] COMPARISON: No previous studies available for comparison. INDICATIONS : Patient presents with stage IV lung adenocarcinoma in need of port placement. MEDICAL HISTORY : Stage IV lung adenocarcinoma Recurrent pleural effusions s/p thoracentesis x 2 COPD Sceroderma Raynaud's RA BPH DDD s/p cervical fusion Chronic pain Peripheral neuropathy Depression PVD SURGICAL HISTORY : Right hand surgery Right cataract surgery Bilateral saphenous vein ablation Cervical fusion C56 ENCOUNTER: Initial ACUITY: 1 month PAIN SCORE: 0/10 FLUORO TIME: 3.5 minutes IMAGE SERIES: 1 SEDATION TIME: 30 minutes ACCESS: Right internal jugular vein SEDATION: 1.) 2 midazolam (Versed) IV 2.) 100 fentanyl (Sublimaze) IV Prophylactic antibiotics were administered with appropriate pre-procedure timing. Vancomycin within 2 hours of procedure, Ancef (or alternative) within 1 hour of procedure. DEVICE: 1. 8 English single lumen cm [id number] PROCEDURE : 1. Continuous pulse oximetry and EKG monitoring. 2. Intravenous conscious sedation. 3. Ultrasound guidance for venous access. 4. Fluoroscopic guided implantable central venous port placement. The patient was placed supine. The neck was prepped in sterile fashion. Full sterile technique was u sed, including cap, mask, sterile gloves and gown, and a large sterile sheet. Hand hygiene and 2% ch lorhexidine Betadine was utilized per protocol for cutaneous antisepsis with appropriate dry time for site. Sterile gel and sterile probe cover were utilized for ultrasound guidance. The skin and sub cutaneous tissues were infiltrated with local anesthetic solution. Under direct ultrasound guidance, central venous access was accomplished in the targeted vessel. The ultrasound images depicting access guidance were stored and saved to PACS for permanent record. A s ubcutaneous pocket was created using blunt dissection. The port was introduced to the pocket. The c atheter tubing was fed through a subcutaneous tunnel to the venotomy site. The catheter tubing was c ut to a suitable length and then was introduced through a valved Peel-Away sheath and positioned with catheter tubing tip at the cavo-atrial junction level. The pocket incision was closed with subcutic ular Vicryl suture. Steri-Strips were applied. The port was flushed and locked with heparin solutio n per protocol. Sterile dressing was applied to the site. The patient tolerated the procedure well. Conscious sedation was performed with the prescribed dosages and duration as above in the presence of an independent trained radiology nurse to assist in the monitoring of the patient. EKG and oximetry remained stable throughout the procedure. The patient tolerated the procedure well and there were no complications. The patient was sent to post anesthesia recovery in stable condition. CONCLUSION: Uncomplicated ultrasound and fluoroscopic guided implanted central venous port catheter placement as described in detail above. An 8 English Power port was placed. Roney Robertson MD on July 17, 2017 at 16:46 Board Certified Radiologist. This report was verified electronically.
[2017-07-17] MEDS: TAMSULOSIN HCL 0.4 MG CAP PO SCH (22:06)
[2017-07-18] VITALS (7 sets, daily range): BP systolic 103–136; BP diastolic 71–84; PULSE 100–113; RESP 15–18; TEMP 95.3–97.2; O2SAT 90–96
[2017-07-18] MEDS: oxyCODONE/ACETAMINOPHEN 5 MG/325 MG TAB PO PRN ×5 (02:12→21:30)
[2017-07-18] MEDS: RESP: ALBUTEROL 2.5 MG/IPRATROPIUM 0.5 MG NEB (SCH) NEB ×4 (08:00→21:45)
[2017-07-18] MEDS: POLYETHYLENE GLYCOL 17 GM PKG PO SCH (08:16)
[2017-07-18] MEDS: busPIRone HCL 5 MG TAB PO SCH ×2 (08:17→21:30)
[2017-07-18] MEDS: METOCLOPRAMIDE HCL 10 MG TAB PO SCH ×2 (08:17→21:30)
[2017-07-18] MEDS: DOCUSATE SODIUM 100 MG CAP PO SCH ×2 (08:17→21:30)
[2017-07-18] MEDS: FOLIC ACID 1 MG TAB PO SCH (08:18)
[2017-07-18] MEDS: SPIRONOLACTONE 50 MG TAB PO SCH (08:18)
[2017-07-18] MEDS: MONTELUKAST SODIUM 10 MG TAB PO SCH (08:18)
[2017-07-18] MEDS: FUROSEMIDE 20 MG TAB PO SCH (08:18)
[2017-07-18] MEDS: buPROPion HCL 100 MG SUSTAINED RELEASE TAB PO SCH ×2 (08:18→21:30)
[2017-07-18] MEDS: GABAPENTIN 300 MG CAP PO SCH ×3 (08:18→15:59)
[2017-07-18] MEDS: PANTOPRAZOLE SOD 40 MG DELAYED RELEASE TAB PO SCH (08:18)
[2017-07-18] MEDS: DOXAZOSIN MESYLATE 4 MG TAB PO SCH (08:18)
[2017-07-18] MEDS: CALCIUM/VITAMIN D 250 MG/125 U TAB PO SCH (08:18)
[2017-07-18] MEDS: MULTIVITAMIN TAB PO SCH (08:18)
[2017-07-18] MEDS: VENLAFAXINE HCL XR 75 MG CAP PO SCH (08:18)
[2017-07-18] MEDS: SODIUM CHLORIDE 0.9% FLUSH 10 ML FLUSH IV FLUSH SCH ×2 (09:29→21:00)
[2017-07-18] MEDS: MISOPROSTOL 200 MCG TAB PO SCH ×3 (09:29→15:59)
--- NOTE | 2017-07-18 10:58 | HHI.PR ---
Subjective Remarks A lot for recurrent pleural effusion secondary to malignancy Patient complain about left great toe pain. He stated that happened after port placement. Patient denies any trauma to the toe. Twice he has no other complaints. He stated that his breathing is the same since the chest tube was taken out. He has no other concerns. Remains afebrile. Discussed case with patient's nurse. Objective Vitals Vital Signs Date Time Temp Pulse Resp B/P (MAP) Pulse Ox O2 Delivery O2 Flow Rate FiO2 07/18/17 08:25 96 Nasal Cannula 2.00 07/18/17 08:15 Nasal Cannula 2.00 07/18/17 08:00 95.3 106 17 103/71 (82) 93 07/18/17 07:21 18 07/18/17 00:00 96.7 108 18 112/72 (85) 96 07/17/17 20:00 96.5 103 18 116/76 (89) 98 07/17/17 19:31 93 Nasal Cannula 2.00 07/17/17 19:00 Nasal Cannula 2.00 21 07/17/17 16:45 98 16 108/67 (81) 07/17/17 16:30 100 16 99/66 (77) 07/17/17 16:20 103 20 103/72 (82) 96 07/17/17 16:15 103 20 103/72 (82) 96 07/17/17 16:00 98.0 100 20 112/54 (73) 96 07/17/17 14:02 2.00 07/17/17 12:00 97.1 103 18 138/79 (98) 96 I/O 07/17/17 07/17/17 07/17/17 07/18/17 07/18/17 07/18/17 07:00 15:00 23:00 07:00 15:00 23:00 Intake Total 360 ml 120 ml 0 ml Balance 360 ml 120 ml 0 ml Intake Oral 360 ml 120 ml 0 ml # Voids 2 1 2 # Bowel Movements 1 0 0 Result Diagram: 07/16/1763207/16/17632 Objective Remarks GENERAL: in NAD NECK: Supple, trachea midline. No JVD or lymphadenopathy. CARDIOVASCULAR: Regular rate and rhythm without murmurs, gallops, or rubs. RESPIRATORY: No accessory muscle use. Bilateral scattered rhonchi more on the right side of lungs. Improves with deep inspiration. GASTROINTESTINAL: Abdomen soft, non-tender, nondistended. MUSCULOSKELETAL: left toe with erythema and ecchymosis. + TTP but full ROM. Procedures 07/09- right thoracentesis 07/10- chest tubes placement 07/16- left chest tube removal Medications and IVs Current Medications Sodium Chloride (NS Flush) 2 ml UNSCH PRN IVF FLUSH AFTER USING IV ACCESS; Start 07/09/17 at 11:45; Stop 07/09/17 at 19:03; Status DC Albuterol Sulfate (Albuterol Neb) 2.5 mg ONCE ONCE INH Last administered on 07/09/17at 11:45; Start 07/09/17 at 11:45; Stop 07/09/17 at 11:46; Status DC Furosemide (Lasix Inj) 60 mg ONCE ONCE IV PUSH Last administered on 07/09/17at 12:58; Start 07/09/17 at 12:45; Stop 07/09/17 at 12:47; Status DC Lorazepam (Ativan Inj) 0.5 mg ONCE ONCE IV PUSH Last administered on 07/09/17at 13:43; Start 07/09/17 at 13:45; Stop 07/09/17 at 13:46; Status DC Iohexol (Omnipaque 350 Inj) 70 ml STK-MED ONCE IVCONTRAST Last administered on 07/09/17at 14:02; Start 07/09/17 at 14:02; Stop 07/09/17 at 14:03; Status DC Sodium Chloride (NS Flush) 2 ml UNSCH PRN IV FLUSH FLUSH AFTER USING IV ACCESS Last administered on 07/11/17at 13:54; Start 07/09/17 at 15:45 Sodium Chloride (NS Flush) 2 ml BID IV FLUSH Last administered on 07/18/17at 09: 29; Start 07/09/17 at 21:00 Acetaminophen (Tylenol) 650 mg Q4H PRN PO Fever, headache, pain 1-4; Start 07/09 at 15:45 Naloxone HCl (Narcan Inj) 0.4 mg UNSCH PRN IV PUSH SEE LABEL COMMENTS; Start at 15:45 Magnesium Hydroxide (Milk Of Magnesia Liq) 30 ml Q12H PRN PO Mild constipation ; Start 07/09/17 at 15:45 Sennosides (Senokot) 17.2 mg Q12H PRN PO Moderate constipation; Start 07/09/17 at 15:45 Bisacodyl (Dulcolax Supp) 10 mg DAILY PRN RECTAL SEVERE CONSITIPATION; Start at 15:45 Lactulose (Lactulose Liq) 30 ml DAILY PRN PO SEVERE CONSITIPATION; Start at 15:45 Bupropion HCl (Wellbutrin Sr 12 Hr) 100 mg Q12HR PO Last administered on at 08:18; Start 07/09/17 at 21:00 Buspirone HCl (Buspar) 15 mg BID PO Last administered on 07/18/17at 08:17; Start 07/09/17 at 21:00 Docusate Sodium (Colace) 100 mg BID PO Last administered on 07/18/17at 08:17; Start 07/09/17 at 21:00 Doxazosin Mesylate (Cardura) 4 mg DAILY PO Last administered on 07/18/17at 08:18 ; Start 07/10/17 at 09:00 Furosemide (Lasix) 20 mg DAILY PO Last administered on 07/18/17at 08:18; Start 07/10/17 at 09:00 Gabapentin (Neurontin) 600 mg TID PO Last administered on 07/18/17at 08:18; Start 07/09/17 at 20:00 Metoclopramide HCl (Reglan) 10 mg BID PO Last administered on 07/18/17at 08:17; Start 07/09/17 at 21:00 Misoprostol (Cytotec) 200 mcg TID PO Last administered on 07/18/17at 09:29; Start 07/09/17 at 20:00 Montelukast Sodium (Singulair) 10 mg BID PO ; Start 07/09/17 at 21:00; Status Cancel Oxycodone/ Acetaminophen (Percocet 5-325 Mg) 1 tab Q4H PRN PO pain 5-10 Last administered on 07/18/17at 06:16; Start 07/09/17 at 17:45 Polyethylene Glycol (Miralax) 17 gm DAILY PO Last administered on 07/10/17at 09: 48; Start 07/10/17 at 09:00 Spironolactone (Aldactone) 50 mg DAILY PO Last administered on 07/18/17at 08:18 ; Start 07/10/17 at 09:00 Tamsulosin HCl (Flomax) 0.4 mg HS PO Last administered on 07/17/17at 22:06; Start 07/09/17 at 21:00 Calcium/Vitamin D (Oscal-D 250-125) 500 mg DAILY PO Last administered on at 08:18; Start 07/10/17 at 09:00 Multivitamins (Theragran) 1 tab DAILY PO Last administered on 07/18/17at 08:18; Start 07/10/17 at 09:00 Pantoprazole Sodium (Protonix) 40 mg DAILY PO Last administered on 07/18/17at 08 :18; Start 07/10/17 at 09:00 Patient Own Medication PT OWN MED: SPIR... DAILY INH ; Start 07/10/17 at 09:00; Status Future Hold Venlafaxine HCl (Effexor Xr) 225 mg DAILY PO Last administered on 07/18/17at 08: 18; Start 07/10/17 at 09:00 Baclofen (Lioresal) 20 mg BID PRN PO Muscle spasms Last administered on at 13:26; Start 07/09/17 at 18:00 Albuterol/ Ipratropium (Duoneb Neb) 1 ampule Q4HR NEB PRN NEB Wheezing, Dyspnea , Cough Last administered on 07/11/17at 12:32; Start 07/09/17 at 18:00; Stop 07/11 at 12:41; Status DC Montelukast Sodium (Singulair) 10 mg DAILY PO Last administered on 07/18/17at 08 :18; Start 07/10/17 at 09:00 Lidocaine HCl (Xylocaine 1% Inj) 20 ml STK-MED ONCE .ROUTE ; Start 07/10/17 at 14 :29; Stop 07/10/17 at 14:30; Status DC Fentanyl Citrate (fentaNYL INJ) 100 mcg STK-MED ONCE .ROUTE Last administered on 07/10/17at 15:00; Start 07/10/17 at 14:44; Stop 07/10/17 at 14:45; Status DC Midazolam HCl (Versed Inj) 2 mg STK-MED ONCE .ROUTE Last administered on at 15:00; Start 07/10/17 at 14:44; Stop 07/10/17 at 14:45; Status DC Fentanyl Citrate (fentaNYL INJ) 100 mcg STK-MED ONCE .ROUTE Last administered on 07/10/17at 17:06; Start 07/10/17 at 17:06; Stop 07/10/17 at 17:07; Status DC Midazolam HCl (Versed Inj) 2 mg STK-MED ONCE .ROUTE Last administered on at 11:18; Start 07/10/17 at 17:06; Stop 07/10/17 at 17:07; Status DC Hydromorphone HCl (Dilaudid Pf Inj) 1 mg Q4HR PRN IV PUSH PAIN SCALE 7 TO 10 Last administered on 07/11/17at 08:29; Start 07/10/17 at 20:00; Stop 07/11/17 at 13:03; Status DC Albuterol/ Ipratropium (Duoneb Neb) 1 ampule Q4HR NEB PRN NEB sob Last administered on 07/16/17at 09:03; Start 07/11/17 at 12:15; Stop 07/16/17 at 18:33 ; Status DC Albuterol/ Ipratropium (Duoneb Neb) 1 ampule TID NEB NEB Last administered on 07/15/17at 11:58; Start 07/11/17 at 14:00; Stop 07/15/17 at 13:59; Status DC Hydromorphone HCl (Dilaudid Pf Inj) 2 mg Q4HR PRN IV PUSH PAIN SCALE 7 TO 10 Last administered on 07/13/17at 12:15; Start 07/11/17 at 13:15 Amoxicillin (Trimox) 500 mg TID PO Last administered on 07/17/17at 08:40; Start 07/12/17 at 13:00; Stop 07/17/17 at 12:59; Status DC Doxycycline Hyclate 500 mg/ Lidocaine HCl 10 ml/Sodium Chloride 60 ml @ 0 mls/ hr TONG HOOKER ONCE IV ; Start 07/13/17 at 11:00; Stop 07/13/17 at 11:01; Status DC Alteplase, Recombinant 6 mg/ Sodium Chloride 50 ml @ 0 mls/hr ONCE ONCE IV ; Start 07/13/17 at 14:00; Stop 07/13/17 at 14:01; Status DC Doxycycline Hyclate 500 mg/ Sodium Chloride 50 ml @ 100 mls/hr ONCE ONCE .XX ; Start 07/13/17 at 14:00; Stop 07/13/17 at 14:29; Status Cancel Lidocaine HCl (Xylocaine 2% Inj) 10 ml ONCE ONCE .XX ; Start 07/13/17 at 14:00 ; Stop 07/13/17 at 14:01; Status Cancel Alteplase, Recombinant (Cathflo Activase Inj) 6 mg STK-MED ONCE .ROUTE Last administered on 07/13/17at 13:50; Start 07/13/17 at 13:50; Stop 07/13/17 at 14:04 ; Status DC Cyanocobalamin (Vitamin B12 Inj) 1,000 mcg ONCE ONCE IM Last administered on at 14:06; Start 07/16/17 at 09:00; Stop 07/16/17 at 09:01; Status DC Folic Acid (Folate) 1 mg DAILY PO Last administered on 07/18/17at 08:18; Start 07/16/17 at 09:00 Fentanyl Citrate (fentaNYL INJ) 100 mcg STK-MED ONCE .ROUTE Last administered on 07/16/17at 10:05; Start 07/16/17 at 10:05; Stop 07/16/17 at 10:06; Status DC Fentanyl Citrate (fentaNYL INJ) 100 mcg STK-MED ONCE .ROUTE Last administered on 07/16/17at 10:05; Start 07/16/17 at 10:05; Stop 07/16/17 at 10:06; Status DC Midazolam HCl (Versed Inj) 4 mg STK-MED ONCE .ROUTE Last administered on at 10:05; Start 07/16/17 at 10:05; Stop 07/16/17 at 10:06; Status DC Iohexol (Omnipaque 350 Inj) 5 ml STK-MED ONCE OTHER Last administered on at 10:50; Start 07/16/17 at 11:29; Stop 07/16/17 at 11:30; Status DC Enoxaparin Sodium (Lovenox Inj) 40 mg Q24H SQ Last administered on 07/16/17at 14 :07; Start 07/16/17 at 14:00 Albuterol/ Ipratropium (Duoneb Neb) 1 ampule QID NEB NEB Last administered on 07/18/17at 08:00; Start 07/16/17 at 20:00 Cefazolin Sodium/ Dextrose 50 ml @ 100 mls/hr TONG HOOKER IV ; Start 07/17/17 at 07:45; Stop 07/20/17 at 07:44 Vancomycin HCl 1000 mg/Sodium Chloride 250 ml @ 250 mls/hr TONG HOOKER IV Last administered on 07/17/17at 13:41; Start 07/17/17 at 07:45; Stop 07/20/17 at 07:44 Fentanyl Citrate (fentaNYL INJ) 100 mcg STK-MED ONCE .ROUTE Last administered on 07/17/17at 14:39; Start 07/17/17 at 14:39; Stop 07/17/17 at 14:40; Status DC Fentanyl Citrate (fentaNYL INJ) 100 mcg STK-MED ONCE .ROUTE ; Start 07/17/17 at 14:39; Stop 07/17/17 at 14:40; Status DC Midazolam HCl (Versed Inj) 4 mg STK-MED ONCE .ROUTE Last administered on at 14:39; Start 07/17/17 at 14:39; Stop 07/17/17 at 14:40; Status DC Heparin Sodium (Porcine) (*HEPARIN CENTRAL FLUSH PERIprocedural ONLY) 500 units STK-MED ONCE IV FLUSH ; Start 07/17/17 at 14:58; Stop 07/17/17 at 14:59; Status DC Heparin Sodium (Porcine) (Heparin Central Flush) 500 units UNSCH IV FLUSH ; Start 07/17/17 at 16:00 Sodium Chloride (NS Flush) 5 ml UNSCH PRN IVF SEE PROTOCOL; Start 07/17/17 at 16:00 Heparin Sodium (Porcine) (Heparin Central Flush) 250 units UNSCH PRN IV FLUSH SEE PROTOCOL; Start 07/17/17 at 16:00 A/P Assessment and Plan 57yo male with recently diagnosed stage IV lung adenocarcinoma with recurrent pleural effusions s/p thoracentesis x 2 in June admitted with progressive dyspnea found to have large bilateral pleural effusions R>L. Patient meets SIRS criteria with elevated heart rate and respiratory rate Acute on chronic hypoxic respiratory failure Hx of COPD Recurrent malignant pleural effusions- S/P chest tubes placement 07/11- Left chest tube removed dislodged and removed 07/16- right chest tube in place - CTA negative for PE but revealing large bilateral pleural effusions right > left. - s/p right sided therapeutic thoracentesis with 1750cc fluid removed.- 07/09 This is the patients third thoracentesis since Jun 10. - Continue on home dose of Spiriva and Singulair - Duonebs prn - continue supplemental oxygen to maintain O2 sats above 92% - Pulmonary ff- Dr. Renteria - - pleurodesis unsuccessful 07/13 and 07/16- left CT was dislodged - pleurodesis not done - left chest tube was removed -Right chest tube was removed yesterday and he continues to be stable. Recently diagnosed stage IV lung adenocarcinoma - Dr. Mcmanus ff - Port placed yesterday on 07/17. Chronic pain/peripheral neuropathy Opiate induced constipation - Continue home gabapentin and Percocet - patient on Baclofen 20mg BID at home, resume prn - continue patient on home dose of Reglan 10mg BID - scheduled bowel regimen BPH - continue home Flomax and Doxazosin Bilateral lower extremity edema - continue on home dose of Spironolactone and Lasix Depression/Anxiety - continue on Wellbutrin, Effexor and Buspirone Left great toe -will need to consult Etiquette Coach and get an xray. DVT prophylaxis- Lovenox CM consult- will need home 02 on DC Erica Benton MD Jul 18, 2017 10:58
--- NOTE | 2017-07-18 11:07 | RADRPT ---
EXAM DATE/TIME: 07/18/2017 10:28 [facility] COMPARISON: No previous studies available for comparison. INDICATIONS : Left great toe redness & possible infection. MEDICAL HISTORY : Lung cancer.Rheumatoid arthritis. Chronic obstructive pulmonary disease.Diverticulosis. Spinal cord i njury. Benign prostatic hypertorphy.Degenerative disc disease.GERD. Osteoarthritis. Peripheral neurop athy. Seleroderma. ETOH abuse. Depression. SURGICAL HISTORY : Cataract removal. Teeth extractions. Thoracenetesis. Anterior cervicalfusion. Right hand surgery. L40 L5 laminectomy. Penile surgery. Colonscopy. Saphenous vein ablation. ENCOUNTER: Initial ACUITY: 1 day PAIN SCORE: 0/10 LOCATION: Left foot great toe. FINDINGS: Examination of the first digit of the left foot demonstrates no evidence of fracture or dislocation. No radiopaque foreign bodies are seen. The soft tissues are intact. CONCLUSION: Unremarkable examination of left first toe. Solomon Villanueva MD on July 18, 2017 at 11:04 Board Certified Radiologist. This report was verified electronically.
[2017-07-18] MEDS: ENOXAPARIN SODIUM 40 MG/0.4 ML SYRINGE SQ SCH (11:45)
[2017-07-18 13:00] LABS: BICARBONATE 29.5 MEQ/L (21.0-32.0); CALCIUM 8.6 MG/DL (8.5-10.1); CREATININE 0.73 MG/DL (0.60-1.30)
[2017-07-18] MEDS ORDERED: OXYC1TAB63 PO (13:28)
[2017-07-18 14:06] LABS: HEMATOCRIT 37.3 % (39.0-51.0); HEMOGLOBIN 12.2 GM/DL (13.0-17.0); MEAN CELL VOLUME 84.6 FL (80.0-100.0); MEAN CORPUSCULAR HEMOGLOBIN 27.8 PG (27.0-34.0); MEAN CORPUSCULAR HGB CONC 32.9 % (32.0-36.0); MEAN PLATELET VOLUME 7.4 FL (7.0-11.0); PLATELET COUNT 324 TH/MM3 (150-450); RED BLOOD COUNT 4.41 MIL/MM3 (4.50-5.90); RED CELL DISTRIBUTION WIDTH 13.8 % (11.6-17.2)
[2017-07-18] MEDS: TAMSULOSIN HCL 0.4 MG CAP PO SCH (21:30)
[2017-07-19] VITALS (7 sets, daily range): BP systolic 107–125; BP diastolic 67–79; PULSE 94–110; RESP 16–18; TEMP 96.5–98.7; O2SAT 94–97
[2017-07-19] MEDS: oxyCODONE/ACETAMINOPHEN 5 MG/325 MG TAB PO PRN ×6 (02:27→23:01)
[2017-07-19] MEDS: DOCUSATE SODIUM 100 MG CAP PO SCH ×2 (07:34→21:15)
[2017-07-19] MEDS: CALCIUM/VITAMIN D 250 MG/125 U TAB PO SCH (07:34)
[2017-07-19] MEDS: buPROPion HCL 100 MG SUSTAINED RELEASE TAB PO SCH ×2 (07:34→21:14)
[2017-07-19] MEDS: MULTIVITAMIN TAB PO SCH (07:34)
[2017-07-19] MEDS: MISOPROSTOL 200 MCG TAB PO SCH ×3 (07:34→16:53)
[2017-07-19] MEDS: FUROSEMIDE 20 MG TAB PO SCH (07:35)
[2017-07-19] MEDS: busPIRone HCL 5 MG TAB PO SCH ×2 (07:35→21:14)
[2017-07-19] MEDS: PANTOPRAZOLE SOD 40 MG DELAYED RELEASE TAB PO SCH (07:35)
[2017-07-19] MEDS: METOCLOPRAMIDE HCL 10 MG TAB PO SCH ×2 (07:35→21:15)
[2017-07-19] MEDS: FOLIC ACID 1 MG TAB PO SCH (07:35)
[2017-07-19] MEDS: VENLAFAXINE HCL XR 75 MG CAP PO SCH (07:35)
[2017-07-19] MEDS: DOXAZOSIN MESYLATE 4 MG TAB PO SCH (07:35)
[2017-07-19] MEDS: GABAPENTIN 300 MG CAP PO SCH ×3 (07:36→16:53)
[2017-07-19] MEDS: SPIRONOLACTONE 50 MG TAB PO SCH (07:36)
[2017-07-19] MEDS: MONTELUKAST SODIUM 10 MG TAB PO SCH (07:36)
[2017-07-19] MEDS: POLYETHYLENE GLYCOL 17 GM PKG PO SCH (07:36)
[2017-07-19] MEDS: SODIUM CHLORIDE 0.9% FLUSH 10 ML FLUSH IV FLUSH SCH ×2 (07:39→21:18)
[2017-07-19] MEDS: RESP: ALBUTEROL 2.5 MG/IPRATROPIUM 0.5 MG NEB (SCH) NEB ×4 (08:46→21:48)
[2017-07-19] MEDS: ENOXAPARIN SODIUM 40 MG/0.4 ML SYRINGE SQ SCH (13:29)
--- NOTE | 2017-07-19 14:06 | PD.POD ---
Past Med/Surg/Social History Past Medical History HEENT: REPORTS HX OF: Cataracts Respiratory: REPORTS HX OF: COPD Musculoskeletal: REPORTS HX OF: Other musculoskeletal hx (Raynaud's diease; scleroderma) Neurologic: REPORTS HX OF: Other neurologic history (Spinal cord injury) Psychiatric: REPORTS HX OF: Other psychiatric history (ETOH abuse) Past Surgical History Genitourinary: REPORTS HX OF: Other surgery (penile wart removal) Musculoskeletal: REPORTS HX OF: Other musculoskeletal srg (right rotator cuff repair) Neurologic: REPORTS HX OF: Spinal surgery (L4-L5 laminacetomy, facetectomy and formamenotomy; C3-C6 ACDF ) Social History Smoking Status: Former Smoker Objective Vital Signs Vital Signs Date Time Temp Pulse Resp B/P (MAP) Pulse Ox O2 Delivery O2 Flow Rate FiO2 07/19/17 12:06 18 07/19/17 12:00 98.7 98 18 125/78 (94) 95 07/19/17 08:48 97 Nasal Cannula 2.00 07/19/17 08:00 98.4 108 18 121/72 (88) 94 07/19/17 00:00 96.9 98 16 121/79 (93) 96 07/18/17 21:47 96 Nasal Cannula 2.00 07/18/17 20:00 96.6 100 15 121/74 (90) 95 07/18/17 19:00 Nasal Cannula 2.00 07/18/17 16:00 97.2 113 17 136/84 (101) 92 Coded Allergies: mupirocin (Unverified Adverse Reaction, Severe, ERYTHEMA, 07/09/17) ERYTHEMA Uncoded Allergies: Colored Coban and Iodoform Gauze (Allergy, Severe, 10/24/11) GENTAMICIN CREAM (Allergy, Severe, REDNESS, PAIN,SWELLING, 10/24/11) altabax (Adverse Reaction, Severe, pain on application, 04/28/08) Assessment & Plan A/P Left hallux IPJ joint sprain, hematoma. FULL CONSULT DICTATED. Reviewed Keflex PO observation out pt FU outpt. Reviewed with medicine. Mason Matthews DPM Jul 19, 2017 14:06
--- NOTE | 2017-07-19 14:52 | HHI.PR ---
Subjective Remarks Pt states breathing is the same, not worsened. has oxygen at home. denies any CP , doesn't any palpitations. no nausea or vomiting Objective Vitals Vital Signs Date Time Temp Pulse Resp B/P (MAP) Pulse Ox O2 Delivery O2 Flow Rate FiO2 07/19/17 12:06 18 07/19/17 12:00 98.7 98 18 125/78 (94) 95 07/19/17 08:48 97 Nasal Cannula 2.00 07/19/17 08:00 98.4 108 18 121/72 (88) 94 07/19/17 00:00 96.9 98 16 121/79 (93) 96 07/18/17 21:47 96 Nasal Cannula 2.00 07/18/17 20:00 96.6 100 15 121/74 (90) 95 07/18/17 19:00 Nasal Cannula 2.00 07/18/17 16:00 97.2 113 17 136/84 (101) 92 I/O 07/18/17 07/18/17 07/18/17 07/19/17 07/19/17 07/19/17 07:00 15:00 23:00 07:00 15:00 23:00 Intake Total 0 ml 960 ml 240 ml Balance 0 ml 960 ml 240 ml Intake Oral 0 ml 960 ml 240 ml # Voids 2 1 0 # Bowel Movements 0 1 0 Result Diagram: 07/18/17 1340 07/18/17 1157 Imaging Last Impressions Toe X-Ray 07/18/17 0000 Signed Impressions: Service Date/Time: Tuesday, July 18, 2017 10:28 - CONCLUSION: Unremarkable examination of left first toe. Solomon Villanueva MD Chest X-Ray 07/17/17 1614 Signed Impressions: Service Date/Time: Monday, July 17, 2017 16:15 - CONCLUSION: 1. Right chest tube has been removed and no pneumothorax is identified. 2. Stable bilateral airspace consolidation, right greater than left. 3. Stable enlargement of the cardiac silhouette. Roney Mcdaniel MD Port Line Insertion 07/17/17 0000 Signed Impressions: Service Date/Time: Monday, July 17, 2017 15:06 - CONCLUSION: Uncomplicated ultrasound and fluoroscopic guided implanted central venous port catheter placement as described in detail above. An 8 [employer] port was placed. Roney Robertson MD Catheter Patency X-Ray 07/16/17 0000 Signed Impressions: Service Date/Time: Sunday, July 16, 2017 10:19 - CONCLUSION: The patient' s left thoracostomy tube had been dislodged from the pleural space. No significant remaining basilar fluid by ultrasound evaluation at present. If the patient re\re accumulates pleural fluid on the left, a chest tube can be replaced under CT guidance and pleurodesis could again be considered Roney Robertson MD Abdomen Ultrasound 07/15/17 0000 Signed Impressions: Service Date/Time: Saturday, July 15, 2017 10:39 - CONCLUSION: No ascites identified. Steven Taylor MD Chest CT 07/13/17 0000 Signed Impressions: Service Date/Time: Thursday, July 13, 2017 12:16 - CONCLUSION: Bilateral thoracostomy tubes are in satisfactory position. There is leakage of injected contrast from the pleural space into the left posterior chest wall on the course of the left-sided tube. This may reflect fibrin sheath formation around the tube and pleural loculation restricting free flow of injected contrast within the pleural space. Roney Robertson MD Chest Tube Insertion 07/10/17 1619 Signed Impressions: Service Date/Time: Monday, July 10, 2017 18:15 - CONCLUSION: Uncomplicated chest tube placement as above. Shaun Webb MD CT Angiography 07/09/17 1144 Signed Impressions: Service Date/Time: Sunday, July 09, 2017 13:49 - CONCLUSION: Large bilateral pleural effusions, much larger on the right than the left. Findings have progressed from 06/29/17 There is no central pulmonary emboli. Brett Dias MD FACR Thoracentesis Ultrasound 07/09/17 0000 Signed Impressions: Service Date/Time: Sunday, July 09, 2017 15:11 - CONCLUSION: Uncomplicated ultrasound guided thoracentesis. Epifanio Gates MD Objective Remarks GENERAL: sitting up in recliner NECK: trachea midline CARDIOVASCULAR: tachycardic w no murmurs appreciated, regular. RESPIRATORY: No accessory muscle use. Bilateral scattered rhonchi more on the right side of lungs. Improves with deep inspiration. GASTROINTESTINAL: Abdomen soft, non-tender, nondistended. MUSCULOSKELETAL: left toe with erythema and ecchymosis. full ROM, non tender to palpation, marking noted (by podiatry). 1+ edema bilaterally lower ext. Procedures 07/09- right thoracentesis 07/10- chest tubes placement 07/16- left chest tube removal A/P Assessment and Plan 57yo male with recently diagnosed stage IV lung adenocarcinoma with recurrent pleural effusions s/p thoracentesis x 2 in June admitted with progressive dyspnea found to have large bilateral pleural effusions R>L. Patient meets SIRS criteria with elevated heart rate and respiratory rate Acute on chronic hypoxic respiratory failure Hx of COPD Recurrent malignant pleural effusions- S/P chest tubes placement 07/11- Left chest tube removed dislodged and removed 07/16- right chest tube in place - CTA negative for PE but revealing large bilateral pleural effusions right > left. - s/p right sided therapeutic thoracentesis with 1750cc fluid removed.- 07/09 This is the patients third thoracentesis since Jun 10. - Continue on home dose of Spiriva and Singulair - Duonebs prn - continue supplemental oxygen to maintain O2 sats above 92%, pt will require home oxygen. Pt to f/u w Dr. Renteria pularielle as an outpatient. - pleurodesis unsuccessful 07/13 and 07/16- left CT was dislodged - pleurodesis not done - left chest tube was removed -Right chest tube was removed 2 days ago and he continues to be stable. Pt found to be tachycardic- HR in the 120's. will place him on TELE. Stat EKG showed sinus tachy. will start him on metoprolol 12.5 mg po BID. Monitor. Recently diagnosed stage IV lung adenocarcinoma - Dr. Mcmanus ff - Port placed on 07/17. Chronic pain/peripheral neuropathy Opiate induced constipation - Continue home gabapentin and Percocet - patient on Baclofen 20mg BID at home, resume prn - continue patient on home dose of Reglan 10mg BID - scheduled bowel regimen BPH - continue home Flomax and Doxazosin Bilateral lower extremity edema - continue on home dose of Spironolactone and Lasix Depression/Anxiety - continue on Wellbutrin, Effexor and Buspirone Left great toe - Crab Catcher evaluated the patient and recommended putting him on keflex x 7 days and f/u w Dr. Matthews in his office. DVT prophylaxis- Lovenox Discharge Planning If HR improved tomorrow and pt continues to be stable, will discharge home. will need 7 days of keflex and f/u w podiatry as an outpatient. Viola Davalos MD Jul 19, 2017 14:52
[2017-07-19] MEDS: METOPROLOL TARTRATE 25 MG TAB PO SCH ×2 (14:58→21:15)
[2017-07-19] MEDS ORDERED: PILL SPLITTER OTHER PRN (15:00)
[2017-07-19] MEDS: CEPHALEXIN MONOHYDRATE 500 MG CAP PO SCH ×2 (15:00→21:14)
--- NOTE | 2017-07-19 15:11 | MB ---
cc: QING VAN DPM DATE OF CONSULTATION: 07/19/2017 REASON FOR CONSULTATION Left hallux bruising, edema, possible injury, however none reported. HISTORY OF PRESENT ILLNESS This is a 57-year-old male who was originally admitted for shortness of breath. It appears that he has been working up for multiple pleural lung effusions. He is now on oxygen. He is seen bedside with no shortness of breath. He denies any obvious incident or injury of his left lower extremity. The nurse noticed this within the last 1-2 days. X-rays have been performed and appears to be negative. PAST MEDICAL HISTORY 1. Osteoarthritis. 2. BPH. 3. Chronic obstructive lung disease. 4. DJD. 5. Peripheral neuropathy. 6. Peripheral vascular disease. 7. Rheumatoid arthritis. 8. Scleroderma. PAST SURGICAL HISTORY 1. Cataract removal. 2. Cervical spine fusion. 3. Right hand surgery. 4. Saphenous vein ablation. 5. Colonoscopy. SOCIAL HISTORY Lives with his in [facility]. ALLERGIES COBAN, IODOFORM GAUZE, GENTAMICIN CREAM, ALTABAX, MUPIROCIN. MEDICATION Vancomycin, cefazalin. Please see complete med list in chart. PHYSICAL EXAMINATION VITAL SIGNS: Temperature is 98.7, pulse rate elevated at 122, respiratory rate 18, blood pressure of 125/78, pulse ox 95% on 2 liters nasal cannula. GENERAL: This is an alert and oriented male, appears to be obese. EXTREMITIES: Bilateral lower extremities are examined. There is superficial discoloration of the patient's left hallux, appears to be mildly blanchable, pain upon palpation. The patient is capable of range of motion of the digit. The EHL appears to be intact. The IPJ is also intact. There is no obvious drainage or interdigital ulcer noted. Sensation is decreased to light touch of the bilateral extremities below the ankles. 2+ pitting edema noted of the pretibial area. Upon palpating the soft tissue envelope there is no decrease in temperature from the calf, ankle and leg. Pulses are hard to palpate through the edema, however bedside Doppler reveal audible pulse, dorsalis pedis and posterior tibialis. Posterior tibialis on the left appears to be slightly weaker than the one on the right. The patient is capable of range of motion and appears to have good muscle strength. LABORATORY FINDINGS White blood cell 7, hemoglobin/hematocrit is 12 and 37, platelet count is 324. Chem-7 sodium is 131, potassium 4.2, chloride 94, CO2 29.5, BUN is 8, creatinine 0.73, random glucose 166. Coagulation profile 10.5, INR 1.0. IMAGING STUDIES Imaging findings focused to the extremity, specifically toe. There is no fracture. There is no signs of osteomyelitis, unremarkable exam. ASSESSMENT/PLAN Left hallux possible hematoma versus hallux IPJ sprain. There is a possibility that the patient sustained a mild injury while simply just ambulating due to his peripheral neuropathy and he does not recall. I do not think that there is any intervention other than possible oral antibiotic as an evolving hematoma can sometimes become an issue or infection. The patient is welcome to follow up outpatient. I recommend elevating, however, no ice to the area. I reviewed the case with medicine and nursing. Of note, the patient's heart rate was elevated during the vascular lower extremity Doppler audible exam and medicine notified. Thank you for this consultation. JAJA Echols/DIMA /2:05 PM /2:39 PM
--- NOTE | 2017-07-19 15:54 | EKG ---
Date Performed: 07/19/2017 Time Performed: 14:36:39 PTAGE: 57 years EKG: SINUS TACHYCARDIA WITH SHORT TX INTERVAL ABNORMAL ECG No significant change from prior elec trocardiogram. PREVIOUS TRACING : 07/09/2017 12.06 DOCTOR: Nelson Frye Interpretating Date/Time 07/19/2017 15:54:14
[2017-07-19] MEDS: TAMSULOSIN HCL 0.4 MG CAP PO SCH (21:14)
[2017-07-20] VITALS: BP 114/63; PULSE 83; RESP 18; TEMP 96.5; O2SAT 95
[2017-07-20] MEDS: oxyCODONE/ACETAMINOPHEN 5 MG/325 MG TAB PO PRN ×2 (04:39→09:36)
[2017-07-20] MEDS: CEPHALEXIN MONOHYDRATE 500 MG CAP PO SCH (04:39)
[2017-07-20 08:00] VITALS: BP 111/89; PULSE 100; RESP 17; TEMP 97.9; O2SAT 95
[2017-07-20] MEDS: RESP: ALBUTEROL 2.5 MG/IPRATROPIUM 0.5 MG NEB (SCH) NEB (08:05)
[2017-07-20] MEDS: POLYETHYLENE GLYCOL 17 GM PKG PO SCH (09:00)
[2017-07-20] MEDS: busPIRone HCL 5 MG TAB PO SCH (09:23)
[2017-07-20] MEDS: MULTIVITAMIN TAB PO SCH (09:24)
[2017-07-20] MEDS: DOXAZOSIN MESYLATE 4 MG TAB PO SCH (09:24)
[2017-07-20] MEDS: METOPROLOL TARTRATE 25 MG TAB PO SCH (09:25)
[2017-07-20] MEDS: FUROSEMIDE 20 MG TAB PO SCH (09:25)
[2017-07-20] MEDS: PANTOPRAZOLE SOD 40 MG DELAYED RELEASE TAB PO SCH (09:26)
[2017-07-20] MEDS: CALCIUM/VITAMIN D 250 MG/125 U TAB PO SCH (09:26)
[2017-07-20] MEDS: MONTELUKAST SODIUM 10 MG TAB PO SCH (09:26)
[2017-07-20] MEDS: buPROPion HCL 100 MG SUSTAINED RELEASE TAB PO SCH (09:27)
[2017-07-20] MEDS: SPIRONOLACTONE 50 MG TAB PO SCH (09:27)
[2017-07-20] MEDS: METOCLOPRAMIDE HCL 10 MG TAB PO SCH (09:27)
[2017-07-20] MEDS: DOCUSATE SODIUM 100 MG CAP PO SCH (09:28)
[2017-07-20] MEDS: GABAPENTIN 300 MG CAP PO SCH (09:28)
[2017-07-20] MEDS: FOLIC ACID 1 MG TAB PO SCH (09:28)
[2017-07-20] MEDS: VENLAFAXINE HCL XR 75 MG CAP PO SCH (09:29)
[2017-07-20] MEDS: MISOPROSTOL 200 MCG TAB PO SCH (09:35)
[2017-07-20] MEDS ORDERED: METO25TA3 PO (10:24)
[2017-07-20] MEDS ORDERED: CEPH500C PO (10:24)
--- NOTE | 2017-07-20 10:27 | HHI.DS ---
Discharge Summary Admission Date Jul 09, 2017 at 15:41 Discharge Date: Jul 20, 2017 Admitting Diagnosis respiratory distress, lung malignancy, pleural effusion (1) Pleural effusion, malignant ICD Code: J91.0 - Malignant pleural effusion (2) Respiratory failure with hypoxia ICD Code: J96.91 - Respiratory failure, unspecified with hypoxia (3) Toe pain ICD Code: M79.676 - Pain in unspecified toe(s) Procedures 07/09- right thoracentesis 07/10- chest tubes placement 07/16- left chest tube removal Brief History - From Admission Written by Carrie Cole, acting as scribe for Dr. Rasheed on 07/09/17 at 16:53. This note was transcribed by scribe Carrie Cole PA-C. I, Dr. Stephen Rasheed personally performed the history, physical exam, and medical decision making; and confirmed the accuracy of the information in the transcribed note. Authenticated by Dr. Stephen Rasheed on 07/09/17 at 17:00. This is a 57yo male with a PMHX of COPD, PVD, Scleroderma, Raynaud's, RA, BPH, peripheral neuropathy, chronic pain and recently diagnosed stage IV lung adenocarcinoma with recurrent pleural effusions s/p thoracentesis x 2 June 10 and June 29 who was sent over to the [facility] ED by his oncologist Dr. Mcmanus for evaluation of worsening shortness of breath. Patient denies any associated fever, chills, nausea, vomiting, chest pain or abdominal pain. He denies any difficulty with swallowing. Patient has not begun chemotherapy treatment as of yet. In the ED, CTA was obtained that was negative for PE but revealed large bilateral pleural effusions right greater than the left. IR was consulted and patient underwent therapeutic thoracentesis with 1750cc fluid removed. Patient's breathing has improved since the procedure. Patient states they have discussed catheter placement. CBC/BMP: 07/18/17 1340 07/18/17 1157 Significant Findings Laboratory Tests Test 07/18/17 11:57 07/18/17 13:40 Random Glucose 166 MG/DL (74-106) Sodium Level 131 MEQ/L (136-145) Chloride Level 94 MEQ/L (98-107) Red Blood Count 4.41 MIL/MM3 (4.50-5.90) Hemoglobin 12.2 GM/DL (13.0-17.0) Hematocrit 37.3 % (39.0-51.0) Imaging Last Impressions Toe X-Ray 07/18/17 0000 Signed Impressions: Service Date/Time: Tuesday, July 18, 2017 10:28 - CONCLUSION: Unremarkable examination of left first toe. Solomon Villanueva MD Chest X-Ray 07/17/17 1614 Signed Impressions: Service Date/Time: Monday, July 17, 2017 16:15 - CONCLUSION: 1. Right chest tube has been removed and no pneumothorax is identified. 2. Stable bilateral airspace consolidation, right greater than left. 3. Stable enlargement of the cardiac silhouette. Roney Mcdaniel MD Port Line Insertion 07/17/17 0000 Signed Impressions: Service Date/Time: Monday, July 17, 2017 15:06 - CONCLUSION: Uncomplicated ultrasound and fluoroscopic guided implanted central venous port catheter placement as described in detail above. An 8 [employer] port was placed. Roney Robertson MD Catheter Patency X-Ray 07/16/17 0000 Signed Impressions: Service Date/Time: Sunday, July 16, 2017 10:19 - CONCLUSION: The patient' s left thoracostomy tube had been dislodged from the pleural space. No significant remaining basilar fluid by ultrasound evaluation at present. If the patient re\re accumulates pleural fluid on the left, a chest tube can be replaced under CT guidance and pleurodesis could again be considered Roney Robertson MD Abdomen Ultrasound 07/15/17 0000 Signed Impressions: Service Date/Time: Saturday, July 15, 2017 10:39 - CONCLUSION: No ascites identified. Steven Taylor MD Chest CT 07/13/17 0000 Signed Impressions: Service Date/Time: Thursday, July 13, 2017 12:16 - CONCLUSION: Bilateral thoracostomy tubes are in satisfactory position. There is leakage of injected contrast from the pleural space into the left posterior chest wall on the course of the left-sided tube. This may reflect fibrin sheath formation around the tube and pleural loculation restricting free flow of injected contrast within the pleural space. Roney Robertson MD Chest Tube Insertion 07/10/17 1619 Signed Impressions: Service Date/Time: Monday, July 10, 2017 18:15 - CONCLUSION: Uncomplicated chest tube placement as above. Shaun Webb MD CT Angiography 07/09/17 1144 Signed Impressions: Service Date/Time: Sunday, July 09, 2017 13:49 - CONCLUSION: Large bilateral pleural effusions, much larger on the right than the left. Findings have progressed from 06/29/17 There is no central pulmonary emboli. Brett Dias MD FACR Thoracentesis Ultrasound 07/09/17 0000 Signed Impressions: Service Date/Time: Sunday, July 09, 2017 15:11 - CONCLUSION: Uncomplicated ultrasound guided thoracentesis. Epifanio Gates MD PE at Discharge GENERAL: sitting up in recliner NECK: trachea midline CARDIOVASCULAR: tachycardic w no murmurs appreciated, regular. RESPIRATORY: No accessory muscle use. Bilateral scattered rhonchi more on the right side of lungs. Improves with deep inspiration. GASTROINTESTINAL: Abdomen soft, non-tender, nondistended. MUSCULOSKELETAL: left toe with erythema and ecchymosis. full ROM, non tender to palpation, marking noted (by podiatry). 1+ edema bilaterally lower ext. Pt update on day of discharge feeling well. SOB the same and not worsened. comfortable going home. no nausea or vomiting. no pain in great toe. Hospital Course 57yo male with recently diagnosed stage IV lung adenocarcinoma with recurrent pleural effusions s/p thoracentesis x 2 in June admitted with progressive dyspnea found to have large bilateral pleural effusions R>L. Recurrent malignant pleural effusions- S/P chest tubes placement 07/11- Left chest tube removed dislodged and removed 07/16- right chest tube in place - CTA negative for PE but revealing large bilateral pleural effusions right > left. s/p right sided therapeutic thoracentesis with 1750cc fluid removed.- 07/09 This is the patients third thoracentesis since Jun 10. Pt requires home oxygen. - pleurodesis unsuccessful 07/13 and 07/16- left CT was dislodged - pleurodesis not done - left chest tube was removed -Right chest tube was removed and he continues to be stable. Pt found to be tachycardic- HR in the 120's. EKG showed sinus tachy. started on metoprolol 12.5 mg po BID and HR much better controlled. Monitor. Recently diagnosed stage IV lung adenocarcinoma - Dr. Mcmanus ff. f/u outpatient. - Port placed on 07/17. Pt Condition on Discharge: Stable Discharge Disposition: Disch w/ Home Health Serv Discharge Time: > 30 minutes Discharge Instructions DIET: Follow Instructions for: Heart Healthy Diet Activities you can perform: Regular-No Restrictions Follow up Referrals: Oncology/Hematology - 07/24/17 with Linda Mcmanus MD PCP Follow-up - 1 Week Podiatry - 1 Week Pulmonology - 1 Week New Medications: Oxygen (O2) (Oxygen (O2)) Device LITER DELANEY.CANULA CONTINUOUS for Prevent Hypoxemia, #2 Oxygen Concentrator Portable Gaseous 2 L/min via Nasal Canula Continuous For 99 months Cephalexin (Cephalexin) 500 Mg Cap 500 MG PO Q8HR, #18 CAP Metoprolol Tartrate (Metoprolol Tartrate) 25 Mg Tab 12.5 MG PO Q12HR, #30 TAB Changed Medications: Oxycodone HCl/Acetaminophen (Oxycodone-Acetaminophen 5-325) 5 Mg-325 Mg Tablet 1 TAB PO Q4H PRN for moderate to severe pain, #20 TAB 0 Refills (Changed from: 10; Refills: ) Continued Medications: Albuterol Neb (Albuterol Neb) 0.63 Mg/3 Ml Neb 0.63 MG NEB Q4HR NEB PRN for SHORTNESS OF BREATH, #25 NEBULE 0 Refills Baclofen (Baclofen) 20 Mg Tab 20 MG PO BID, TAB 0 Refills Bupropion HCl ER 12 HR (Wellbutrin SR 12 HR) 100 Mg Tab 100 MG PO Q12HR for Control Depression, TAB 0 Refills Buspirone (Buspirone) 15 Mg Tab 15 MG PO BID for Anxiety, TAB 0 Refills Calcium Carbonate-Cholecalciferol (Calcium 600+D3) 1 Tab Tab 1 TAB PO DAILY Docusate Sodium (Dulcolax Stool Softener) 100 Mg Cap 100 MG PO BID for Prevent Constipation, #60 CAP 0 Refills Doxazosin (Doxazosin) 4 Mg Tab 4 MG PO DAILY, TAB Furosemide (Furosemide) 20 Mg Tab 20 MG PO DAILY for Prevent Heart Failure, #30 TAB Gabapentin (Gabapentin) 400 Mg Cap 600 CAP PO TID, CAP 0 Refills Metoclopramide (Metoclopramide) 10 Mg Tab 10 MG PO BID, TAB 0 Refills Misoprostol (Cytotec) 200 Mcg Tab 200 MCG PO TID, TAB 0 Refills Montelukast (Montelukast) 10 Mg Tab 10 MG PO BID, #30 TAB 0 Refills Multiple Vitamin (Multiple Vitamin) 1 Tab 1 TAB PO DAILY, TAB 0 Refills Omeprazole (Omeprazole) 40 Mg Cap 40 MG PO DAILY, CAP 0 Refills Polyethylene Glycol 3350 Powder (Miralax Powder) 17 Gm Powd 17 GM PO DAILY for Constipation, #1 CAN 0 Refills Mix and dissolve one measuring cap-ful (17 grams) in water or juice. Spironolactone (Spironolactone) 50 Mg Tab 50 MG PO DAILY, TAB 0 Refills Tamsulosin (Flomax) 0.4 Mg Cap 0.4 MG PO HS for Manage Prostate Problems, #30 CAP 0 Refills Tiotropium Inh (Spiriva Respimat Inh) 1.25 Mcg/Act Aero 1 PUFF INH DAILY for Asthma Management, #1 INHALER 0 Refills 1.25 mcg = 1 inhalation Venlafaxine (Effexor) 75 Mg Tab 75 MG PO TID, TAB 0 Refills Zolpidem (Zolpidem) 10 Mg Tab 10 MG PO HS for Insomnia, TAB 0 Refills Discontinued Medications: Meloxicam (Mobic) 7.5 Mg Tab 7.5 MG PO DAILY, TAB 0 Refills Viola Davalos MD Jul 20, 2017 10:27
[2017-07-20 12:00] VITALS: BP 110/73; PULSE 98; RESP 18; TEMP 98.7; O2SAT 96
--- NOTE | 2017-07-20 12:14 | PD.ONC.PN ---
Subjective Subjective Remarks late entry, patient seen at 10AM Afebrile overnight. Patient resting in room. Feels ready to go home. States he already has everything he needs at home. Breathing is about the same. Objective Data Date Time Temp Pulse Resp B/P (MAP) Pulse Ox O2 Delivery O2 Flow Rate FiO2 07/20/17 12:00 98.7 98 18 110/73 (85) 96 07/20/17 08:08 Nasal Cannula 2.00 07/20/17 08:00 97.9 100 17 111/89 (96) 95 07/20/17 00:00 96.5 83 18 114/63 (80) 95 07/19/17 21:50 94 2.00 07/19/17 21:12 94 Nasal Cannula 2.00 07/19/17 20:00 97.4 94 18 109/74 (86) 95 07/19/17 16:00 96.5 110 18 107/67 (80) 94 Result Diagram: 07/18/17 1340 07/18/17 1157 Administered Medications Medications (Trade) Dose Ordered Sig/Kasi Route PRN Reason Start Time Stop Time Status Last Admin Dose Admin Sodium Chloride (NS Flush) 2 ml UNSCH PRN IV FLUSH FLUSH AFTER USING IV ACCESS 07/09/17 15:45 07/11/17 13:54 Sodium Chloride (NS Flush) 2 ml BID IV FLUSH 07/09/17 21:00 07/19/17 21:18 Bupropion HCl (Wellbutrin Sr 12 Hr) 100 mg Q12HR PO 07/09/17 21:00 07/20/17 09:27 Buspirone HCl (Buspar) 15 mg BID PO 07/09/17 21:00 07/20/17 09:23 Docusate Sodium (Colace) 100 mg BID PO 07/09/17 21:00 07/20/17 09:28 Doxazosin Mesylate (Cardura) 4 mg DAILY PO 07/10/17 09:00 07/20/17 09:24 Furosemide (Lasix) 20 mg DAILY PO 07/10/17 09:00 07/20/17 09:25 Gabapentin (Neurontin) 600 mg TID PO 07/09/17 20:00 07/20/17 09:28 Metoclopramide HCl (Reglan) 10 mg BID PO 07/09/17 21:00 07/20/17 09:27 Misoprostol (Cytotec) 200 mcg TID PO 07/09/17 20:00 07/20/17 09:35 Oxycodone/ Acetaminophen (Percocet 5-325 Mg) 1 tab Q4H PRN PO pain 5-10 07/09/17 17:45 07/20/17 09:36 Polyethylene Glycol (Miralax) 17 gm DAILY PO 07/10/17 09:00 07/10/17 09:48 Spironolactone (Aldactone) 50 mg DAILY PO 07/10/17 09:00 07/20/17 09:27 Tamsulosin HCl (Flomax) 0.4 mg HS PO 07/09/17 21:00 07/19/17 21:14 Calcium/Vitamin D (Oscal-D 250-125) 500 mg DAILY PO 07/10/17 09:00 07/20/17 09:26 Multivitamins (Theragran) 1 tab DAILY PO 07/10/17 09:00 07/20/17 09:24 Pantoprazole Sodium (Protonix) 40 mg DAILY PO 07/10/17 09:00 07/20/17 09:26 Venlafaxine HCl (Effexor Xr) 225 mg DAILY PO 07/10/17 09:00 07/20/17 09:29 Baclofen (Lioresal) 20 mg BID PRN PO Muscle spasms 07/09/17 18:00 07/11/17 13:26 Montelukast Sodium (Singulair) 10 mg DAILY PO 07/10/17 09:00 07/20/17 09:26 Hydromorphone HCl (Dilaudid Pf Inj) 2 mg Q4HR PRN IV PUSH PAIN SCALE 7 TO 10 07/11/17 13:15 07/13/17 12:15 Folic Acid (Folate) 1 mg DAILY PO 07/16/17 09:00 07/20/17 09:28 Enoxaparin Sodium (Lovenox Inj) 40 mg Q24H SQ 07/16/17 14:00 07/19/17 13:29 Albuterol/ Ipratropium (Duoneb Neb) 1 ampule QID NEB NEB 07/16/17 20:00 07/20/17 08:05 Metoprolol Tartrate (Lopressor) 12.5 mg Q12HR PO 07/19/17 15:00 07/20/17 09:25 Cephalexin Monohydrate (Keflex) 500 mg Q8HR PO 07/19/17 15:00 07/20/17 04:39 Objective Remarks GENERAL: Pleasant middle aged male, upright in chair next to bed SKIN: Warm and dry. bandage right upper and lower chest wall. HEAD: Normocephalic. EYES: No injection or drainage. NECK: Supple, trachea midline. CARDIOVASCULAR: Regular rate and rhythm RESPIRATORY: diminished at bases. scattered rhonchi. on 2L O2 GASTROINTESTINAL: Abdomen soft, non-tender, nondistended. EXTREMITIES: No cyanosis, or edema. MUSCULOSKELETAL: Adequate muscle tone. NEUROLOGICAL: awake, alert, normal speech. Assessment/Plan Assessment 57y/o male with metastatic lung adenocarcinoma admitted with bilateral pleural effusions and shortness of breath. Now s/p bilateral chest tube placement and removal. h/o Osteoarthritis. Benign prostatic hypertrophy. Chronic obstructive lung disease. Degenerative disc disease. Peripheral neuropathy. Peripheral vascular disease. Rheumatoid arthritis. Scleroderma. Plan 1. oncology clear for discharge. 2. follow up in clinic in one week once discharged Attending Statement The exam, history, and the medical decision-making described in the above note were completed with the assistance of the mid-level provider. I reviewed and agree with the findings presented. I attest that I had a [id number] encounter with the patient on the same day, and personally performed and documented my assessment and findings in the medical record. 57 yoM with metastatic NSCLC admitted with shortness s/p drainage of pleural effusions and placement and removal of bilateral chest tubes. Follow up in oncology clinic upon discharge. Ximena Martinez Jul 20, 2017 12:14 Linda Mcmanus MD Jul 21, 2017 10:50
--- NOTE | 2017-07-20 12:42 | HHI.FF ---
Face to Face Verification Diagnosis: (1) Non-small cell lung cancer (NSCLC) (2) Pleural effusion, malignant (3) Respiratory failure with hypoxia Home Health Nursing Order: Oxygen administration education Nursing assessment with vital signs I have seen patient Kenn Farrell on 07/20/17. My clinical findings support the need for the requested home health care services because: Pt requires home oxygen Ltd mobility - disease progression Patient has SOB I certify that my clinical findings support that this patient is homebound because: Pt requires home oxygen Unsteady gait/balance Viola Davalos MD Jul 20, 2017 12:41
== END 2017-07-20 12:55 | disposition home health service (06) | DRG 180 ==
LOC: NEPE 10:13 → NEDA 15:41 → N07A 19:05
PROVIDERS: ADMIT Hospitalist; ATTEND Hospitalist
PROC: 0W993ZX Drainage of Right Pleural Cavity, Percutaneous Approach, Diagnostic (ICD-10-PCS; principal; 2017-07-09)
PROC: 3E0F7GC Introduction of Other Therapeutic Substance into Respiratory Tract, Via Natural or Artificial Opening (ICD-10-PCS; 2017-07-09)
PROC: 0W9B30Z Drainage of Left Pleural Cavity with Drainage Device, Percutaneous Approach (ICD-10-PCS; 2017-07-10)
PROC: 0W9930Z Drainage of Right Pleural Cavity with Drainage Device, Percutaneous Approach (ICD-10-PCS; 2017-07-10)
PROC: 0WP9X0Z Removal of Drainage Device from Right Pleural Cavity, External Approach (ICD-10-PCS; 2017-07-16)
PROC: 0JH63WZ Insertion of Totally Implantable Vascular Access Device into Chest Subcutaneous Tissue and Fascia, Percutaneous Approach (ICD-10-PCS; 2017-07-17)
PROC: 05HM33Z Insertion of Infusion Device into Right Internal Jugular Vein, Percutaneous Approach (ICD-10-PCS; 2017-07-17)
DX: C78.00 Secondary malignant neoplasm of unspecified lung (principal); J96.21 Acute and chronic respiratory failure with hypoxia; J91.0 Malignant pleural effusion; M34.9 Systemic sclerosis, unspecified; E87.1 Hypo-osmolality and hyponatremia; G62.9 Polyneuropathy, unspecified; C34.90 Malignant neoplasm of unspecified part of unspecified bronchus or lung; J44.9 Chronic obstructive pulmonary disease, unspecified; M06.9 Rheumatoid arthritis, unspecified; I10 Essential (primary) hypertension; I73.00 Raynaud's syndrome without gangrene; F32.9 Major depressive disorder, single episode, unspecified; K21.9 Gastro-esophageal reflux disease without esophagitis; N40.0 Benign prostatic hyperplasia without lower urinary tract symptoms; G89.29 Other chronic pain; Z98.1 Arthrodesis status; Z80.0 Family history of malignant neoplasm of digestive organs; Z82.49 Family history of ischemic heart disease and other diseases of the circulatory system; K59.03 Drug induced constipation; F41.9 Anxiety disorder, unspecified; T40.605A Adverse effect of unspecified narcotics, initial encounter; Z87.891 Personal history of nicotine dependence; M19.90 Unspecified osteoarthritis, unspecified site; M79.675 Pain in left toe(s)
CPT/HCPCS: 32555; 32557; 32999; 36561; 71045; 71250; 71275; 73660; 76705; 76937; 77001; 80048; 80053; 81001; 83880; 84484; 85007; 85025; 85027; 85610; 87015; 87070; 87116; 87205; 87206; 88112; 88305; 93005; 94618; 94640; 94664; 96374; 96375; 99152; 99153; C1729; C1769; C1788; J1170; J1642; J1650; J1940; J2060; J2250; J2997; J3010; J3370; J3420; J7050; J7613; Q9967

== ENCOUNTER 2017-10-12 15:46 | Inpatient (IN) | payer OTHER, MEDICARE ==
[~2017-10-12] VITALS: Ht 177.8 cm; Wt 92.5 kg
[~2017-10-12 15:46] MED LIST changes: +CEPH500C PO; -LEVA750T9 PO; +METO25TA3 PO; -MOBI7.5T PO; +OXYGENDME NAS.CANULA; -PRED20 PO
[2017-10-12] MEDS ORDERED: SOD PHOSPHATE/SOD BIPHOSPHATE (ADULT) ENEMA 133ML RECTAL ONE (16:30)
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
[2017-10-12 17:08] LABS: AUTOMATED NEUTROPHIL # 3.3 TH/MM3 (1.8-7.7); BASOPHIL % 0.1 % (0.0-2.0); EOSINOPHIL % 0.1 % (0.0-4.0); HEMATOCRIT 29.6 % (39.0-51.0); HEMOGLOBIN 9.8 GM/DL (13.0-17.0); LYMPH % 5.7 % (9.0-44.0); LYMPHOCYTE # 0.2 TH/MM3 (1.0-4.8); MEAN CELL VOLUME 88.2 FL (80.0-100.0); MEAN CORPUSCULAR HEMOGLOBIN 29.2 PG (27.0-34.0); MEAN CORPUSCULAR HGB CONC 33.1 % (32.0-36.0); MEAN PLATELET VOLUME 7.2 FL (7.0-11.0); MONO % 13.6 % (0.0-8.0); MONOCYTE # 0.6 TH/MM3 (0-0.9); NEUT % 80.5 % (16.0-70.0); PLATELET COUNT 122 TH/MM3 (150-450); RED BLOOD COUNT 3.36 MIL/MM3 (4.50-5.90); RED CELL DISTRIBUTION WIDTH 21.9 % (11.6-17.2); WHITE BLOOD COUNT 4.1 TH/MM3 (4.0-11.0)
[2017-10-12 17:42] LABS: ALBUMIN 2.8 GM/DL (3.4-5.0); ALT (GPT) 30 U/L (12-78); AST (GOT) 13 U/L (15-37); BICARBONATE 34.9 MEQ/L (21.0-32.0); BLOOD UREA NITROGEN 15 MG/DL (7-18); CALCIUM 9.3 MG/DL (8.5-10.1); CHLORIDE 93 MEQ/L (98-107); CREATININE 0.58 MG/DL (0.60-1.30); GLOMERULAR FILTRATION RATE 145 ML/MIN (>89); GLUCOSE,RANDOM 142 MG/DL (74-106); SODIUM (NA) 134 MEQ/L (136-145)
[2017-10-12 17:44] LABS: ALKALINE PHOSPHATASE 126 U/L (45-117); TOTAL BILIRUBIN ADULT 0.4 MG/DL (0.2-1.0); TOTAL PROTEIN 6.9 GM/DL (6.4-8.2)
[2017-10-12] MEDS: GABAPENTIN 300 MG CAP PO SCH (18:03)
[2017-10-12] MEDS ORDERED: IOHEXOL 350 MG/ML 10 ML VIAL (for RAD DIAG) IVCONTRAST ONE (18:23)
[2017-10-12] MEDS: SODIUM CHLOR 0.9% 1000 ML INJ 1,000 ML IV SCH (18:59)
--- NOTE | 2017-10-12 19:59 | RADRPT ---
EXAM DATE/TIME: 10/12/2017 19:17 [place] COMPARISON: No previous studies available for comparison. INDICATIONS : Abdominal pain, distension starting today MEDICAL HISTORY : Gastroesophageal reflux disease. Ca lung, scleroderma SURGICAL HISTORY : Infusaport ENCOUNTER: Initial ACUITY: 1 day PAIN SCORE: 3/10 LOCATION: Bilateral abdomen FINDINGS: Supine view of the abdomen was performed. The abdominal bowel gas pattern is normal mild constipatio n. No abnormal masses, calcifications, or organomegaly is seen. The osseous structures are unremark able. CONCLUSION: 1. No acute findings. Mild constipation. Oliverio Oneal MD on October 12, 2017 at 19:55 Board Certified Radiologist. This report was verified electronically.
[2017-10-12 20:00] VITALS: BP 111/76; PULSE 122; RESP 20; TEMP 98; O2SAT 96
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
[2017-10-12] MEDS: DOCUSATE SODIUM 100 MG CAP PO SCH (21:00)
[2017-10-12] MEDS: MISOPROSTOL 200 MCG TAB PO SCH (21:04)
[2017-10-12] MEDS: ONDANSETRON HCL 4 MG/2 ML VIAL IV PUSH PRN (21:04)
[2017-10-12] MEDS: METOPROLOL TARTRATE 25 MG TAB PO SCH (21:04)
[2017-10-12] MEDS: TAMSULOSIN HCL 0.4 MG CAP PO SCH (23:05)
[2017-10-12] MEDS: MONTELUKAST SODIUM 10 MG TAB PO SCH (23:06)
[2017-10-12] MEDS: buPROPion HCL 100 MG SUSTAINED RELEASE TAB PO SCH (23:06)
[2017-10-13] VITALS (8 sets, daily range): BP systolic 106–120; BP diastolic 58–75; PULSE 105–114; RESP 19–20; TEMP 97.6–98.1; O2SAT 92–97
[2017-10-13] MEDS: BACLOFEN 20 MG TAB PO SCH ×3 (00:10→20:24)
[2017-10-13] MEDS: busPIRone HCL 5 MG TAB PO SCH ×3 (00:11→20:23)
[2017-10-13] MEDS: RESP: ALBUTEROL 0.63 MG/3 ML NEB (PRN) NEB ×4 (03:52→21:03)
[2017-10-13] MEDS: ONDANSETRON HCL 4 MG/2 ML VIAL IV PUSH PRN ×3 (05:02→21:55)
[2017-10-13] MEDS: SODIUM CHLOR 0.9% 1000 ML INJ 1,000 ML IV SCH ×3 (05:02→21:56)
[2017-10-13] MEDS: MISOPROSTOL 200 MCG TAB PO SCH ×3 (09:00→17:44)
[2017-10-13] MEDS: GABAPENTIN 300 MG CAP PO SCH ×3 (09:00→17:44)
[2017-10-13] MEDS: DOXAZOSIN MESYLATE 4 MG TAB PO SCH (09:00)
[2017-10-13] MEDS ORDERED: FUROSEMIDE 20 MG TAB PO SCH (09:00)
[2017-10-13] MEDS: METOPROLOL TARTRATE 25 MG TAB PO SCH ×2 (09:00→20:23)
[2017-10-13] MEDS: TIOTROPIUM BROMIDE 18 MCG INH INH SCH (09:49)
[2017-10-13] MEDS: SPIRONOLACTONE 50 MG TAB PO SCH (09:52)
[2017-10-13] MEDS: DOCUSATE SODIUM 100 MG CAP PO SCH (09:54)
[2017-10-13] MEDS: VENLAFAXINE HCL XR 75 MG CAP PO SCH (09:55)
[2017-10-13] MEDS: MONTELUKAST SODIUM 10 MG TAB PO SCH ×2 (09:57→20:24)
[2017-10-13] MEDS: PANTOPRAZOLE SOD 40 MG DELAYED RELEASE TAB PO SCH (09:57)
[2017-10-13] MEDS: buPROPion HCL 100 MG SUSTAINED RELEASE TAB PO SCH ×2 (09:57→20:24)
[2017-10-13] MEDS ORDERED: MAGNESIUM HYDROXIDE SUSP 30 ML CUP PO PRN (10:30)
[2017-10-13] MEDS ORDERED: SENNOSIDES 8.6 MG TAB PO PRN (10:30)
[2017-10-13] MEDS ORDERED: BISACODYL 10 MG SUPP RECTAL PRN (10:30)
[2017-10-13] MEDS ORDERED: PRED10 PO (10:31)
[2017-10-13] MEDS ORDERED: LEVS0.123 PO (10:31)
[2017-10-13] MEDS: POLYETHYLENE GLYCOL 17 GM PKG PO SCH (11:16)
[2017-10-13] MEDS: DOCUSATE SODIUM 50 MG/SENNA 8.6 MG TAB PO SCH ×2 (11:17→20:23)
--- NOTE | 2017-10-13 11:27 | PD.ONC.PN ---
Subjective Subjective Remarks Afebrile overnight Patient reports he continues to have vomiting He had one very mild bowel movement yesterday with enema Denies feeling nauseous, states that it feels like the food just cannot go down Objective Data Date Time Temp Pulse Resp B/P (MAP) Pulse Ox O2 Delivery O2 Flow Rate FiO2 10/13/17 09:22 95 Nasal Cannula 2.00 10/13/17 03:52 94 Nasal Cannula 2.00 10/13/17 00:00 97.7 105 20 116/58 (77) 95 10/12/17 20:00 98.0 122 20 111/76 (88) 96 10/13/17 10/13/17 10/13/17 07:00 15:00 23:00 Intake Total 1000 ml Output Total 200 ml Balance 800 ml Result Diagram: 10/12/17 1650 10/12/17 1650 Laboratory Results Laboratory Tests Test 10/12/17 16:50 White Blood Count 4.1 TH/MM3 Red Blood Count 3.36 MIL/MM3 Hemoglobin 9.8 GM/DL Hematocrit 29.6 % Mean Corpuscular Volume 88.2 FL Mean Corpuscular Hemoglobin 29.2 PG Mean Corpuscular Hemoglobin Concent 33.1 % Red Cell Distribution Width 21.9 % Platelet Count 122 TH/MM3 Mean Platelet Volume 7.2 FL Neutrophils (%) (Auto) 80.5 % Lymphocytes (%) (Auto) 5.7 % Monocytes (%) (Auto) 13.6 % Eosinophils (%) (Auto) 0.1 % Basophils (%) (Auto) 0.1 % Neutrophils # (Auto) 3.3 TH/MM3 Lymphocytes # (Auto) 0.2 TH/MM3 Monocytes # (Auto) 0.6 TH/MM3 Eosinophils # (Auto) 0.0 TH/MM3 Basophils # (Auto) 0.0 TH/MM3 CBC Comment AUTO DIFF Differential Comment AUTO DIFF CONFIRMED Platelet Estimate LOW Platelet Morphology Comment NORMAL Blood Urea Nitrogen 15 MG/DL Creatinine 0.58 MG/DL Random Glucose 142 MG/DL Total Protein 6.9 GM/DL Albumin 2.8 GM/DL Calcium Level 9.3 MG/DL Alkaline Phosphatase 126 U/L Aspartate Amino Transf (AST/SGOT) 13 U/L Alanine Aminotransferase (ALT/SGPT) 30 U/L Total Bilirubin 0.4 MG/DL Sodium Level 134 MEQ/L Potassium Level 4.2 MEQ/L Chloride Level 93 MEQ/L Carbon Dioxide Level 34.9 MEQ/L Anion Gap 6 MEQ/L Estimat Glomerular Filtration Rate 145 ML/MIN Administered Medications Medications (Trade) Dose Ordered Sig/Kasi Route PRN Reason Start Time Stop Time Status Last Admin Dose Admin Sodium Chloride 1,000 ml @ 100 mls/hr Q10H IV 10/12/17 16:30 10/13/17 11:18 Ondansetron HCl (Zofran Inj) 4 mg Q8HR PRN IV PUSH NAUSEA 10/12/17 16:30 10/13/17 05:02 Albuterol Sulfate (Albuterol Neb) 0.63 mg Q4HR NEB PRN NEB SHORTNESS OF BREATH 10/12/17 16:30 10/13/17 09:19 Baclofen (Lioresal) 20 mg BID PO 10/12/17 21:00 10/13/17 00:10 Bupropion HCl (Wellbutrin Sr 12 Hr) 100 mg Q12HR PO 10/12/17 21:00 10/13/17 09:57 Buspirone HCl (Buspar) 15 mg BID PO 10/12/17 21:00 10/13/17 09:53 Gabapentin (Neurontin) 600 mg TID PO 10/12/17 18:00 10/12/17 18:03 Metoprolol Tartrate (Lopressor) 12.5 mg Q12HR PO 10/12/17 21:00 10/12/17 21:04 Misoprostol (Cytotec) 200 mcg TID PO 10/12/17 18:00 10/12/17 21:04 Montelukast Sodium (Singulair) 10 mg BID PO 10/12/17 21:00 10/13/17 09:57 Spironolactone (Aldactone) 50 mg DAILY PO 10/13/17 09:00 10/13/17 09:52 Tamsulosin HCl (Flomax) 0.4 mg HS PO 10/12/17 21:00 10/12/17 23:05 Pantoprazole Sodium (Protonix) 40 mg DAILY PO 10/13/17 09:00 10/13/17 09:57 Tiotropium [place] (Spiriva Inh) 18 mcg DAILY INH 10/13/17 09:00 10/13/17 09:49 Venlafaxine HCl (Effexor Xr) 225 mg DAILY PO 10/13/17 09:00 10/13/17 09:55 Polyethylene Glycol (Miralax) 17 gm DAILY PO 10/13/17 10:30 10/13/17 11:16 Senna/Docusate Sodium (Jasmine-Colace) 1 tab BID PO 10/13/17 10:30 10/13/17 11:17 Objective Remarks GENERAL: Chronically ill-appearing older male resting in bed no obvious distress SKIN: Warm and dry. Pale HEAD: Normocephalic. EYES: No injection or drainage. NECK: Supple, trachea midline. CARDIOVASCULAR: Regular rate and rhythm without murmurs. RESPIRATORY: Scattered rhonchi GASTROINTESTINAL: Hypoactive bowel sounds EXTREMITIES: No cyanosis, or edema. MUSCULOSKELETAL: Adequate muscle tone. NEUROLOGICAL: No obvious focal deficit. Awake, alert, and oriented x3. Assessment/Plan Problem List: (1) Non-small cell lung cancer (NSCLC) ICD Codes: C34.90 - Malignant neoplasm of unspecified part of unspecified bronchus or lung Plan: --Patient is status post 4 cycles of chemotherapy with goal of 6 (2) Constipation ICD Codes: K59.00 - Constipation, unspecified Plan: --. KUB from , 10/11, showed a very large amount of stool throughout the colon and mild distended small bowel loops, mostly in the left mid abdomen. Assessment 57-year-old male with non-small cell lung cancer admitted with constipation and vomiting Plan 1. Consult GI 2. Continue bowel regimen Attending Statement The exam, history, and the medical decision-making described in the above note were completed with the assistance of the mid-level provider. I reviewed and agree with the findings presented. I attest that I had a [id number] encounter with the patient on the same day, and personally performed and documented my assessment and findings in the medical record. Hx of NSCLC having constipation and nausea Zofran Bowel regimen trial of Reglan GI consult Shilpa Hernadez Oct 13, 2017 11:27 Smith Giang MD Oct 13, 2017 13:40
--- NOTE | 2017-10-13 12:15 | HHI.PR ---
Subjective Remarks Follow-up constipation. Patient had a small BM after fleets enema. Passing gas. Improving nausea and abdominal pain. Discussed with nursing Objective Vitals Vital Signs Date Time Temp Pulse Resp B/P (MAP) Pulse Ox O2 Delivery O2 Flow Rate FiO2 10/13/17 09:22 95 Nasal Cannula 2.00 10/13/17 08:00 97.8 107 19 106/66 (79) 95 10/13/17 03:52 94 Nasal Cannula 2.00 10/13/17 00:00 97.7 105 20 116/58 (77) 95 10/12/17 20:00 98.0 122 20 111/76 (88) 96 I/O 10/12/17 10/12/17 10/12/17 10/13/17 10/13/17 10/13/17 07:00 15:00 23:00 07:00 15:00 23:00 Intake Total 1000 ml Output Total 200 ml Balance 800 ml Intake IV Total 1000 ml Output Urine Total 200 ml # Bowel Movements 1 Result Diagram: 10/12/17 1650 10/12/17 1650 Imaging Last Impressions Abdomen X-Ray 10/12/17 0000 Signed Impressions: Service Date/Time: Thursday, October 12, 2017 19:17 - CONCLUSION: 1. No acute findings. Mild constipation. Oliverio Oneal MD Objective Remarks GENERAL: This is a well-nourished, well-developed patient, in no apparent distress. SKIN: No rashes, ecchymoses or lesions. Cool and dry. CARDIOVASCULAR: Regular rate and rhythm without murmurs, gallops, or rubs. RESPIRATORY: Clear to auscultation. Breath sounds equal bilaterally. No wheezes , rales, or rhonchi. GASTROINTESTINAL: Abdomen soft, non-tender, nondistended. No guarding. MUSCULOSKELETAL: Extremities without clubbing, cyanosis, or edema. No joint tenderness, effusion, or edema noted. No calf tenderness. Negative Homans sign bilaterally. NEUROLOGICAL: Awake and alert. Cranial nerves II through XII intact. Motor and sensory grossly within normal limits. Five out of 5 muscle strength in all muscle groups. Normal speech. A/P Problem List: (1) Ileus ICD Code: K56.7 - Ileus, unspecified Assessment and Plan - Constipation. Will add Dulcolax ND x 1, Pericolace and ct Miralax. Gi consulted may need cscope or gastrogafin enema. IVF and consider starting diet - history of lung cancer/ COPD- oxygen dependent keep on oxygen to keep O2 sat > 90%- continue neb treatment. - history of scleroderma/ RA- f/u as outpatient. - DVT prophylaxis with SCD's Thierno Montaño MD Oct 13, 2017 12:15
[2017-10-13] MEDS ORDERED: BISACODYL 10 MG SUPP RECTAL ONE (12:30)
[2017-10-13] MEDS ORDERED: MAGNESIUM CITRATE SOLN 300 ML BTL PO ONE (12:30)
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
[2017-10-13] MEDS: LACTULOSE SYRUP 20 GM/30 ML CUP PO PRN (14:04)
[2017-10-13] MEDS: TAMSULOSIN HCL 0.4 MG CAP PO SCH (20:26)
[2017-10-14] VITALS (13 sets, daily range): BP systolic 113–138; BP diastolic 66–85; PULSE 101–129; RESP 18–23; TEMP 97.6–98.6; O2SAT 45–100
[2017-10-14] MEDS: ONDANSETRON HCL 4 MG/2 ML VIAL IV PUSH PRN ×2 (05:56→13:24)
[2017-10-14] MEDS: SODIUM CHLOR 0.9% 1000 ML INJ 1,000 ML IV SCH (08:41)
[2017-10-14] MEDS: SPIRONOLACTONE 50 MG TAB PO SCH (08:44)
[2017-10-14] MEDS: DOCUSATE SODIUM 50 MG/SENNA 8.6 MG TAB PO SCH ×2 (08:44→20:47)
[2017-10-14] MEDS: VENLAFAXINE HCL XR 75 MG CAP PO SCH (08:45)
[2017-10-14] MEDS: TIOTROPIUM BROMIDE 18 MCG INH INH SCH (08:46)
[2017-10-14] MEDS: MONTELUKAST SODIUM 10 MG TAB PO SCH ×2 (08:46→20:48)
[2017-10-14] MEDS: busPIRone HCL 5 MG TAB PO SCH ×2 (08:47→20:47)
[2017-10-14] MEDS: PANTOPRAZOLE SOD 40 MG DELAYED RELEASE TAB PO SCH (08:47)
[2017-10-14] MEDS: GABAPENTIN 300 MG CAP PO SCH ×3 (08:48→17:12)
[2017-10-14] MEDS: MISOPROSTOL 200 MCG TAB PO SCH ×3 (08:48→17:12)
[2017-10-14] MEDS: DOXAZOSIN MESYLATE 4 MG TAB PO SCH (08:48)
[2017-10-14] MEDS: POLYETHYLENE GLYCOL 17 GM PKG PO SCH (08:48)
[2017-10-14] MEDS: BACLOFEN 20 MG TAB PO SCH ×2 (08:48→20:47)
[2017-10-14] MEDS: METOPROLOL TARTRATE 25 MG TAB PO SCH (08:48)
[2017-10-14] MEDS: buPROPion HCL 100 MG SUSTAINED RELEASE TAB PO SCH ×2 (08:49→20:49)
[2017-10-14] MEDS: LACTULOSE SYRUP 20 GM/30 ML CUP PO PRN (08:50)
--- NOTE | 2017-10-14 10:40 | PD.ONC.PN ---
Subjective Subjective Remarks Afebrile Patient reports he apparently had a good bowel movement last night; however he still feels like he is constipated No further vomiting today so far Objective Data Date Time Temp Pulse Resp B/P (MAP) Pulse Ox O2 Delivery O2 Flow Rate FiO2 10/14/17 08:00 97.6 103 19 119/74 (89) 94 10/14/17 08:00 Nasal Cannula 2.00 10/14/17 00:00 98.0 112 22 123/78 (93) 96 10/13/17 21:03 96 Nasal Cannula 2.00 10/13/17 20:45 Nasal Cannula 2.00 10/13/17 20:00 97.8 114 20 109/75 (86) 97 10/13/17 16:00 97.6 111 20 111/66 (81) 97 10/13/17 12:00 98.1 108 19 120/68 (85) 92 10/14/17 10/14/17 10/14/17 07:00 15:00 23:00 Intake Total 120 ml Output Total 1225 ml Balance -1105 ml Result Diagram: 10/12/17 1650 10/12/17 1650 Administered Medications Medications (Trade) Dose Ordered Sig/Kasi Route PRN Reason Start Time Stop Time Status Last Admin Dose Admin Sodium Chloride 1,000 ml @ 100 mls/hr Q10H IV 10/12/17 16:30 10/14/17 08:41 Ondansetron HCl (Zofran Inj) 4 mg Q8HR PRN IV PUSH NAUSEA 10/12/17 16:30 10/14/17 05:56 Albuterol Sulfate (Albuterol Neb) 0.63 mg Q4HR NEB PRN NEB SHORTNESS OF BREATH 10/12/17 16:30 10/13/17 21:03 Baclofen (Lioresal) 20 mg BID PO 10/12/17 21:00 10/13/17 20:24 Bupropion HCl (Wellbutrin Sr 12 Hr) 100 mg Q12HR PO 10/12/17 21:00 10/14/17 08:49 Buspirone HCl (Buspar) 15 mg BID PO 10/12/17 21:00 10/14/17 08:47 Gabapentin (Neurontin) 600 mg TID PO 10/12/17 18:00 10/13/17 17:44 Metoprolol Tartrate (Lopressor) 12.5 mg Q12HR PO 10/12/17 21:00 10/13/17 20:23 Misoprostol (Cytotec) 200 mcg TID PO 10/12/17 18:00 10/14/17 08:48 Montelukast Sodium (Singulair) 10 mg BID PO 10/12/17 21:00 10/14/17 08:46 Spironolactone (Aldactone) 50 mg DAILY PO 10/13/17 09:00 10/14/17 08:44 Tamsulosin HCl (Flomax) 0.4 mg HS PO 10/12/17 21:00 10/13/17 20:26 Pantoprazole Sodium (Protonix) 40 mg DAILY PO 10/13/17 09:00 10/14/17 08:47 Tiotropium [place] (Spiriva Inh) 18 mcg DAILY INH 10/13/17 09:00 10/14/17 08:46 Venlafaxine HCl (Effexor Xr) 225 mg DAILY PO 10/13/17 09:00 10/14/17 08:45 Polyethylene Glycol (Miralax) 17 gm DAILY PO 10/13/17 10:30 10/13/17 11:16 Senna/Docusate Sodium (Jasmine-Colace) 1 tab BID PO 10/13/17 10:30 10/14/17 08:44 Lactulose (Lactulose Liq) 30 ml DAILY PRN PO SEVERE CONSITIPATION 10/13/17 10:30 10/14/17 08:50 Objective Remarks GENERAL: Chronically ill-appearing older male resting in bed no obvious distress SKIN: Warm and dry. Somewhat pale appearing HEAD: Normocephalic. EYES: No injection or drainage. NECK: Supple, trachea midline. CARDIOVASCULAR: Regular rate and rhythm without murmurs. RESPIRATORY: Scattered rhonchi anteriorly GASTROINTESTINAL: Hypoactive bowel sounds EXTREMITIES: No cyanosis, or edema. MUSCULOSKELETAL: Adequate muscle tone. NEUROLOGICAL: No obvious focal deficit. Awake, alert, and oriented x3. Assessment/Plan Problem List: (1) Non-small cell lung cancer (NSCLC) ICD Codes: C34.90 - Malignant neoplasm of unspecified part of unspecified bronchus or lung Plan: --Patient is status post 4 cycles of chemotherapy with goal of 6 (2) Constipation ICD Codes: K59.00 - Constipation, unspecified Plan: --. KUB from , 10/11, showed a very large amount of stool throughout the colon and mild distended small bowel loops, mostly in the left mid abdomen. Assessment 57-year-old male with non-small cell lung cancer admitted with constipation and vomiting Plan 1. Further bowel management regimen per GI 2. Supportive care Attending Statement The exam, history, and the medical decision-making described in the above note were completed with the assistance of the mid-level provider. I reviewed and agree with the findings presented. I attest that I had a [id number] encounter with the patient on the same day, and personally performed and documented my assessment and findings in the medical record. had BM yesterday GI following supportive care Clinically deteriorated later in the day and had to be intubated respiratory distress due to aspiration when NGT was being placed CT chest and abdomen ordered by distillery laborer Shilpa Hernadez Oct 14, 2017 10:40 Smith Giang MD Oct 14, 2017 11:32
[2017-10-14 11:14] LABS: CALCIUM 8.2 MG/DL (8.5-10.1); CREATININE 0.47 MG/DL (0.60-1.30)
--- NOTE | 2017-10-14 13:46 | HHI.PR ---
Subjective Remarks Follow-up constipation. States she had a good bowel movement yesterday continues to be nauseous and vomited several times overnight. He feels food gets stuck in his chest discussed with nursing will alert GI will need endoscopy Objective Vitals Vital Signs Date Time Temp Pulse Resp B/P (MAP) Pulse Ox O2 Delivery O2 Flow Rate FiO2 10/14/17 12:00 97.6 101 18 121/74 (90) 90 10/14/17 08:00 97.6 103 19 119/74 (89) 94 10/14/17 08:00 Nasal Cannula 2.00 10/14/17 00:00 98.0 112 22 123/78 (93) 96 10/13/17 21:03 96 Nasal Cannula 2.00 10/13/17 20:45 Nasal Cannula 2.00 10/13/17 20:00 97.8 114 20 109/75 (86) 97 10/13/17 16:00 97.6 111 20 111/66 (81) 97 I/O 10/13/17 10/13/17 10/13/17 10/14/17 10/14/17 10/14/17 06:59 14:59 22:59 06:59 14:59 22:59 Intake Total 1000 ml 1240 ml 120 ml Output Total 200 ml 600 ml 1225 ml 150 ml Balance 800 ml 640 ml -1105 ml -150 ml Intake Oral 240 ml 120 ml IV Total 1000 ml 1000 ml Output Urine Total 200 ml 600 ml 850 ml Emesis 375 ml 150 ml # Bowel Movements 1 0 1 Result Diagram: 10/12/17 1650 10/14/17 1014 Imaging Last Impressions Abdomen X-Ray 10/12/17 0000 Signed Impressions: Service Date/Time: Thursday, October 12, 2017 19:17 - CONCLUSION: 1. No acute findings. Mild constipation. Oliverio Oneal MD Objective Remarks GENERAL: This is a well-nourished, well-developed patient, in no apparent distress. SKIN: No rashes, ecchymoses or lesions. Cool and dry. CARDIOVASCULAR: Regular rate and rhythm without murmurs, gallops, or rubs. RESPIRATORY: Clear to auscultation. Breath sounds equal bilaterally. No wheezes , rales, or rhonchi. GASTROINTESTINAL: Abdomen soft, non-tender, nondistended. No guarding. MUSCULOSKELETAL: Extremities without clubbing, cyanosis, or edema. No joint tenderness, effusion, or edema noted. No calf tenderness. Negative Homans sign bilaterally. NEUROLOGICAL: Awake and alert. Cranial nerves II through XII intact. Motor and sensory grossly within normal limits. Five out of 5 muscle strength in all muscle groups. Normal speech. A/P Problem List: (1) Ileus ICD Code: K56.7 - Ileus, unspecified Assessment and Plan - Constipation. Continues to be a problem now patient also complaining of food getting stuck in his chest. NGT if persistent vomiting and will alert GI will need endoscopy continue bowel regimen and IV hydration - history of lung cancer/ COPD- oxygen dependent keep on oxygen to keep O2 sat > 90%- continue neb treatment. - history of scleroderma/ RA- f/u as outpatient. - DVT prophylaxis with SCD's Discharge Planning He is not stable for discharge because of ongoing GI symptoms Thierno Montaño MD Oct 14, 2017 13:46
--- NOTE | 2017-10-14 15:11 | HHI.GIFU ---
Subjective Remarks Pt had an acute event, he had aspiration during NGT insertion which was attempted for persistent N/V. Pt started having hematemesis, stats declined and Halicat initiated, currently pt has been transferred to the unit and under [facility] care. (Chema Newberry HAILEY) Objective Vitals I&O Vital Signs Date Time Temp Pulse Resp B/P (MAP) Pulse Ox O2 Delivery O2 Flow Rate FiO2 10/14/17 12:00 97.6 101 18 121/74 (90) 90 10/14/17 08:00 97.6 103 19 119/74 (89) 94 10/14/17 08:00 Nasal Cannula 2.00 10/14/17 00:00 98.0 112 22 123/78 (93) 96 10/13/17 21:03 96 Nasal Cannula 2.00 10/13/17 20:45 Nasal Cannula 2.00 10/13/17 20:00 97.8 114 20 109/75 (86) 97 10/13/17 16:00 97.6 111 20 111/66 (81) 97 I/O 10/13/17 10/13/17 10/13/17 10/14/17 10/14/17 10/14/17 07:00 15:00 23:00 07:00 15:00 23:00 Intake Total 1000 ml 1240 ml 120 ml Output Total 200 ml 600 ml 1225 ml 150 ml Balance 800 ml 640 ml -1105 ml -150 ml Intake Oral 240 ml 120 ml IV Total 1000 ml 1000 ml Output Urine Total 200 ml 600 ml 850 ml Emesis 375 ml 150 ml # Bowel Movements 1 0 1 Laboratory Laboratory Tests Test 10/14/17 10:14 Blood Urea Nitrogen 15 Creatinine 0.47 Random Glucose 113 Calcium Level 8.2 Sodium Level 138 Potassium Level 3.7 Chloride Level 99 Carbon Dioxide Level 31.0 Anion Gap 8 Estimat Glomerular Filtration Rate 185 Imaging Last Impressions Abdomen X-Ray 10/12/17 0000 Signed Impressions: Service Date/Time: Thursday, October 12, 2017 19:17 - CONCLUSION: 1. No acute findings. Mild constipation. Oliverio Oneal MD Physical Exam HEENT: normocephalic; atraumatic; no jaundice. CHEST: labor breathing CARDIAC: tachy ABDOMEN: Soft, nondistended, nontender; no hepatosplenomegaly; bowel sounds are present in all four quadrants. EXTREMITIES: No clubbing, cyanosis, or edema. SKIN: Normal; no rash; no jaundice. PLATE WORKER HELPER: No focal deficits; alert and oriented times three. (Chema Newberry) Assessment and Plan Plan Plan ASSESSMENT - constipation,n/v - Pt had one BM last night, Pt had an acute event today , he had aspiration during NGT insertion which was attempted for persistent N/V. Pt started having hematemesis, stats declined and Halicat initiated, currently pt has been transferred to the unit and under [facility] care. - Non small cell lung caner- hematology on the case PLAN - NPO - Further recommendations to follow based on clinical progress and once pt is stabilized - supportive care pt seen by myself and Dr Joiner and this note is on his behalf (Chema Newberry) Plan Patient was seen and examined, discussed the case with his and Dr. Krause, patient stated that he was a little bit more lethargic that he kept having nausea and vomiting so she requested that he has NG tube to reduce his nausea, he started vomiting more one PEG tube was being attempted to be placed and then he became unresponsive questionable aspiration, no blood, bilious material, patient was transferred to ICU and intubated by Dr. Krause, KUB showed mild constipation and not much impaction or dilation of bowel, plan on possibly doing a CAT scan, supportive care for the time being, endoscopy if needed (Russ Joiner MD) Chema Newberry Oct 14, 2017 15:11 Russ Joiner MD Oct 14, 2017 15:43
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
[2017-10-14 15:39] LABS: HEMATOCRIT 32.1 % (39.0-51.0); HEMOGLOBIN 10.3 GM/DL (13.0-17.0); MEAN CELL VOLUME 89.9 FL (80.0-100.0); MEAN CORPUSCULAR HGB CONC 32.2 % (32.0-36.0); MEAN PLATELET VOLUME 7.9 FL (7.0-11.0); PLATELET COUNT 186 TH/MM3 (150-450); RED BLOOD COUNT 3.57 MIL/MM3 (4.50-5.90); RED CELL DISTRIBUTION WIDTH 23.7 % (11.6-17.2); WHITE BLOOD COUNT 11.8 TH/MM3 (4.0-11.0)
[2017-10-14] MEDS ORDERED: PROPOFOL 1000 MG/100 ML INJ 100 ML IV PRN (15:45)
[2017-10-14] MEDS ORDERED: fentaNYL DRIP 250 ML IV PRN (15:45)
[2017-10-14 15:49] LABS: INTERNATIONAL NORMALIZED RATIO 1.2 RATIO; PROTHROMBIN TIME - PATIENT 12.4 SEC (9.8-11.6)
[2017-10-14 15:58] LABS: ALBUMIN 2.7 GM/DL (3.4-5.0); ALT (GPT) 27 U/L (12-78); AST (GOT) 20 U/L (15-37); BICARBONATE 31.4 MEQ/L (21.0-32.0); BLOOD UREA NITROGEN 14 MG/DL (7-18); CALCIUM 7.9 MG/DL (8.5-10.1); CHLORIDE 98 MEQ/L (98-107); CREATININE 0.54 MG/DL (0.60-1.30); GLOMERULAR FILTRATION RATE 158 ML/MIN (>89); GLUCOSE,RANDOM 150 MG/DL (74-106); MAGNESIUM 1.4 MG/DL (1.5-2.5); SODIUM (NA) 138 MEQ/L (136-145)
--- NOTE | 2017-10-14 15:58 | RADRPT ---
EXAM DATE/TIME: 10/14/2017 14:56 [facility] COMPARISON: CHEST EXPIRATION ONLY, July 17, 2017, 16:15. INDICATIONS : Shortness of breath. MEDICAL HISTORY : Unresponsive. SURGICAL HISTORY : Unresponsive. ENCOUNTER: Initial ACUITY: 1 day PAIN SCORE: Non-responsive. LOCATION: Bilateral chest FINDINGS: Endotracheal tube and nasogastric tube are now present good position. Right chest port is again noted . There is hazy diffuse bilateral pleural-parenchymal opacity, right worse than left which is grossly unchanged. The visualized cardiac contours appear stable. CONCLUSION: Interval intubation and placement of nasogastric tube. Otherwise stable chest Roney Robertson MD on October 14, 2017 at 15:41 Board Certified Radiologist. This report was verified electronically.
[2017-10-14 16:00] LABS: ALKALINE PHOSPHATASE 129 U/L (45-117); TOTAL BILIRUBIN ADULT 0.3 MG/DL (0.2-1.0); TOTAL PROTEIN 6.5 GM/DL (6.4-8.2)
[2017-10-14] MEDS ORDERED: DIATRIZOATE MEGLUM/DIATRIZOATE SOD 9 ML CUP PO ONE (16:00)
--- NOTE | 2017-10-14 16:00 | RADRPT ---
EXAM DATE/TIME: 10/14/2017 15:14 [facility] COMPARISON: ABDOMEN KUB ONLY, October 12, 2017, 19:17. INDICATIONS : Abdominal discomfort. MEDICAL HISTORY : Unresponsive. SURGICAL HISTORY : Unresponsive. ENCOUNTER: Initial ACUITY: 1 day PAIN SCORE: Non-responsive. LOCATION: Abdomen. FINDINGS: Nasogastric tube coils in the stomach. There is stool present throughout the colon. No dilated small bowel is identified. There is nothing to suggest mass or visceromegaly. No suspicious calcific densit ies are identified. There are degenerative changes present in the spine and hips. CONCLUSION: NG tube in the stomach. Nonspecific bowel gas pattern Roney Robertson MD on October 14, 2017 at 15:57 Board Certified Radiologist. This report was verified electronically.
[2017-10-14] MEDS ORDERED: MIDAZOLAM HCL 5 MG/ML VIAL (1 ML) IV PUSH PRN (16:15)
[2017-10-14] MEDS: fentaNYL DRIP 250 ML IV PRN (16:15)
[2017-10-14] MEDS: PROPOFOL 1000 MG/100 ML INJ 100 ML IV PRN ×3 (16:15→22:56)
[2017-10-14] MEDS ORDERED: ROCURONIUM INJ 50 MG/5 ML VIAL IV PUSH PRN (16:15)
[2017-10-14 16:45] LABS: LACTIC ACID SEPSIS PROTOCOL 8.1 mmol/L (0.4-2.0)
--- NOTE | 2017-10-14 17:47 | PD.PROCEDR ---
Procedure Note Procedure Endotracheal Intubation Diagnosis: Acute respiratory failure Indications: Acute hypoxic respiratory failure Consent: Emergent Anesthesia: Versed 10 mill grams IV, rocuronium 100 mg IV Description of the Procedure: The patient was positioned in the sniffing position. Pre-oxygenation was performed using a nonrebreather mask. Anesthesia was induced via rapid sequence. A Ovalle #2 was used for laryngoscopy and a Grade I view was obtained. A 8.0 cuffed endotracheal tube was inserted atraumatically through the vocal cords. Confirmation of correct endotracheal tube placement was made by equal and bilateral breath sounds and colorimetric CO2 detection. The endotracheal tube was secured at 23.5 cm at the teeth. There were no immediate complications noted. The patient remained hemodynamically stable throughout the procedure. A chest x-ray has been ordered. I personally performed the procedure. Emeterio Berry MD Oct 14, 2017 17:47
[2017-10-14] MEDS ORDERED: IOHEXOL 350 MG/ML 10 ML VIAL (for RAD DIAG) IVCONTRAST ONE (18:18)
--- NOTE | 2017-10-14 18:46 | RADRPT ---
EXAM DATE/TIME: 10/14/2017 18:18 [facility] COMPARISON: CT THORAX W CONTRAST, October 14, 2017, 18:18. INDICATIONS : Abdominal distention. IV CONTRAST: 97 cc Omnipaque 350 (iohexol) IV ORAL CONTRAST: Prescribed oral contrast ingested. RADIATION DOSE: 18.75 CTDIvol (mGy) MEDICAL HISTORY : spinal cord injury, paralysis of diaphragm SURGICAL HISTORY : None. ENCOUNTER: Initial ACUITY: 1 day PAIN SCALE: Non-responsive LOCATION: Bilateral abdomen TECHNIQUE: Volumetric scanning of the abdomen and pelvis was performed. Using automated exposure control and ad justment of the mA and/or kV according to patient size, radiation dose was kept as low as reasonably achievable to obtain optimal diagnostic quality images. DICOM format image data is available electro nically for review and comparison. FINDINGS: LOWER LUNGS: Loculated and non-loculated pleural fluid in the lung bases bilaterally and small quantity of subpleu ral air in the anterior right lung base. Moderate posterior lung base consolidative changes in patchy air space opacities elsewhere. LIVER: Homogeneous density without lesion. There is no dilation of the biliary tree. No calcified gallston es. SPLEEN: Normal size without lesion. PANCREAS: Within normal limits. KIDNEYS: Tiny cyst in the anterolateral cortex upper pole of the right kidney. Left kidney is unremarkable. ADRENAL GLANDS: Within normal limits. VASCULAR: There is no aortic aneurysm. BOWEL/MESENTERY: Stomach is moderately distended despite NG tube. Colonic diverticulosis. No abnormal dilatation, wall thickening or other acute bowel process suspected. Minimal free peritoneal fluid. Mild nonspecific i ndurated changes involving the omentum. ABDOMINAL WALL: Within normal limits. RETROPERITONEUM: There is no lymphadenopathy. BLADDER: Decompressed with Aldana catheter REPRODUCTIVE: Within normal limits. INGUINAL: There is no lymphadenopathy or hernia. MUSCULOSKELETAL: Within normal limits for patient age. CONCLUSION: Stomach is distended despite NG tube. No other acute bowel findings. Minimal free peritoneal fluid. Nonspecific induration of the omentum. Extensive disease in the visualized lower chest. Roney Robertson MD on October 14, 2017 at 18:39 Board Certified Radiologist. This report was verified electronically.
--- NOTE | 2017-10-14 18:53 | RADRPT ---
EXAM DATE/TIME: 10/14/2017 18:18 [facility] COMPARISON: No previous studies available for comparison. INDICATIONS : Respiratory distress. IV CONTRAST: 97 cc Omnipaque 350 (iohexol) IV ; Cumulative dose for multiple exams. RADIATION DOSE: 18.71 CTDIvol (mGy) ; Combined studies MEDICAL HISTORY : spinal cord injury, paralysis of diaphragm SURGICAL HISTORY : None. ENCOUNTER: Initial ACUITY: 1 day PAIN SCALE: Non-responsive LOCATION: Bilateral chest TECHNIQUE: Volumetric scanning of the chest was performed. Using automated exposure control and adjustment of t he mA and/or kV according to patient size, radiation dose was kept as low as reasonably achievable to obtain optimal diagnostic quality images. DICOM format image data is available electronically for review and comparison. Follow-up recommendations for detected pulmonary nodules are based at a minimum on nodule size and pa tient risk factors according to Fleischner Society Guidelines. FINDINGS: LUNGS: There is extensive patchy nodular airspace opacity in the upper lung zones and consolidative changes in the posterior lung bases. PLEURA: There is loculated and non-loculated pleural fluid present bilaterally. Small volume of right chest s ubpleural air. MEDIASTINUM: No evidence of suspicious mediastinal mass or adenopathy. Minimal pericardial fluid. Endotracheal tub e in satisfactory position. Right chest port. AXILLAE: Within normal limits. No lymphadenopathy. SKELETAL: Within normal limits for patient age. CONCLUSION: Extensive bilateral parenchymal lung disease and loculated and nonloculated pleural fluid bilaterally . Small right pneumothorax Roney Robertson MD on October 14, 2017 at 18:48 Board Certified Radiologist. This report was verified electronically.
[2017-10-14] MEDS: LACTATED RINGER'S 1000 ML INJ 1,000 ML IV SCH ×2 (18:56→22:00)
[2017-10-14] MEDS: TAMSULOSIN HCL 0.4 MG CAP PO SCH (20:47)
[2017-10-14] MEDS: RESP: ALBUTEROL 0.63 MG/3 ML NEB (PRN) NEB (23:47)
[2017-10-15] VITALS (18 sets, daily range): BP systolic 94–123; BP diastolic 55–84; PULSE 105–117; RESP 14–20; TEMP 97.2–99.9; O2SAT 96–100
[2017-10-15] MEDS ORDERED: MIDAZOLAM HCL 2 MG/2 ML VIAL IV PUSH PRN
[2017-10-15] MEDS: MIDAZOLAM 100 MG/100 ML INJ 100 ML IV PRN ×2 (00:26→04:30)
[2017-10-15] MEDS: PROPOFOL 1000 MG/100 ML INJ 100 ML IV PRN ×2 (02:00→16:05)
[2017-10-15] MEDS: LACTATED RINGER'S 1000 ML INJ 1,000 ML IV SCH ×5 (03:00→21:33)
[2017-10-15] MEDS ORDERED: POTASSIUM PHOSPHATE MONOBASIC 500 MG TAB PO PRN (07:45)
[2017-10-15] MEDS ORDERED: SODIUM PHOSPHATE INJ 30 MMOL in SODIUM CHLOR 0.9% 250 ML INJ 240 ML IV PRN (07:45)
[2017-10-15] MEDS ORDERED: POTASSIUM CHLOR 20 MEQ PREMIX 100 ML IV PRN (07:45)
[2017-10-15] MEDS ORDERED: POTASSIUM PHOSPHATE INJ 30 MMOL in SODIUM CHLOR 0.9% 250 ML INJ 250 ML IV PRN (07:45)
[2017-10-15] MEDS ORDERED: POTASSIUM CHLOR 40 MEQ PREMIX 100 ML IV PRN ×2 (07:45)
[2017-10-15] MEDS ORDERED: MAGNESIUM OXIDE 400 MG TAB PO PRN (07:45)
[2017-10-15] MEDS ORDERED: POTASSIUM CHLORIDE 25 MEQ EFFERVESCENT TAB PO PRN (07:45)
[2017-10-15] MEDS ORDERED: MAGNESIUM SULFATE INJ 2 GM in SODIUM CHLORIDE 0.9% INJ 96 ML IV PRN (07:45)
[2017-10-15] MEDS ORDERED: MAGNESIUM SULFATE INJ 4 GM in SODIUM CHLORIDE 0.9% INJ 92 ML IV PRN (07:45)
[2017-10-15] MEDS ORDERED: POTASSIUM PHOSPHATE MONOBASIC 500 MG TAB PO/TUBE PRN (07:45)
--- NOTE | 2017-10-15 07:50 | HHI.CCPN ---
Subjective Remarks/Hospital Course Hospital Course: This is a 57yM with history of stage IV lung cancer, COPD who originally presented on 10/12 for constipation and abdominal pain. Today he felt nauseated. Per report, he had significant vomiting and then acutely had difficulty breathing. Rapid response was called and the patient was transferred emergently to the ICU. I evaluated the patient upon arrival to the ICU- he was in acute respiratory distress, on NRB, tachypneic. I emergently intubated the patient ( see separate procedure note for details). The patient had a large amount of bilious emesis without particulate matter in the hypopharynx which was suctioned prior to intubation. Patient was placed on mechanical ventilation. The patient was severely tachycardic. bedside critical care echocardiogram demonstrated grossly preserved biventricular function with a completely decompressed RV, totally flat and collapsed IVC, no pericardial effusion. I gave 2L LR bolus. I ordered CBC, CMP, lactate, coag, abg as well as stat CT chest/abd/pelvis with IV and PO contrast. Unfortunately, no additional information is available from the patient due to his condition. ROS unobtainable. Subjective: 10/15: still no BM. lactate cleared. appears less dehydrated this AM. remains on ivf and tachycardic, although less tachycardic than yesterday. hypoxemia persists and significant lung injury present on imaging, likely early ARDS from pneumonitis. Objective Vital Signs Date Time Temp Pulse Resp B/P (MAP) Pulse Ox O2 Delivery O2 Flow Rate FiO2 10/15/17 06:00 105 10/15/17 05:34 99 45 10/15/17 04:00 97.4 20 102/55 (71) 10/14/17 19:00 Mechanical Ventilator 10/14/17 08:00 2.00 Intake and Output 10/15/17 10/15/17 10/15/17 07:59 15:59 23:59 Intake Total 0 ml Output Total 750 ml Balance -750 ml Result Diagram: 10/14/17 1515 10/14/17 1515 Other Results Laboratory Tests Test 10/14/17 16:48 10/15/17 07:32 Blood Gas Puncture Site RT RADIAL RT RADIAL Blood Gas Patient Temperature 98.6 98.6 Blood Gas HCO3 30 mmol/L (22-26) 30 mmol/L (22-26) Blood Gas Base Excess 5.2 mmol/L (-2-2) 5.7 mmol/L (-2-2) Blood Gas Oxygen Saturation 98 % (90-100) 95 % (90-100) Arterial Blood pH 7.37 (7.380-7.420) 7.43 (7.380-7.420) Arterial Blood Partial Pressure CO2 54 mmHg (38-42) 46 mmHg (38-42) Arterial Blood Partial Pressure O2 423 mmHg (61-120) 85 mmHg (61-120) Arterial Blood Oxygen Content 13.0 Vol % (12.0-20.0) 9.6 Vol % (12.0-20.0) Arterial Blood Carboxyhemoglobin 1.4 % (0-4) 1.7 % (0-4) Arterial Blood Methemoglobin 0.8 % (0-2) 0.6 % (0-2) Blood Gas Hemoglobin 8.6 G/DL (12.0-16.0) 7.1 G/DL (12.0-16.0) Oxygen Delivery Device VENTILATOR VENTILATOR Blood Gas Ventilator Setting PRVC/AC Blood Gas Inspired Oxygen 100 % 45 % Imaging Last Impressions Chest X-Ray 10/14/17 0000 Signed Impressions: Service Date/Time: Saturday, October 14, 2017 14:56 - CONCLUSION: Interval intubation and placement of nasogastric tube. Otherwise stable chest Roney Robertson MD Abdomen X-Ray 10/14/17 0000 Signed Impressions: Service Date/Time: Saturday, October 14, 2017 15:14 - CONCLUSION: NG tube in the stomach. Nonspecific bowel gas pattern Roney Robertson MD Objective Remarks gen: cachectic male, looks much older than stated age, intubated, sedated heent: perrl. nc. at. mucous membranes dry neck: no jvd. trachea midline. chest: PRVC, fio2 40%, peep 5. peak pressures 34. spo2 99% cv: tachycardic rate, regular rhythm. sinus. rate in the 100s. abd: scaphoid. soft, mildly distended. no guarding. extr: warm, well perfused. no peripheral edema. neuro: RASS -3. withdraws to pain. moves all extremities. no focal deficits. A/P Assessment and Plan Assessment: 57yM with lung cancer and now acute aspiration pneumonitis and acute hypoxic respiratory failure. remains critically ill. will increase bowel regimen today for BM. continue low-tidal volume ventilation for ARDS-net protection. not ready to separate from mechanical ventilation yet. Active Problems: Non-obstructive Ileus Severe constipation Stage IV Lung Cancer Severe Aspiration pneumonitis Acute hypoxic respiratory failure Acute metabolic encephalopathy Plan: remain in ICU. no weaning of mechanical ventilation until pneumonitis improves wean fio2 for goal spo2 > 90% low tidal volume ventilation nebs hob elevated vent bundle npo place OGT to suction propofol, fentanyl, versed for goal RASS -2 appreciate GI consultation LR @ 200cc/hr. keep felton strict i/o's mag citrate po senna/colace BID lactulose BID miraLAX BID relistor SQ x 1. dulcolax suppository soap suds enema today. if no BM, would consider neostigmine. would prefer to neostigmine before colonoscopy given acute lung injury. Critical care time: 40 minutes, exclusive of separately billable procedures. Emeterio Berry MD Oct 15, 2017 07:50
[2017-10-15] MEDS ORDERED: METHYLNALTREXONE BROMIDE 12 MG/0.6 ML VIAL SQ ONE (08:30)
[2017-10-15] MEDS ORDERED: MAGNESIUM CITRATE SOLN 300 ML BTL PO ONE (08:30)
[2017-10-15] MEDS: TIOTROPIUM BROMIDE 18 MCG INH INH SCH (09:00)
[2017-10-15] MEDS: VENLAFAXINE HCL XR 75 MG CAP PO SCH (09:00)
[2017-10-15] MEDS: buPROPion HCL 100 MG SUSTAINED RELEASE TAB PO SCH ×2 (09:00→20:19)
[2017-10-15] MEDS: MONTELUKAST SODIUM 10 MG TAB PO SCH ×2 (09:00→20:19)
[2017-10-15] MEDS: PANTOPRAZOLE SOD 40 MG DELAYED RELEASE TAB PO SCH (09:00)
[2017-10-15 09:30] LABS: ALT (GPT) 18 U/L (12-78); AST (GOT) 13 U/L (15-37); BICARBONATE 29.3 MEQ/L (21.0-32.0); BLOOD UREA NITROGEN 8 MG/DL (7-18); CALCIUM 7.9 MG/DL (8.5-10.1); CHLORIDE 100 MEQ/L (98-107); CREATININE 0.54 MG/DL (0.60-1.30); GLOMERULAR FILTRATION RATE 158 ML/MIN (>89); GLUCOSE,RANDOM 65 MG/DL (74-106); MAGNESIUM 1.2 MG/DL (1.5-2.5); SODIUM (NA) 138 MEQ/L (136-145)
[2017-10-15 09:38] LABS: ALKALINE PHOSPHATASE 100 U/L (45-117); TOTAL BILIRUBIN ADULT 0.3 MG/DL (0.2-1.0); TOTAL PROTEIN 5.2 GM/DL (6.4-8.2)
[2017-10-15] MEDS: DOCUSATE SODIUM 50 MG/SENNA 8.6 MG TAB PO SCH ×2 (09:39→20:19)
[2017-10-15] MEDS: GABAPENTIN 300 MG CAP PO SCH ×3 (09:39→18:27)
[2017-10-15] MEDS: LACTULOSE SYRUP 20 GM/30 ML CUP PO SCH ×2 (09:40→20:18)
[2017-10-15] MEDS: BACLOFEN 20 MG TAB PO SCH ×2 (09:40→20:19)
[2017-10-15] MEDS: MISOPROSTOL 200 MCG TAB PO SCH ×3 (09:40→18:27)
[2017-10-15] MEDS: POLYETHYLENE GLYCOL 17 GM PKG PO SCH ×2 (09:40→20:19)
[2017-10-15] MEDS: busPIRone HCL 5 MG TAB PO SCH ×2 (09:40→20:19)
[2017-10-15] MEDS: MAGNESIUM SULFATE 1 GM PREMIX 100 ML IV SCH ×2 (09:41→12:09)
[2017-10-15] MEDS: BISACODYL 10 MG SUPP RECTAL SCH (09:41)
--- NOTE | 2017-10-15 10:37 | EKG ---
Date Performed: 10/14/2017 Time Performed: 15:23:23 PTAGE: 57 years EKG: SINUS TACHYCARDIA ABNORMAL RHYTHM ECG Since the PREVIOUS TRACING , no significant change noted PREVIOUS TRACIN10/14/2017 14.54 DOCTOR: Neno Boyd Interpretating Date/Time 10/15/2017 10:34:07
--- NOTE | 2017-10-15 11:43 | HHI.GIFU ---
Subjective Remarks Pt now intubated. family at bedside. No BM today. (Krystle Smith) Objective Vitals I&O Vital Signs Date Time Temp Pulse Resp B/P (MAP) Pulse Ox O2 Delivery O2 Flow Rate FiO2 10/15/17 10:00 113 10/15/17 09:21 96 40 10/15/17 08:00 99.0 106 20 99/61 (74) 99 10/15/17 08:00 45 10/15/17 08:00 106 10/15/17 07:00 100 Mechanical Ventilator 50 10/15/17 06:00 105 10/15/17 05:34 99 45 10/15/17 04:00 105 10/15/17 04:00 97.4 105 20 102/55 (71) 99 10/15/17 04:00 45 10/15/17 02:00 110 10/15/17 01:45 99 45 10/15/17 00:00 112 10/15/17 00:00 97.2 111 20 100/57 (71) 100 10/15/17 00:00 50 10/14/17 23:25 100 50 10/14/17 22:00 113 10/14/17 20:00 50 10/14/17 20:00 105 10/14/17 20:00 98.6 108 20 113/66 (82) 97 10/14/17 19:00 100 Mechanical Ventilator 50 10/14/17 18:40 99 60 10/14/17 18:00 113 10/14/17 16:46 100 100 10/14/17 16:00 98.1 112 23 121/70 (87) 100 10/14/17 16:00 100 10/14/17 16:00 100 Mechanical Ventilator 10/14/17 16:00 112 10/14/17 14:37 129 20 138/85 (102) 90 10/14/17 14:36 20 72 10/14/17 14:35 98.1 129 20 60 10/14/17 14:35 45 10/14/17 12:00 97.6 101 18 121/74 (90) 90 I/O 10/14/1718 10/14/17 10/15/17 10/15/17 10/15/17 07:00 15:00 23:00 07:00 15:00 23:00 Intake Total 120 ml 960 ml 0 ml Output Total 1225 ml 150 ml 700 ml 750 ml Balance -1105 ml -150 ml 260 ml -750 ml Intake Oral 120 ml 0 ml 0 ml Other 960 ml Output Urine Total 850 ml 400 ml 550 ml Stool Total 0 ml Gastric Drainage Total 300 ml 200 ml Emesis 375 ml 150 ml # Voids 0 # Bowel Movements 0 1 0 Laboratory Laboratory Tests Test 10/14/17 15:15 10/14/17 15:39 10/14/17 16:48 10/14/17 18:00 White Blood Count 11.8 Red Blood Count 3.57 Hemoglobin 10.3 Hematocrit 32.1 Mean Corpuscular Volume 89.9 Mean Corpuscular Hemoglobin 29.0 Mean Corpuscular Hemoglobin Concent 32.2 Red Cell Distribution Width 23.7 Platelet Count 186 Mean Platelet Volume 7.9 Prothrombin Time 12.4 Prothromb Time International Ratio 1.2 Activated Partial Thromboplast Time 25.4 Blood Urea Nitrogen 14 Creatinine 0.54 Random Glucose 150 Total Protein 6.5 Albumin 2.7 Calcium Level 7.9 Phosphorus Level 3.0 Magnesium Level 1.4 Alkaline Phosphatase 129 Aspartate Amino Transf (AST/SGOT) 20 Alanine Aminotransferase (ALT/SGPT) 27 Total Bilirubin 0.3 Sodium Level 138 Potassium Level 3.6 Chloride Level 98 Carbon Dioxide Level 31.4 Anion Gap 9 Estimat Glomerular Filtration Rate 158 Lipase 124 Lactic Acid Level 8.1 1.5 Ammonia 26 Blood Gas Puncture Site RT RADIAL Blood Gas Patient Temperature 98.6 Blood Gas HCO3 30 Blood Gas Base Excess 5.2 Blood Gas Oxygen Saturation 98 Arterial Blood pH 7.37 Arterial Blood Partial Pressure CO2 54 Arterial Blood Partial Pressure O2 423 Arterial Blood Oxygen Content 13.0 Arterial Blood Carboxyhemoglobin 1.4 Arterial Blood Methemoglobin 0.8 Blood Gas Hemoglobin 8.6 Oxygen Delivery Device VENTILATOR Blood Gas Ventilator Setting Blood Gas Inspired Oxygen 100 Test 10/14/17 20:20 10/15/17 00:30 10/15/17 07:32 10/15/17 09:00 Nasal Screen MRSA (PCR) MRSA NOT DETECTED Lactic Acid Level 0.9 Blood Gas Puncture Site RT RADIAL Blood Gas Patient Temperature 98.6 Blood Gas HCO3 30 Blood Gas Base Excess 5.7 Blood Gas Oxygen Saturation 95 Arterial Blood pH 7.43 Arterial Blood Partial Pressure CO2 46 Arterial Blood Partial Pressure O2 85 Arterial Blood Oxygen Content 9.6 Arterial Blood Carboxyhemoglobin 1.7 Arterial Blood Methemoglobin 0.6 Blood Gas Hemoglobin 7.1 Oxygen Delivery Device VENTILATOR Blood Gas Ventilator Setting PRVC/AC Blood Gas Inspired Oxygen 45 Blood Urea Nitrogen 8 Creatinine 0.54 Random Glucose 65 Total Protein 5.2 Albumin 2.0 Calcium Level 7.9 Phosphorus Level 2.0 Magnesium Level 1.2 Alkaline Phosphatase 100 Aspartate Amino Transf (AST/SGOT) 13 Alanine Aminotransferase (ALT/SGPT) 18 Total Bilirubin 0.3 Sodium Level 138 Potassium Level 3.3 Chloride Level 100 Carbon Dioxide Level 29.3 Anion Gap 9 Estimat Glomerular Filtration Rate 158 Imaging Last Impressions Chest X-Ray 10/14/17 0000 Signed Impressions: Service Date/Time: Saturday, October 14, 2017 14:56 - CONCLUSION: Interval intubation and placement of nasogastric tube. Otherwise stable chest Roney Robertson MD Chest CT 10/14/17 0000 Signed Impressions: Service Date/Time: Saturday, October 14, 2017 18:18 - CONCLUSION: Extensive bilateral parenchymal lung disease and loculated and nonloculated pleural fluid bilaterally. Small right pneumothorax Roney Robertson MD Abdomen/Pelvis CT 10/14/17 0000 Signed Impressions: Service Date/Time: Saturday, October 14, 2017 18:18 - CONCLUSION: Stomach is distended despite NG tube. No other acute bowel findings. Minimal free peritoneal fluid. Nonspecific induration of the omentum. Extensive disease in the visualized lower chest. Roney Robertson MD Abdomen X-Ray 10/14/17 0000 Signed Impressions: Service Date/Time: Saturday, October 14, 2017 15:14 - CONCLUSION: NG tube in the stomach. Nonspecific bowel gas pattern Roney Robertson MD Physical Exam HEENT: normocephalic; atraumatic; no jaundice. intubated CHEST: coarse CARDIAC: tachy, irregular ABDOMEN: firm, distended, nontender; no hepatosplenomegaly; BS hypoactive but present EXTREMITIES: No clubbing, cyanosis, or edema. SKIN: Normal; no rash; no jaundice. WIC SITE COORDINATOR: sedated on vent, opens eyes (Krystle Smith) Assessment and Plan Plan ASSESSMENT - constipation,n/v - Pt had one BM last night, Pt had an acute event today , he had aspiration during NGT insertion which was attempted for persistent N/V. Pt started having hematemesis, stats declined and Halicat initiated, currently pt has been transferred to the unit and under CCM care. - Non small cell lung caner- hematology on the case 10/15/17 distended, no BM today. several interventions pending - golytely, suppository, enema. CCM considering neostigmine. PLAN - NPO - await enema, golytely - CCM considering neostigmine - decompressive colonoscopy if no yield from above interventions - supportive care pt seen by myself and Dr Meadows and this note is on her behalf (Krystle Smith) Physician Comments seen, examined agree with above (Prema Meadows MD) Krystle Smith Oct 15, 2017 11:43 Prema Meadows MD Oct 15, 2017 16:36
[2017-10-15] MEDS: fentaNYL DRIP 250 ML IV PRN (12:58)
[2017-10-15 13:32] LABS: HEMATOCRIT 24.8 % (39.0-51.0); HEMOGLOBIN 8.2 GM/DL (13.0-17.0); MEAN CELL VOLUME 89.6 FL (80.0-100.0); MEAN CORPUSCULAR HEMOGLOBIN 29.6 PG (27.0-34.0); MEAN CORPUSCULAR HGB CONC 33.1 % (32.0-36.0); MEAN PLATELET VOLUME 7.9 FL (7.0-11.0); PLATELET COUNT 92 TH/MM3 (150-450); RED BLOOD COUNT 2.77 MIL/MM3 (4.50-5.90); RED CELL DISTRIBUTION WIDTH 23.2 % (11.6-17.2); WHITE BLOOD COUNT 6.4 TH/MM3 (4.0-11.0)
[2017-10-15] MEDS: INSULIN NovoLIN REGULAR SUPPLEMENTAL SCALE SQ SCH ×2 (15:59→20:00)
[2017-10-15] MEDS ORDERED: NEOSTIGMINE 3 MG/3 ML SYR IV PUSH ONE (16:00)
[2017-10-15] MEDS ORDERED: ATROPINE SULFATE 1 MG/10 ML SYRINGE IV PUSH ONE (16:00)
[2017-10-15] MEDS ORDERED: NEOSTIGMINE 5 MG/5 ML SYRINGE IV PUSH ONE (16:00)
[2017-10-15] MEDS ORDERED: DEXTROSE 50% IN WATER 50 ML VIAL(D50) IV PUSH PRN (16:00)
[2017-10-15] MEDS ORDERED: PEG (High)/E-LYTE SOLN 4000 ML BTL PO ONE (16:00)
[2017-10-15] MEDS: DEXTROSE 10% INJ 1,000 ML IV SCH (16:04)
[2017-10-15] MEDS ORDERED: NEOSTIGMINE METHYLSULFATE 10 MG/10 ML VIAL IV PUSH ONE (16:15)
[2017-10-15] MEDS: TAMSULOSIN HCL 0.4 MG CAP PO SCH (20:19)
[2017-10-15 21:32] LABS: MAGNESIUM 1.6 MG/DL (1.5-2.5); PHOSPHORUS 2.6 MG/DL (2.5-4.9)
[2017-10-16] VITALS (18 sets, daily range): BP systolic 96–122; BP diastolic 56–78; PULSE 99–120; RESP 20–23; TEMP 99–103.1; O2SAT 92–100
--- NOTE | 2017-10-16 01:30 | PD.ONC.PN ---
Subjective Subjective Remarks Intubated and sedated. Discussed care at bedside with RN. Celestino BM. Alert, follows direction. Late note entryl. Patient seen at bedside at approximately 8 pm. Objective Data Date Time Temp Pulse Resp B/P (MAP) Pulse Ox O2 Delivery O2 Flow Rate FiO2 10/16/17 00:37 100 60 10/15/17 22:13 100 60 10/15/17 22:00 108 10/15/17 20:00 116 10/15/17 20:00 99.4 116 20 123/84 (97) 98 10/15/17 20:00 60 10/15/17 19:00 100 Mechanical Ventilator 60 10/15/17 18:00 117 10/15/17 16:21 100 40 10/15/17 16:00 99.9 108 20 97/62 (74) 99 10/15/17 16:00 105 10/15/17 16:00 45 10/15/17 14:00 108 10/15/17 12:59 99.0 113 20 94/66 (75) 97 10/15/17 12:00 110 10/15/17 12:00 45 10/15/17 10:00 113 10/15/17 09:21 96 40 10/15/17 08:00 99.0 106 20 99/61 (74) 99 10/15/17 08:00 45 10/15/17 08:00 106 10/15/17 07:00 100 Mechanical Ventilator 50 10/15/17 06:00 105 10/15/17 05:34 99 45 10/15/17 04:00 105 10/15/17 04:00 97.4 105 20 102/55 (71) 99 10/15/17 04:00 45 10/15/17 02:00 110 10/15/17 01:45 99 45 Result Diagram: 10/15/17 1317 10/15/172049 Laboratory Results Laboratory Tests Test 10/15/17 07:32 10/15/17 09:00 10/15/17 13:17 10/15/17 20:50 Blood Gas Puncture Site RT RADIAL Blood Gas Patient Temperature 98.6 Blood Gas HCO3 30 mmol/L Blood Gas Base Excess 5.7 mmol/L Blood Gas Oxygen Saturation 95 % Arterial Blood pH 7.43 Arterial Blood Partial Pressure CO2 46 mmHg Arterial Blood Partial Pressure O2 85 mmHg Arterial Blood Oxygen Content 9.6 Vol % Arterial Blood Carboxyhemoglobin 1.7 % Arterial Blood Methemoglobin 0.6 % Blood Gas Hemoglobin 7.1 G/DL Oxygen Delivery Device VENTILATOR Blood Gas Ventilator Setting PRVC/AC Blood Gas Inspired Oxygen 45 % Blood Urea Nitrogen 8 MG/DL Creatinine 0.54 MG/DL Random Glucose 65 MG/DL Total Protein 5.2 GM/DL Albumin 2.0 GM/DL Calcium Level 7.9 MG/DL Phosphorus Level 2.0 MG/DL 2.6 MG/DL Magnesium Level 1.2 MG/DL 1.6 MG/DL Alkaline Phosphatase 100 U/L Aspartate Amino Transf (AST/SGOT) 13 U/L Alanine Aminotransferase (ALT/SGPT) 18 U/L Total Bilirubin 0.3 MG/DL Sodium Level 138 MEQ/L Potassium Level 3.3 MEQ/L 3.5 MEQ/L Chloride Level 100 MEQ/L Carbon Dioxide Level 29.3 MEQ/L Anion Gap 9 MEQ/L Estimat Glomerular Filtration Rate 158 ML/MIN White Blood Count 6.4 TH/MM3 Red Blood Count 2.77 MIL/MM3 Hemoglobin 8.2 GM/DL Hematocrit 24.8 % Mean Corpuscular Volume 89.6 FL Mean Corpuscular Hemoglobin 29.6 PG Mean Corpuscular Hemoglobin Concent 33.1 % Red Cell Distribution Width 23.2 % Platelet Count 92 TH/MM3 Mean Platelet Volume 7.9 FL Hematology Comments Administered Medications Medications (Trade) Dose Ordered Sig/Kasi Route PRN Reason Start Time Stop Time Status Last Admin Dose Admin Ondansetron HCl (Zofran Inj) 4 mg Q8HR PRN IV PUSH NAUSEA 10/12/17 16:30 10/14/17 13:24 Albuterol Sulfate (Albuterol Neb) 0.63 mg Q4HR NEB PRN NEB SHORTNESS OF BREATH 10/12/17 16:30 10/14/17 23:47 Baclofen (Lioresal) 20 mg BID PO 10/12/17 21:00 10/15/17 20:19 Bupropion HCl (Wellbutrin Sr 12 Hr) 100 mg Q12HR PO 10/12/17 21:00 10/14/17 08:49 Buspirone HCl (Buspar) 15 mg BID PO 10/12/17 21:00 10/15/17 20:19 Gabapentin (Neurontin) 600 mg TID PO 10/12/17 18:00 10/15/17 18:27 Misoprostol (Cytotec) 200 mcg TID PO 10/12/17 18:00 10/15/17 18:27 Montelukast Sodium (Singulair) 10 mg BID PO 10/12/17 21:00 10/14/17 08:46 Spironolactone (Aldactone) 50 mg DAILY PO 10/13/17 09:00 Future Hold 10/14/17 08:44 Tamsulosin HCl (Flomax) 0.4 mg HS PO 10/12/17 21:00 10/13/17 20:26 Pantoprazole Sodium (Protonix) 40 mg DAILY PO 10/13/17 09:00 10/14/17 08:47 Tiotropium [place] (Spiriva Inh) 18 mcg DAILY INH 10/13/17 09:00 10/14/17 08:46 Venlafaxine HCl (Effexor Xr) 225 mg DAILY PO 10/13/17 09:00 10/14/17 08:45 Senna/Docusate Sodium (Jasmine-Colace) 1 tab BID PO 10/13/17 10:30 10/15/17 20:19 Fentanyl Citrate 250 ml @ 5 mls/hr TITRATE PRN IV SEDATION 10/14/17 16:00 10/15/17 12:58 Propofol 100 ml @ 2.508 mls/ hr TITRATE PRN IV SEDATION 10/14/17 16:00 10/15/17 16:05 Lactated Ringer's 1,000 ml @ 200 mls/hr Q5H IV 10/14/17 17:00 10/15/17 21:33 Midazolam HCl 100 ml @ 2 mls/hr TITRATE PRN IV SEDATION 10/15/17 00:00 10/15/17 04:30 Polyethylene Glycol (Miralax) 17 gm BID PO 10/15/17 09:00 10/15/17 20:19 Bisacodyl (Dulcolax Supp) 10 mg DAILY RECTAL 10/15/17 09:00 10/15/17 09:41 Lactulose (Lactulose Liq) 30 ml BID PO 10/15/17 09:00 10/15/17 20:18 Dextrose 1,000 ml @ 42 mls/hr [id number] IV 10/15/17 16:00 10/15/17 16:04 Objective Remarks GENERAL: chronically ill appearing man, intubated and sedated. SKIN: Warm and dry. HEAD: Normocephalic. EYES: No scleral icterus. No injection or drainage. RESPIRATORY: intubated and sedated. GASTROINTESTINAL: Abdomen soft, non-tender, nondistended. EXTREMITIES: No edema. NEUROLOGICAL: No obvious focal deficit. Follows directions. PSYCHIATRIC: Appropriate mood and affect; insight and judgment normal. Assessment/Plan Problem List: (1) Non-small cell lung cancer (NSCLC) ICD Codes: C34.90 - Malignant neoplasm of unspecified part of unspecified bronchus or lung Plan: --Patient is status post 4 cycles of chemotherapy with goal of 6 (2) Constipation ICD Codes: K59.00 - Constipation, unspecified Plan: --. KUB from , 10/11, showed a very large amount of stool throughout the colon and mild distended small bowel loops, mostly in the left mid abdomen. Assessment GI: nausea/vomiting, constipation. Improvement in constipation with enema, oral laxatives. Multiple BM today. Plan for sigmoidoscopy and EGD by GI team tomorrow. Respiratory distress: aspiration during placement of NG. Intubated. Malignancy: s/p treatment with 4 cycles of chemotherapy. Linda Mcmanus MD Oct 16, 2017 01:30
[2017-10-16] MEDS: POTASSIUM CHLOR 20 MEQ PREMIX 100 ML IV PRN (03:00)
[2017-10-16] MEDS ORDERED: ALBUMIN 5% INJ 250 ML IV ONE (03:30)
[2017-10-16 03:45] LABS: HEMATOCRIT 23.2 % (39.0-51.0); HEMOGLOBIN 7.6 GM/DL (13.0-17.0); MEAN CELL VOLUME 89.4 FL (80.0-100.0); MEAN CORPUSCULAR HEMOGLOBIN 29.4 PG (27.0-34.0); MEAN CORPUSCULAR HGB CONC 32.9 % (32.0-36.0); MEAN PLATELET VOLUME 7.9 FL (7.0-11.0); PLATELET COUNT 79 TH/MM3 (150-450); RED CELL DISTRIBUTION WIDTH 23.3 % (11.6-17.2); WHITE BLOOD COUNT 5.6 TH/MM3 (4.0-11.0)
[2017-10-16] MEDS: INSULIN NovoLIN REGULAR SUPPLEMENTAL SCALE SQ SCH ×6 (04:00→20:00)
[2017-10-16 04:25] LABS: BICARBONATE 31.5 MEQ/L (21.0-32.0); CALCIUM 7.5 MG/DL (8.5-10.1); CREATININE 0.45 MG/DL (0.60-1.30)
[2017-10-16] MEDS: MAGNESIUM SULFATE 1 GM PREMIX 100 ML IV SCH ×2 (04:38→05:42)
[2017-10-16] MEDS: MIDAZOLAM 100 MG/100 ML INJ 100 ML IV PRN ×2 (05:43→22:58)
[2017-10-16] MEDS: POLYETHYLENE GLYCOL 17 GM PKG PO SCH ×2 (08:19→19:51)
[2017-10-16] MEDS: DOCUSATE SODIUM 50 MG/SENNA 8.6 MG TAB PO SCH ×2 (08:20→19:51)
[2017-10-16] MEDS: MISOPROSTOL 200 MCG TAB PO SCH ×4 (08:20→17:37)
[2017-10-16] MEDS: GABAPENTIN 300 MG CAP PO SCH ×3 (08:20→17:38)
[2017-10-16] MEDS: TIOTROPIUM BROMIDE 18 MCG INH INH SCH (08:21)
[2017-10-16] MEDS: busPIRone HCL 5 MG TAB PO SCH ×2 (08:21→22:54)
[2017-10-16] MEDS: BACLOFEN 20 MG TAB PO SCH ×2 (08:21→22:55)
[2017-10-16] MEDS: buPROPion HCL 100 MG SUSTAINED RELEASE TAB PO SCH ×2 (08:22→22:56)
[2017-10-16] MEDS: BISACODYL 10 MG SUPP RECTAL SCH (08:22)
[2017-10-16] MEDS: LACTULOSE SYRUP 20 GM/30 ML CUP PO SCH ×2 (08:22→19:51)
[2017-10-16] MEDS: VENLAFAXINE HCL XR 75 MG CAP PO SCH (08:22)
[2017-10-16] MEDS: PANTOPRAZOLE SOD 40 MG DELAYED RELEASE TAB PO SCH (08:22)
[2017-10-16] MEDS: MONTELUKAST SODIUM 10 MG TAB PO SCH ×2 (08:32→22:55)
--- NOTE | 2017-10-16 10:50 | HHI.CCPN ---
Subjective Remarks/Hospital Course Hospital Course: This is a 57yM with history of stage IV lung cancer, COPD who originally presented on 10/12 for constipation and abdominal pain. Today he felt nauseated. Per report, he had significant vomiting and then acutely had difficulty breathing. Rapid response was called and the patient was transferred emergently to the ICU. I evaluated the patient upon arrival to the ICU- he was in acute respiratory distress, on NRB, tachypneic. I emergently intubated the patient ( see separate procedure note for details). The patient had a large amount of bilious emesis without particulate matter in the hypopharynx which was suctioned prior to intubation. Patient was placed on mechanical ventilation. The patient was severely tachycardic. bedside critical care echocardiogram demonstrated grossly preserved biventricular function with a completely decompressed RV, totally flat and collapsed IVC, no pericardial effusion. I gave 2L LR bolus. I ordered CBC, CMP, lactate, coag, abg as well as stat CT chest/abd/pelvis with IV and PO contrast. Unfortunately, no additional information is available from the patient due to his condition. ROS unobtainable. Subjective: 10/15: still no BM. lactate cleared. appears less dehydrated this AM. remains on ivf and tachycardic, although less tachycardic than yesterday. hypoxemia persists and significant lung injury present on imaging, likely early ARDS from pneumonitis. 10/16: Remains sedated, orally intubated on mechanical ventilation. Objective Vital Signs Date Time Temp Pulse Resp B/P (MAP) Pulse Ox O2 Delivery O2 Flow Rate FiO2 10/16/17 09:34 98 40 10/16/17 06:00 102 10/16/17 04:00 99.0 20 110/63 (79) 10/15/17 19:00 Mechanical Ventilator 10/14/17 08:00 2.00 Intake and Output 10/16/17 10/16/17 10/17/17 08:00 16:00 00:00 Intake Total 450 ml Output Total 341 ml Balance 109 ml Result Diagram: 10/16/17 0320 10/16/17 0320 Imaging Last Impressions Chest X-Ray 10/14/17 0000 Signed Impressions: Service Date/Time: Saturday, October 14, 2017 14:56 - CONCLUSION: Interval intubation and placement of nasogastric tube. Otherwise stable chest Roney Robertson MD Abdomen X-Ray 10/14/17 0000 Signed Impressions: Service Date/Time: Saturday, October 14, 2017 15:14 - CONCLUSION: NG tube in the stomach. Nonspecific bowel gas pattern Roney Robertson MD Objective Remarks gen: cachectic male, looks much older than stated age, intubated, sedated heent: perrl. nc. at. mucous membranes dry neck: no jvd. trachea midline. chest: Orally intubated on mechanical ventilation PRVC, fio2 40%, peep 5. Good air entry bilaterally, scattered rhonchi, no wheezing cv: tachycardic rate, regular rhythm. sinus. rate in the 100s. abd: scaphoid. soft, mildly distended. no guarding. extr: warm, well perfused. no peripheral edema. neuro: RASS -3. withdraws to pain. moves all extremities. no focal deficits. A/P Assessment and Plan Assessment: 57yM with lung cancer and now acute aspiration pneumonitis and acute hypoxic respiratory failure. remains critically ill. will increase bowel regimen today for BM. continue low-tidal volume ventilation for ARDS-net protection. not ready to separate from mechanical ventilation yet. Active Problems: Non-obstructive Ileus Severe constipation Stage IV Lung Cancer Severe Aspiration pneumonitis Acute hypoxic respiratory failure Acute metabolic encephalopathy Plan: remain in ICU. no weaning of mechanical ventilation until pneumonitis improves wean fio2 for goal spo2 > 90% low tidal volume ventilation nebs hob elevated vent bundle npo place OGT to suction propofol, fentanyl, versed for goal RASS -2 appreciate GI consultation-planning possible colonoscopy LR @ 200cc/hr. keep felton strict i/o's mag citrate po senna/colace BID lactulose BID miraLAX BID relistor SQ x 1. dulcolax suppository soap suds enema Critical care time: 40 minutes, exclusive of separately billable procedures. Andre Link MD Oct 16, 2017 10:50
--- NOTE | 2017-10-16 11:05 | HHI.GIFU ---
Subjective Remarks pt resting in bed, lightly sedated on vent. Per RN had 1 large and 1 small BM after golytely and neostigmine. Objective Vitals I&O Vital Signs Date Time Temp Pulse Resp B/P (MAP) Pulse Ox O2 Delivery O2 Flow Rate FiO2 10/16/17 09:34 98 40 10/16/17 06:00 102 10/16/17 04:19 100 50 10/16/17 04:00 50 10/16/17 04:00 99.0 116 20 110/63 (79) 100 10/16/17 04:00 116 10/16/17 02:00 108 10/16/17 00:37 100 60 10/16/17 00:00 113 10/16/17 00:00 99.2 113 20 96/56 (69) 100 10/16/17 00:00 60 10/15/17 22:13 100 60 10/15/17 22:00 108 10/15/17 20:00 116 10/15/17 20:00 99.4 116 20 123/84 (97) 98 10/15/17 20:00 60 10/15/17 19:00 100 Mechanical Ventilator 60 10/15/17 18:00 117 10/15/17 16:21 100 40 10/15/17 16:00 99.9 108 20 97/62 (74) 99 10/15/17 16:00 105 10/15/17 16:00 45 10/15/17 14:00 108 10/15/17 12:59 99.0 113 20 94/66 (75) 97 10/15/17 12:00 110 10/15/17 12:00 45 I/O 10/15/17 10/15/17 10/15/17 10/16/17 10/16/17 10/16/17 07:00 15:00 23:00 07:00 15:00 23:00 Intake Total 0 ml 1199 ml 1782 ml 450 ml Output Total 750 ml 776 ml 341 ml Balance -750 ml 1199 ml 1006 ml 109 ml Intake Oral 0 ml 0 ml IV Total 1199 ml 1198 ml 450 ml Tube Feeding 584 ml Output Urine Total 550 ml 375 ml 340 ml Stool Total 0 ml 1 ml 1 ml Gastric Drainage Total 200 ml 400 ml Laboratory Laboratory Tests Test 10/15/17 13:17 10/15/17 20:50 10/16/17 03:20 White Blood Count 6.4 5.6 Red Blood Count 2.77 2.60 Hemoglobin 8.2 7.6 Hematocrit 24.8 23.2 Mean Corpuscular Volume 89.6 89.4 Mean Corpuscular Hemoglobin 29.6 29.4 Mean Corpuscular Hemoglobin Concent 33.1 32.9 Red Cell Distribution Width 23.2 23.3 Platelet Count 92 79 Mean Platelet Volume 7.9 7.9 Hematology Comments Potassium Level 3.5 3.5 Phosphorus Level 2.6 Magnesium Level 1.6 Blood Urea Nitrogen 6 Creatinine 0.45 Random Glucose 77 Calcium Level 7.5 Sodium Level 137 Chloride Level 96 Carbon Dioxide Level 31.5 Anion Gap 10 Estimat Glomerular Filtration Rate 195 Imaging Last Impressions Chest X-Ray 10/14/17 0000 Signed Impressions: Service Date/Time: Saturday, October 14, 2017 14:56 - CONCLUSION: Interval intubation and placement of nasogastric tube. Otherwise stable chest Roney Robertson MD Chest CT 10/14/17 0000 Signed Impressions: Service Date/Time: Saturday, October 14, 2017 18:18 - CONCLUSION: Extensive bilateral parenchymal lung disease and loculated and nonloculated pleural fluid bilaterally. Small right pneumothorax Roney Robertson MD Abdomen/Pelvis CT 10/14/17 0000 Signed Impressions: Service Date/Time: Saturday, October 14, 2017 18:18 - CONCLUSION: Stomach is distended despite NG tube. No other acute bowel findings. Minimal free peritoneal fluid. Nonspecific induration of the omentum. Extensive disease in the visualized lower chest. Roney Robertson MD Abdomen X-Ray 10/14/17 0000 Signed Impressions: Service Date/Time: Saturday, October 14, 2017 15:14 - CONCLUSION: NG tube in the stomach. Nonspecific bowel gas pattern Roney Robertson MD Physical Exam HEENT: normocephalic; atraumatic; no jaundice. intubated CHEST: coarse CARDIAC: tachy, irregular ABDOMEN: soft, mildly distended, BS soft EXTREMITIES: No clubbing, cyanosis, or edema. SKIN: Normal; no rash; no jaundice. 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 Pt started having hematemesis, stats declined and Halicat initiated, currently pt has been transferred to the unit and under CCM care. - Non small cell lung caner- hematology on the case 10/15/17 distended, no BM today. several interventions pending - golytely, suppository, enema. CCM considering neostigmine. 10/16/17 2 x BM after golytely, neostigmine yesterday. much less distended and is softer today. d/w RN, d/w CCM. PLAN - consider starting trickle feed - bowel regimen - supportive care - GI will sign off. please reconsult if needed. pt seen by myself and Dr Meadows and this note is on her behalf Krystle Smith Oct 16, 2017 11:05
[2017-10-16] MEDS: LACTATED RINGER'S 1000 ML INJ 1,000 ML IV SCH ×2 (13:27→19:52)
[2017-10-16] MEDS: DEXTROSE 10% INJ 1,000 ML IV SCH (17:40)
[2017-10-16] MEDS ORDERED: ACETAMINOPHEN 1000 MG/100 ML 100 ML IV PRN (19:15)
[2017-10-16] MEDS: TAMSULOSIN HCL 0.4 MG CAP PO SCH (21:00)
[2017-10-16] MEDS: PROPOFOL 1000 MG/100 ML INJ 100 ML IV PRN (22:56)
--- NOTE | 2017-10-16 23:58 | PD.ONC.PN ---
Subjective Subjective Remarks Intubated and sedated. Objective Data Date Time Temp Pulse Resp B/P (MAP) Pulse Ox O2 Delivery O2 Flow Rate FiO2 10/16/17 22:00 115 10/16/17 20:00 103.1 105 20 109/64 (79) 97 10/16/17 20:00 105 10/16/17 20:00 40 10/16/17 19:00 97 Mechanical Ventilator 40 10/16/17 18:00 118 10/16/17 17:03 95 40 10/16/17 16:00 100.2 120 23 122/78 (93) 98 10/16/17 16:00 120 10/16/17 16:00 40 10/16/17 14:00 104 10/16/17 12:00 99.7 100 20 107/59 (75) 99 10/16/17 12:00 100 10/16/17 12:00 40 10/16/17 11:54 92 40 10/16/17 10:00 103 10/16/17 09:34 98 40 10/16/17 08:00 99.5 99 20 105/64 (78) 99 10/16/17 08:00 50 10/16/17 08:00 99 10/16/17 07:00 100 Mechanical Ventilator 50 10/16/17 06:00 102 10/16/17 04:19 100 50 10/16/17 04:00 50 10/16/17 04:00 99.0 116 20 110/63 (79) 100 10/16/17 04:00 116 10/16/17 02:00 108 10/16/17 00:37 100 60 10/16/17 00:00 113 10/16/17 00:00 99.2 113 20 96/56 (69) 100 10/16/17 00:00 60 Result Diagram: 10/16/17 0320 10/16/17 0320 Laboratory Results Laboratory Tests Test 10/16/17 03:20 White Blood Count 5.6 TH/MM3 Red Blood Count 2.60 MIL/MM3 Hemoglobin 7.6 GM/DL Hematocrit 23.2 % Mean Corpuscular Volume 89.4 FL Mean Corpuscular Hemoglobin 29.4 PG Mean Corpuscular Hemoglobin Concent 32.9 % Red Cell Distribution Width 23.3 % Platelet Count 79 TH/MM3 Mean Platelet Volume 7.9 FL Blood Urea Nitrogen 6 MG/DL Creatinine 0.45 MG/DL Random Glucose 77 MG/DL Calcium Level 7.5 MG/DL Sodium Level 137 MEQ/L Potassium Level 3.5 MEQ/L Chloride Level 96 MEQ/L Carbon Dioxide Level 31.5 MEQ/L Anion Gap 10 MEQ/L Estimat Glomerular Filtration Rate 195 ML/MIN Administered Medications Medications (Trade) Dose Ordered Sig/Kasi Route PRN Reason Start Time Stop Time Status Last Admin Dose Admin Ondansetron HCl (Zofran Inj) 4 mg Q8HR PRN IV PUSH NAUSEA 10/12/17 16:30 10/14/17 13:24 Albuterol Sulfate (Albuterol Neb) 0.63 mg Q4HR NEB PRN NEB SHORTNESS OF BREATH 10/12/17 16:30 10/14/17 23:47 Baclofen (Lioresal) 20 mg BID PO 10/12/17 21:00 10/16/17 22:55 Bupropion HCl (Wellbutrin Sr 12 Hr) 100 mg Q12HR PO 10/12/17 21:00 10/16/17 22:56 Buspirone HCl (Buspar) 15 mg BID PO 10/12/17 21:00 10/16/17 22:54 Gabapentin (Neurontin) 600 mg TID PO 10/12/17 18:00 10/16/17 17:38 Misoprostol (Cytotec) 200 mcg TID PO 10/12/17 18:00 10/15/17 18:27 Montelukast Sodium (Singulair) 10 mg BID PO 10/12/17 21:00 10/16/17 22:55 Spironolactone (Aldactone) 50 mg DAILY PO 10/13/17 09:00 Future Hold 10/14/17 08:44 Tamsulosin HCl (Flomax) 0.4 mg HS PO 10/12/17 21:00 10/13/17 20:26 Pantoprazole Sodium (Protonix) 40 mg DAILY PO 10/13/17 09:00 10/14/17 08:47 Tiotropium [place] (Spiriva Inh) 18 mcg DAILY INH 10/13/17 09:00 10/14/17 08:46 Venlafaxine HCl (Effexor Xr) 225 mg DAILY PO 10/13/17 09:00 10/14/17 08:45 Senna/Docusate Sodium (Jasmine-Colace) 1 tab BID PO 10/13/17 10:30 10/16/17 08:20 Fentanyl Citrate 250 ml @ 5 mls/hr TITRATE PRN IV SEDATION 10/14/17 16:00 10/15/17 12:58 Propofol 100 ml @ 2.508 mls/ hr TITRATE PRN IV SEDATION 10/14/17 16:00 10/16/17 22:56 Lactated Ringer's 1,000 ml @ 125 mls/hr Q8H IV 10/14/17 17:00 10/16/17 19:52 Midazolam HCl 100 ml @ 2 mls/hr TITRATE PRN IV SEDATION 10/15/17 00:00 10/16/17 22:58 Polyethylene Glycol (Miralax) 17 gm BID PO 10/15/17 09:00 10/16/17 08:19 Bisacodyl (Dulcolax Supp) 10 mg DAILY RECTAL 10/15/17 09:00 10/16/17 08:22 Lactulose (Lactulose Liq) 30 ml BID PO 10/15/17 09:00 10/16/17 08:22 Potassium Chloride 100 ml @ 50 mls/hr Q2H PRN IV For Potassium 3.3 - 3.5 mEq/L 10/15/17 07:45 10/16/17 03:00 Dextrose 1,000 ml @ 42 mls/hr [id number] IV 10/15/17 16:00 10/16/17 17:40 Acetaminophen 100 ml @ 400 mls/hr Q6H PRN IV fever 10/16/17 19:15 10/17/17 19:14 10/16/17 22:57 Objective Remarks GENERAL: chronically ill appearing man SKIN: Warm and dry. HEAD: Normocephalic. EYES: No scleral icterus. No injection or drainage. RESPIRATORY: intubated and sedated. MUSCULOSKELETAL: Adequate muscle tone. NEUROLOGICAL: intubated, sedated Assessment/Plan Problem List: (1) Non-small cell lung cancer (NSCLC) ICD Codes: C34.90 - Malignant neoplasm of unspecified part of unspecified bronchus or lung Plan: --Patient is status post 4 cycles of chemotherapy with goal of 6 (2) Constipation ICD Codes: K59.00 - Constipation, unspecified Plan: --. KUB from , 10/11, showed a very large amount of stool throughout the colon and mild distended small bowel loops, mostly in the left mid abdomen. Assessment GI: nausea/vomiting, constipation. Improvement in constipation with enema, oral laxatives. Respiratory distress: aspiration during placement of NG. Intubated. Malignancy: s/p treatment with 4 cycles of chemotherapy. Linda Mcmanus MD Oct 16, 2017 23:58
[2017-10-17] VITALS (17 sets, daily range): BP systolic 94–137; BP diastolic 60–84; PULSE 98–122; RESP 20–33; TEMP 98.9–101.5; O2SAT 93–100
[2017-10-17] MEDS: INSULIN NovoLIN REGULAR SUPPLEMENTAL SCALE SQ SCH ×6 (04:00→20:00)
[2017-10-17] MEDS: LACTATED RINGER'S 1000 ML INJ 1,000 ML IV SCH ×3 (06:40→21:14)
[2017-10-17] MEDS: TIOTROPIUM BROMIDE 18 MCG INH INH SCH (08:23)
[2017-10-17] MEDS: MISOPROSTOL 200 MCG TAB PO SCH ×3 (08:24→16:53)
[2017-10-17] MEDS: POLYETHYLENE GLYCOL 17 GM PKG PO SCH ×2 (08:24→21:00)
[2017-10-17] MEDS: PANTOPRAZOLE SOD 40 MG DELAYED RELEASE TAB PO SCH (08:24)
[2017-10-17] MEDS: VENLAFAXINE HCL XR 75 MG CAP PO SCH (08:24)
[2017-10-17] MEDS: LACTULOSE SYRUP 20 GM/30 ML CUP PO SCH ×2 (08:24→21:00)
[2017-10-17] MEDS: DOCUSATE SODIUM 50 MG/SENNA 8.6 MG TAB PO SCH ×2 (08:24→21:00)
[2017-10-17] MEDS: buPROPion HCL 100 MG SUSTAINED RELEASE TAB PO SCH ×2 (08:24→21:13)
[2017-10-17] MEDS: BISACODYL 10 MG SUPP RECTAL SCH (08:25)
[2017-10-17] MEDS: GABAPENTIN 300 MG CAP PO SCH ×3 (08:25→16:53)
[2017-10-17] MEDS: BACLOFEN 20 MG TAB PO SCH ×2 (08:25→21:13)
[2017-10-17] MEDS: MONTELUKAST SODIUM 10 MG TAB PO SCH ×2 (08:25→21:13)
[2017-10-17] MEDS: busPIRone HCL 5 MG TAB PO SCH ×2 (08:26→21:13)
[2017-10-17 10:31] LABS: HEMOGLOBIN 7.4 GM/DL (13.0-17.0); MEAN CELL VOLUME 90.7 FL (80.0-100.0); MEAN CORPUSCULAR HEMOGLOBIN 30.4 PG (27.0-34.0); MEAN CORPUSCULAR HGB CONC 33.5 % (32.0-36.0); MEAN PLATELET VOLUME 8.4 FL (7.0-11.0); PLATELET COUNT 79 TH/MM3 (150-450); RED BLOOD COUNT 2.42 MIL/MM3 (4.50-5.90); RED CELL DISTRIBUTION WIDTH 23.6 % (11.6-17.2)
[2017-10-17 10:49] LABS: BICARBONATE 31.5 MEQ/L (21.0-32.0); CALCIUM 7.5 MG/DL (8.5-10.1); CREATININE 0.4 MG/DL (0.60-1.30)
[2017-10-17] MEDS: DEXTROSE 10% INJ 1,000 ML IV SCH (13:24)
--- NOTE | 2017-10-17 15:02 | PD.CONS ---
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 some of the strength that he is undoubtedly losing during the current acute episode. * Palliative Care will continue to follow the patient during this hospitalization. . Time Spent Total Floor Time (mins): 88 Face to Face Time (mins): 22 >50% Counseling/Coord of Care: Yes Thank you for the opportunity to participate in the care of Mr. Farrell. Attestation To help prompt me to consider important information that might be impacting today's encounter and assessment, information from prior notes written by myself or my colleagues may have been "brought forward" into today's note. My signature on this note, however, is an attestation that I personally performed the exam, history, and/or decision-making noted today, and, unless otherwise indicated, the interactions with patient, family, and staff as well as the review of records all occurred today. I also attest that the listed assessment and stated plan reflect my best clinical judgment today based on the combination of historical information, prior notes, and today's exam/ interactions. When time spent is documented, it refers only to time spent today by the signer, or if indicated, combined time spent today by collaborating physician/nurse practitioner. Amaya Lloyd MD Oct 17, 2017 15:01
[2017-10-17] MEDS ORDERED: LORazepam 2 MG/ML VIAL IV PUSH PRN (15:15)
--- NOTE | 2017-10-17 15:18 | HHI.CCPN ---
Subjective Remarks/Hospital Course Hospital Course: This is a 57yM with history of stage IV lung cancer, COPD who originally presented on 10/12 for constipation and abdominal pain. Today he felt nauseated. Per report, he had significant vomiting and then acutely had difficulty breathing. Rapid response was called and the patient was transferred emergently to the ICU. I evaluated the patient upon arrival to the ICU- he was in acute respiratory distress, on NRB, tachypneic. I emergently intubated the patient ( see separate procedure note for details). The patient had a large amount of bilious emesis without particulate matter in the hypopharynx which was suctioned prior to intubation. Patient was placed on mechanical ventilation. The patient was severely tachycardic. bedside critical care echocardiogram demonstrated grossly preserved biventricular function with a completely decompressed RV, totally flat and collapsed IVC, no pericardial effusion. I gave 2L LR bolus. I ordered CBC, CMP, lactate, coag, abg as well as stat CT chest/abd/pelvis with IV and PO contrast. Unfortunately, no additional information is available from the patient due to his condition. ROS unobtainable. Subjective: 10/15: still no BM. lactate cleared. appears less dehydrated this AM. remains on ivf and tachycardic, although less tachycardic than yesterday. hypoxemia persists and significant lung injury present on imaging, likely early ARDS from pneumonitis. 10/16: Remains sedated, orally intubated on mechanical ventilation. 10/17: Remains sedated, orally intubated on mechanical ventilation. Had a few bowel movements overnight. Objective Vital Signs Date Time Temp Pulse Resp B/P (MAP) Pulse Ox O2 Delivery O2 Flow Rate FiO2 10/17/17 12:03 97 40 10/17/17 08:00 Mechanical Ventilator 10/17/17 06:00 100 10/17/17 04:00 99.3 20 94/72 (79) 10/14/17 08:00 2.00 Intake and Output 10/17/17 10/17/17 10/18/17 08:00 16:00 00:00 Intake Total 0 ml 1000 ml Output Total 750 ml Balance -750 ml 1000 ml Result Diagram: 10/17/17 1008 10/17/17 1008 Imaging Last Impressions Chest X-Ray 10/14/17 0000 Signed Impressions: Service Date/Time: Saturday, October 14, 2017 14:56 - CONCLUSION: Interval intubation and placement of nasogastric tube. Otherwise stable chest Roney Robertson MD Abdomen X-Ray 10/14/17 0000 Signed Impressions: Service Date/Time: Saturday, October 14, 2017 15:14 - CONCLUSION: NG tube in the stomach. Nonspecific bowel gas pattern Roney Robertson MD Objective Remarks gen: cachectic male, looks much older than stated age, intubated, sedated heent: perrl. nc. at. mucous membranes dry neck: no jvd. trachea midline. chest: Orally intubated on mechanical ventilation PRVC, fio2 40%, peep 5. Good air entry bilaterally, scattered rhonchi, no wheezing cv: tachycardic rate, regular rhythm. sinus. rate in the 100s. abd: scaphoid. soft, mildly distended. no guarding. extr: warm, well perfused. no peripheral edema. neuro: RASS -3. withdraws to pain. moves all extremities. no focal deficits. A/P Assessment and Plan Assessment: 57yM with lung cancer and now acute aspiration pneumonitis and acute hypoxic respiratory failure. remains critically ill. Active Problems: Non-obstructive Ileus Severe constipation Stage IV Lung Cancer Severe Aspiration pneumonitis Acute hypoxic respiratory failure Acute metabolic encephalopathy Plan: remain in ICU. Daily CPAP trials wean fio2 for goal spo2 > 90% low tidal volume ventilation nebs hob elevated vent bundle npo place OGT to suction propofol, fentanyl, versed for goal RASS -2 appreciate GI consultation-responded with bowel prep. LR @ 125cc/hr. keep felton strict i/o's mag citrate po senna/colace BID lactulose BID miraLAX BID relistor SQ x 1. dulcolax suppository soap suds enema Consulted palliative care to assist with deciding goals of therapy. Patient's has decided to make him DNR status. Condition remains critical. Critical care time: 40 minutes, exclusive of separately billable procedures. Andre Link MD Oct 17, 2017 15:18
[2017-10-17] MEDS: PROPOFOL 1000 MG/100 ML INJ 100 ML IV PRN (21:13)
[2017-10-17] MEDS: TAMSULOSIN HCL 0.4 MG CAP PO SCH (21:13)
[2017-10-18] VITALS (16 sets, daily range): BP systolic 84–102; BP diastolic 58–70; PULSE 91–116; RESP 20–23; TEMP 98.6–101.7; O2SAT 96–100
[2017-10-18] MEDS: INSULIN NovoLIN REGULAR SUPPLEMENTAL SCALE SQ SCH ×6 (04:00→20:00)
[2017-10-18] MEDS: LACTATED RINGER'S 1000 ML INJ 1,000 ML IV SCH ×2 (05:49→12:28)
[2017-10-18] MEDS: MORPHINE SULFATE 2 MG/ML SYRINGE IV PUSH PRN (05:50)
[2017-10-18 06:26] LABS: HEMATOCRIT 23.7 % (39.0-51.0); HEMOGLOBIN 7.8 GM/DL (13.0-17.0); MEAN CELL VOLUME 89.9 FL (80.0-100.0); MEAN CORPUSCULAR HEMOGLOBIN 29.6 PG (27.0-34.0); MEAN CORPUSCULAR HGB CONC 32.9 % (32.0-36.0); MEAN PLATELET VOLUME 8.5 FL (7.0-11.0); PLATELET COUNT 60 TH/MM3 (150-450); RED BLOOD COUNT 2.64 MIL/MM3 (4.50-5.90); RED CELL DISTRIBUTION WIDTH 23.9 % (11.6-17.2); WHITE BLOOD COUNT 3.4 TH/MM3 (4.0-11.0)
[2017-10-18 06:45] LABS: BICARBONATE 28.9 MEQ/L (21.0-32.0); CALCIUM 7.6 MG/DL (8.5-10.1); CREATININE 0.4 MG/DL (0.60-1.30)
[2017-10-18] MEDS: PROPOFOL 1000 MG/100 ML INJ 100 ML IV PRN (08:22)
[2017-10-18] MEDS: POLYETHYLENE GLYCOL 17 GM PKG PO SCH ×2 (08:23→21:00)
[2017-10-18] MEDS: LACTULOSE SYRUP 20 GM/30 ML CUP PO SCH ×2 (08:23→21:00)
[2017-10-18] MEDS: VENLAFAXINE HCL XR 75 MG CAP PO SCH (08:24)
[2017-10-18] MEDS: busPIRone HCL 5 MG TAB PO SCH ×2 (08:24→22:05)
[2017-10-18] MEDS: GABAPENTIN 300 MG CAP PO SCH ×3 (08:25→16:53)
[2017-10-18] MEDS: DOCUSATE SODIUM 50 MG/SENNA 8.6 MG TAB PO SCH ×2 (08:25→21:00)
[2017-10-18] MEDS: MISOPROSTOL 200 MCG TAB PO SCH ×3 (08:25→16:53)
[2017-10-18] MEDS: PANTOPRAZOLE SOD 40 MG DELAYED RELEASE TAB PO SCH (08:25)
[2017-10-18] MEDS: buPROPion HCL 100 MG SUSTAINED RELEASE TAB PO SCH ×2 (08:25→22:06)
[2017-10-18] MEDS: MONTELUKAST SODIUM 10 MG TAB PO SCH ×2 (08:26→22:06)
[2017-10-18] MEDS: BISACODYL 10 MG SUPP RECTAL SCH (08:26)
[2017-10-18] MEDS: BACLOFEN 20 MG TAB PO SCH ×2 (08:26→22:06)
[2017-10-18] MEDS: TIOTROPIUM BROMIDE 18 MCG INH INH SCH (08:26)
--- NOTE | 2017-10-18 09:09 | HHI.CCPN ---
Subjective Remarks/Hospital Course Hospital Course: This is a 57yM with history of stage IV lung cancer, COPD who originally presented on 10/12 for constipation and abdominal pain. Today he felt nauseated. Per report, he had significant vomiting and then acutely had difficulty breathing. Rapid response was called and the patient was transferred emergently to the ICU. I evaluated the patient upon arrival to the ICU- he was in acute respiratory distress, on NRB, tachypneic. I emergently intubated the patient ( see separate procedure note for details). The patient had a large amount of bilious emesis without particulate matter in the hypopharynx which was suctioned prior to intubation. Patient was placed on mechanical ventilation. The patient was severely tachycardic. bedside critical care echocardiogram demonstrated grossly preserved biventricular function with a completely decompressed RV, totally flat and collapsed IVC, no pericardial effusion. I gave 2L LR bolus. I ordered CBC, CMP, lactate, coag, abg as well as stat CT chest/abd/pelvis with IV and PO contrast. Unfortunately, no additional information is available from the patient due to his condition. ROS unobtainable. Subjective: 10/15: still no BM. lactate cleared. appears less dehydrated this AM. remains on ivf and tachycardic, although less tachycardic than yesterday. hypoxemia persists and significant lung injury present on imaging, likely early ARDS from pneumonitis. 10/16: Remains sedated, orally intubated on mechanical ventilation. 10/17: Remains sedated, orally intubated on mechanical ventilation. Had a few bowel movements overnight. 10/18: Remains sedated, orally intubated on mechanical ventilation. Objective Vital Signs Date Time Temp Pulse Resp B/P (MAP) Pulse Ox O2 Delivery O2 Flow Rate FiO2 10/18/17 08:06 100 30 10/18/17 06:00 97 10/18/17 04:00 101.1 23 100/70 (80) 10/17/17 19:00 Mechanical Ventilator 10/14/17 08:00 2.00 Intake and Output 10/18/17 10/18/17 10/19/17 08:00 16:00 00:00 Intake Total 100 ml Output Total 1000 ml Balance -1000 ml 100 ml Result Diagram: 10/18/17 0524 10/18/17 0524 Imaging Last Impressions Chest X-Ray 10/14/17 0000 Signed Impressions: Service Date/Time: Saturday, October 14, 2017 14:56 - CONCLUSION: Interval intubation and placement of nasogastric tube. Otherwise stable chest Roney Robertson MD Abdomen X-Ray 10/14/17 0000 Signed Impressions: Service Date/Time: Saturday, October 14, 2017 15:14 - CONCLUSION: NG tube in the stomach. Nonspecific bowel gas pattern Roney Robertson MD Objective Remarks gen: cachectic male, looks much older than stated age, intubated, sedated heent: perrl. nc. at. mucous membranes dry neck: no jvd. trachea midline. chest: Orally intubated on mechanical ventilation PRVC, fio2 40%, peep 5. Good air entry bilaterally, scattered rhonchi, no wheezing cv: tachycardic rate, regular rhythm. sinus. rate in the 100s. abd: scaphoid. soft, mildly distended. no guarding. extr: warm, well perfused. no peripheral edema. neuro: RASS -3. withdraws to pain. moves all extremities. no focal deficits. A/P Assessment and Plan Assessment: 57yM with lung cancer and now acute aspiration pneumonitis and acute hypoxic respiratory failure. remains critically ill. Active Problems: Non-obstructive Ileus Severe constipation Stage IV Lung Cancer Severe Aspiration pneumonitis Acute hypoxic respiratory failure Acute metabolic encephalopathy Plan: remain in ICU. Daily CPAP trials wean fio2 for goal spo2 > 90% low tidal volume ventilation nebs hob elevated vent bundle npo place OGT to suction propofol, fentanyl, versed for goal RASS -2 appreciate GI consultation-responded with bowel prep. Decrease LR to 60cc/hr keep felton strict i/o's mag citrate po senna/colace BID lactulose BID miraLAX BID relistor SQ x 1. dulcolax suppository soap suds enema Consulted palliative care to assist with deciding goals of therapy. Patient's has decided to make him DNR status. Condition remains critical. Critical care time: 40 minutes, exclusive of separately billable procedures. Andre Link MD Oct 18, 2017 09:09
--- NOTE | 2017-10-18 09:40 | RADRPT ---
EXAM DATE/TIME: 10/18/2017 09:13 [facility] COMPARISON: CHEST SINGLE AP, October 14, 2017, 14:56. INDICATIONS : Respiratory failure MEDICAL HISTORY : spinal cord injury, paralysis of diaphragm SURGICAL HISTORY : None. ENCOUNTER: Subsequent ACUITY: 4 - 6 days PAIN SCORE: Non-responsive. LOCATION: chest FINDINGS: A single view of the chest demonstrates cardiomegaly with bilateral pulmonary opacities. Endotracheal tube, nasogastric tube and right sided port are stable in position. Bilateral pleural effusions. The cardiomediastinal contours are unremarkable. Osseous structures are intact. CONCLUSION: Bilateral pulmonary opacities and pleural effusions again seen, stable. Jose Brody MD on October 18, 2017 at 9:30 Board Certified Radiologist. This report was verified electronically.
[2017-10-18] MEDS: ACETAMINOPHEN 1000 MG/100 ML 100 ML IV PRN ×2 (11:47→18:04)
[2017-10-18] MEDS: DEXTROSE 10% INJ 1,000 ML IV SCH (12:29)
[2017-10-18] MEDS: POTASSIUM CHLOR 20 MEQ PREMIX 100 ML IV PRN ×2 (13:13→14:17)
--- NOTE | 2017-10-18 13:35 | HHI.HCPN ---
Reason for visit a. To assist with evaluation and management of symptoms including: Dyspnea, pain b. To assist medical decision maker(s) with: better understanding of current medical conditions; weighing benefits/burdens of medical treatment options; making medical treatment decisions. . Subjective/Interval History INTERVAL NOTE: Seeing the patient in follow-up to reassess his debility, pain, dyspnea, and to further discuss goals of medical treatment with spouse. He is on propofol at the time of my visit, minimally responsive. He is still not on fentanyl and the Versed has been on standby for several hours. [place] [facility] [place] His fever was as high as 101.7 this morning. White count is 3.4. The new chest x-ray reveals bilateral patchy opacities. There is a plan to undergo CPAP trials again later today. . Family/friend interactions Discussed at length again with the patient's via telephone. She understands that "not much has changed," and she acknowledges that his prognosis remains poor. We discussed the fact that there may still be a medical extubation attempt soon, and she confirms that she would not want him reintubated if he fails again. We also discussed the possibility that the patient may not have enough strength to be medically extubated, and that then the patient's will face the decision of "how long are we going to keep him on life support, or should we just keep him comfortable and withdraw the life support to let him go peacefully?" She says that she is preparing herself mentally for either scenario. . Advance Directives Living Will: Copy in medical record Health Care Surrogate: Copy in medical record Advance Directive Specifics Health Care Surrogate(s): Zoraida . Documented care wishes: The patient has a living will with typical language regarding end-stage and terminal conditions . Objective Vital Signs Date Time Temp Pulse Resp B/P (MAP) Pulse Ox O2 Delivery O2 Flow Rate FiO2 10/18/17 12:00 112 10/18/17 12:00 40 10/18/17 12:00 100 35 10/18/17 12:00 101.1 112 22 99/65 (76) 100 10/18/17 10:00 116 10/18/17 08:06 100 30 10/18/17 08:00 40 10/18/17 08:00 98.6 101 20 102/58 (73) 100 10/18/17 08:00 107 10/18/17 07:00 100 Mechanical Ventilator 40 10/18/17 06:00 97 10/18/17 04:11 96 40 10/18/17 04:00 40 10/18/17 04:00 101.1 109 23 100/70 (80) 100 10/18/17 04:00 109 10/18/17 02:00 103 10/18/17 00:00 101.7 107 22 100/65 (77) 100 10/18/17 00:00 107 10/18/17 00:00 100 40 10/18/17 00:00 40 10/17/17 22:00 122 10/17/17 21:25 100 40 10/17/17 20:00 101.5 118 33 134/60 (84) 97 10/17/17 20:00 118 10/17/17 20:00 40 10/17/17 19:00 97 Mechanical Ventilator 40 10/17/17 18:00 111 10/17/17 18:00 40 10/17/17 17:15 100 40 10/17/17 17:00 40 10/17/17 16:00 118 10/17/17 16:00 40 10/17/17 16:00 100.0 118 28 137/84 (101) 98 10/17/17 14:00 40 10/17/17 14:00 98 Intake & Output 10/18/17 10/18/17 07:00 19:00 Intake Total 100 ml Output Total 1000 ml Balance -1000 ml 100 ml IV Total 100 ml Output Urine Total 1000 ml # Bowel Movements 1 Physical Exam CONSTITUTIONAL/GENERAL: This is a chronically ill-appearing patient, in the ISC , intubated. NECK: Trachea midline. Supple, nontender. No palpable thyroid enlargement or nodularity. CARDIOVASCULAR: Regular rate and rhythm without murmurs, gallops, or rubs. No JVD. Peripheral pulses symmetric. RESPIRATORY/CHEST: Symmetric, unlabored respirations. Diminished breath sounds bilateral, scattered rhonchi GASTROINTESTINAL: Abdomen soft, non-tender, nondistended. No hepato-splenomegaly , or palpable masses. No guarding. Bowel sounds present. GENITOURINARY: Without palpable bladder distension. Aldana catheter in place. MUSCULOSKELETAL: Extremities without clubbing, but 2+ puffy edema on the forearms/hands, and 1-2+ chronic edema below the knees bilateral. No joint tenderness or effusion noted. No mottling or clubbing. NEUROLOGICAL: Opens eyes partially, does not follow commands PSYCHIATRIC: Unable to evaluate due to clinical condition . Diagnostic Tests Laboratory Laboratory Tests Test 10/15/17 20:50 10/16/17 03:20 10/17/17 10:08 10/18/17 05:24 Potassium Level 3.5 MEQ/L (3.5-5.1) 3.5 MEQ/L (3.5-5.1) 3.4 MEQ/L (3.5-5.1) 3.4 MEQ/L (3.5-5.1) Phosphorus Level 2.6 MG/DL (2.5-4.9) Magnesium Level 1.6 MG/DL (1.5-2.5) White Blood Count 5.6 TH/MM3 (4.0-11.0) 4.0 TH/MM3 (4.0-11.0) 3.4 TH/MM3 (4.0-11.0) Red Blood Count 2.60 MIL/MM3 (4.50-5.90) 2.42 MIL/MM3 (4.50-5.90) 2.64 MIL/MM3 (4.50-5.90) Hemoglobin 7.6 GM/DL (13.0-17.0) 7.4 GM/DL (13.0-17.0) 7.8 GM/DL (13.0-17.0) Hematocrit 23.2 % (39.0-51.0) 22.0 % (39.0-51.0) 23.7 % (39.0-51.0) Mean Corpuscular Volume 89.4 FL (80.0-100.0) 90.7 FL (80.0-100.0) 89.9 FL (80.0-100.0) Mean Corpuscular Hemoglobin 29.4 PG (27.0-34.0) 30.4 PG (27.0-34.0) 29.6 PG (27.0-34.0) Mean Corpuscular Hemoglobin Concent 32.9 % (32.0-36.0) 33.5 % (32.0-36.0) 32.9 % (32.0-36.0) Red Cell Distribution Width 23.3 % (11.6-17.2) 23.6 % (11.6-17.2) 23.9 % (11.6-17.2) Platelet Count 79 TH/MM3 (150-450) 79 TH/MM3 (150-450) 60 TH/MM3 (150-450) Mean Platelet Volume 7.9 FL (7.0-11.0) 8.4 FL (7.0-11.0) 8.5 FL (7.0-11.0) Blood Urea Nitrogen 6 MG/DL (7-18) 4 MG/DL (7-18) 2 MG/DL (7-18) Creatinine 0.45 MG/DL (0.60-1.30) 0.40 MG/DL (0.60-1.30) 0.40 MG/DL (0.60-1.30) Random Glucose 77 MG/DL (74-106) 89 MG/DL (74-106) 95 MG/DL (74-106) Calcium Level 7.5 MG/DL (8.5-10.1) 7.5 MG/DL (8.5-10.1) 7.6 MG/DL (8.5-10.1) Sodium Level 137 MEQ/L (136-145) 135 MEQ/L (136-145) 136 MEQ/L (136-145) Chloride Level 96 MEQ/L (98-107) 96 MEQ/L (98-107) 96 MEQ/L (98-107) Carbon Dioxide Level 31.5 MEQ/L (21.0-32.0) 31.5 MEQ/L (21.0-32.0) 28.9 MEQ/L (21.0-32.0) Anion Gap 10 MEQ/L (5-15) 8 MEQ/L (5-15) 11 MEQ/L (5-15) Estimat Glomerular Filtration Rate 195 ML/MIN (>89) 223 ML/MIN (>89) 223 ML/MIN (>89) Result Diagram: 10/18/1724 10/18/17523 Imaging Last Impressions Chest X-Ray 10/18/17 0000 Signed Impressions: Service Date/Time: September 09:13 - CONCLUSION: Bilateral pulmonary opacities and pleural effusions again seen, stable. Jose Broyd MD Chest CT 10/14/17 0000 Signed Impressions: Service Date/Time: Saturday, October 14, 2017 18:18 - CONCLUSION: Extensive bilateral parenchymal lung disease and loculated and nonloculated pleural fluid bilaterally. Small right pneumothorax Roney Robertson MD Abdomen/Pelvis CT 10/14/17 0000 Signed Impressions: Service Date/Time: Saturday, October 14, 2017 18:18 - CONCLUSION: Stomach is distended despite NG tube. No other acute bowel findings. Minimal free peritoneal fluid. Nonspecific induration of the omentum. Extensive disease in the visualized lower chest. Roney Robertson MD Abdomen X-Ray 10/14/17 0000 Signed Impressions: Service Date/Time: Saturday, October 14, 2017 15:14 - CONCLUSION: NG tube in the stomach. Nonspecific bowel gas pattern Roney Robertson MD Procedures INTUBATION 10/14/17 . 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 Legal: The patient lacks capacity for decision-making at the time of the initial consultation; it is uncertain whether he will regain capacity if/when he can be extubated. His is the designated HCS. Ethical issues impacting care: None . Important Contacts : Zoraida [phone] Son: Rudy [phone] . Prognosis , He has underlying significant COPD and other comorbidities. His overall prognosis is poor, and he would be appropriate for hospice services if his goals become completely comfort oriented. . Code Status: Alternative Code Plan * ALTERNATE CODE: Per patient's and son 10/17/17. If/when patient is able to be extubated medically, the patient's and son request that he not be reintubated if his respiratory status fails again. They want the focus to stay on comfort at that point. * DECISION-MAKING: The patient lacks capacity for decision-making at this time; it is uncertain whether he will regain capacity if/when he can be extubated. His is the designated HCS. * GOALS: 10/18/17: Discussed at length again with the patient's via telephone... She understands that "not much has changed," and she acknowledges that his prognosis remains poor. We discussed the fact that there may still be a medical extubation attempt soon, and she confirms that she would not want him reintubated if he fails again. We also discussed the possibility that the patient may not have enough strength to be medically extubated, and that then the patient's will face the decision of "how long are we going to keep him on life support, or should we just keep him comfortable and withdraw the life support to let him go peacefully?" She says that she is preparing herself mentally for either scenario. * The patient's again confirms that they do NOT want the patient reintubated if he has respiratory failure again after/if/when he is able to be medically extubated. They do note that the patient has chronic pain, and they would want the focus to stay on comfort so that he is not suffering in his last hours or days. * SYMPTOMS: The patient has chronic neck/back pain and has been on opiates for years; I have added some PRN morphine orders for pain or dyspnea (may be required when he is more alert, or when his respiratory status fails in the future). The patient's dyspnea is being managed with mechanical ventilation at this point in time. I have no other new medication recommendations. * Palliative Care will continue to follow the patient during this hospitalization. . Time Spent Total Floor Time (mins): 43 Face to Face Time (mins): 16 >50% Counseling/Coord of Care: Yes Attestation To help prompt me to consider important information that might be impacting today's encounter and assessment, information from prior notes written by myself or my colleagues may have been "brought forward" into today's note. My signature on this note, however, is an attestation that I personally performed the exam, history, and/or decision-making noted today, and, unless otherwise indicated, the interactions with patient, family, and staff as well as the review of records all occurred today. I also attest that the listed assessment and stated plan reflect my best clinical judgment today based on the combination of historical information, prior notes, and today's exam/ interactions. When time spent is documented, it refers only to time spent today by the signer, or if indicated, combined time spent today by collaborating physician/nurse practitioner. Amaya Lloyd MD Oct 18, 2017 13:35
[2017-10-18] MEDS: TAMSULOSIN HCL 0.4 MG CAP PO SCH (22:06)
--- NOTE | 2017-10-18 23:58 | PD.ONC.PN ---
Subjective Subjective Remarks Intubated and sedated. Spoke with at bedside. Objective Data Date Time Temp Pulse Resp B/P (MAP) Pulse Ox O2 Delivery O2 Flow Rate FiO2 10/18/17 22:00 95 10/18/17 21:08 100 35 10/18/17 20:00 40 10/18/17 20:00 91 10/18/17 20:00 100.0 91 20 84/58 (67) 100 10/18/17 19:00 99 Mechanical Ventilator 40 10/18/17 18:00 106 10/18/17 16:00 94 10/18/17 16:00 99.9 94 20 88/59 (69) 100 10/18/17 16:00 40 10/18/17 14:38 35 10/18/17 14:29 96 35 10/18/17 14:02 101 10/18/17 12:00 112 10/18/17 12:00 40 10/18/17 12:00 100 35 10/18/17 12:00 101.1 112 22 99/65 (76) 100 10/18/17 10:00 116 10/18/17 08:06 100 30 10/18/17 08:00 40 10/18/17 08:00 98.6 101 20 102/58 (73) 100 10/18/17 08:00 107 10/18/17 07:00 100 Mechanical Ventilator 40 10/18/17 06:00 97 10/18/17 04:11 96 40 10/18/17 04:00 40 10/18/17 04:00 101.1 109 23 100/70 (80) 100 10/18/17 04:00 109 10/18/17 02:00 103 10/18/17 00:00 101.7 107 22 100/65 (77) 100 10/18/17 00:00 107 10/18/17 00:00 100 40 10/18/17 00:00 40 Result Diagram: 10/18/1724 10/18/17523 Laboratory Results Laboratory Tests Test 10/18/17 05:24 White Blood Count 3.4 TH/MM3 Red Blood Count 2.64 MIL/MM3 Hemoglobin 7.8 GM/DL Hematocrit 23.7 % Mean Corpuscular Volume 89.9 FL Mean Corpuscular Hemoglobin 29.6 PG Mean Corpuscular Hemoglobin Concent 32.9 % Red Cell Distribution Width 23.9 % Platelet Count 60 TH/MM3 Mean Platelet Volume 8.5 FL Blood Urea Nitrogen 2 MG/DL Creatinine 0.40 MG/DL Random Glucose 95 MG/DL Calcium Level 7.6 MG/DL Sodium Level 136 MEQ/L Potassium Level 3.4 MEQ/L Chloride Level 96 MEQ/L Carbon Dioxide Level 28.9 MEQ/L Anion Gap 11 MEQ/L Estimat Glomerular Filtration Rate 223 ML/MIN Imaging Studies Last 24 hours Impressions Chest X-Ray 10/18/17 0000 Signed Impressions: Service Date/Time: September 09:13 - CONCLUSION: Bilateral pulmonary opacities and pleural effusions again seen, stable. Jose Brody MD Administered Medications Medications (Trade) Dose Ordered Sig/Kasi Route PRN Reason Start Time Stop Time Status Last Admin Dose Admin Ondansetron HCl (Zofran Inj) 4 mg Q8HR PRN IV PUSH NAUSEA 10/12/17 16:30 10/14/17 13:24 Albuterol Sulfate (Albuterol Neb) 0.63 mg Q4HR NEB PRN NEB SHORTNESS OF BREATH 10/12/17 16:30 10/14/17 23:47 Baclofen (Lioresal) 20 mg BID PO 10/12/17 21:00 10/18/17 22:06 Bupropion HCl (Wellbutrin Sr 12 Hr) 100 mg Q12HR PO 10/12/17 21:00 10/18/17 22:06 Buspirone HCl (Buspar) 15 mg BID PO 10/12/17 21:00 10/18/17 22:05 Gabapentin (Neurontin) 600 mg TID PO 10/12/17 18:00 10/18/17 16:53 Misoprostol (Cytotec) 200 mcg TID PO 10/12/17 18:00 10/18/17 16:53 Montelukast Sodium (Singulair) 10 mg BID PO 10/12/17 21:00 10/18/17 22:06 Spironolactone (Aldactone) 50 mg DAILY PO 10/13/17 09:00 Future Hold 10/14/17 08:44 Tamsulosin HCl (Flomax) 0.4 mg HS PO 10/12/17 21:00 10/18/17 22:06 Pantoprazole Sodium (Protonix) 40 mg DAILY PO 10/13/17 09:00 10/18/17 08:25 Tiotropium [place] (Spiriva Inh) 18 mcg DAILY INH 10/13/17 09:00 10/14/17 08:46 Venlafaxine HCl (Effexor Xr) 225 mg DAILY PO 10/13/17 09:00 10/18/17 08:24 Senna/Docusate Sodium (Jasmine-Colace) 1 tab BID PO 10/13/17 10:30 10/16/17 08:20 Fentanyl Citrate 250 ml @ 5 mls/hr TITRATE PRN IV SEDATION 10/14/17 16:00 10/15/17 12:58 Propofol 100 ml @ 2.508 mls/ hr TITRATE PRN IV SEDATION 10/14/17 16:00 10/18/17 08:22 Lactated Ringer's 1,000 ml @ 60 mls/hr [id number] IV 10/14/17 17:00 10/18/17 12:28 Midazolam HCl 100 ml @ 2 mls/hr TITRATE PRN IV SEDATION 10/15/17 00:00 10/16/17 22:58 Polyethylene Glycol (Miralax) 17 gm BID PO 10/15/17 09:00 10/16/17 08:19 Bisacodyl (Dulcolax Supp) 10 mg DAILY RECTAL 10/15/17 09:00 10/16/17 08:22 Lactulose (Lactulose Liq) 30 ml BID PO 10/15/17 09:00 10/16/17 08:22 Potassium Chloride 100 ml @ 50 mls/hr Q2H PRN IV For Potassium 3.3 - 3.5 mEq/L 10/15/17 07:45 10/18/17 14:17 Dextrose (D50w (Vial) Inj) 25 ml UNSCH PRN IV PUSH HYPOGLYCEMIA-SEE COMMENTS 10/15/17 16:00 10/17/17 21:30 Dextrose 1,000 ml @ 42 mls/hr [id number] IV 10/15/17 16:00 10/18/17 12:29 Morphine Sulfate (Morphine Inj) 2 mg Q1H PRN IV PUSH mod SOB or any pain 1-10 10/17/17 15:15 10/18/17 05:50 Acetaminophen 100 ml @ 400 mls/hr Q6H PRN IV FEVER 10/18/17 06:30 10/18/17 18:04 Objective Remarks GENERAL: chronically ill appearing man, intuabed and sedated in no distress SKIN: Warm and dry. HEAD: Normocephalic. RESPIRATORY: Intubated NEUROLOGICAL: Sedated. Assessment/Plan Problem List: (1) Non-small cell lung cancer (NSCLC) ICD Codes: C34.90 - Malignant neoplasm of unspecified part of unspecified bronchus or lung Plan: --Patient is status post 4 cycles of chemotherapy with goal of 6 (2) Constipation ICD Codes: K59.00 - Constipation, unspecified Plan: --. KUB from , 10/11, showed a very large amount of stool throughout the colon and mild distended small bowel loops, mostly in the left mid abdomen. Assessment GI: nausea/vomiting, constipation. Improvement in constipation with enema, oral laxatives. Respiratory distress: aspiration during placement of NG. Intubated. Malignancy: s/p treatment with 4 cycles of chemotherapy. Cytopenias: due to chemotherapy and compounded by critical illness, infection. Palliative care team following. Patient with severe aspiration pneumonitis. Compounded by diffuse pulmonary metastatic disease and poor baseline lung function. Lung function may not be able to recover adn patient may not be able to be extubated. has made patient DNR/DNI. Withdraw of care if unable to extubate. Will continue to follow closely with critical care and palliative care teams. Linda Mcmanus MD Oct 18, 2017 23:58
[2017-10-19] VITALS (20 sets, daily range): BP systolic 88–128; BP diastolic 58–90; PULSE 90–110; RESP 13–30; TEMP 98.2–100; O2SAT 94–100
[2017-10-19] MEDS: PROPOFOL 1000 MG/100 ML INJ 100 ML IV PRN ×2 (00:40→22:00)
[2017-10-19] MEDS: INSULIN NovoLIN REGULAR SUPPLEMENTAL SCALE SQ SCH ×6 (04:00→20:00)
[2017-10-19] MEDS: LACTATED RINGER'S 1000 ML INJ 1,000 ML IV SCH (07:27)
[2017-10-19 07:36] LABS: MEAN CELL VOLUME 90.6 FL (80.0-100.0); MEAN CORPUSCULAR HEMOGLOBIN 30.4 PG (27.0-34.0); MEAN CORPUSCULAR HGB CONC 33.6 % (32.0-36.0); MEAN PLATELET VOLUME 8.5 FL (7.0-11.0); PLATELET COUNT 74 TH/MM3 (150-450); RED CELL DISTRIBUTION WIDTH 23.3 % (11.6-17.2); WHITE BLOOD COUNT 2.7 TH/MM3 (4.0-11.0)
[2017-10-19 07:48] LABS: HEMATOCRIT 19.9 % (39.0-51.0); HEMOGLOBIN 6.7 GM/DL (13.0-17.0)
[2017-10-19 08:07] LABS: BICARBONATE 31.2 MEQ/L (21.0-32.0); CREATININE 0.38 MG/DL (0.60-1.30)
[2017-10-19 08:08] LABS: CALCIUM 7.5 MG/DL (8.5-10.1)
[2017-10-19] MEDS: DOCUSATE SODIUM 50 MG/SENNA 8.6 MG TAB PO SCH ×2 (08:37→21:54)
[2017-10-19] MEDS: POLYETHYLENE GLYCOL 17 GM PKG PO SCH ×2 (08:37→21:00)
[2017-10-19] MEDS: GABAPENTIN 300 MG CAP PO SCH ×3 (08:37→18:00)
[2017-10-19] MEDS: PANTOPRAZOLE SOD 40 MG DELAYED RELEASE TAB PO SCH (08:37)
[2017-10-19] MEDS: MISOPROSTOL 200 MCG TAB PO SCH ×3 (08:37→18:00)
[2017-10-19] MEDS: VENLAFAXINE HCL XR 75 MG CAP PO SCH (08:37)
[2017-10-19] MEDS: busPIRone HCL 5 MG TAB PO SCH ×2 (08:38→21:54)
[2017-10-19] MEDS: BISACODYL 10 MG SUPP RECTAL SCH (08:38)
[2017-10-19] MEDS: MONTELUKAST SODIUM 10 MG TAB PO SCH ×2 (08:38→21:54)
[2017-10-19] MEDS: LACTULOSE SYRUP 20 GM/30 ML CUP PO SCH ×2 (08:39→21:00)
[2017-10-19] MEDS ORDERED: SODIUM CHLOR 0.9% 250 ML INJ 250 ML IV ONE (09:00)
[2017-10-19] MEDS: buPROPion HCL 100 MG SUSTAINED RELEASE TAB PO SCH ×2 (09:00→21:00)
[2017-10-19] MEDS ORDERED: methylPREDNISolone SOD SUCC 125 MG/2 ML VIAL IV PUSH ONE (09:00)
[2017-10-19] MEDS: TIOTROPIUM BROMIDE 18 MCG INH INH SCH (09:00)
--- NOTE | 2017-10-19 09:14 | HHI.CCPN ---
Subjective Remarks/Hospital Course Hospital Course: This is a 57yM with history of stage IV lung cancer, COPD who originally presented on 10/12 for constipation and abdominal pain. Today he felt nauseated. Per report, he had significant vomiting and then acutely had difficulty breathing. Rapid response was called and the patient was transferred emergently to the ICU. I evaluated the patient upon arrival to the ICU- he was in acute respiratory distress, on NRB, tachypneic. I emergently intubated the patient ( see separate procedure note for details). The patient had a large amount of bilious emesis without particulate matter in the hypopharynx which was suctioned prior to intubation. Patient was placed on mechanical ventilation. The patient was severely tachycardic. bedside critical care echocardiogram demonstrated grossly preserved biventricular function with a completely decompressed RV, totally flat and collapsed IVC, no pericardial effusion. I gave 2L LR bolus. I ordered CBC, CMP, lactate, coag, abg as well as stat CT chest/abd/pelvis with IV and PO contrast. Unfortunately, no additional information is available from the patient due to his condition. ROS unobtainable. Subjective: 10/15: still no BM. lactate cleared. appears less dehydrated this AM. remains on ivf and tachycardic, although less tachycardic than yesterday. hypoxemia persists and significant lung injury present on imaging, likely early ARDS from pneumonitis. 10/16: Remains sedated, orally intubated on mechanical ventilation. 10/17: Remains sedated, orally intubated on mechanical ventilation. Had a few bowel movements overnight. 10/18: Remains sedated, orally intubated on mechanical ventilation. 10/19: Sedated, arousable, orally intubated on mechanical ventilation. Hemoglobin 6.7 this morning. 1 unit PRBCs being ordered. Failed CPAP trials yesterday. Palliative care and discussions with family. Objective Vital Signs Date Time Temp Pulse Resp B/P (MAP) Pulse Ox O2 Delivery O2 Flow Rate FiO2 10/19/17 06:00 107 10/19/17 04:45 100 35 10/19/17 04:00 100.0 20 88/60 (69) 10/18/17 19:00 Mechanical Ventilator Intake and Output 10/19/17 10/19/17 10/20/17 08:00 16:00 00:00 Intake Total 100 ml Output Total 950 ml Balance -850 ml Result Diagram: 10/19/17 0627 10/19/17 0627 Imaging Last Impressions Chest X-Ray 10/14/17 0000 Signed Impressions: Service Date/Time: Saturday, October 14, 2017 14:56 - CONCLUSION: Interval intubation and placement of nasogastric tube. Otherwise stable chest Roney Robertson MD Abdomen X-Ray 10/14/17 0000 Signed Impressions: Service Date/Time: Saturday, October 14, 2017 15:14 - CONCLUSION: NG tube in the stomach. Nonspecific bowel gas pattern Roney Robertson MD Objective Remarks gen: cachectic male, looks much older than stated age, intubated, sedated heent: perrl. nc. at. mucous membranes dry neck: no jvd. trachea midline. chest: Orally intubated on mechanical ventilation PRVC, fio2 40%, peep 5. Good air entry bilaterally, scattered rhonchi, no wheezing cv: tachycardic rate, regular rhythm. sinus. rate in the 100s. abd: scaphoid. soft, mildly distended. no guarding. extr: warm, well perfused. no peripheral edema. neuro: Drowsy, arousable, orally intubated on mechanical ventilation, moves all extremities. no focal deficits. A/P Assessment and Plan Assessment: 57yM with lung cancer and now acute aspiration pneumonitis and acute hypoxic respiratory failure. remains critically ill. Active Problems: Non-obstructive Ileus Severe constipation Stage IV Lung Cancer Severe Aspiration pneumonitis Acute hypoxic respiratory failure Acute metabolic encephalopathy anemia Plan: remain in ICU. Daily CPAP trials. Failed CPAP trial 10/18. wean fio2 for goal spo2 > 90% low tidal volume ventilation nebs hob elevated vent bundle Solu-Medrol 125 mg IV now and then 40 mg IV every 12 hourly starting 10/19. npo OGT clamped. Will start tube feeds at 20cc/hr and advance to goal if tolerated. propofol for goal RASS -2 appreciate GI consultation-responded with bowel prep. LR 60cc/hr keep felton strict i/o's mag citrate po senna/colace BID lactulose BID miraLAX BID relistor SQ x 1. dulcolax suppository soap suds enema 1 unit PRBCs to be transfused 10/19. No obvious source of blood loss. Consulted palliative care to assist with deciding goals of therapy. Patient's has decided to make him DNR status. Patient's is deciding regarding de-escalation of therapy if patient is unable to be extubated medically. Condition remains critical. Critical care time: 40 minutes, exclusive of separately billable procedures. Andre Link MD Oct 19, 2017 09:14
[2017-10-19] MEDS: BACLOFEN 20 MG TAB PO SCH ×2 (09:48→21:00)
[2017-10-19] MEDS: DEXTROSE 10% INJ 1,000 ML IV SCH (15:16)
--- NOTE | 2017-10-19 16:08 | HHI.HCPN ---
Reason for visit a. To assist with evaluation and management of symptoms including: Dyspnea, pain b. To assist medical decision maker(s) with: better understanding of current medical conditions; weighing benefits/burdens of medical treatment options; making medical treatment decisions. . Subjective/Interval History INTERVAL NOTE: Seeing the patient in follow-up to reassess his debility, pain, dyspnea, and to further discuss goals of medical treatment with spouse. He is off propofol, and is a little more alert. He seems to answer some of the yes/no questions, but not others. The patient remains mechanically ventilated in the [facility]. His fever was as high as 100 this morning. White count is 2.7. The patient failed his CPAP trials yesterday fairly quickly. This afternoon, however, he stayed on CPAP for a couple hours. He became tachypneic, and they reinstituted the usual vent settings. . Family/friend interactions is at the bedside, and we spoke at length about his progress, and his continued guarded prognosis . Advance Directives Living Will: Copy in medical record Health Care Surrogate: Copy in medical record Advance Directive Specifics Health Care Surrogate(s): Zoraida . Documented care wishes: The patient has a living will with typical language regarding end-stage and terminal conditions . Objective Vital Signs Date Time Temp Pulse Resp B/P (MAP) Pulse Ox O2 Delivery O2 Flow Rate FiO2 10/19/17 12:41 100 35 10/19/17 10:58 99.7 107 23 105/68 100 10/19/17 07:00 99 Mechanical Ventilator 35 10/19/17 06:00 107 10/19/17 04:45 100 35 10/19/17 04:00 101 10/19/17 04:00 100.0 101 20 88/60 (69) 96 10/19/17 04:00 40 10/19/17 02:00 98 10/19/17 01:00 100 35 10/19/17 00:00 99.7 90 20 90/58 (69) 94 10/19/17 00:00 90 10/19/17 00:00 40 10/18/17 22:00 95 10/18/17 21:08 100 35 10/18/17 20:00 40 10/18/17 20:00 91 10/18/17 20:00 100.0 91 20 84/58 (67) 100 10/18/17 19:00 99 Mechanical Ventilator 40 10/18/17 18:00 106 Intake & Output 10/19/17 10/19/17 07:00 19:00 Intake Total 100 ml Output Total 950 ml Balance -850 ml IV Total 100 ml Output Urine Total 950 ml # Bowel Movements 1 Physical Exam CONSTITUTIONAL/GENERAL: This is a chronically ill-appearing patient, in the ISC , intubated. NECK: Trachea midline. Supple, nontender. No palpable thyroid enlargement or nodularity. CARDIOVASCULAR: Regular rate and rhythm without murmurs, gallops, or rubs. No JVD. Peripheral pulses symmetric. RESPIRATORY/CHEST: Symmetric, unlabored respirations. Diminished breath sounds bilateral, scattered rhonchi GASTROINTESTINAL: Abdomen soft, non-tender, nondistended. No hepato-splenomegaly , or palpable masses. No guarding. Bowel sounds present. GENITOURINARY: Without palpable bladder distension. Aldana catheter in place. MUSCULOSKELETAL: Extremities without clubbing, but 2+ puffy edema on the forearms/hands, and 1-2+ chronic edema below the knees bilateral. No joint tenderness or effusion noted. No mottling or clubbing. NEUROLOGICAL: Opens eyes partially, does not follow commands PSYCHIATRIC: Unable to evaluate due to clinical condition . Diagnostic Tests Laboratory Laboratory Tests Test 10/17/17 10:08 10/18/17 05:24 10/19/17 06:27 White Blood Count 4.0 TH/MM3 (4.0-11.0) 3.4 TH/MM3 (4.0-11.0) 2.7 TH/MM3 (4.0-11.0) Red Blood Count 2.42 MIL/MM3 (4.50-5.90) 2.64 MIL/MM3 (4.50-5.90) 2.20 MIL/MM3 (4.50-5.90) Hemoglobin 7.4 GM/DL (13.0-17.0) 7.8 GM/DL (13.0-17.0) 6.7 GM/DL (13.0-17.0) Hematocrit 22.0 % (39.0-51.0) 23.7 % (39.0-51.0) 19.9 % (39.0-51.0) Mean Corpuscular Volume 90.7 FL (80.0-100.0) 89.9 FL (80.0-100.0) 90.6 FL (80.0-100.0) Mean Corpuscular Hemoglobin 30.4 PG (27.0-34.0) 29.6 PG (27.0-34.0) 30.4 PG (27.0-34.0) Mean Corpuscular Hemoglobin Concent 33.5 % (32.0-36.0) 32.9 % (32.0-36.0) 33.6 % (32.0-36.0) Red Cell Distribution Width 23.6 % (11.6-17.2) 23.9 % (11.6-17.2) 23.3 % (11.6-17.2) Platelet Count 79 TH/MM3 (150-450) 60 TH/MM3 (150-450) 74 TH/MM3 (150-450) Mean Platelet Volume 8.4 FL (7.0-11.0) 8.5 FL (7.0-11.0) 8.5 FL (7.0-11.0) Blood Urea Nitrogen 4 MG/DL (7-18) 2 MG/DL (7-18) 4 MG/DL (7-18) Creatinine 0.40 MG/DL (0.60-1.30) 0.40 MG/DL (0.60-1.30) 0.38 MG/DL (0.60-1.30) Random Glucose 89 MG/DL (74-106) 95 MG/DL (74-106) 122 MG/DL (74-106) Calcium Level 7.5 MG/DL (8.5-10.1) 7.6 MG/DL (8.5-10.1) 7.5 MG/DL (8.5-10.1) Sodium Level 135 MEQ/L (136-145) 136 MEQ/L (136-145) 138 MEQ/L (136-145) Potassium Level 3.4 MEQ/L (3.5-5.1) 3.4 MEQ/L (3.5-5.1) 3.3 MEQ/L (3.5-5.1) Chloride Level 96 MEQ/L (98-107) 96 MEQ/L (98-107) 97 MEQ/L (98-107) Carbon Dioxide Level 31.5 MEQ/L (21.0-32.0) 28.9 MEQ/L (21.0-32.0) 31.2 MEQ/L (21.0-32.0) Anion Gap 8 MEQ/L (5-15) 11 MEQ/L (5-15) 10 MEQ/L (5-15) Estimat Glomerular Filtration Rate 223 ML/MIN (>89) 223 ML/MIN (>89) 237 ML/MIN (>89) Result Diagram: 10/19/17 0627 10/19/17 06 Procedures INTUBATION 10/14/17 . 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 Legal: The patient lacks capacity for decision-making at the time of the initial consultation; it is uncertain whether he will regain capacity if/when he can be extubated. His is the designated HCS. Ethical issues impacting care: None . Important Contacts : Zoraida [phone] Son: Rudy [phone] . Prognosis , He has underlying significant COPD and other comorbidities. His overall prognosis is poor, and he would be appropriate for hospice services if his goals become completely comfort oriented. . Code Status: Alternative Code Plan * ALTERNATE CODE: Per patient's and son 10/17/17. If/when patient is able to be extubated medically, the patient's and son request that he not be reintubated if his respiratory status fails again. They want the focus to stay on comfort at that point. * DECISION-MAKING: The patient lacks capacity for decision-making at this time; it is uncertain whether he will regain capacity if/when he can be extubated. His is the designated HCS. * GOALS: 10/18/17: Discussed at length again with the patient's . She understands that "not much has changed," and she acknowledges that his prognosis remains poor; she notes that he still is having difficulty when on CPAP. She is hopeful that he will still be able to be medically extubated. * The patient's again confirms that they do NOT want the patient reintubated if he has respiratory failure again after/if/when he is able to be medically extubated. They do note that the patient has chronic pain, and they would want the focus to stay on comfort so that he is not suffering in his last hours or days. * SYMPTOMS: The patient has chronic neck/back pain and has been on opiates for years; I have added some PRN morphine orders for pain or dyspnea (may be required when he is more alert, or when his respiratory status fails in the future). The patient's dyspnea is being managed with mechanical ventilation at this point in time. I have no other new medication recommendations. * Palliative Care will continue to follow the patient during this hospitalization. . Time Spent Total Floor Time (mins): 39 Face to Face Time (mins): 20 >50% Counseling/Coord of Care: Yes Attestation To help prompt me to consider important information that might be impacting today's encounter and assessment, information from prior notes written by myself or my colleagues may have been "brought forward" into today's note. My signature on this note, however, is an attestation that I personally performed the exam, history, and/or decision-making noted today, and, unless otherwise indicated, the interactions with patient, family, and staff as well as the review of records all occurred today. I also attest that the listed assessment and stated plan reflect my best clinical judgment today based on the combination of historical information, prior notes, and today's exam/ interactions. When time spent is documented, it refers only to time spent today by the signer, or if indicated, combined time spent today by collaborating physician/nurse practitioner. Amaya Lloyd MD Oct 19, 2017 16:08
[2017-10-19] MEDS: TAMSULOSIN HCL 0.4 MG CAP PO SCH (21:00)
[2017-10-19] MEDS: methylPREDNISolone SOD SUCC 40 MG/1 ML VIAL IV PUSH SCH (21:54)
--- NOTE | 2017-10-19 23:56 | PD.ONC.PN ---
Subjective Subjective Remarks Intubated and sedated. Wakes up, follows commands. Objective Data Date Time Temp Pulse Resp B/P (MAP) Pulse Ox O2 Delivery O2 Flow Rate FiO2 10/19/17 22:13 100 35 10/19/17 21:24 98.8 104 20 128/90 100 10/19/17 20:18 98.4 107 13 125/90 100 10/19/17 20:00 110 10/19/17 20:00 35 10/19/17 19:00 100 Mechanical Ventilator 35 10/19/17 18:00 100 10/19/17 17:20 100 35 10/19/17 16:11 35 10/19/17 16:00 40 10/19/17 16:00 103 10/19/17 14:00 102 10/19/17 12:41 100 35 10/19/17 12:00 40 10/19/17 12:00 108 10/19/17 10:58 99.7 107 23 105/68 100 10/19/17 10:00 103 10/19/17 08:00 40 10/19/17 08:00 100 10/19/17 07:00 99 Mechanical Ventilator 35 10/19/17 06:00 107 10/19/17 04:45 100 35 10/19/17 04:00 101 10/19/17 04:00 100.0 101 20 88/60 (69) 96 10/19/17 04:00 40 10/19/17 02:00 98 10/19/17 01:00 100 35 10/19/17 00:00 99.7 90 20 90/58 (69) 94 10/19/17 00:00 90 10/19/17 00:00 40 Result Diagram: 10/19/17 0627 10/19/17 0627 Laboratory Results Laboratory Tests Test 10/19/17 06:27 White Blood Count 2.7 TH/MM3 Red Blood Count 2.20 MIL/MM3 Hemoglobin 6.7 GM/DL Hematocrit 19.9 % Mean Corpuscular Volume 90.6 FL Mean Corpuscular Hemoglobin 30.4 PG Mean Corpuscular Hemoglobin Concent 33.6 % Red Cell Distribution Width 23.3 % Platelet Count 74 TH/MM3 Mean Platelet Volume 8.5 FL Blood Urea Nitrogen 4 MG/DL Creatinine 0.38 MG/DL Random Glucose 122 MG/DL Calcium Level 7.5 MG/DL Sodium Level 138 MEQ/L Potassium Level 3.3 MEQ/L Chloride Level 97 MEQ/L Carbon Dioxide Level 31.2 MEQ/L Anion Gap 10 MEQ/L Estimat Glomerular Filtration Rate 237 ML/MIN Administered Medications Medications (Trade) Dose Ordered Sig/Kasi Route PRN Reason Start Time Stop Time Status Last Admin Dose Admin Ondansetron HCl (Zofran Inj) 4 mg Q8HR PRN IV PUSH NAUSEA 10/12/17 16:30 10/14/17 13:24 Albuterol Sulfate (Albuterol Neb) 0.63 mg Q4HR NEB PRN NEB SHORTNESS OF BREATH 10/12/17 16:30 10/14/17 23:47 Baclofen (Lioresal) 20 mg BID PO 10/12/17 21:00 10/19/17 21:00 Bupropion HCl (Wellbutrin Sr 12 Hr) 100 mg Q12HR PO 10/12/17 21:00 10/18/17 22:06 Buspirone HCl (Buspar) 15 mg BID PO 10/12/17 21:00 10/19/17 21:54 Gabapentin (Neurontin) 600 mg TID PO 10/12/17 18:00 10/19/17 18:00 Misoprostol (Cytotec) 200 mcg TID PO 10/12/17 18:00 10/19/17 18:00 Montelukast Sodium (Singulair) 10 mg BID PO 10/12/17 21:00 10/19/17 21:54 Spironolactone (Aldactone) 50 mg DAILY PO 10/13/17 09:00 Future Hold 10/14/17 08:44 Tamsulosin HCl (Flomax) 0.4 mg HS PO 10/12/17 21:00 10/18/17 22:06 Pantoprazole Sodium (Protonix) 40 mg DAILY PO 10/13/17 09:00 10/19/17 08:37 Tiotropium [place] (Spiriva Inh) 18 mcg DAILY INH 10/13/17 09:00 10/14/17 08:46 Venlafaxine HCl (Effexor Xr) 225 mg DAILY PO 10/13/17 09:00 10/19/17 08:37 Senna/Docusate Sodium (Jasmine-Colace) 1 tab BID PO 10/13/17 10:30 10/19/17 21:54 Fentanyl Citrate 250 ml @ 5 mls/hr TITRATE PRN IV SEDATION 10/14/17 16:00 10/15/17 12:58 Propofol 100 ml @ 2.508 mls/ hr TITRATE PRN IV SEDATION 10/14/17 16:00 10/19/17 22:00 Lactated Ringer's 1,000 ml @ 60 mls/hr [id number] IV 10/14/17 17:00 10/18/17 12:28 Midazolam HCl 100 ml @ 2 mls/hr TITRATE PRN IV SEDATION 10/15/17 00:00 10/16/17 22:58 Polyethylene Glycol (Miralax) 17 gm BID PO 10/15/17 09:00 10/19/17 08:37 Bisacodyl (Dulcolax Supp) 10 mg DAILY RECTAL 10/15/17 09:00 10/16/17 08:22 Lactulose (Lactulose Liq) 30 ml BID PO 10/15/17 09:00 10/19/17 08:39 Potassium Chloride 100 ml @ 50 mls/hr Q2H PRN IV For Potassium 3.3 - 3.5 mEq/L 10/15/17 07:45 10/18/17 14:17 Dextrose (D50w (Vial) Inj) 25 ml UNSCH PRN IV PUSH HYPOGLYCEMIA-SEE COMMENTS 10/15/17 16:00 10/17/17 21:30 Dextrose 1,000 ml @ 20 mls/hr Q24H IV 10/15/17 16:00 10/18/17 12:29 Morphine Sulfate (Morphine Inj) 2 mg Q1H PRN IV PUSH mod SOB or any pain 1-10 10/17/17 15:15 10/18/17 05:50 Acetaminophen 100 ml @ 400 mls/hr Q6H PRN IV FEVER 10/18/17 06:30 10/18/17 18:04 Methylprednisolone Sodium Succinate (SoluMEDROL INJ) 40 mg Q12HR IV PUSH 10/19/17 21:00 10/19/17 21:54 Sodium Chloride 250 ml @ 15 mls/hr ONCE ONCE IV 10/19/17 09:00 10/20/17 01:39 10/19/17 12:04 Objective Remarks GENERAL: chronically ill appearing man, intubated and sedated SKIN: warm, sweat present HEAD: Normocephalic. EYES: No scleral icterus. No injection or drainage. RESPIRATORY: intubated EXTREMITIES: edema MUSCULOSKELETAL: Adequate muscle tone. NEUROLOGICAL: No obvious focal deficit. follows commands Assessment/Plan Problem List: (1) Non-small cell lung cancer (NSCLC) ICD Codes: C34.90 - Malignant neoplasm of unspecified part of unspecified bronchus or lung Plan: --Patient is status post 4 cycles of chemotherapy with goal of 6 (2) Constipation ICD Codes: K59.00 - Constipation, unspecified Plan: --. KUB from , 10/11, showed a very large amount of stool throughout the colon and mild distended small bowel loops, mostly in the left mid abdomen. Assessment GI: nausea/vomiting, constipation. Improvement in constipation with enema, oral laxatives. Respiratory distress: aspiration during placement of NG. Intubated. Malignancy: s/p treatment with 4 cycles of chemotherapy. Cytopenias: due to chemotherapy and compounded by critical illness, infection. Declining during treatment in outpatinet setting. Palliative care team following. Patient with severe aspiration pneumonitis. Compounded by diffuse pulmonary metastatic disease and poor baseline lung function. Lung function may not be able to recover adn patient may not be able to be extubated. has made patient DNR. Withdraw of care if unable to extubate. Will continue to follow closely with critical care and palliative care teams. Linda Mcmanus MD Oct 19, 2017 23:56
[2017-10-20] VITALS (17 sets, daily range): BP systolic 127–140; BP diastolic 78–95; PULSE 92–122; RESP 15–43; TEMP 98.2–100; O2SAT 43–100
[2017-10-20] MEDS: LACTATED RINGER'S 1000 ML INJ 1,000 ML IV SCH ×2 (00:07→09:16)
[2017-10-20 00:31] LABS: HEMATOCRIT 27.2 % (39.0-51.0); HEMOGLOBIN 9.1 GM/DL (13.0-17.0)
[2017-10-20] MEDS: PROPOFOL 1000 MG/100 ML INJ 100 ML IV PRN ×3 (03:51→14:04)
[2017-10-20] MEDS: INSULIN NovoLIN REGULAR SUPPLEMENTAL SCALE SQ SCH ×6 (05:14→19:49)
[2017-10-20 07:29] LABS: HEMATOCRIT 29.8 % (39.0-51.0); HEMOGLOBIN 9.9 GM/DL (13.0-17.0); MEAN CELL VOLUME 89.1 FL (80.0-100.0); MEAN CORPUSCULAR HEMOGLOBIN 29.4 PG (27.0-34.0); MEAN PLATELET VOLUME 8.7 FL (7.0-11.0); PLATELET COUNT 98 TH/MM3 (150-450); RED BLOOD COUNT 3.35 MIL/MM3 (4.50-5.90); RED CELL DISTRIBUTION WIDTH 21.2 % (11.6-17.2); WHITE BLOOD COUNT 3.7 TH/MM3 (4.0-11.0)
[2017-10-20 07:47] LABS: CALCIUM 7.6 MG/DL (8.5-10.1); CREATININE 0.34 MG/DL (0.60-1.30)
[2017-10-20] MEDS: BISACODYL 10 MG SUPP RECTAL SCH (09:00)
[2017-10-20] MEDS: VENLAFAXINE HCL XR 75 MG CAP PO SCH (09:00)
[2017-10-20] MEDS: buPROPion HCL 100 MG SUSTAINED RELEASE TAB PO SCH ×2 (09:00→21:00)
[2017-10-20] MEDS: TIOTROPIUM BROMIDE 18 MCG INH INH SCH (09:00)
[2017-10-20] MEDS: PANTOPRAZOLE SOD 40 MG DELAYED RELEASE TAB PO SCH (09:00)
--- NOTE | 2017-10-20 09:03 | HHI.CCPN ---
Subjective Remarks/Hospital Course Hospital Course: This is a 57yM with history of stage IV lung cancer, COPD who originally presented on 10/12 for constipation and abdominal pain. Today he felt nauseated. Per report, he had significant vomiting and then acutely had difficulty breathing. Rapid response was called and the patient was transferred emergently to the ICU. I evaluated the patient upon arrival to the ICU- he was in acute respiratory distress, on NRB, tachypneic. I emergently intubated the patient ( see separate procedure note for details). The patient had a large amount of bilious emesis without particulate matter in the hypopharynx which was suctioned prior to intubation. Patient was placed on mechanical ventilation. The patient was severely tachycardic. bedside critical care echocardiogram demonstrated grossly preserved biventricular function with a completely decompressed RV, totally flat and collapsed IVC, no pericardial effusion. I gave 2L LR bolus. I ordered CBC, CMP, lactate, coag, abg as well as stat CT chest/abd/pelvis with IV and PO contrast. Unfortunately, no additional information is available from the patient due to his condition. ROS unobtainable. Subjective: 10/15: still no BM. lactate cleared. appears less dehydrated this AM. remains on ivf and tachycardic, although less tachycardic than yesterday. hypoxemia persists and significant lung injury present on imaging, likely early ARDS from pneumonitis. 10/16: Remains sedated, orally intubated on mechanical ventilation. 10/17: Remains sedated, orally intubated on mechanical ventilation. Had a few bowel movements overnight. 10/18: Remains sedated, orally intubated on mechanical ventilation. 10/19: Sedated, arousable, orally intubated on mechanical ventilation. Hemoglobin 6.7 this morning. 1 unit PRBCs being ordered. Failed CPAP trials yesterday. Palliative care and discussions with family. 10/20: Reasonably alert when sedation is lightened. He became tachypneic on CPAP trial today but it is largely anxiety. He meets criteria for extubation from the ventilator. We can plan for BiPAP if he appears to be struggling but family prefers to avoid BiPAP as it will make him anxious. Objective Vital Signs Date Time Temp Pulse Resp B/P (MAP) Pulse Ox O2 Delivery O2 Flow Rate FiO2 10/20/17 08:03 100 30 10/20/17 06:00 108 10/20/17 04:00 98.6 20 127/89 (102) 10/19/17 19:00 Mechanical Ventilator Intake and Output 10/20/17 10/20/17 10/21/17 08:00 16:00 00:00 Intake Total 100 ml Output Total 950 ml Balance -850 ml Result Diagram: 10/20/17 0644 10/20/17 0644 Imaging Last Impressions Chest X-Ray 10/14/17 0000 Signed Impressions: Service Date/Time: Saturday, October 14, 2017 14:56 - CONCLUSION: Interval intubation and placement of nasogastric tube. Otherwise stable chest Roney Robertson MD Abdomen X-Ray 10/14/17 0000 Signed Impressions: Service Date/Time: Saturday, October 14, 2017 15:14 - CONCLUSION: NG tube in the stomach. Nonspecific bowel gas pattern Roney Robertson MD Objective Remarks gen: cachectic male, looks much older than stated age, intubated, sedated heent: perrl. nc. at. mucous membranes dry neck: no jvd. trachea midline. chest: Orally intubated on mechanical ventilation PRVC, fio2 40%, peep 5. Good air entry bilaterally, scattered rhonchi, no wheezing cv: tachycardic rate, regular rhythm. sinus. rate in the 100s. abd: scaphoid. soft, mildly distended. no guarding. extr: warm, well perfused. no peripheral edema. neuro: Drowsy, arousable, orally intubated on mechanical ventilation, moves all extremities, no focal deficits. Nods head to questions. A/P Assessment and Plan Assessment: 57yM with lung cancer and now acute aspiration pneumonitis and acute hypoxic respiratory failure. remains critically ill. Active Problems: Non-obstructive Ileus Severe constipation Stage IV Lung Cancer Severe Aspiration pneumonitis Acute hypoxic respiratory failure Acute metabolic encephalopathy anemia Plan: remain in ICU. Daily CPAP trials. Failed CPAP trial 10/18. wean fio2 for goal spo2 > 90% low tidal volume ventilation nebs hob elevated vent bundle Solu-Medrol 125 mg IV now and then 40 mg IV every 12 hourly starting 10/19. npo OGT clamped. Will start tube feeds at 20cc/hr and advance to goal if tolerated. propofol for goal RASS -2 appreciate GI consultation-responded with bowel prep. LR 60cc/hr keep felton strict i/o's mag citrate po senna/colace BID lactulose BID miraLAX BID relistor SQ x 1. dulcolax suppository soap suds enema 1 unit PRBCs to be transfused 10/19. No obvious source of blood loss. Consulted palliative care to assist with deciding goals of therapy. Patient's has decided to make him DNR status. Patient's is deciding regarding de-escalation of therapy if patient is unable to be extubated medically. Condition remains critical. Overall impression:Fragile, debilitated, nutritionally depleted man, will be able to tolerate the work of breathing required for successful extubation. Family is adamant that he remain comfortable however, knowledgeable that he may with enough sedation to eliminate his pain and anxiousness. This is the course they unanimously request. Sanjay Ruby MD Oct 20, 2017 09:02
[2017-10-20] MEDS: POLYETHYLENE GLYCOL 17 GM PKG PO SCH ×2 (09:14→21:00)
[2017-10-20] MEDS: MONTELUKAST SODIUM 10 MG TAB PO SCH ×2 (09:15→21:00)
[2017-10-20] MEDS: DOCUSATE SODIUM 50 MG/SENNA 8.6 MG TAB PO SCH ×2 (09:15→21:00)
[2017-10-20] MEDS: busPIRone HCL 5 MG TAB PO SCH ×2 (09:15→21:00)
[2017-10-20] MEDS: GABAPENTIN 300 MG CAP PO SCH ×3 (09:15→18:00)
[2017-10-20] MEDS: LACTULOSE SYRUP 20 GM/30 ML CUP PO SCH ×2 (09:15→21:00)
[2017-10-20] MEDS: BACLOFEN 20 MG TAB PO SCH ×2 (09:16→21:00)
[2017-10-20] MEDS: MISOPROSTOL 200 MCG TAB PO SCH ×3 (09:16→18:00)
[2017-10-20] MEDS: methylPREDNISolone SOD SUCC 40 MG/1 ML VIAL IV PUSH SCH ×2 (09:17→21:00)
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
[2017-10-20] MEDS: ONDANSETRON HCL 4 MG/2 ML VIAL IV PUSH PRN (15:47)
[2017-10-20] MEDS: MORPHINE SULFATE 2 MG/ML SYRINGE IV PUSH PRN ×4 (16:05→19:51)
[2017-10-20] MEDS: LORazepam 2 MG/ML VIAL IV PUSH PRN ×4 (16:05→19:51)
[2017-10-20] MEDS: TAMSULOSIN HCL 0.4 MG CAP PO SCH (21:00)
[2017-10-20] MEDS: HYDROmorphone HCL PF 2 MG/ML VIAL IV PUSH PRN ×2 (21:12→23:17)
[2017-10-21] VITALS: BP 124/77; PULSE 120; PULSE 121; RESP 29; TEMP 98.2; O2SAT 51
[2017-10-21] MEDS: INSULIN NovoLIN REGULAR SUPPLEMENTAL SCALE SQ SCH
[2017-10-21] MEDS: HYDROmorphone HCL PF 2 MG/ML VIAL IV PUSH PRN ×3 (01:55→04:00)
[2017-10-21] MEDS: LORazepam 2 MG/ML VIAL IV PUSH PRN (01:55)
[2017-10-21 02:00] VITALS: PULSE 124
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
== END 2017-10-21 06:31 | disposition expired | DRG 207 ==
LOC: N07B 15:46 → OBSVTOIN 10-14 08:00 → N03A 10-14 15:03
PROVIDERS: ADMIT Internal Medicine Critical Care Medicine; ATTEND Internal Medicine Critical Care Medicine
PROC: 0BH17EZ Insertion of Endotracheal Airway into Trachea, Via Natural or Artificial Opening (ICD-10-PCS; principal; 2017-10-14)
PROC: 5A1955Z Respiratory Ventilation, Greater than 96 Consecutive Hours (ICD-10-PCS; 2017-10-14)
PROC: 30233N1 Transfusion of Nonautologous Red Blood Cells into Peripheral Vein, Percutaneous Approach (ICD-10-PCS; 2017-10-19)
DX: J69.0 Pneumonitis due to inhalation of food and vomit (principal); G93.41 Metabolic encephalopathy; E43 Unspecified severe protein-calorie malnutrition; K92.0 Hematemesis; D61.810 Antineoplastic chemotherapy induced pancytopenia; J96.21 Acute and chronic respiratory failure with hypoxia; R64 Cachexia; C34.90 Malignant neoplasm of unspecified part of unspecified bronchus or lung; J80 Acute respiratory distress syndrome; K56.7 Ileus, unspecified; M34.9 Systemic sclerosis, unspecified; J44.9 Chronic obstructive pulmonary disease, unspecified; Z99.81 Dependence on supplemental oxygen; G62.9 Polyneuropathy, unspecified; J98.6 Disorders of diaphragm; K21.0 Gastro-esophageal reflux disease with esophagitis; M19.90 Unspecified osteoarthritis, unspecified site; Z68.29 Body mass index [BMI] 29.0-29.9, adult; Z66 Do not resuscitate; Z51.5 Encounter for palliative care; G89.29 Other chronic pain; M54.5 Low back pain; M06.9 Rheumatoid arthritis, unspecified; Z79.891 Long term (current) use of opiate analgesic; T45.1X5A Adverse effect of antineoplastic and immunosuppressive drugs, initial encounter; Z87.891 Personal history of nicotine dependence
CPT/HCPCS: 31500; 36430; 36600; 71045; 71260; 74018; 74177; 76937; 80048; 80053; 82140; 82805; 82948; 83010; 83605; 83615; 83690; 83735; 84100; 84132; 85014; 85018; 85025; 85027; 85610; 85730; 86850; 86900; 86901; 86920; 87641; 93005; 94002; 94003; 94640; 94664; 99212; 99213; G0463; G8987-GP; G8988-GP; J0131; J1170; J2060; J2212; J2250; J2270; J2405; J2710; J2920; J2930; J3010; J3475; J3480; J7030; J7050; J7120; J7613; P9016; P9045; Q9963; Q9967